=== PATIENT | male | born 1950 | race Caucasian/White ===

== ENCOUNTER 2020-08-18 10:06 | Outpatient (REF) | payer MEDICARE, SELFPAY ==
[2020-08-18 11:55] LABS: MANUAL DIFF FLAG NO
[2020-08-18 12:11] LABS: Basophils Absolute Auto 0.1 X10*3/uL (0.0-0.2); Basophils Percent Auto 1.1 % (0-2); Eosinophils Absolute Auto 0.5 X10*3/uL (0.0-0.4); Eosinophils Percent Auto 6.3 % (0-4); Hematocrit 45.3 % (42-52); Hemoglobin 15.2 g/dl (14.0-18.0); Imm Gran Abs Auto 0.02 X10*3/uL (0.00-0.03); Imm Gran Pct Auto 0.2 % (0.0-0.4); Lymphocytes Absolute Auto 1.9 X10*3/uL (1.2-4.9); Lymphocytes Percent Auto 22.9 % (20-40); Mean Corpuscular HGB Conc 33.6 g/dl (31.0-36.0); Mean Corpuscular Hemoglobin 30.2 pg (27.0-33.0); Mean Corpuscular Volume 90.1 fL (80-98); Mean Platelet Volume 9.8 fL (9.4-12.4); Monocytes Absolute Auto 0.6 X10*3/uL (0.1-1.2); Monocytes Percent Auto 7.6 % (2-11); Neutrophils Percent Auto 61.9 % (45-73); Platelet Count 533 X10*3/uL (160-400); Red Blood Count 5.03 X10*6/uL (4.60-5.80); Red Cell Distribution Width 12.1 % (11.0-16.0); White Blood Count 8.1 X10*3/uL (4.8-10.8)
[2020-08-18 12:35] LABS: SARS COV2 IgG Negative (Negative)
[2020-08-18 13:13] LABS: Erythrocyte Sedimentation Rate 2 MM/HR (0-15)
== END 2020-08-18 10:07 | disposition home or self-care (01) ==
LOC: HO.LAB 10:06
PROVIDERS: PCP Internal Medicine; Visit Provider Hospitalist
DX: J44.9 Chronic obstructive pulmonary disease, unspecified (principal); J31.0 Chronic rhinitis
CPT/HCPCS: 36415; 82785; 85025; 85652; 86003; 86769; 99212

== ENCOUNTER 2020-12-06 14:15 | Outpatient (REF) | payer MEDICARE, SELFPAY ==
[2020-12-06 15:30] LABS: MANUAL DIFF FLAG NO
[2020-12-06 15:38] LABS: Basophils Absolute Auto 0.1 X10*3/uL (0.0-0.2); Basophils Percent Auto 1.2 % (0-2); Eosinophils Absolute Auto 0.4 X10*3/uL (0.0-0.4); Eosinophils Percent Auto 3.6 % (0-4); Hematocrit 43.5 % (42-52); Hemoglobin 14.9 g/dl (14.0-18.0); Imm Gran Abs Auto 0.04 X10*3/uL (0.00-0.03); Imm Gran Pct Auto 0.4 % (0.0-0.4); Lymphocytes Absolute Auto 2.2 X10*3/uL (1.2-4.9); Lymphocytes Percent Auto 19.7 % (20-40); Mean Corpuscular HGB Conc 34.3 g/dl (31.0-36.0); Mean Corpuscular Hemoglobin 30.8 pg (27.0-33.0); Mean Corpuscular Volume 89.9 fL (80-98); Monocytes Absolute Auto 0.8 X10*3/uL (0.1-1.2); Monocytes Percent Auto 6.7 % (2-11); Neutrophils Absolute Auto 7.7 X10*3/uL (2.0-8.3); Neutrophils Percent Auto 68.4 % (45-73); Platelet Count 591 X10*3/uL (160-400); Red Blood Count 4.84 X10*6/uL (4.60-5.80); Red Cell Distribution Width 12.1 % (11.0-16.0); White Blood Count 11.3 X10*3/uL (4.8-10.8)
== END 2020-12-06 14:16 | disposition home or self-care (01) ==
LOC: HO.LAB 14:15
PROVIDERS: PCP Internal Medicine; Visit Provider Internal Medicine
DX: D47.3 Essential (hemorrhagic) thrombocythemia (principal)
CPT/HCPCS: 36415; 85025

== ENCOUNTER 2021-02-15 10:42 | Outpatient (REF) | payer MEDICARE, SELFPAY ==
--- NOTE | ~2021-02-15 | XR_ITS ---
EXAMINATION: XR CHEST CLINICAL INFORMATION: COPD COMPARISON: None TECHNIQUE: 2 views of the chest were obtained. FINDINGS: The lungs are well-expanded and clear of acute process. The heart size and pulmonary vascularity is normal. No gross bony abnormality seen.. XR/XR chest 2V IMPRESSION: Unremarkable chest examination.
--- NOTE | 2021-02-15 16:19 | PFT_ITS ---
FLOWS: FEV1 of 97% of predicted at 3.32 L. FVC 104% of predicted at 4.81 L. FEV1 to FVC ratio of 0.69. No bronchodilator testing was performed. LUNG VOLUMES: Total lung capacity 103% of predicted at 3.49 L. Residual volume 104% of predicted at 2.60 L. Slow vital capacity 103% of predicted at 4.89 L. Expiratory reserve volume 91% of predicted at 1.24 L. Diffusion capacity is mildly decreased, diffusion capacity adjust to normal after correction for alveolar ventilation. In comparison to pulmonary function test performed in December of 2013, FEV1 and FVC have been without significant changes; total lung capacity has decreased by 0.20 L; residual volume has decreased by 0.34 L; slow vital capacity and expiratory reserve volume have been without significant changes; diffusion capacity has decreased by 0.42 mL/minute/mmHg. IMPRESSION: Mild obstructive ventilatory defect. No bronchodilator testing was performed. MD NED Reed/MODL / [id number]
== END 2021-02-15 10:43 | disposition home or self-care (01) ==
LOC: HO.RESP 10:42
PROVIDERS: PCP Internal Medicine; Visit Provider Hospitalist
DX: J44.9 Chronic obstructive pulmonary disease, unspecified (principal)
CPT/HCPCS: 71046; 94010; 94727; 94729; 99212

== ENCOUNTER 2021-03-20 13:52 | Outpatient (RCR) | payer MEDICARE, SELFPAY ==
[2021-03-20 14:06] VITALS: BP 130/60; PULSE 71; O2SAT 97
== END 2021-08-17 12:40 | disposition home or self-care (01) ==
LOC: HO.PTWFD 13:52
PROVIDERS: Visit Provider Internal Medicine
DX: R42 Dizziness and giddiness (principal)
CPT/HCPCS: 97110; 97161

== ENCOUNTER 2021-06-05 08:17 | Outpatient (REF) | payer MEDICARE, SELFPAY ==
--- NOTE | ~2021-06-05 | FL_ITS ---
EXAMINATION: XR GI SERIES CLINICAL INFORMATION: Dysphagia. COMPARISON: None TECHNIQUE: Upper GI was performed using thin and thick barium and effervescent granules. FINDINGS: There is a small sliding-type hiatal hernia with Schatzki ring. There is mild gastroesophageal reflux. The stomach and duodenum are normal appearing. No fold thickening, mass, ulcer or stricture is seen. FLUOROSCOPY TIME: 1.6 minutes. DOSE AREA PRODUCT: 16 Gy-cm2. IMAGES: 35 saved fluoroscopic images. FL/FL upper GI series IMPRESSION: Small sliding-type hiatal hernia with Schatzki ring and mild gastroesophageal reflux.
[2021-06-05 09:02] LABS: MANUAL DIFF FLAG NO
[2021-06-05 09:17] LABS: Basophils Absolute Auto 0.1 X10*3/uL (0.0-0.2); Basophils Percent Auto 1.3 % (0-2); Eosinophils Absolute Auto 0.6 X10*3/uL (0.0-0.4); Eosinophils Percent Auto 7.7 % (0-4); Hematocrit 42.6 % (42-52); Hemoglobin 14.5 g/dl (14.0-18.0); Imm Gran Abs Auto 0.02 X10*3/uL (0.00-0.03); Imm Gran Pct Auto 0.3 % (0.0-0.4); Lymphocytes Percent Auto 25.1 % (20-40); Mean Corpuscular Hemoglobin 30.5 pg (27.0-33.0); Mean Corpuscular Volume 89.5 fL (80-98); Mean Platelet Volume 9.8 fL (9.4-12.4); Monocytes Absolute Auto 0.7 X10*3/uL (0.1-1.2); Neutrophils Absolute Auto 4.5 X10*3/uL (2.0-8.3); Neutrophils Percent Auto 56.6 % (45-73); Platelet Count 587 X10*3/uL (160-400); Red Blood Count 4.76 X10*6/uL (4.60-5.80); Red Cell Distribution Width 12.2 % (11.0-16.0); White Blood Count 7.9 X10*3/uL (4.8-10.8)
[2021-06-05 09:58] LABS: Folate 18.7 ng/mL (> or = 4.0); Vitamin B12 1300 pg/mL (200-900)
[2021-06-05 11:03] LABS: Alanine Aminotransferase 31 U/L (0-40); Albumin Level 4.2 g/dL (3.5-5.0); Alkaline Phosphatase 49 U/L (39-117); Anion Gap 10 (12-20); Aspartate Amino Transferase 36 U/L (5-37); Bilirubin Total 0.8 mg/dL (0.0-1.0); Blood Urea Nitrogen 18 mg/dL (9-16); Calcium 9.2 mg/dL (8.4-10.2); Carbon Dioxide 28 mmol/L (22-29); Chloride 104 mmol/L (96-108); Cholesterol 134 mg/dL; Estimated Glomerular Filt Rate > 60; Glucose Random 88 mg/dL (60-115); HDL Cholesterol 41 mg/dL; LDL Cholesterol Calculated 77 mg/dl; Potassium 5.4 mmol/L (3.3-5.1); Sodium 137 mmol/L (135-145); Total Protein 6.7 g/dL (6.5-8.0); Triglycerides 81 mg/dL
[2021-06-05 11:29] LABS: Free T4 (Free Thyroxine) 0.94 ng/dL (0.71-1.85); Thyroid Stimulating Hormone 1.78 uIU/mL (0.32-4.0)
[2021-06-05 12:45] LABS: Prostate Specific Antigen Scr 2.74 ng/mL (<0.05-4.0)
== END 2021-06-05 08:18 | disposition home or self-care (01) ==
LOC: HO.XRAY 08:17
PROVIDERS: PCP Internal Medicine; Visit Provider Internal Medicine
DX: Z12.5 Encounter for screening for malignant neoplasm of prostate (principal); R13.10 Dysphagia, unspecified; E78.00 Pure hypercholesterolemia, unspecified
CPT/HCPCS: 36415; 74240; 80053; 80061; 82607; 82746; 84153; 84439; 84443; 85025

== ENCOUNTER 2021-06-19 08:06 | Outpatient (REF) | payer MEDICARE, SELFPAY ==
[2021-06-19 09:16] LABS: Anion Gap 9 (12-20); Blood Urea Nitrogen 16 mg/dL (9-16); Calcium 9.5 mg/dL (8.4-10.2); Carbon Dioxide 29 mmol/L (22-29); Chloride 104 mmol/L (96-108); Estimated Glomerular Filt Rate > 60; Glucose Random 101 mg/dL (60-115); Potassium 5.1 mmol/L (3.3-5.1); Sodium 137 mmol/L (135-145)
== END 2021-06-19 08:07 | disposition home or self-care (01) ==
LOC: HO.LAB 08:06
PROVIDERS: PCP Internal Medicine; Visit Provider Internal Medicine
DX: E87.5 Hyperkalemia (principal)
CPT/HCPCS: 36415; 80048

== ENCOUNTER 2021-07-19 11:50 | Outpatient (REF) | payer MEDICARE, SELFPAY ==
[2021-07-19 14:39] LABS: Appearance Urine CLEAR; Color Urine YELLOW; Glucose Urine UA NEG (NEG); Leukocyte Esterase Urine NEG (NEG); Nitrite Urine NEG (NEG); Urine Blood NEG (NEG); Urine Ketones NEG (NEG); Urine Protein NEG (NEG-TRACE)
[2021-07-19 15:10] LABS: RBC Urine 0-2 /HPF (0); Urine Talc Crystals 1+ /LPF; WBC Urine 0 /HPF (0-4)
== END 2021-07-19 11:51 | disposition home or self-care (01) ==
LOC: HO.LAB 11:50
PROVIDERS: PCP Internal Medicine; Visit Provider Internal Medicine
DX: N40.0 Benign prostatic hyperplasia without lower urinary tract symptoms (principal)
CPT/HCPCS: 81001

== ENCOUNTER → 2021-07-30 13:54 | Outpatient (BNVA) | payer MEDICARE, SELFPAY | PROVIDERS: PCP Internal Medicine; Referring Provider Internal Medicine; Visit Provider Nurse Practitioner Family | DX: K21.9 Gastro-esophageal reflux disease without esophagitis (principal); K44.9 Diaphragmatic hernia without obstruction or gangrene; R13.10 Dysphagia, unspecified | CPT/HCPCS: 99202 ==

== ENCOUNTER 2021-08-08 14:49 | Outpatient (REF) | payer MEDICARE, SELFPAY ==
[2021-08-08 16:50] LABS: Hematocrit 43.7 % (42.0-52.0); Hemoglobin 14.9 g/dl (14.0-18.0); Mean Corpuscular HGB Conc 34.1 g/dl (31.0-36.0); Mean Corpuscular Hemoglobin 30.5 pg (27.0-33.0); Mean Corpuscular Volume 89.4 fL (80.0-98.0); Platelet Count 683 X10*3/uL (160-400); Red Blood Count 4.89 X10*6/uL (4.60-5.80); Red Cell Distribution Width 12.4 % (11.0-16.0); White Blood Count 9.3 X10*3/uL (4.8-10.8)
[2021-08-08 17:00] LABS: Anion Gap 11 (12-20); Blood Urea Nitrogen 23 mg/dL (9-16); Calcium 9.2 mg/dL (8.4-10.2); Carbon Dioxide 29 mmol/L (22-29); Chloride 101 mmol/L (96-108); Estimated Glomerular Filt Rate > 60; Glucose Random 95 mg/dL (60-115); Potassium 5.3 mmol/L (3.3-5.1); Sodium 136 mmol/L (135-145)
[2021-08-09 22:27] LABS: Cyclic Citrullinated Peptide <16 UNITS
== END 2021-08-08 14:50 | disposition home or self-care (01) ==
LOC: HO.HMGCLDS 14:49
PROVIDERS: Visit Provider Internal Medicine
DX: I10 Essential (primary) hypertension (principal)
CPT/HCPCS: 36415; 80048; 85027; 86200

== ENCOUNTER → 2021-08-23 09:56 | Outpatient (BNVA) | payer MEDICARE, SELFPAY | PROVIDERS: PCP Internal Medicine; Visit Provider Hospitalist | DX: J44.9 Chronic obstructive pulmonary disease, unspecified (principal); J31.0 Chronic rhinitis; R91.8 Other nonspecific abnormal finding of lung field | CPT/HCPCS: 99212 ==

== ENCOUNTER 2021-08-28 08:53 | Day surgery (SDC) | payer MEDICARE, SELFPAY ==
[2021-08-23 10:12] VITALS: BMI 26.6
--- NOTE | 2021-08-27 12:45 | HO.ANESPROP2 ---
Documented by User: Karley Dela Cruz NP 08/27/21 12:53 HPI - Anesthesia Eval Consult details Narrative: 71yo M for Upper Endoscopy [facility] Active Problems Active Problems: All Active Problems (Updated 06/05/21 @ 13:39 by Patricia Michel MD) Hyperkalemia (Acute) Dysphagia (Acute) Anxiety (Acute) Left knee pain (Acute) Pulmonary nodules (Acute) Vertigo (Acute) Thrombocytosis (Acute) Hypercholesterolemia (Acute) Hypertension (Acute) BPH (benign prostatic hyperplasia) (Acute) Chronic rhinitis (Acute) Asthma-COPD overlap syndrome (Acute) Past Medical History Medical History Asthma-COPD overlap syndrome BPH (benign prostatic hyperplasia) Chronic rhinitis Hypercholesterolemia Hypertension Pulmonary nodules Family History Family History Father Lung cancer Mother Hypertension Brother Brain cancer Daughter In good health Surgical History Surgical History History of knee surgery Hx of colonoscopy Social History Social History Housing: House Alcohol intake: never Patient Tobacco Use Status: Former Tobacco user Tobacco use type: Cigarette Years Smoked: 10 years e-Cigarette/Vaping Use: Never Used Second Hand Smoke Exposure: No Use of substances other than those prescribed or required for medical reasons: No Are you DNR?: No Advance Directives: No Advance Directives Information Provided: Yes service: No 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) Meds Allergies Allergy/AdvReac Type Severity Reaction Status Date / Time lisinopril Allergy Severe cough Verified 08/28/21 09:26 codeine [CODEINE] Allergy Intermediate GI UPSET, Verified 08/28/21 09:26 nausea/vomiting Home Medications Medication Instructions Recorded Confirmed Last Taken Type multivitamin 1 tab PO DAILY 08/08/21 Unknown History omega-3 fatty acids 1,000 mg 1,000 mg PO DAILY 08/08/21 08/27/21 10:00 History capsule aspirin 81 mg 08/28/21 08/26/21 10:00 History Exam Exam Date and Time: August 27, 2021 1245 Height,Weight and Vital Signs: Height 5 ft 11 in Weight 86.636 kg Pertinent Lab Results Pertinent Lab Results: Laboratory Tests 08/08/21 08/08/21 14:59 14:59 WBC 9.3 Hgb 14.9 Hct 43.7 Plt Count 683 H Sodium 136 Potassium 5.3 H Chloride 101 Carbon Dioxide 29 BUN 23 H Creatinine 1.12 Narrative Narrative: PFT 02/2021 IMPRESSION:? Mild obstructive ventilatory defect.? No bronchodilator testing was performed. Assessment and Plan Assessment Anesthesia Assessment: Chart Reviewed Documented by User: Julius Rodriguez MD 08/28/21 10:08 [facility] Past Medical History Medical History Asthma-COPD overlap syndrome BPH (benign prostatic hyperplasia) Chronic rhinitis Hypercholesterolemia Hypertension Pulmonary nodules Family History Family History Father Lung cancer Mother Hypertension Brother Brain cancer Daughter In good health Family history of problems with anesthesia: No Surgical History Surgical History History of knee surgery Hx of colonoscopy History of Problems with Anesthesia: Yes (PONV) Social History Social History Housing: House Alcohol intake: never Patient Tobacco Use Status: Former Tobacco user Tobacco use type: Cigarette Years Smoked: 10 years e-Cigarette/Vaping Use: Never Used Second Hand Smoke Exposure: No Use of substances other than those prescribed or required for medical reasons: No Are you DNR?: No Advance Directives: No Advance Directives Information Provided: Yes service: No 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) Meds Allergies Allergy/AdvReac Type Severity Reaction Status Date / Time lisinopril Allergy Severe cough Verified 08/28/21 09:26 codeine [CODEINE] Allergy Intermediate GI UPSET, Verified 08/28/21 09:26 nausea/vomiting Home Medications Medication Instructions Recorded Confirmed Last Taken Type multivitamin 1 tab PO DAILY 08/08/21 Unknown History omega-3 fatty acids 1,000 mg 1,000 mg PO DAILY 08/08/21 08/27/21 10:00 History capsule aspirin 81 mg 08/28/21 08/26/21 10:00 History Exam Airway Mallampati Class: II TM Dist: >3cm Neck ROM: Full Loose/Missing/Broken Teeth: No Assessment and Plan Assessment Anesthesia Assessment: Anesthesia Plan Discussed Final Anesthetic Review Family History of Problems with Anesthesia: No History of Problems with Anesthesia: Yes (PONV) NPO: Yes ASA Class: III Final Preanesthetic Review: No Changes in Pt Med Stat, Meds/Allgs Chart Reviewed, Consent Obtained/Reviewed and Anes Risks/Benef Reviewed Patient Risk: Intermediate Procedure Risk: Low Anesthetic Plan Anesthetic Plan: MAC: Disposition: Standard PACU
[2021-08-28 09:33] VITALS: BP 145/78; PULSE 74; RESP 20; TEMP 37; O2SAT 97
[2021-08-28] MEDS: Lactated Ringers 1,000 ML 100 ML IVCONT (09:45)
--- NOTE | 2021-08-28 10:42 | MHC.SHP ---
Pre-Procedural Eval Section A Date of Service: 08/28/21 The patient is an INPATIENT: No Changes since office visit: Yes Patient answered all questions; No Cold of Flu in the past 2 weeks, No New Medical Problems and No Changes in Medication The History & Physical has been completed within 30 days and I have reviewed it.: Yes Section B Chief Complaint: epigastric pain Allergies: Allergies Allergy/AdvReac Type Severity Reaction Status Date / Time lisinopril Allergy Severe cough Verified 08/28/21 09:26 codeine [CODEINE] Allergy Intermediate GI UPSET, Verified 08/28/21 09:26 nausea/vomiting Plan I have reviewed the history and physical and performed a pertinent physical examination on my patient. No changes have occurred unless specified.
--- NOTE | 2021-08-28 10:46 | P.BOP_ITS ---
Brief Operative Note Date of Service: 08/28/21 Pre-op diagnosis: GERD, dysphagia, dyspepsia, Shatzki's ring on barium swallow Post-op diagnosis: other (GERD, SCHATZKI'S RING, GASTRITIS) Procedure: FLEXIBLE TRANSORAL UPPER GASTROINTESTINAL ENDOSCOPY WITH BIOPSIES AND ESOPHAGEAL BALLOON DILATION Consent: Indications for the procedure and potential complications of bleeding, perforation, reaction to medications and missed diagnosis were discussed with the patient and informed consent was obtained. Instrument: Olympus GIF H 190 mid size upper endoscope Monitoring: Vital signs and clinical assessment, continuous EKG monitoring, Pulse oximetry, Carbon Dioxide monitoring and blood pressure monitoring were done throughout the procedure. Procedure: The patient was placed in the left lateral decubitis position and pre-procedure medications were administered and a bite block was placed. The endoscope was inserted into the mouth and advanced under direct vision to the third part of duodenum. A careful inspection was made as the upper endoscope was withdrawn including a retroflexed examination of the proximal stomach; Findings and interventions are described below. Findings: Larynx: Normal Esophagus: Tortuous esophagus with increased tertiary contractions - biopsies obtained from proximal esophagus to check for EOE. GE junction at 38 cms, small hiatal hernia 38 to 40 cms. No esophagitis or Barrios's. A minimally obstructing Schatzki's ring at GE junction. Balloon dilation was performed with 19 and 20 mm CRE balloon times 60 seconds at each level Stomach: Mild gastric erythema. Biopsies were obtained. Grade 2 flap valve on retroflexed examination of the cardia. Duodenum: Normal bulb and descending duodenum Intervention: Biopsies and balloon dilation as noted above Impression and Post Procedure Diagnosis: Endoscopy Findings: ESOPHAGUS: Tortuous esophagus with increased tertiary contractions - biopsies obtained from proximal esophagus to check for EOE. GE junction at 38 cms, small hiatal hernia 38 to 40 cms. No esophagitis or Barrios's. A minimally obstructing Schatzki's ring at GE junction. Balloon dilation was performed with 19 and 20 mm CRE balloon times 60 seconds at each level STOMACH: Mild gastritis Dysphagia is likely a combination of Schatzki's ring and esophageal motility disorder. Plan: Await pathology results Patient has an appointment on 09/11/21 in the GI Clinic with Isabell Lilly FNP- BC . Above findings were reviewed with the patient and GERD handout was given in the discharge area Surgeon: Hetal Rangel MD Anesthesia: MAC (Hailey Herrera CRNA) Was an Workday Manager used for this Procedure?: Yes Workday Manager: Nena Rivera Estimated blood loss (mL): 0 Pathology: other ( A. GASTRIC ANTRUM BX'S R/O H. PYLORI B. PROXIMAL ESOPHAGUS BX'S R/O EOE) Condition: stable Disposition: PACU
--- NOTE | 2021-08-28 10:47 | W.PM.OPN ---
Operative Note Operative Note Date of Service: 08/28/21 Narrative: Pre-op diagnosis:?GERD, dysphagia, dyspepsia, Shatzki's ring on barium swallow Post-op diagnosis:?other (GERD, SCHATZKI'S RING, GASTRITIS) Procedure:? FLEXIBLE TRANSORAL UPPER GASTROINTESTINAL? ENDOSCOPY WITH BIOPSIES AND ESOPHAGEAL BALLOON DILATION Consent:?Indications for the procedure and potential complications of bleeding, perforation, reaction to medications and missed diagnosis were discussed with the patient and informed consent was obtained. Instrument:?Olympus GIF H 190 mid size upper endoscope Monitoring: Vital signs and clinical assessment, continuous EKG monitoring, Pulse oximetry, Carbon Dioxide monitoring and blood pressure monitoring were done throughout the procedure. Procedure:?The patient was placed in the left lateral decubitis position and pre-procedure medications were administered and a bite block was placed. The endoscope was inserted into the mouth and advanced under direct vision to the third part of duodenum. A careful inspection was made as the upper endoscope was withdrawn including a retroflexed examination of the proximal stomach; Findings and interventions are described below. Findings: Larynx:? Normal Esophagus:? Tortuous esophagus with increased tertiary contractions - biopsies obtained from proximal esophagus to check for EOE.? GE? junction at 38 cms, small hiatal hernia 38 to 40 cms.? No esophagitis or Barrios's.? A minimally obstructing Schatzki's ring at GE junction.? Balloon dilation was performed with 19 and 20 mm CRE balloon times 60 seconds at each level Stomach: Mild gastric erythema. Biopsies were obtained. Grade 2 flap valve on retroflexed examination of the cardia. Duodenum: Normal bulb and descending duodenum Intervention: Biopsies and balloon dilation as noted above Impression and Post Procedure Diagnosis: Endoscopy Findings: ESOPHAGUS: Tortuous esophagus with increased tertiary contractions - biopsies obtained from proximal esophagus to check for EOE.? GE? junction at 38 cms, small hiatal hernia 38 to 40 cms.? No esophagitis or Barrios's.? A minimally obstructing Schatzki's ring at GE junction.? Balloon dilation was performed with 19 and 20 mm CRE balloon times 60 seconds at each level STOMACH: Mild gastritis Dysphagia is likely a combination of Schatzki's ring and esophageal motility disorder. Plan: Await pathology results Patient has an appointment on 09/11/21 in the GI Clinic with Isabell Lilly FNP-BC . Above findings were reviewed with the patient and GERD handout was given in the discharge area Surgeon:?Hetal Rangel MD Anesthesia:?MAC (Hailey Herrera CRNA) Was an Director Of Veterans Affairs used for this Procedure?:?Yes Director Of Veterans Affairs:?Nena Rivera Estimated blood loss (mL):?0 Pathology:?other ( A. GASTRIC ANTRUM BX'S R/O H. PYLORI? B. PROXIMAL ESOPHAGUS BX'S R/O EOE) Condition:?stable Disposition:?PACU
[2021-08-28 11:20] VITALS: BP 114/68; PULSE 72; RESP 16; TEMP 36.4; O2SAT 96
[2021-08-28 11:35] VITALS: BP 130/73; PULSE 65; RESP 16; TEMP 36.4; O2SAT 96
[2021-08-28 11:46] VITALS: BP 123/72; PULSE 62; RESP 16; O2SAT 96
== END 2021-08-28 12:30 | disposition home or self-care (01) ==
PROVIDERS: PCP Internal Medicine; Visit Provider Internal Medicine Gastroenterology
PROC: 0DJ08ZZ Inspection of Upper Intestinal Tract, Via Natural or Artificial Opening Endoscopic (ICD-10-PCS; CPT 43235; principal; 2021-08-28 10:10)
DX: R10.13 Epigastric pain (principal); K22.2 Esophageal obstruction; K29.50 Unspecified chronic gastritis without bleeding; K21.9 Gastro-esophageal reflux disease without esophagitis; K44.9 Diaphragmatic hernia without obstruction or gangrene; J44.9 Chronic obstructive pulmonary disease, unspecified; J31.0 Chronic rhinitis; I10 Essential (primary) hypertension; E87.5 Hyperkalemia; R91.8 Other nonspecific abnormal finding of lung field; Z79.51 Long term (current) use of inhaled steroids; Z79.82 Long term (current) use of aspirin; Z79.899 Other long term (current) drug therapy; Z88.8 Allergy status to other drugs, medicaments and biological substances; Z87.891 Personal history of nicotine dependence
CPT/HCPCS: 43249; 43239; 88305; 88342; C1726; J3010

== ENCOUNTER → 2021-09-07 13:01 | Outpatient (BNV) | payer MEDICARE, SELFPAY | PROVIDERS: PCP Internal Medicine; Referring Provider Internal Medicine; Visit Provider Internal Medicine Medical Oncology | DX: D47.3 Essential (hemorrhagic) thrombocythemia (principal) | CPT/HCPCS: 99203; 99213 ==

== ENCOUNTER → 2021-09-11 13:45 | Outpatient (BNVA) | payer MEDICARE, SELFPAY | PROVIDERS: PCP Internal Medicine; Referring Provider Internal Medicine; Visit Provider Nurse Practitioner Family | DX: K22.2 Esophageal obstruction (principal); K21.9 Gastro-esophageal reflux disease without esophagitis; R13.19 Other dysphagia | CPT/HCPCS: 99212 ==

== ENCOUNTER 2021-10-22 10:51 | Outpatient (REF) | payer MEDICARE, SELFPAY ==
--- NOTE | ~2021-10-22 | CT_ITS ---
EXAMINATION: CT CHEST WITHOUT CONTRAST CLINICAL INFORMATION: Pulmonary nodules COMPARISON: None TECHNIQUE: Multidetector volumetric CT imaging of the chest was done. Axial MIP volume rendering provided. Sagittal and coronal reformatted images were obtained. This CT examination was performed using dose optimization techniques as appropriate, variously including the following: *Automated exposure control *Adjustment of mA and/or kV according to patient size (this includes techniques or standardized protocols for targeted exams where dose is matched to indication/reason for exam; i.e. extremities or head) *Use of iterative reconstruction technique DLP: 180 mGy-cm FINDINGS: LUNGS/PLEURA: Biapical pleural parenchymal scarring. Mild emphysematous changes. 4 mm nodule in the posterior aspect of the right upper lobe (series 7, image 190). 2 mm nodule in the medial aspect of the right lower lobe (series 7, image 294). 2 mm nodule in the anterior aspect of the left upper lobe (series 7, image 148). 3 mm nodule in the posterolateral subpleural region of the left lower lobe (series 7, image 405). Central airways are patent. No pneumothorax. Bibasilar atelectasis. No large pleural effusion. MEDIASTINUM: Heart is not enlarged. No pericardial effusion. Aorta is nonaneurysmal. Main pulmonary artery is not enlarged. Coronary artery calcifications are noted. No enlarged lymph nodes per size criteria. Multiple subcentimeter tracheal, precarinal, and periaortic lymph nodes are noted, not enlarged per size criteria. Visualized portions of the thyroid are unremarkable. AXILLA: Bilateral mildly prominent though not enlarged axillary lymph nodes are noted the largest measuring up to 7 mm in short axis. UPPER ABDOMEN: Mild fecal loading of the colon. Small to moderate hiatal hernia. OSSEOUS STRUCTURES: Slight dextrocurvature of the thoracic spine. Mild multilevel degenerative changes of the thoracolumbar spine. No large lytic or blastic lesions are noted. CT/CT chest wo con IMPRESSION: 1. Bilateral micropulmonary nodules are identified the largest measuring 4 mm. Follow-up as per Fleischner criteria. 2. Small to moderate hiatal hernia. Various management parameters for solitary pulmonary nodules are in the literature. According to the Fleischner Society, recommendations for pulmonary nodules are as follows: According to the UPDATED 2017 Fleischner Society recommendations, the advised follow-up imaging for solid nodules < 6 mm is: LOW RISK PATIENT: No routine follow-up. HIGH RISK PATIENT: Optional CT at 12 months.
== END 2021-10-22 10:52 | disposition home or self-care (01) ==
LOC: HO.CT 10:51
PROVIDERS: PCP Internal Medicine; Visit Provider Hospitalist
DX: R91.8 Other nonspecific abnormal finding of lung field (principal); K44.9 Diaphragmatic hernia without obstruction or gangrene
CPT/HCPCS: 71250

== ENCOUNTER → 2021-11-21 10:06 | Outpatient (BNVA) | payer MEDICARE, SELFPAY | PROVIDERS: PCP Internal Medicine; Visit Provider Hospitalist | DX: J44.9 Chronic obstructive pulmonary disease, unspecified (principal); J31.0 Chronic rhinitis; R91.8 Other nonspecific abnormal finding of lung field | CPT/HCPCS: 99212 ==

== ENCOUNTER → 2021-12-10 13:24 | Outpatient (BNVA) | payer MEDICARE, SELFPAY | PROVIDERS: PCP Internal Medicine; Referring Provider Internal Medicine; Visit Provider Nurse Practitioner Family | DX: K22.2 Esophageal obstruction (principal); K21.9 Gastro-esophageal reflux disease without esophagitis; R13.19 Other dysphagia | CPT/HCPCS: 99212 ==

== ENCOUNTER 2021-12-14 15:24 | Outpatient (REF) | payer MEDICARE, SELFPAY ==
[2021-12-14 15:52] LABS: MANUAL DIFF FLAG NO
[2021-12-14 16:14] LABS: Basophils Absolute Auto 0.2 X10*3/uL (0.0-0.2); Basophils Percent Auto 1.3 % (0-2); Eosinophils Absolute Auto 0.4 X10*3/uL (0.0-0.4); Eosinophils Percent Auto 3.6 % (0-4); Hematocrit 42.2 % (42.0-52.0); Hemoglobin 14.1 g/dl (14.0-18.0); Imm Gran Abs Auto 0.05 X10*3/uL (0.00-0.03); Imm Gran Pct Auto 0.4 % (0.0-0.4); Lymphocytes Absolute Auto 1.9 X10*3/uL (1.2-4.9); Lymphocytes Percent Auto 16.2 % (20-40); Mean Corpuscular HGB Conc 33.4 g/dl (31.0-36.0); Mean Corpuscular Hemoglobin 29.9 pg (27.0-33.0); Mean Corpuscular Volume 89.4 fL (80.0-98.0); Mean Platelet Volume 10.1 fL (9.4-12.4); Monocytes Absolute Auto 0.8 X10*3/uL (0.1-1.2); Monocytes Percent Auto 6.9 % (2-11); Neutrophils Absolute Auto 8.5 x10*3/uL (2.0-8.3); Neutrophils Percent Auto 71.6 % (45-73); Platelet Count 716 X10*3/uL (160-400); Red Blood Count 4.72 X10*6/uL (4.60-5.80); Red Cell Distribution Width 12.6 % (11.0-16.0); White Blood Count 11.8 X10*3/uL (4.8-10.8)
[2021-12-14 17:00] LABS: Alanine Aminotransferase 34 U/L (0-40); Albumin Level 4.3 g/dL (3.5-5.0); Alkaline Phosphatase 56 U/L (39-117); Anion Gap 14 (12-20); Aspartate Amino Transferase 38 U/L (5-37); Bilirubin Total 0.6 mg/dL (0.0-1.0); Blood Urea Nitrogen 19 mg/dL (9-16); Calcium 9.5 mg/dL (8.4-10.2); Carbon Dioxide 27 mmol/L (22-29); Chloride 101 mmol/L (96-108); Estimated Glomerular Filt Rate > 60; Glucose Random 86 mg/dL (60-115); Potassium 5.6 mmol/L (3.3-5.1); Sodium 136 mmol/L (135-145); Total Protein 7.2 g/dL (6.5-8.0)
[2021-12-14 17:05] LABS: Erythrocyte Sedimentation Rate 2 MM/HR (0-15)
[2021-12-17 19:07] LABS: Immunoglobulin E 83 kU/L (<OR=114)
== END 2021-12-14 15:25 | disposition home or self-care (01) ==
LOC: HO.LAB 15:24
PROVIDERS: Absent Provider Internal Medicine; PCP Internal Medicine; Visit Provider Hospitalist
DX: E87.5 Hyperkalemia (principal); D47.3 Essential (hemorrhagic) thrombocythemia; R91.8 Other nonspecific abnormal finding of lung field
CPT/HCPCS: 36415; 80053; 82785; 85025; 85652

== ENCOUNTER 2022-01-14 12:40 | Outpatient (REF) | payer MEDICARE, SELFPAY ==
[2022-01-14 13:58] LABS: Anion Gap 14 (12-20); Blood Urea Nitrogen 19 mg/dL (9-16); Calcium 9.6 mg/dL (8.4-10.2); Carbon Dioxide 25 mmol/L (22-29); Chloride 103 mmol/L (96-108); Estimated Glomerular Filt Rate > 60; Glucose Random 76 mg/dL (60-115); Potassium 5.6 mmol/L (3.3-5.1); Sodium 136 mmol/L (135-145)
== END 2022-01-14 12:41 | disposition home or self-care (01) ==
LOC: HO.LAB 12:40
PROVIDERS: PCP Internal Medicine; Visit Provider Internal Medicine
DX: E78.5 Hyperlipidemia, unspecified (principal)
CPT/HCPCS: 36415; 80048

== ENCOUNTER → 2022-07-23 15:20 | Outpatient (BNVA) | payer MEDICARE, SELFPAY | PROVIDERS: PCP Internal Medicine; Visit Provider Hospitalist | DX: J44.0 Chronic obstructive pulmonary disease with (acute) lower respiratory infection (principal); U07.1 COVID-19 | CPT/HCPCS: Q3014 ==

== ENCOUNTER 2022-08-06 10:45 | Outpatient (REF) | payer MEDICARE, SELFPAY ==
--- NOTE | ~2022-08-06 | XR_ITS ---
EXAMINATION: XR CHEST CLINICAL INFORMATION: Covid infection COMPARISON: Previous chest x-ray February [address] October 2021 TECHNIQUE: 2 views of the chest were obtained. FINDINGS: No significant abnormality is noted involving the heart, lungs, mediastinum, bony thorax or soft tissues. Small pulmonary nodules seen by chest CT are not appreciated by chest x-ray. Mild degenerative changes of the spine. XR/XR chest 2V IMPRESSION: No evidence for acute disease in the chest.
== END 2022-08-06 10:46 | disposition home or self-care (01) ==
LOC: HO.XRAY 10:45
PROVIDERS: PCP Internal Medicine; Visit Provider Internal Medicine
DX: U07.1 COVID-19 (principal)
CPT/HCPCS: 71046

== ENCOUNTER → 2022-08-21 11:25 | Outpatient (BNVA) | payer MEDICARE, SELFPAY | PROVIDERS: PCP Internal Medicine; Visit Provider Nurse Practitioner Family | DX: R13.19 Other dysphagia (principal); K59.00 Constipation, unspecified | CPT/HCPCS: 99212 ==

== ENCOUNTER 2022-11-12 12:43 | Outpatient (REF) | payer MEDICARE, SELFPAY ==
--- NOTE | 2022-11-12 16:25 | PFT_ITS ---
FINDINGS: Forced vital capacity 89%, FEV1 83%, and FEV1/FVC ratio is 68. PMD34-47 58% and MVV 94%. Postbronchodilator therapy, there is a slight improvement in [id number]. Total lung capacity 94%. Residual volume 101%. Diffusion capacity 71%. CONCLUSION: 1. Mild obstructive airway disorder. 2. Minimal improvement after bronchodilator therapy is noted. 3. Clinical correlation recommended. MD REINA Jeffrey/REHAN / [id number]
== END 2022-11-12 12:44 | disposition home or self-care (01) ==
LOC: HO.RESP 12:43
PROVIDERS: PCP Internal Medicine; Visit Provider Hospitalist
DX: J44.9 Chronic obstructive pulmonary disease, unspecified (principal)
CPT/HCPCS: 94060; 94727; 94729

== ENCOUNTER → 2022-11-19 14:03 | Outpatient (BNVA) | payer MEDICARE, SELFPAY | PROVIDERS: PCP Internal Medicine; Visit Provider Hospitalist | DX: J41.0 Simple chronic bronchitis (principal); J31.0 Chronic rhinitis; R91.8 Other nonspecific abnormal finding of lung field; Z79.899 Other long term (current) drug therapy | CPT/HCPCS: 99212 ==

== ENCOUNTER 2022-12-12 15:03 | Outpatient (REF) | payer MEDICARE, SELFPAY ==
--- NOTE | ~2022-12-12 | CT_ITS ---
EXAMINATION: CT CHEST WITHOUT CONTRAST CLINICAL INFORMATION: R91.8 - Other nonspecific abnormal finding of lung field. Small pulmonary nodules on prior CT. COMPARISON: Chest radiograph 08/06/2022, CT chest noncontrast 10/22/2021 TECHNIQUE: Multidetector volumetric CT imaging of the chest is performed without intravenous contrast. Axial MIP volume rendering provided. Sagittal and coronal reformatted images were obtained. This CT examination was performed using dose optimization techniques as appropriate, variously including the following: *Automated exposure control *Adjustment of mA and/or kV according to patient size (this includes techniques or standardized protocols for targeted exams where dose is matched to indication/reason for exam; i.e. extremities or head) *Use of iterative reconstruction technique DLP: 176 mGy-cm FINDINGS: MANAGER COSMETICS: Unremarkable LUNGS: The central airways are clear and there is no endobronchial lesion or bronchiectasis. No airspace consolidation or groundglass opacity. Left lung has no interval mass or pulmonary nodule. Tiny subpleural nodule left posterior lateral base under 4 mm is stable, series 5/4 4. There are 2 stable foci versus likely branching vasculature left upper lobe under 4 mm, medial series 5/88 and lateral series 5/129. Right lung is no interval mass or pulmonary nodule. Again, there is a stable nodule posterior right upper lobe just under 4 mm with central calcification suggesting granuloma, series 5/147. There is also focal stable pleural-based linear calcification right anterior base, series 5/436. MEDIASTINUM: No hilar or mediastinal adenopathy. Thoracic aorta normal in caliber. Heart size normal. No pericardial effusion. CORONARY ARTERY CALCIFICATION: Present, similar to prior exam. PLEURA: There is no pleural effusion. No pleural mass or thickening. AXILLA: No lymphadenopathy. UPPER ABDOMEN: Unremarkable. OSSEOUS STRUCTURES: No acute bony abnormality. Old healed fractures left posterior 10th and right anterior eighth ribs. Degenerative changes upper lumbar spine L1-L2 and L2-L3. CT/CT chest wo IV con IMPRESSION: -Small stable nodularity 4 mm and a reminder, similar to prior CT 10/22/2021. -No interval mass or pulmonary nodule. No adenopathy or effusion. -No additional follow-up required based on Fleischner guidelines (below). Reference: The Fleischner Society recommendations for management of incidentally detected pulmonary nodules in adults age 35 and greater are based on average nodule size and patient risk category. The recommendations do not apply to lung cancer screening, patients with immunosuppression, or patients with known primary cancer. Multiple solid nodules average size < 6 mm: Low Risk Patient: No routine follow-up. High Risk Patient: Optional CT at 12 months. Use most suspicious nodule as guide to management. Follow-up intervals may vary according to size and risk.
== END 2022-12-12 15:04 | disposition home or self-care (01) ==
LOC: HO.CT 15:03
PROVIDERS: Visit Provider Hospitalist
DX: R91.8 Other nonspecific abnormal finding of lung field (principal)
CPT/HCPCS: 71250

== ENCOUNTER 2022-12-19 08:54 | Outpatient (REF) | payer MEDICARE, SELFPAY ==
[2022-12-19 10:10] LABS: Alanine Aminotransferase 28 U/L (0-40); Albumin Level 4.3 g/dL (3.5-5.0); Alkaline Phosphatase 62 U/L (39-117); Anion Gap 14 (12-20); Aspartate Amino Transferase 26 U/L (5-37); Bilirubin Total 0.7 mg/dL (0.0-1.0); Blood Urea Nitrogen 14 mg/dL (9-16); Calcium 9.2 mg/dL (8.4-10.2); Carbon Dioxide 27 mmol/L (22-29); Chloride 105 mmol/L (96-108); Cholesterol 126 mg/dL; Estimated Glomerular Filt Rate > 60; Glucose Fasting 90 mg/dL (60-99); HDL Cholesterol 43 mg/dL; LDL Cholesterol Calculated 68 mg/dl; Potassium 5.6 mmol/L (3.3-5.1); Sodium 140 mmol/L (135-145); Total Protein 6.7 g/dL (6.5-8.0); Triglycerides 75 mg/dL
== END 2022-12-19 08:55 | disposition home or self-care (01) ==
LOC: HO.LAB 08:54
PROVIDERS: PCP Internal Medicine; Visit Provider Nurse Practitioner Family
DX: E78.00 Pure hypercholesterolemia, unspecified (principal); I10 Essential (primary) hypertension
CPT/HCPCS: 36415; 80053; 80061

== ENCOUNTER 2022-12-26 09:44 | Outpatient (REF) | payer MEDICARE, SELFPAY ==
[2022-12-26 11:17] LABS: Anion Gap 13 (12-20); Blood Urea Nitrogen 12 mg/dL (9-16); Calcium 8.9 mg/dL (8.4-10.2); Carbon Dioxide 25 mmol/L (22-29); Chloride 105 mmol/L (96-108); Estimated Glomerular Filt Rate > 60; Glucose Random 87 mg/dL (60-115); Potassium 5.3 mmol/L (3.3-5.1); Sodium 138 mmol/L (135-145)
== END 2022-12-26 09:45 | disposition home or self-care (01) ==
LOC: HO.LAB 09:44
PROVIDERS: PCP Internal Medicine; Visit Provider Nurse Practitioner Family
DX: E87.5 Hyperkalemia (principal)
CPT/HCPCS: 36415; 80048

== ENCOUNTER 2023-08-07 12:49 | Outpatient (AMB) | payer MEDICARE, SELFPAY ==
--- NOTE | 2023-08-07 12:59 | MHC.OFFVIS ---
Intake Intake Visit Reasons: Hypertension Allergies lisinopril Allergy (Severe, Verified 05/09/23 12:52) cough codeine [CODEINE] Allergy (Intermediate, Verified 05/09/23 12:52) GI UPSET, nausea/vomiting losartan Adverse Reaction (Intermediate, Verified 05/09/23 12:52) hyperkalemia PFSH Medical History Asthma-COPD overlap syndrome BPH (benign prostatic hyperplasia) Chronic rhinitis Hypercholesterolemia Hypertension Pulmonary nodules Pulmonary nodules Surgical History History of endoscopy History of knee surgery Hx of colonoscopy Family History Father Lung cancer Mother Hypertension Brother Brain cancer Daughter In good health Social History Household Members: Spouse Housing: House Are you a primary childcare provider to a significant other at home: No Do you presently have visiting nurse or other home services: No Alcohol intake: never Patient Tobacco Use Status: Former Tobacco user Tobacco use type: Cigarette Years Smoked: 10 years e-Cigarette/Vaping Use: Never Used Second Hand Smoke Exposure: No service: No Current occupational status: retired Cognitive needs: No Hearing needs: No Vision needs: No 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
[2023-08-07 13:00] VITALS: BP 148/82; PULSE 80; O2SAT 98; BMI 25.4
--- NOTE | 2023-08-07 13:00 | A.OFFPC_ITS ---
Vital Signs 08/07/23 13:00 08/07/23 13:12 Height 5 ft 11 in Weight 182 lb BMI 25.4 BP 148/82 H 138/80 Blood Pressure Location Lt brachial Lt brachial Position Sitting Sitting Pulse 80 Pulse Source Pulse Oximeter Pulse Oximetry (%) 98 Oxygen Delivery Method Room Air Intake Visit Reasons: Hypertension Allergies lisinopril Allergy (Severe, Verified 08/07/23 13:01) cough codeine [CODEINE] Allergy (Intermediate, Verified 08/07/23 13:01) GI UPSET, nausea/vomiting losartan Adverse Reaction (Intermediate, Verified 08/07/23 13:01) hyperkalemia Medication List - Last Reconciled 08/07/23 by Patricia Michel MD albuterol sulfate 90 mcg/actuation 2 puffs PO Q6H PRN amlodipine 2.5 mg PO DAILY 90 days [aspirin 81 mg PO DAILY] atorvastatin 40 mg PO DAILY bupropion HCl (Wellbutrin SR) 150 mg PO DAILY 90 days famotidine (Pepcid) 20 mg PO BEDTIME fluoxetine 40 mg PO DAILY fluticasone propionate 50 mcg/actuation 2 sprays intranasal DAILY 30 days melatonin 10 mg PO BEDTIME PRN montelukast 10 mg PO DAILY 90 days multivitamin 1 tab PO DAILY omega-3 fatty acids 1,000 mg PO DAILY pantoprazole 40 mg PO DAILY Symbicort 160-4.5 mcg/actuation (budesonide-formoterol) 2 puffs inhalation BID NS tamsulosin (Flomax) 0.4 mg PO DAILY Tobacco use date assessed: 12/18/22 Fall risk assessment: No Falls in past year Last assessed Fall Risk: 08/07/23 Dental Screening Dental Screen Date: 08/07/23 Did you have a dental visit in the last 12 months?: Yes Did you have a dental problem in the last 6 months where you did not have access to dental care?: No Was dental information given to patient?: Patient has dentist HPI Hypertension HPI Details 73-year-old male with a history of Schat zki's ring hypertension, hypercholesterolemia BPH asthma COPD overlap syndrome coming in for follow-up. Patient had hyperkalemia and was sent to nephrology diagnosis of pseudo hyperkalemia due to the high platelet Last seen in December 2021. Patient has thrombocytosis and was referred to hematology oncology presently on monitoring taking baby aspirin once a day with the option of Hydrea therapy. Patient also being followed up by Pulmonary had a CT scan of the chest stable 4 mm nodule subpleural left, and posterior right upper lobe for the asthma COPD continuing with Symbicort and Flonase nose spray give. PFT showing mild obstructive airway disease minimal improvement with bronchodilator. Patient has also met with gastroenterology in August 2022 dysphagia is better and for the GERD pantoprazole and famotidine PFSH Medical History Asthma-COPD overlap syndrome BPH (benign prostatic hyperplasia) Chronic rhinitis Hypercholesterolemia Hypertension Pulmonary nodules Pulmonary nodules Surgical History History of endoscopy History of knee surgery Hx of colonoscopy Family History Father Lung cancer Mother Hypertension Brother Brain cancer Daughter In good health Social History Household Members: Spouse Housing: House Are you a primary care clinician to a significant other at home: No Do you presently have visiting nurse or other home services: No Alcohol intake: never Patient Tobacco Use Status: Former Tobacco user Tobacco use type: Cigarette Years Smoked: 10 years e-Cigarette/Vaping Use: Never Used Second Hand Smoke Exposure: No service: No Current occupational status: retired Cognitive needs: No Hearing needs: No Vision needs: Yes Questionnaire PHQ-9 Over the last 2 weeks, how often have you been bothered by any of the following problems? 1. Little interest or pleasure in doing things: not at all 2. Feeling down, depressed, or hopeless: not at all 3. Trouble falling or staying asleep, or sleeping too much: not at all 4. Feeling tired or having little energy: not at all 5. Poor appetite or overeating: not at all 6. Feeling bad about yourself - or that you are a failure or have let yourself or your family down: not at all 7. Trouble concentrating on things, such as reading the newspaper or watching television: not at all 8. Moving or speaking so slowly that other people could have noticed. Or the opposite - being so fidgety or restless that you have been moving around a lot more than usual: not at all 9. Thoughts that you would be better off or of hurting yourself in some way: not at all Total score: 0 Depression Screening Interpretation: Negative Depression Screening Done: Yes 16862 - PHQ-9 Billing: Yes Source: Developed by Drs. Rajan Fry, Neetu Torres, Ziggy Contreras and colleagues, with an educational gloria from [employer]. Thrive Questionnaire Date Thrive assessed: 12/18/22 AUDIT C Alcohol Use Questionnaire (AUDIT-C) 1. How often do you have a drink containing alcohol?: Never 3. How often do you have six or more drinks on one occasion?: Never Total Score: 0 Score Reviewed/Action Taken: No DEBORAH-7 AMB Questionnaire DEBORAH-7 Date DEBORAH - 7 assessed: 12/18/22 Source: Developed by Drs. Rajan Fry, Neetu Torres, Ziggy Contreras and colleagues, with an educational gloria from [employer]. Physical exam (Primary Care) Vital Signs: Oxygen Delivery Method Room Air 08/07/23 13:00 Tobacco/Smoking Status: Tobacco use Status Tobacco use date assessed 12/18/22 12/18/22 08:28 Patient Tobacco Use Status Former Tobacco user 12/18/22 08:28 Tobacco use type Cigarette 12/18/22 08:28 e-Cigarette/Vaping Use Never Used 12/18/22 08:28 Depression Screening Interpretation: Negative Thrive Assessment: Date of Thrive Assessment Date Thrive assessed 12/18/22 12/18/22 08:28 Const General: alert; No acute distress Eyes Conjunctivae: conjunctivae normal Resp Auscultation: clear to auscultation bilaterally Cardio Rate: regular rate Rhythm: regular rhythm GI Inspection: Yes normal to inspection Extrem General: Yes normal to inspection and No edema Assessment and Plan Assessment & Plan (1) Asthma-COPD overlap syndrome: Code(s): J44.9 - Chronic obstructive pulmonary disease, unspecified Plan: Patient continue to follow-up with Pulmonary had a recent CT scan with stable pulmonary nodules. Patient on the inhaler (2) Hypertension: Code(s): I10 - Essential (primary) hypertension Qualifiers: Hypertension type: essential hypertension Qualified Code(s): I10 - Essential (primary) hypertension Plan: Continue with blood pressure medication. Decrease salt intake and exercise takes 1 amlodipine 2.5 mg once a day (3) Hypercholesterolemia: Code(s): E78.00 - Pure hypercholesterolemia, unspecified Plan: Avoid fried foods, chicken skin, eggs, butter margarine, pastries and meat. Be it pork or beef they have a lot of cholesterol on atorvastatin 40 mg once a day (4) BPH (benign prostatic hyperplasia): Code(s): N40.0 - Benign prostatic hyperplasia without lower urinary tract symptoms Plan: Continue with medication tamsulosin (5) Thrombocytosis: Code(s): D47.3 - Essential (hemorrhagic) thrombocythemia Plan: Patient being followed up by Hematology-Oncology. Option of Hydrea therapy (6) Hyperkalemia: Code(s): E87.5 - Hyperkalemia Plan: Patient follows up with Nephrology. Hyperkalemia related to thrombocytosis (7) Generalized anxiety disorder: Code(s): F41.1 - Generalized anxiety disorder Plan: Continue with fluoxetine (8) GERD (gastroesophageal reflux disease): Code(s): K21.9 - Gastro-esophageal reflux disease without esophagitis Plan: Avoid the foods that causes that usually spicy foods, tomato products, juices, coffee, soda and foods that your sensitive to. After eating do not lie down, allow 3-4 hours before in lie down. And keep the head of bed above 30 degrees to avoid the acid from going up. On pantoprazole and famotidine Orders: Orders Comprehensive Met. Panel 5 Months E78.00 - Pure hypercholesterolemia, unspecified Free T4 (Free Thyroxine) 5 Months E78.00 - Pure hypercholesterolemia, unspecified Vitamin B12 and Folate 5 Months E78.00 - Pure hypercholesterolemia, unspecified Lipid Panel 5 Months E78.00 - Pure hypercholesterolemia, unspecified Complete Blood Count Auto Diff 5 Months E78.00 - Pure hypercholesterolemia, unspecified Thyroid Stimulating Hormone 5 Months E78.00 - Pure hypercholesterolemia, unspecified Medications: Refilled amlodipine 2.5 mg PO DAILY 90 days 90 tabs 2RF I10 - Essential (primary) hypertension fluoxetine 40 mg PO DAILY 90 caps 2RF Coding Level of Care Code Est Pt Level 4 (41563) Diagnoses Asthma-COPD overlap syndrome J44.9 Essential hypertension I10 Hypertension type: essential hypertension Hypercholesterolemia E78.00 BPH (benign prostatic hyperplasia) N40.0 Thrombocytosis D47.3 Hyperkalemia E87.5 Generalized anxiety disorder F41.1 GERD (gastroesophageal reflux disease) K21.9
[2023-08-07 13:12] VITALS: BP 138/80
== END 2023-08-07 13:26 | disposition home or self-care (01) ==
PROVIDERS: Visit Provider Internal Medicine
DX: I10 Essential (primary) hypertension (principal); J44.9 Chronic obstructive pulmonary disease, unspecified; D47.3 Essential (hemorrhagic) thrombocythemia; E78.00 Pure hypercholesterolemia, unspecified; N40.0 Benign prostatic hyperplasia without lower urinary tract symptoms; E87.5 Hyperkalemia; F41.1 Generalized anxiety disorder; K21.9 Gastro-esophageal reflux disease without esophagitis
CPT/HCPCS: 99214

== ENCOUNTER → 2023-08-13 09:54 | Outpatient (BNVA) | payer MEDICARE, SELFPAY | PROVIDERS: Visit Provider Nurse Practitioner Family ==

== ENCOUNTER 2023-08-19 09:04 | Outpatient (REF) | payer MEDICARE, SELFPAY ==
[2023-08-19 09:17] LABS: MANUAL DIFF FLAG NO
[2023-08-19 09:20] LABS: Basophils Absolute Auto 0.2 X10*3/uL (0.0-0.2); Basophils Percent Auto 2.1 % (0-2); Eosinophils Absolute Auto 0.5 X10*3/uL (0.0-0.4); Eosinophils Percent Auto 5.5 % (0-4); Hematocrit 40.8 % (42.0-52.0); Hemoglobin 13.7 g/dl (14.0-18.0); Imm Gran Abs Auto 0.03 X10*3/uL (0.00-0.03); Imm Gran Pct Auto 0.3 % (0.0-0.4); Lymphocytes Absolute Auto 2.3 X10*3/uL (1.2-4.9); Lymphocytes Percent Auto 24.1 % (20-40); Mean Corpuscular HGB Conc 33.6 g/dl (31.0-36.0); Mean Corpuscular Hemoglobin 28.7 pg (27.0-33.0); Mean Corpuscular Volume 85.5 fL (80.0-98.0); Mean Platelet Volume 9.6 fL (9.4-12.4); Monocytes Absolute Auto 0.7 X10*3/uL (0.1-1.2); Monocytes Percent Auto 7.1 % (2-11); Neutrophils Absolute Auto 5.7 x10*3/uL (2.0-8.3); Neutrophils Percent Auto 60.9 % (45-73); Platelet Count 827 X10*3/uL (160-400); Red Blood Count 4.77 X10*6/uL (4.60-5.80); Red Cell Distribution Width 13.6 % (11.0-16.0); White Blood Count 9.3 X10*3/uL (4.8-10.8)
[2023-08-19 09:34] LABS: Alanine Aminotransferase 27 U/L (0-40); Albumin Level 4.4 g/dL (3.5-5.0); Alkaline Phosphatase 62 U/L (39-117); Anion Gap 12 (12-20); Aspartate Amino Transferase 36 U/L (5-37); Bilirubin Total 0.6 mg/dL (0.0-1.0); Blood Urea Nitrogen 14 mg/dL (9-16); Calcium 9.1 mg/dL (8.4-10.2); Carbon Dioxide 28 mmol/L (22-29); Chloride 102 mmol/L (96-108); Estimated Glomerular Filt Rate > 60; Glucose Random 99 mg/dL (60-115); Potassium 4.4 mmol/L (3.3-5.1); Sodium 138 mmol/L (135-145); Total Protein 7.4 g/dL (6.5-8.0)
== END 2023-08-19 09:05 | disposition home or self-care (01) ==
LOC: HO.LAB 09:04
PROVIDERS: Internal Medicine Medical Oncology; PCP Internal Medicine; Visit Provider Internal Medicine
DX: D47.3 Essential (hemorrhagic) thrombocythemia (principal); K21.9 Gastro-esophageal reflux disease without esophagitis; K22.2 Esophageal obstruction; K59.01 Slow transit constipation
CPT/HCPCS: 36415; 80053; 85025; 99212

== ENCOUNTER 2023-08-19 15:18 | Outpatient (AMB) | payer MEDICARE, SELFPAY ==
[2023-08-19 15:30] VITALS: BP 119/76; PULSE 85; BMI 25.4
--- NOTE | 2023-08-19 15:30 | MHC.OFFVIS ---
Intake Vital Signs 08/19/23 15:30 Height 5 ft 11 in Weight 182 lb 1.629 oz BMI 25.4 BP 119/76 Blood Pressure Location Lt brachial Position Sitting Pulse 85 Pulse Source Pulse Oximeter Intake Visit Reasons: F/U Intake Note: Pt presents to the office today for a follow up. Pt states his acid reflux is doing better as long as he doesnt eat his food fast and if he doesn't eat later at night. Pt denies any other GI issues at this time. Allergies lisinopril Allergy (Severe, Verified 08/20/23 14:41) cough codeine [CODEINE] Allergy (Intermediate, Verified 08/20/23 14:41) GI UPSET, nausea/vomiting losartan Adverse Reaction (Intermediate, Verified 08/20/23 14:41) hyperkalemia HPI F/U HPI Details LAST VISIT Dysphagia Discussed with patient the importance of trying to swallow slowly and eat smaller bites. Patient will try to be more aware of eating slowly. Patient can continue taking pantoprazole and famotidine at this time. Constipation Patient is unable to eat yogurt. He was encouraged to take probiotic as that might help him move his bowels. Patient was encouraged to call the office if he continues to be constipated and unable to move his bowels every day or every other day. We can send a script for MiraLax then. I will see patient in 1 year, sooner if patient will have any GI concerning symptoms. He is agreeable to this plan and verbalizes understanding of instructions. He was given the opportunity to ask questions all questions answered. ? Thank you for allowing me to participate in his care Plan Medications Refilled famotidine (Pepcid) 20 mg PO BEDTIME 90 tabs 3RF K21.9 pantoprazole take one tablet half an hour before breakfast 40 mg PO DAILY 90 tabs 4RF K21.9 HE TODAY'S VISIT Patient is running out of his of pantoprazole and famotidine. Will give him new scripts today. Patient reports that he only has a bowel movement once a week. Denies any melena, hematochezia, unintentional weight loss or ribbon like stools. Patient reports occasional nausea with occasional dyspepsia specially in the morning and he takes pantoprazole only on as needed basis. Patient reports that he is taking famotidine usually at night every single night. Patient had normal colonoscopy in February of 2014. He will be due next year. [facility] Medical History (Updated 08/30/23 @ 16:00 by Isabell Lilly [facility]) Pulmonary nodules Pulmonary nodules Hypercholesterolemia Hypertension BPH (benign prostatic hyperplasia) Chronic rhinitis Asthma-COPD overlap syndrome Surgical History History of endoscopy Hx of colonoscopy History of knee surgery Family History Father Lung cancer Mother Hypertension Brother Brain cancer Daughter In good health Household Members: Spouse Housing: House Are you a primary health care attorney to a significant other at home: No Do you presently have visiting nurse or other home services: No Alcohol intake: never Patient Tobacco Use Status: Former Tobacco user Tobacco use type: Cigarette Years Smoked: 10 years e-Cigarette/Vaping Use: Never Used Second Hand Smoke Exposure: No service: No Current occupational status: retired Cognitive needs: No Hearing needs: No Vision needs: Yes Review of Systems Const Denies weight gain and Denies weight loss ENT Reports no additional complaints, Denies dysphagia and Denies odynophagia Card Reports no additional complaints Resp Reports no additional complaints GI Denies abdominal pain, Denies belching, Denies melena, Denies bloating, Denies change in bowel habits, Reports constipation, Denies dysphagia, Denies excessive flatus, Denies dyspepsia, Reports heartburn (Occasional), Denies diarrhea, Denies loose stools, Denies nausea, Denies odynophagia and Denies vomiting Reports no additional complaints Musc Reports no additional complaints Neuro Reports no additional complaints Psych Reports no additional complaints Endo Reports no additional complaints Physical Exam Vital Signs: Last Vital Signs Pulse 85 08/19/23 15:30 BP 119/76 08/19/23 15:30 BMI result Body Mass Index 25.4 Const General: healthy appearing, no acute distress and well developed Nutritional Appearance: well nourished Orientation/consciousness: patient oriented x3 HEENT Head: Yes normal to inspection, Yes normocephalic and Yes atraumatic Face and sinus: Yes normal facial exam Mouth: Normal oral and palatal mucosa present Throat: Yes posterior oropharynx normal, Yes tonsils normal and Yes uvula midline Eyes General: appearance normal, both eyes and all related structures Neck Neck: Yes normal visual inspection, Yes full ROM and Yes trachea midline Thyroid: Thyroid normal Resp Effort & Inspection: normal respiratory effort, able to speak in complete sentences, no tracheal deviation and symmetric chest movement Auscultation: clear to auscultation bilaterally Cardio Rate: regular rate Heart sounds: S1 normal heart sound present and S2 normal heart sound present GI Inspection: Yes normal to inspection and No distended Palpation (GI): Soft to palpation, not firm, nontender and No hepatosplenomegaly present Auscultation: normal bowel sounds General: Yes no CVA tenderness Back/Spine/Pelvis Back: no CVA tenderness Skin General skin exam: elasticity normal, turgor normal and dry skin Neuro General: patient oriented x3 Psych Appearance: grossly normal Mental Status: mental status grossly normal Affect: normal affect Assessment & Plan Assessment & Plan (1) GERD (gastroesophageal reflux disease): Code(s): K21.9 - Gastro-esophageal reflux disease without esophagitis Qualifiers: Esophagitis presence: esophagitis presence not specified Qualified Code(s): K21.9 - Gastro-esophageal reflux disease without esophagitis (2) Schatzki's ring: Code(s): K22.2 - Esophageal obstruction (3) Constipation: Code(s): K59.00 - Constipation, unspecified Qualifiers: Constipation type: slow transit constipation Qualified Code(s): K59.01 - Slow transit constipation Plan Patient will continue PPI and H2 darius. Patient reports that his symptoms of acid reflux are suppressed. Patient reports constipation. Will start him on MiraLax. Patient can also take [id number] stool softener if needed. Patient was encouraged to increase fluid intake and activity to promote better bowel motility. I will see him in 3 months, patient will be due to go for colonoscopy soon. I will see him sooner on as needed basis. Patient is agreeable to plan of care and verbalizes understanding of instructions. He was given the opportunity to ask questions and all questions answered. Thank you for allowing me to participate in his care Medications: New polyethylene glycol 3350 (Miralax) 17 grams PO DAILY 510 grams 2RF Refilled famotidine (Pepcid) 20 mg PO BEDTIME 90 tabs 3RF K21.9 - Gastro-esophageal reflux disease without esophagitis pantoprazole take one tablet half an hour before breakfast 40 mg PO DAILY 90 tabs 4RF K21.9 - Gastro-esophageal reflux disease without esophagitis Coding Level of Care Code Est Pt Level 3 (63895) Diagnoses Gastroesophageal reflux disease, unspecified whether esophagitis present K21.9 Esophagitis presence: esophagitis presence not specified Schatzki's ring K22.2 Slow transit constipation K59.01 Constipation type: slow transit constipation Time Spent (min) 30 Comment 20 minutes spent with patient and additional 10 minutes spent reviewing his records
== END 2023-08-19 15:54 | disposition home or self-care (01) ==
PROVIDERS: PCP Internal Medicine; Visit Provider Nurse Practitioner Family
DX: K21.9 Gastro-esophageal reflux disease without esophagitis (principal); K22.2 Esophageal obstruction; K59.01 Slow transit constipation
CPT/HCPCS: 99213

== ENCOUNTER 2023-08-20 14:32 | Outpatient (AMB) | payer MEDICARE, SELFPAY ==
[2023-08-20 14:40] VITALS: BP 124/68; PULSE 80; O2SAT 93; BMI 25.2
--- NOTE | 2023-08-20 14:40 | MHC.PC.OV ---
Vital Signs 08/20/23 14:40 Height 5 ft 11 in Weight 181 lb BMI 25.2 BP 124/68 Blood Pressure Location Lt brachial Position Sitting Pulse 80 Pulse Source Pulse Oximeter Pulse Oximetry (%) 93 Oxygen Delivery Method Room Air Intake Visit Reasons: Blocked right Ear Allergies lisinopril Allergy (Severe, Verified 08/20/23 14:41) cough codeine [CODEINE] Allergy (Intermediate, Verified 08/20/23 14:41) GI UPSET, nausea/vomiting losartan Adverse Reaction (Intermediate, Verified 08/20/23 14:41) hyperkalemia Tobacco use date assessed: 12/18/22 Fall risk assessment: No Falls in past year Last assessed Fall Risk: 08/20/23 Dental Screening Dental Screen Date: 08/20/23 Did you have a dental visit in the last 12 months?: Yes Did you have a dental problem in the last 6 months where you did not have access to dental care?: No Was dental information given to patient?: Patient has dentist HPI Blocked right Ear HPI Details 73-year-old male with asthma COPD overlap syndrome hypertension hypercholesterolemia BPH generalized anxiety disorder GERD coming in for ear irrigation. Patient is here for follow-up. Patient follows up with Gastroenterology GERD is better as long as he is eating better constipation problem taking probiotic. Patient followed up with Hematology-Oncology also for the thrombocytosis continue to monitor and the holding off Hydrea therapy. [facility] Medical History (Updated 08/20/23 @ 14:59 by Patricia Michel MD) Pulmonary nodules Pulmonary nodules Hypercholesterolemia Hypertension BPH (benign prostatic hyperplasia) Chronic rhinitis Asthma-COPD overlap syndrome Surgical History History of endoscopy Hx of colonoscopy History of knee surgery Family History Father Lung cancer Mother Hypertension Brother Brain cancer Daughter In good health Social History Household Members: Spouse Housing: House Are you a primary customer care specialist to a significant other at home: No Do you presently have visiting nurse or other home services: No Alcohol intake: never Patient Tobacco Use Status: Former Tobacco user Tobacco use type: Cigarette Years Smoked: 10 years e-Cigarette/Vaping Use: Never Used Second Hand Smoke Exposure: No service: No Current occupational status: retired Cognitive needs: No Hearing needs: No Vision needs: Yes Questionnaire PHQ-9 Over the last 2 weeks, how often have you been bothered by any of the following problems? 1. Little interest or pleasure in doing things: not at all 2. Feeling down, depressed, or hopeless: not at all 3. Trouble falling or staying asleep, or sleeping too much: not at all 4. Feeling tired or having little energy: not at all 5. Poor appetite or overeating: not at all 6. Feeling bad about yourself - or that you are a failure or have let yourself or your family down: not at all 7. Trouble concentrating on things, such as reading the newspaper or watching television: not at all 8. Moving or speaking so slowly that other people could have noticed. Or the opposite - being so fidgety or restless that you have been moving around a lot more than usual: not at all 9. Thoughts that you would be better off or of hurting yourself in some way: not at all Total score: 0 Depression Screening Interpretation: Negative Depression Screening Done: Yes 82289 - PHQ-9 Billing: Yes Source: Developed by Drs. Rajan Fry, Neetu Torres, Ziggy Contreras and colleagues, with an educational gloria from [employer]. Thrive Questionnaire Date Thrive assessed: 12/18/22 AUDIT C Alcohol Use Questionnaire (AUDIT-C) 1. How often do you have a drink containing alcohol?: Never 3. How often do you have six or more drinks on one occasion?: Never Total Score: 0 Score Reviewed/Action Taken: No DEBORAH-7 AMB Questionnaire DEBORAH-7 Date DEBORAH - 7 assessed: 12/18/22 Source: Developed by Drs. Rajan Fry, Ziggy Sandoval and colleagues, with an educational gloria from [employer]. Physical exam (Primary Care) Vital Signs: Last Vital Signs Pulse 80 08/20/23 14:40 BP 124/68 08/20/23 14:40 Pulse Ox 93 08/20/23 14:40 Oxygen Delivery Method Room Air 08/20/23 14:40 BMI result Body Mass Index 25.2 Tobacco/Smoking Status: Tobacco use Status Tobacco use date assessed 12/18/22 08/20/23 14:42 Patient Tobacco Use Status Former Tobacco user 08/20/23 14:42 Tobacco use type Cigarette 08/20/23 14:42 e-Cigarette/Vaping Use Never Used 08/20/23 14:42 PHQ-9: PHQ-9 Score PHQ-9: Total score 0 08/20/23 16:21 Depression Screening Interpretation: Negative Thrive Assessment: Date of Thrive Assessment Date Thrive assessed 12/18/22 08/20/23 14:42 Const General: alert; No acute distress Eyes Conjunctivae: conjunctivae normal Resp Auscultation: clear to auscultation bilaterally Cardio Rate: regular rate Rhythm: regular rhythm GI Inspection: Yes normal to inspection Extrem General: Yes normal to inspection and No edema Assessment and Plan Assessment & Plan (1) GERD (gastroesophageal reflux disease): Code(s): K21.9 - Gastro-esophageal reflux disease without esophagitis Plan: Avoid the foods that causes that usually spicy foods, tomato products, juices, coffee, soda and foods that your sensitive to. After eating do not lie down, allow 3-4 hours before in lie down. And keep the head of bed above 30 degrees to avoid the acid from going up. (2) Thrombocytosis: Code(s): D47.3 - Essential (hemorrhagic) thrombocythemia Plan: Continue to monitor. Hydrea therapy holding off but if more than 1,000,000 will consider. (3) Hypercholesterolemia: Code(s): E78.00 - Pure hypercholesterolemia, unspecified Plan: Avoid fried foods, chicken skin, eggs, butter margarine, pastries and meat. Be it pork or beef they have a lot of cholesterol LDL goal of less than 130 and triglyceride of less than 150 patient on atorvastatin 40 mg once a day (4) Hypertension: Code(s): I10 - Essential (primary) hypertension Qualifiers: Hypertension type: essential hypertension Qualified Code(s): I10 - Essential (primary) hypertension Plan: Continue with blood pressure medication. Decrease salt intake and exercise patient takes amlodipine 2.5 mg once a day (5) Hearing difficulty: Code(s): H91.90 - Unspecified hearing loss, unspecified ear Plan: will get a hearing test and has a schedule with Dr. Leach Orders: Referrals Speech and Hearing Referral H91.90 - Unspecified hearing loss, unspecified ear Coding Level of Care Code Est Pt Level 4 (33170) Diagnoses GERD (gastroesophageal reflux disease) K21.9 Thrombocytosis D47.3 Hypercholesterolemia E78.00 Essential hypertension I10 Hypertension type: essential hypertension Hearing difficulty H91.90
== END 2023-08-20 15:06 | disposition home or self-care (01) ==
PROVIDERS: PCP Internal Medicine; Visit Provider Internal Medicine
DX: K21.9 Gastro-esophageal reflux disease without esophagitis (principal); D47.3 Essential (hemorrhagic) thrombocythemia; E78.00 Pure hypercholesterolemia, unspecified; I10 Essential (primary) hypertension; H91.90 Unspecified hearing loss, unspecified ear
CPT/HCPCS: 99214

== ENCOUNTER 2023-11-18 13:27 | Outpatient (AMB) | payer MEDICARE, SELFPAY ==
--- NOTE | 2023-11-18 13:36 | MHC.OFFVIS ---
Intake Vital Signs 11/18/23 13:39 Height 5 ft 11 in Weight 176 lb BMI 24.5 BP 146/70 H Blood Pressure Location Lt brachial Position Sitting Pulse 79 Intake Visit Reasons: 3 month follow up discuss [employer] and EGD Intake Note: Patient 3 month follow up for discuss Colonoscopy/EGD screening. Patient denies any other GI issues. Char Conveyor Tender Required: No Accompanied by: Self / Same As Patient Allergies lisinopril Allergy (Severe, Verified 11/18/23 13:36) cough codeine [CODEINE] Allergy (Intermediate, Verified 11/18/23 13:36) GI UPSET, nausea/vomiting losartan Adverse Reaction (Intermediate, Verified 11/18/23 13:36) hyperkalemia HPI 3 month follow up discuss [employer] and EGD HPI Details GERD (gastroesophageal reflux disease) Schatzki's ring Constipation Plan Patient will continue PPI and H2 darius. Patient reports that his symptoms of acid reflux are suppressed. Patient reports constipation. Will start him on MiraLax. Patient can also take [id number] stool softener if needed. Patient was encouraged to increase fluid intake and activity to promote better bowel motility. I will see him in 3 months, patient will be due to go for colonoscopy soon. I will see him sooner on as needed basis. Patient is agreeable to plan of care and verbalizes understanding of instructions. He was given the opportunity to ask questions and all questions answered. ? Thank you for allowing me to participate in his care Medications New polyethylene glycol 3350 (Miralax) 17 grams PO DAILY 510 grams 2RF Refilled famotidine (Pepcid) 20 mg PO BEDTIME 90 tabs 3RF K21.9 pantoprazole take one tablet half an hour before breakfast 40 mg PO DAILY 90 tabs 4RF K21.9 Endoscopy Findings: 08/28/2021 ESOPHAGUS: Tortuous esophagus with increased tertiary contractions - biopsies obtained from proximal esophagus to check for EOE.? GE? junction at 38 cms, small hiatal hernia 38 to 40 cms.? No esophagitis or Barrios's.? A minimally obstructing Schatzki's ring at GE junction.? Balloon dilation was performed with 19 and 20 mm CRE balloon times 60 seconds at each level STOMACH: Mild gastritis Dysphagia is likely a combination of Schatzki's ring and esophageal motility disorder. PATHOLOGY RESULTS Diagnosis A. Stomach, antrum, biopsy: Antral-type and oxyntic mucosa with mild chronic inactive inflammation; no Helicobacter organisms seen. B. Esophagus, proximal, biopsy: Squamous epithelium within normal limits; no inflammation seen; negative for eosinophilic esophagitis TODAY'S VISIT Patient is here today for follow-up and to discuss going for upper endoscopy and colonoscopy. Endoscopy in August of 2021 showed Schatzki ring. Patient continues to have occasional dysphagia. Patient reports that he forgets to take his pantoprazole in the morning. Sometimes he admits to be eating in the recliner and noticed that that is when he has dysphagia. Sometimes patient reports that he chokes on liquids or solids when he is in reclining position. Patient is aware that he needs to eat at the table sitting up at 90 degree. Patient takes famotidine at bedtime. Patient reports that he is no longer taking MiraLax. Patient was taking MiraLax in the past and that help him move his bowels. Patient stopped taking and now he is moving his bowels every other day. Last colonoscopy in February of 2014. No polyps found. Patient denies melena, hematochezia, unintentional weight loss or ribbon like stools. Patient denies any nausea or vomiting. No issues with anesthesia in the past. Patient is on low-dose aspirin. Patient will have you replacement in December. Colonoscopy can be scheduled for March [facility] Medical History (Updated 08/30/23 @ 16:00 by Isabell Lilly, [facility]-) Pulmonary nodules Pulmonary nodules Hypercholesterolemia Hypertension BPH (benign prostatic hyperplasia) Chronic rhinitis Asthma-COPD overlap syndrome Surgical History History of endoscopy Hx of colonoscopy History of knee surgery Family History Father Lung cancer Mother Hypertension Brother Brain cancer Daughter In good health Social History Household Members: Spouse Housing: House Are you a primary early breastfeeding care specialist to a significant other at home: No Do you presently have visiting nurse or other home services: No Alcohol intake: never Patient Tobacco Use Status: Former Tobacco user Tobacco use type: Cigarette Years Smoked: 10 years e-Cigarette/Vaping Use: Never Used Second Hand Smoke Exposure: No service: No Current occupational status: retired Cognitive needs: No Hearing needs: No Vision needs: Yes Review of Systems Const Denies weight gain and Denies weight loss ENT Reports no additional complaints, Denies dysphagia and Denies odynophagia Card Reports no additional complaints Resp Reports no additional complaints GI Denies abdominal pain, Denies belching, Denies melena, Denies bloating, Denies change in bowel habits, Denies dysphagia, Denies excessive flatus, Denies dyspepsia, Denies heartburn, Denies diarrhea, Denies loose stools, Denies nausea, Denies odynophagia and Denies vomiting Reports no additional complaints Musc Reports no additional complaints Neuro Reports no additional complaints Psych Reports no additional complaints Endo Reports no additional complaints Physical Exam Vital Signs: Last Vital Signs Pulse 79 11/18/23 13:39 BP 146/70 H 11/18/23 13:39 BMI result Body Mass Index 24.5 Const General: healthy appearing, no acute distress and well developed Nutritional Appearance: well nourished Orientation/consciousness: patient oriented x3 Resp Effort & Inspection: normal respiratory effort, able to speak in complete sentences, no tracheal deviation and symmetric chest movement Auscultation: clear to auscultation bilaterally Cardio Rate: regular rate GI Inspection: Yes normal to inspection and No distended Palpation (GI): Soft to palpation, not firm, nontender and No hepatosplenomegaly present Auscultation: normal bowel sounds General: Yes no CVA tenderness Back/Spine/Pelvis Back: no CVA tenderness Skin General skin exam: elasticity normal, turgor normal and dry skin Neuro General: patient oriented x3 Psych Appearance: grossly normal Mental Status: mental status grossly normal Assessment & Plan Assessment & Plan (1) GERD (gastroesophageal reflux disease): Code(s): K21.9 - Gastro-esophageal reflux disease without esophagitis Qualifiers: Esophagitis presence: esophagitis presence not specified Qualified Code(s): K21.9 - Gastro-esophageal reflux disease without esophagitis (2) Schatzki's ring: Code(s): K22.2 - Esophageal obstruction (3) Dysphagia: Code(s): R13.10 - Dysphagia, unspecified Qualifiers: Dysphagia type: esophageal phase Qualified Code(s): R13.19 - Other dysphagia (4) Constipation: Code(s): K59.00 - Constipation, unspecified Qualifiers: Constipation type: slow transit constipation Qualified Code(s): K59.01 - Slow transit constipation (5) Screen for colon cancer: Code(s): Z12.11 - Encounter for screening for malignant neoplasm of colon Plan Discussed with patient the importance of good bowel prep day before procedure. Patient will take MiraLax again 1 week before procedure. Patient will be going for knee surgery and my have trouble with constipation after his surgery. Will send script for Colace. Patient was encouraged to start taking pantoprazole every morning half an hour before breakfast. Continue taking famotidine at bedtime. Patient was encouraged to eat sitting up and not in the recliner. Staying upright for minimum 3 hours after meals discussed with patient. Discussed with patient also avoiding dietary triggers. What to expect before during and after procedure discussed with patient. The importance of good prep and clear liquid diet discussed with patient. I will see him after the procedure, sooner on as needed basis. Procedure maybe booked towards the end of March. He is agreeable to this plan and verbalizes understanding of instructions. He was given the opportunity to ask questions and all questions answered. Thank you for allowing me to participate in his care Medications: New polyethylene glycol 3350 (Miralax) As directed by gastroenterology department at [facility] 238 grams PO ONCE 238 grams 0RF Z12.11 - Encounter for screening for malignant neoplasm of colon docusate sodium 100 mg PO DAILY 30 caps 3RF K59.00 - Constipation, unspecified bisacodyl (Dulcolax (bisacodyl)) take 4 tabs at noon the day before your colonoscopy 20 mg (4 x 5 mg) PO ONCE 1 day 4 tabs 0RF constipation Z12.11 - Encounter for screening for malignant neoplasm of colon Coding Level of Care Code Est Pt Level 4 (45628) Diagnoses Gastroesophageal reflux disease, unspecified whether esophagitis present K21.9 Esophagitis presence: esophagitis presence not specified Schatzki's ring K22.2 Esophageal dysphagia R13.19 Dysphagia type: esophageal phase Slow transit constipation K59.01 Constipation type: slow transit constipation Screen for colon cancer Z12.11 Time Spent (min) 35 Comment 20 minutes spent with patient and additional 15 minutes spent reviewing his records
[2023-11-18 13:39] VITALS: BP 146/70; PULSE 79; BMI 24.5
== END 2023-11-18 14:25 | disposition home or self-care (01) ==
PROVIDERS: PCP Internal Medicine; Visit Provider Nurse Practitioner Family
DX: K21.9 Gastro-esophageal reflux disease without esophagitis (principal); K22.2 Esophageal obstruction; R13.19 Other dysphagia; K59.01 Slow transit constipation; Z12.11 Encounter for screening for malignant neoplasm of colon
CPT/HCPCS: 99214

== ENCOUNTER → 2023-11-18 13:27 | Outpatient (BNVA) | payer MEDICARE, SELFPAY | PROVIDERS: PCP Internal Medicine; Visit Provider Nurse Practitioner Family | DX: Z12.11 Encounter for screening for malignant neoplasm of colon (principal); K21.9 Gastro-esophageal reflux disease without esophagitis; K22.2 Esophageal obstruction; K59.01 Slow transit constipation; R13.19 Other dysphagia | CPT/HCPCS: 99212 ==

== ENCOUNTER 2023-11-27 14:20 | Outpatient (AMB) | payer MEDICARE, SELFPAY ==
--- NOTE | 2023-11-27 14:22 | A.OFFVIS_ITS ---
Intake Vital Signs 11/27/23 14:23 Height 5 ft 11 in Weight 178 lb BMI 24.8 Pulse 86 Pulse Source Pulse Oximeter Pulse Oximetry (%) 95 Oxygen Delivery Method Room Air Intake Visit Reasons: COPD Parking Ramp Attendant Required: No Allergies lisinopril Allergy (Severe, Verified 11/27/23 14:24) cough codeine [CODEINE] Allergy (Intermediate, Verified 11/27/23 14:24) GI UPSET, nausea/vomiting losartan Adverse Reaction (Intermediate, Verified 11/27/23 14:24) hyperkalemia HPI HPI Comments History of Present Illness Details The patient is a 73-year-old gentleman with a known history of COPD, chronic rhinitis and also pulmonary nodules. Overall he has been doing well from a respiratory status. However he states that he last the sense of smell and taste. This been going on for about a year. He does have nasal congestion but he does not really feel any significant improvement on the fluticasone. He has been doing that for years. He does have underlying allergies. He denies any exposure to anybody with COVID-19 infection that he is aware of. He continues his respiratory therapy with good effect. We did talk about a CT scans of the chest demonstrating stable pulmonary nodules for about 2 years. At this point will have him go chest x-ray to make sure stability in to address the p ersistent morning cough. 08/23/2021 the patient is here for a pul monary follow-up visit. Overall he continues to be about the same. He still complaining of a cough which is usually nonproductive in nature. Also complains of shortness of breath. The Symbicort has been partially effective. He continues use that twice a day. In the meantime he was found to have a hiatal hernia and a barium swallow which could be resulting in his chronic cough. He will be undergoing endoscopy soon to further address that. Patient has underlying pulmonary nodules. He was a former smoker. He did undergo a chest x-ray demonstrating increased hyperinflation consistent with COPD. Although his pulmonary nodules are not visible on the x-ray. Therefore I will request a chest CT scan to further address the pulmonary nodules and his ongoing symptoms. Also to note the patient is concerned about some abnormal laboratory findings. His platelet count has been significantly elevated. It is also his potassium was significantly elevated. I have him undergo blood work assessing for inflammatory conditions that could result in pulmonary nodules in the meantime will also recheck his platelet count and his potassium. 11/21/2021 the patient is here for a pulmonary follow-up visit. Overall he is doing relatively well. He continues to have nasal congestion in the upper airway cough syndrome. He tried Astelin nasal spray but stop the fluticasone that was not very helpful. He went back in the fluticasone. I do believe he will do better on the combination so therefore also on Dymista to the pharmacy. The patient does have underlying allergies. he also continues on the singular medication for his allergies. He continues on the Symbicort has been taking it 2 puffs twice a day. He does feel like he needs to take the full dose at this time. I did encourage him that if he does well we can try to decrease to 1 puff twice a day. I did provide him with spacer today. We did review his recent CT scan of the chest demonstrating stable subcentimeter pulmonary nodules largest measuring 4 mm in size which is the same as when he had a CT scan back in [facility] in 2019 and also a [facility] prior to that suggesting disease nodules are stable and unchanged. 07/23/2022 the patient has a telehealth visit today. Apparently was in his usual state health until the beginning of July when he started developing a cough and also sore throat. Ultimately tested positive for COVID-19. He was started on Paxlovid 1 day after having symptoms. He did complete the full course. Initially he was doing well. However, about a week after he started developing worsening cough along with chest tightness. Does have productive mucus. The mucus is yellowish in color. He has been noticing increasing shortness of breath and chest tightness. He has been using his rescue inhaler several times a day. He is also using his maintenance therapy as prescribed. The patient is concerned that he is developing pneumonia. He did test again he still testing positive for COVID-19. The patient was able to check his oxygen and was reassuring. Based on the patient's symptoms indeed a postviral bacterial infection could be arising. Therefore, will go ahead and start him on antibiotics and also a course of prednisone. I do believe that he will benefit from nebulizer. we do have nebulizers available through [facility]. Provide him a nebulizer in order for him to start using the nebulizer twice a day. I will send the medication to the pharmacy. If the patient's condition worsens on this current medication regimen that he needs to go to the ER for further evaluation. 11/19/2022 the patient is here for a pulm onary follow-up visit. The patient is feeling better overall. He recovered from having COVID-19 back in the fall 2021. He had a chest x-ray at that time that appear to be clear. Although, he did have a CT scan of the chest back in October 2021 demonstrating multiple subcentimeter pulmonary nodules. He will need a repeat CT scan to make sure stability. The patient has been using the Symbicort twice a day. He has been complaining of gingival disease. He needs to follow up with his dentist. In the meantime on having decrease the Symbicort to 1 puff twice a day and also will provide him with chlorhexidine mouth wash N/C this could help in the meantime. The patient did have pulmonary function studies which I personally reviewed and also compared to the ones he had back in 2020. It appears that he continues to have pretty stable mild COPD. Therefore decreasing the medication be reasonable. He does continue to have allergies and does uses fluticasone and Singulair with good effect. He will continue to do so at this time. Demonstrates no longer covered through his insurance company so therefore will discontinue that for now. Otherwise the patient return 1 year although if his CT scan is abnormal I will call and come in sooner. 11/27/2023 the patient is here for a pulm onary follow-up visit. The patient has been doing well from a respiratory status. Denies any significant shortness of breath. He has been using the Symbicort with good effect. Has not had to use his rescue inhaler. He did have a CT scan of the chest back in December 2022 demonstrating stable pulmonary nodule. Only been followed for about a year. He needs to get a repeat CT scan will do it 6 months to make sure that the nodules stable and is not progressing view of his increased high risk for cancer. [facility] Medical History (Updated 08/30/23 @ 16:00 by Isabell Lilly RISK MANAGERMatthew) Pulmonary nodules Pulmonary nodules Hypercholesterolemia Hypertension BPH (benign prostatic hyperplasia) Chronic rhinitis Asthma-COPD overlap syndrome Surgical History History of endoscopy Hx of colonoscopy History of knee surgery Family History Father Lung cancer Mother Hypertension Brother Brain cancer Daughter In good health Social History Household Members: Spouse Housing: House Are you a primary healthcare administration intern to a significant other at home: No Do you presently have visiting nurse or other home services: No Alcohol intake: never Patient Tobacco Use Status: Former Tobacco user Tobacco use type: Cigarette Years Smoked: 10 years e-Cigarette/Vaping Use: Never Used Second Hand Smoke Exposure: No service: No Current occupational status: retired Cognitive needs: No Hearing needs: No Vision needs: Yes Review of Systems Const Denies weight gain and Denies weight loss ENT Reports nasal congestion and Denies odynophagia Card Reports no additional complaints Resp Reports cough GI Denies abdominal pain, Denies belching, Denies melena, Denies bloating, Denies change in bowel habits, Denies excessive flatus, Denies dyspepsia, Denies heartburn, Denies diarrhea, Denies loose stools, Denies nausea, Denies odynophagia and Denies vomiting Reports no additional complaints Musc Reports no additional complaints Skin/Breast Denies rash Neuro Reports no additional complaints Psych Reports no additional complaints Endo Reports no additional complaints Physical Exam Vital Signs: Last Vital Signs Pulse 86 11/27/23 14:23 Pulse Ox 95 11/27/23 14:23 Oxygen Delivery Method Room Air 11/27/23 14:23 BMI result Body Mass Index 24.8 Const General: healthy appearing, no acute distress and well developed Nutritional Appearance: well nourished Orientation/consciousness: patient oriented x3 HEENT Head: Yes normocephalic Eyes General: appearance normal, both eyes and all related structures Neck Neck: Yes normal visual inspection, Yes full ROM and Yes trachea midline Chest Chest palpation & inspection: normal inspection of the chest Resp Effort & Inspection: normal respiratory effort Auscultation: diminished lung sounds Cardio Rate: regular rate Heart sounds: S1 normal heart sound present and S2 normal heart sound present GI Palpation (GI): Soft to palpation Auscultation: normal bowel sounds Skin General skin exam: no rashes or lesions noted Neuro General: patient oriented x3 Extrem General: Yes no clubbing, cyanosis or edema Psych Appearance: grossly normal Results Reviewed Results Reviewed: [facility] [address] [place] [id number] Scan Report Signed with Addenda Patient: Martin Tierney MR#: [id number] : 1950 Acct:[id number] Age/Sex: 72 / M ADM Date: 12/12/22 Loc: HO.CT Attending Dr: Umang Ivey MD Ordering Physician: Umang Ivey MD Date of Service: 12/12/22 Procedure(s): CT chest wo IV con Accession Number(s): [id number] cc: Umang Ivey MD~ ADDENDUMADDENDUM: There is focal mamillation/eventration versus Bochdalek hernia left posterior base borderline increased. Addendum Dictated By: Jordon Maher MD Addendum Signed By: <Electronically signed by Jordon Maher MD in OV> 12/18/22 1423 Addendum Cosigned By: DD/ /28/1502 TD/TT: / EXAMINATION: CT CHEST WITHOUT CONTRAST CLINICAL INFORMATION: R91.8 - Other nonspecific abnormal finding of lung field. Small pulmonary nodules on prior CT. COMPARISON: Chest radiograph 08/06/2022, CT chest noncontrast 10/22/2021 TECHNIQUE: Multidetector volumetric CT imaging of the chest is performed without intravenous contrast. Axial MIP volume rendering provided. Sagittal and coronal reformatted images were obtained. This CT examination was performed using dose optimization techniques as appropriate, variously including the following: *Automated exposure control *Adjustment of mA and/or kV according to patient size (this includes techniques or standardized protocols for targeted exams where dose is matched to indication/reason for exam; i.e. extremities or head) *Use of iterative reconstruction technique DLP: 176 mGy-cm FINDINGS: [employer] PHOTOGRAPHS: Unremarkable LUNGS: The central airways are clear and there is no endobronchial lesion or bronchiectasis. No airspace consolidation or groundglass opacity. Left lung has no interval mass or pulmonary nodule. Tiny subpleural nodule left posterior lateral base under 4 mm is stable, series 5/4 4. There are 2 stable foci versus likely branching vasculature left upper lobe under 4 mm, medial series 5/88 and lateral series 5/129. Right lung is no interval mass or pulmonary nodule. Again, there is a stable nodule posterior right upper lobe just under 4 mm with central calcification suggesting granuloma, series 5/147. There is also focal stable pleural-based linear calcification right anterior base, series 5/436. MEDIASTINUM: No hilar or mediastinal adenopathy. Thoracic aorta normal in caliber. Heart size normal. No pericardial effusion. CORONARY ARTERY CALCIFICATION: Present, similar to prior exam. PLEURA: There is no pleural effusion. No pleural mass or thickening. AXILLA: No lymphadenopathy. UPPER ABDOMEN: Unremarkable. OSSEOUS STRUCTURES: No acute bony abnormality. Old healed fractures left posterior 10th and right anterior eighth ribs. Degenerative changes upper lumbar spine L1-L2 and L2-L3. CT/CT chest wo IV con IMPRESSION: -Small stable nodularity 4 mm and a reminder, similar to prior CT 10/22/2021. -No interval mass or pulmonary nodule. No adenopathy or effusion. -No additional follow-up required based on Fleischner guidelines (below). Reference: The Fleischner Society recommendations for management of incidentally detected pulmonary nodules in adults age 35 and greater are based on average nodule size and patient risk category. The recommendations do not apply to lung cancer screening, patients with immunosuppression, or patients with known primary cancer. Multiple solid nodules average size < 6 mm: Low Risk Patient: No routine follow-up. High Risk Patient: Optional CT at 12 months. Use most suspicious nodule as guide to management. Follow-up intervals may vary according to size and risk. Dictated By: Jordon Maher MD Signed By: <Electronically signed by Jordon Maher MD in OV> 12/18/22 1413 DD/ 1525 TD/TT: Strategy Director: REAGAN Assessment & Plan Assessment & Plan (1) COPD (chronic obstructive pulmonary disease): Code(s): J44.9 - Chronic obstructive pulmonary disease, unspecified Qualifiers: COPD type: chronic bronchitis Chronic bronchitis type: simple Qualified Code(s): J41.0 - Simple chronic bronchitis (2) Chronic rhinitis: Code(s): J31.0 - Chronic rhinitis (3) Pulmonary nodules: Code(s): R91.8 - Other nonspecific abnormal finding of lung field Plan Repeat Ct chest in 6 months stop Symbicort due to insurance start Dulera EMILY as needed continue fluticasone continue singulair F/U 1 year Coding Level of Care Code Est Pt Level 4 (73964) Diagnoses Simple chronic bronchitis J41.0 COPD type: chronic bronchitis Chronic bronchitis type: simple Chronic rhinitis J31.0 Pulmonary nodules R91.8 Time Spent (min) 17
[2023-11-27 14:23] VITALS: PULSE 86; O2SAT 95; BMI 24.8
== END 2023-11-27 14:38 | disposition home or self-care (01) ==
PROVIDERS: PCP Internal Medicine; Visit Provider Hospitalist
DX: J41.0 Simple chronic bronchitis (principal); J31.0 Chronic rhinitis; R91.8 Other nonspecific abnormal finding of lung field
CPT/HCPCS: 99214

== ENCOUNTER → 2023-11-27 14:20 | Outpatient (BNVA) | payer MEDICARE, SELFPAY | PROVIDERS: PCP Internal Medicine; Visit Provider Hospitalist | DX: J41.0 Simple chronic bronchitis (principal); J31.0 Chronic rhinitis; R91.8 Other nonspecific abnormal finding of lung field | CPT/HCPCS: 99212 ==

== ENCOUNTER 2023-12-24 08:04 | Outpatient (REF) | payer MEDICARE, SELFPAY | END 2023-12-24 08:05 | disposition home or self-care (01) | LOC: HO.LHD 08:04 | PROVIDERS: Visit Provider Internal Medicine Medical Oncology | DX: Z13.89 Encounter for screening for other disorder (principal) ==

== ENCOUNTER 2024-01-20 12:24 | Outpatient (AMB) | payer MEDICARE, SELFPAY ==
[2024-01-20 12:27] VITALS: BP 140/72; PULSE 87; O2SAT 98; BMI 25.2
--- NOTE | 2024-01-20 12:27 | A.OFFPC_ITS ---
Vital Signs 01/20/24 12:27 Height 5 ft 11 in Weight 181 lb BMI 25.2 BP 140/72 H Blood Pressure Location Lt brachial Position Sitting Pulse 87 Pulse Source Pulse Oximeter Pulse Oximetry (%) 98 Oxygen Delivery Method Room Air Intake Visit Reasons: SWV Allergies lisinopril Allergy (Severe, Verified 01/20/24 12:28) cough codeine [CODEINE] Allergy (Intermediate, Verified 01/20/24 12:28) GI UPSET, nausea/vomiting hydroxyurea [From Hydrea] Adverse Reaction (Intermediate, Unverified 01/20/24 12:48) weakness/chills, nausea losartan Adverse Reaction (Intermediate, Verified 01/20/24 12:28) hyperkalemia Medication List - Last Reconciled 01/20/24 by Patricia Michel MD albuterol sulfate 90 mcg/actuation 2 puffs PO Q6H PRN amlodipine 2.5 mg PO DAILY 90 days anagrelide 1 mg in am and 0.5 in evening orally; [aspirin 81 mg PO DAILY] atorvastatin 40 mg PO DAILY bupropion HCl SR (Wellbutrin SR) 150 mg PO DAILY 90 days docusate sodium 100 mg PO DAILY famotidine (Pepcid) 20 mg PO BEDTIME fluoxetine 40 mg PO DAILY fluticasone propionate 50 mcg/actuation 2 sprays intranasal DAILY 30 days melatonin 10 mg PO BEDTIME PRN mometasone-formoterol 200-5 mcg/actuation (Dulera) 2 puffs inhalation Q12H 30 days montelukast 10 mg PO DAILY multivitamin 1 tab PO DAILY omega-3 fatty acids 1,000 mg PO DAILY pantoprazole 40 mg PO DAILY tamsulosin (Flomax) 0.4 mg PO DAILY Tobacco use date assessed: 01/20/24 Fall risk assessment: No Falls in past year Last assessed Fall Risk: 01/20/24 Dental Screening Dental Screen Date: 01/20/24 Did you have a dental visit in the last 12 months?: Yes Did you have a dental problem in the last 6 months where you did not have access to dental care?: No Was dental information given to patient?: Patient has dentist HPI SWMichael HPI Details 73-year-old male with a history of GERD hypertension hypercholesterolemia asthma COPD overlap syndrome and generalized anxiety disorder coming in for an annual well visit. Last seen in August 2023. Patient's colonoscopy is due this year and scheduled to see Gastroenterology in April. Patient is being followed up by hematology oncology due to the essential thrombocytosis presently on Hydrea and aspirin patient was supposed to have a knee replacement but changed his mind and declined. Patient had an x-ray done in December showing a left upper lobe pulmonary nodule 1 cm and advised to get a CT scan of the chest. Patient is being followed up by the pulmonary with last CT scan of the chest done 12/12/2022 advised to have a repeat CT patient was started on Dulera and Singulair. Patient also has followed up with Nephrology 09/08/2023 for the hyperkalemia and hypertension was advised likely pseudohyperkalemia due to thrombocytosis. [facility] Medical History (Updated 01/20/24 @ 12:42 by Patricia Michel MD) Dysphagia Hyperkalemia COVID-19 virus infection Lip lesion Pulmonary nodules COPD (chronic obstructive pulmonary disease) Pulmonary nodules Hypercholesterolemia Hypertension BPH (benign prostatic hyperplasia) Chronic rhinitis Asthma-COPD overlap syndrome Surgical History History of endoscopy Hx of colonoscopy History of knee surgery Family History Father Lung cancer Mother Hypertension Brother Brain cancer Daughter In good health Social History (Updated 01/20/24 @ 12:53 by Patricia Michel MD) Household Members: Spouse Housing: House Are you a primary acute care registered nurse to a significant other at home: No Do you presently have visiting nurse or other home services: No Alcohol intake: current Comment: once a week 1drink Patient Tobacco Use Status: Former Tobacco user Tobacco use type: Cigarette Years Smoked: 10 years e-Cigarette/Vaping Use: Never Used Second Hand Smoke Exposure: No service: No Current occupational status: retired Cognitive needs: No Hearing needs: No Vision needs: Yes Questionnaire PHQ-9 Over the last 2 weeks, how often have you been bothered by any of the following problems? 1. Little interest or pleasure in doing things: not at all 2. Feeling down, depressed, or hopeless: not at all 3. Trouble falling or staying asleep, or sleeping too much: not at all 4. Feeling tired or having little energy: not at all 5. Poor appetite or overeating: not at all 6. Feeling bad about yourself - or that you are a failure or have let yourself or your family down: not at all 7. Trouble concentrating on things, such as reading the newspaper or watching television: not at all 8. Moving or speaking so slowly that other people could have noticed. Or the opposite - being so fidgety or restless that you have been moving around a lot more than usual: not at all 9. Thoughts that you would be better off or of hurting yourself in some way: not at all Total score: 0 Depression Screening Interpretation: Negative Depression Screening Done: Yes 10572 - PHQ-9 Billing: Yes Source: Developed by Drs. Rajan Fry, Neetu Torres, Ziggy Contreras and colleagues, with an educational gloria from [employer]. Thrive Questionnaire Date Thrive assessed: 01/20/24 I am a: Patient What is your living situation today?: I have a steady place to live Within the past 12 months, did the food you bought not last and you didn't have the money to get more?: Never true Within the past 12 months, did you worry whether your food would run out before you got money to buy more?: Never true Do you have trouble paying for medicines?: No Do you have trouble getting transportation to medical appointments?: No Do you have trouble paying your heating and electricity bill?: No Do you have trouble taking care of your child, family member or friend?: No Do you have trouble with day-to-day activities such as bathing, preparing meals, shopping, managing finances, etc.?: No Are you currently unemployed and looking for a job?: No Are you interested in more education?: No Currently or been in a relationship where the following occur: no concerns reported THRIVE Score: 0 AUDIT C Alcohol Use Questionnaire (AUDIT-C) 1. How often do you have a drink containing alcohol?: Never 3. How often do you have six or more drinks on one occasion?: Never Total Score: 0 Score Reviewed/Action Taken: No DEBORAH-7 AMB Questionnaire DEBORAH-7 Date DEBORAH - 7 assessed: 01/20/24 Feeling nervous, anxious, or on edge: 0 = Not at all Not being able to stop or control worryin = Not at all Worrying too much about different things: 0 = Not at all Trouble relaxin = Not at all Being so restless that it is hard to sit still: 0 = Not at all Becoming easily annoyed or irritable: 0 = Not at all Feeling afraid as if something awful might happen: 0 = Not at all Total DEBORAH-7 score (0-4 normal; 5-9 mild; 10-14 moderate; 15-21 severe): 0 Source: Developed by Drs. Rajan Fry, Neetu Torres, Ziggy Contreras and colleagues, with an educational lgoria from [employer]. Review of Systems Const Denies poor appetite and Denies weakness Eyes Denies no additional complaints ENT Reports Normal hearing present, Denies dizziness, Denies nasal congestion, Denies tinnitus and Denies sore throat Card Denies chest pain, Denies syncope, Denies rapid heart rate and Denies dyspnea Resp Denies cough and Denies dyspnea GI Denies change in stool character, Reports constipation, Denies diarrhea, Denies nausea and Denies vomiting Denies dysuria and Denies urinary frequency Neuro Reports Normal hearing present, Denies confusion, Denies dizziness, Denies syncope and Denies weakness Psych Denies confusion Physical exam (Primary Care) Vital Signs: Last Vital Signs Pulse 87 01/20/24 12:27 BP 140/72 H 01/20/24 12:27 Pulse Ox 98 01/20/24 12:27 Oxygen Delivery Method Room Air 01/20/24 12:27 BMI result Body Mass Index 25.2 Tobacco/Smoking Status: Tobacco use Status Tobacco use date assessed 01/20/24 01/20/24 12:29 Patient Tobacco Use Status Former Tobacco user 01/20/24 12:29 Tobacco use type Cigarette 01/20/24 12:29 e-Cigarette/Vaping Use Never Used 01/20/24 12:29 PHQ-9: PHQ-9 Score PHQ-9: Total score 0 01/20/24 12:38 Depression Screening Interpretation: Negative Thrive Assessment: Date of Thrive Assessment Date Thrive assessed 01/20/24 01/20/24 12:38 Currently or been in a relationship where the following occur: no concerns reported Const General: No confusion Orientation/consciousness: No confusion HENMT Head: Yes normocephalic Ears: external ears normal and TM's normal bilaterally Face and sinus: Yes normal facial exam Mouth: moist mucous membranes Throat: Yes tonsils normal Eyes Conjunctivae: conjunctivae normal Pupils: Equal, round and reactive pupils present and Pupil accommodation reflex normal Direct Ophthalmoscopy: normal light reflex Neck Neck: No lymphadenopathy Thyroid: Thyroid normal Chest Chest palpation & inspection: normal inspection of the chest Resp Effort & Inspection: normal respiratory effort and no audible wheezes Auscultation: clear to auscultation bilaterally, no crackles, no wheezes and lung sounds not diminished Cardio Rate: regular rate Rhythm: regular rhythm Peripheral pulses: radial pulses present and dorsalis pedis present GI Other: colon test 04/2024 Palpation (GI): no masses Auscultation: normal bowel sounds and normoactive bowel sounds Rectal Exam - Male: Yes deferred Male General Exam: Yes normal external exam Skin General skin exam: no rashes or lesions noted Rashes: no rashes Neuro General: No confusion Cranial nerves: Yes Equal, round and reactive pupils present and Yes Normal hearing present Cognition (Neuro): normal cognition Gait exam (Neuro): Normal gait present Motor exam (neuro): 5/5 motor strength present throughout Deep tendon reflexes (DTR's): Right brachioradialis reflex intensity grade: 2+, Left brachioradialis reflex intensity grade: 2+, Right patellar reflex intensity grade: 2+ and Left patellar reflex intensity grade: 2+ Extrem General: No edema Assessment and Plan Assessment & Plan (1) Medicare annual wellness visit, subsequent: Code(s): Z00.00 - Encounter for general adult medical examination without abnormal findings Plan: Keep well hydrated, eat healthy and keep active (2) Asthma-COPD overlap syndrome: Code(s): J44.9 - Chronic obstructive pulmonary disease, unspecified Plan: Patient follows up with Pulmonary and continuing with albuterol and placed on Dulera as well as montelukast (3) Hypertension: Code(s): I10 - Essential (primary) hypertension Qualifiers: Hypertension type: essential hypertension Qualified Code(s): I10 - Essential (primary) hypertension Plan: Continue with blood pressure medication. Decrease salt intake and exercise patient on amlodipine 2.5 mg once a day (4) Hypercholesterolemia: Code(s): E78.00 - Pure hypercholesterolemia, unspecified Plan: Avoid fried foods, chicken skin, eggs, butter margarine, pastries and meat. Be it pork or beef they have a lot of cholesterol continue to monitor (5) Thrombocytosis: Code(s): D47.3 - Essential (hemorrhagic) thrombocythemia Plan: Patient is being followed up by hematology oncology and placed on urea and aspirin for increasing platelets (6) Pulmonary nodules: Comment: December 2022 CT scan left upper lobe Code(s): R91.8 - Other nonspecific abnormal finding of lung field Plan: This will need to be followed up. (7) GERD (gastroesophageal reflux disease): Code(s): K21.9 - Gastro-esophageal reflux disease without esophagitis Qualifiers: Esophagitis presence: esophagitis presence not specified Qualified Code(s): K21.9 - Gastro-esophageal reflux disease without esophagitis Plan: Avoid the foods that causes that usually spicy foods, tomato products, juices, coffee, soda and foods that your sensitive to. After eating do not lie down, allow 3-4 hours before in lie down. And keep the head of bed above 30 degrees to avoid the acid from going up. Medications: Discontinued hydroxyurea Discontinued Reason: Ancillary Entered New Order 500 mg PO BID 60 caps 3RF Symbicort 160-4.5 mcg/actuation (budesonide-formoterol) Discontinued Reason: Doctor's Order 2 puffs inhalation BID 30.6 ea 3RF NS Coding Level of Care Code Est Pt Prev Care >65y(72210) Diagnoses Medicare annual wellness visit, subsequent Z00.00 Asthma-COPD overlap syndrome J44.9 Essential hypertension I10 Hypertension type: essential hypertension Hypercholesterolemia E78.00 Thrombocytosis D47.3 Pulmonary nodules R91.8 Gastroesophageal reflux disease, unspecified whether esophagitis present K21.9 Esophagitis presence: esophagitis presence not specified
== END 2024-01-20 13:12 | disposition home or self-care (01) ==
PROVIDERS: PCP Internal Medicine; Visit Provider Internal Medicine
DX: Z00.00 Encounter for general adult medical examination without abnormal findings (principal); J44.9 Chronic obstructive pulmonary disease, unspecified; D47.3 Essential (hemorrhagic) thrombocythemia; I10 Essential (primary) hypertension; E78.00 Pure hypercholesterolemia, unspecified; R91.8 Other nonspecific abnormal finding of lung field; K21.9 Gastro-esophageal reflux disease without esophagitis
CPT/HCPCS: 99397

== ENCOUNTER 2024-01-22 07:51 | Outpatient (REF) | payer MEDICARE, SELFPAY ==
[2024-01-22 08:14] LABS: MANUAL DIFF FLAG NO
[2024-01-22 08:30] LABS: Basophils Absolute Auto 0.2 X10*3/uL (0.0-0.2); Basophils Percent Auto 2.2 % (0-2); Eosinophils Absolute Auto 0.6 X10*3/uL (0.0-0.4); Eosinophils Percent Auto 6.5 % (0-4); Hematocrit 38.3 % (42.0-52.0); Hemoglobin 12.7 g/dl (14.0-18.0); Imm Gran Abs Auto 0.04 X10*3/uL (0.00-0.03); Imm Gran Pct Auto 0.5 % (0.0-0.4); Lymphocytes Absolute Auto 2.1 X10*3/uL (1.2-4.9); Lymphocytes Percent Auto 24.3 % (20-40); Mean Corpuscular HGB Conc 33.2 g/dl (31.0-36.0); Mean Corpuscular Volume 90.5 fL (80.0-98.0); Mean Platelet Volume 9.9 fL (9.4-12.4); Monocytes Absolute Auto 0.7 X10*3/uL (0.1-1.2); Neutrophils Absolute Auto 5.2 x10*3/uL (2.0-8.3); Neutrophils Percent Auto 58.5 % (45-73); Platelet Count 749 X10*3/uL (160-400); Red Blood Count 4.23 X10*6/uL (4.60-5.80); Red Cell Distribution Width 17.2 % (11.0-16.0); White Blood Count 8.8 X10*3/uL (4.8-10.8)
[2024-01-22 09:11] LABS: Alanine Aminotransferase 26 U/L (0-40); Albumin Level 4.3 g/dL (3.5-5.0); Alkaline Phosphatase 55 U/L (39-117); Anion Gap 9 (12-20); Aspartate Amino Transferase 31 U/L (5-37); Bilirubin Total 0.4 mg/dL (0.0-1.0); Blood Urea Nitrogen 17 mg/dL (9-16); Calcium 9.4 mg/dL (8.4-10.2); Carbon Dioxide 28 mmol/L (22-29); Chloride 105 mmol/L (96-108); Cholesterol 141 mg/dL (<200); Estimated Glomerular Filt Rate > 60; Glucose Random 96 mg/dL (60-115); HDL Cholesterol 59 mg/dL (>40); LDL Cholesterol Calculated 70 mg/dL (<100); Potassium 4.4 mmol/L (3.3-5.1); Sodium 138 mmol/L (135-145); Total Protein 7.1 g/dL (6.5-8.0); Triglycerides 62 mg/dL (<150)
[2024-01-22 09:31] LABS: Free T4 (Free Thyroxine) 0.86 ng/dL (0.71-1.85); Thyroid Stimulating Hormone 1.62 uIU/mL (0.32-4.0)
[2024-01-22 09:32] LABS: Folate 11.6 ng/mL (> or = 4.0); Vitamin B12 706 pg/mL (200-900)
== END 2024-01-22 07:52 | disposition home or self-care (01) ==
LOC: HO.LAB 07:51
PROVIDERS: PCP Internal Medicine; Visit Provider Internal Medicine
DX: E78.00 Pure hypercholesterolemia, unspecified (principal)
CPT/HCPCS: 36415; 80053; 80061; 82607; 82746; 84439; 84443; 85025

== ENCOUNTER 2024-01-29 13:30 | Outpatient (REF) | payer MEDICARE, SELFPAY ==
--- NOTE | ~2024-01-29 | XR_ITS ---
EXAMINATION: XR KNEE, RIGHT CLINICAL INFORMATION: Pain in the right knee. COMPARISON: None available. TECHNIQUE: Three views of the right knee. FINDINGS: There is advanced degenerative change. Mlcz-yx-embe contact between the femur and tibia at the medial femoral tibial joint. Small marginal bone spurs of the femur and tibia at this joint space. Moderate joint narrowing of the lateral femoral tibial joint. Mild joint narrowing of the patellofemoral joint with small marginal bone spurs of the patella. No bony erosions. No chondrocalcinosis. Large suprapatellar joint effusion. XR/XR knee RT 3V IMPRESSION: 1. 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 2. Large joint effusion.
== END 2024-01-29 13:31 | disposition home or self-care (01) ==
LOC: HO.XRAY 13:30
PROVIDERS: Visit Provider Internal Medicine Medical Oncology
DX: M25.561 Pain in right knee (principal)
CPT/HCPCS: 73562

== ENCOUNTER 2024-05-27 10:08 | Outpatient (AMB) | payer MEDICARE, SELFPAY ==
[2024-05-27 10:09] VITALS: BP 132/68; PULSE 112; O2SAT 97; BMI 25.5
--- NOTE | 2024-05-27 10:09 | MHC.PC.OV ---
Vital Signs 05/27/24 10:09 Height 5 ft 11 in Weight 183 lb BMI 25.5 BP 132/68 Blood Pressure Location Lt brachial Position Sitting Pulse 112 H Pulse Source Pulse Oximeter Pulse Oximetry (%) 97 Oxygen Delivery Method Room Air Intake Visit Reasons: Requesting Stress Test Web Site Project Manager Required: No Allergies lisinopril Allergy (Severe, Verified 05/27/24 10:13) cough codeine [CODEINE] Allergy (Intermediate, Verified 05/27/24 10:13) GI UPSET, nausea/vomiting hydroxyurea [From Hydrea] Adverse Reaction (Intermediate, Verified 05/27/24 10:13) weakness/chills, nausea losartan Adverse Reaction (Intermediate, Verified 05/27/24 10:13) hyperkalemia Medication List - Last Reconciled 05/27/24 by Kymberly Dale PA-C albuterol sulfate 90 mcg/actuation 2 puffs PO Q6H PRN amlodipine 2.5 mg PO DAILY 90 days anagrelide 1 mg (2 x 0.5 mg) PO DIRECTED [aspirin 81 mg PO DAILY] atorvastatin 40 mg PO DAILY bupropion HCl SR (Wellbutrin SR) 150 mg PO DAILY 90 days docusate sodium 100 mg PO DAILY famotidine (Pepcid) 20 mg PO BEDTIME ferrous sulfate 325 mg PO DAILY fluoxetine 40 mg PO DAILY fluticasone propionate 50 mcg/actuation 2 sprays intranasal DAILY 30 days melatonin 10 mg PO BEDTIME PRN mometasone-formoterol 200-5 mcg/actuation (Dulera) 2 puffs inhalation Q12H 30 days montelukast 10 mg PO DAILY multivitamin 1 tab PO DAILY omega-3 fatty acids 1,000 mg PO DAILY pantoprazole 40 mg PO DAILY tamsulosin (Flomax) 0.4 mg PO DAILY Tobacco use date assessed: 01/20/24 Fall risk assessment: No Falls in past year Last assessed Fall Risk: 05/27/24 Dental Screening Dental Screen Date: 01/20/24 HPI Requesting Stress Test HPI Details 73-year-old male with a history of GERD, hypertension, hypercholesterolemia, asthma, COPD overlap syndrome, and generalized anxiety disorder coming in for acute problem.? Patient was last seen by Dr. Michel 01/20/2024.? Patient was seen by Hematology Oncology May 2024 for follow up.? Advised to take and anagrelide and baby aspirin and referred to Cardiology for dyspnea on exertion. Patient has several concerns today. The 1st being he was seen by his educational paraprofessional and discuss that he was having dyspnea on exertion without chest pain and she recommended a cardiology referral and completion of a stress test. He also mentions he was seen at urgent care a few days ago for sore throat and was diagnosed with viral pharyngitis however still having white plaques on the back of his throat. He does use inhaled corticosteroids but does mentioned he rinses his mouth out after every use. He denies any painful or difficulty swallowing or fevers. He also has left-sided neck and ear pain. [facility] Medical History Dysphagia Hyperkalemia COVID-19 virus infection Lip lesion Pulmonary nodules COPD (chronic obstructive pulmonary disease) Pulmonary nodules Hypercholesterolemia Hypertension BPH (benign prostatic hyperplasia) Chronic rhinitis Asthma-COPD overlap syndrome Surgical History History of endoscopy Hx of colonoscopy History of knee surgery Family History Father Lung cancer Mother Hypertension Brother Brain cancer Daughter In good health Social History Household Members: Spouse Housing: House Are you a primary respiratory care specialist to a significant other at home: No Do you presently have visiting nurse or other home services: No Alcohol intake: current Comment: once a week 1drink Patient Tobacco Use Status: Former Tobacco user Tobacco use type: Cigarette Years Smoked: 10 years e-Cigarette/Vaping Use: Never Used Second Hand Smoke Exposure: No service: No Current occupational status: retired Cognitive needs: No Hearing needs: No Vision needs: Yes Questionnaire Thrive Questionnaire Date Thrive assessed: 01/20/24 AUDIT C Alcohol Use Questionnaire (AUDIT-C) 1. How often do you have a drink containing alcohol?: Never 3. How often do you have six or more drinks on one occasion?: Never Total Score: 0 Score Reviewed/Action Taken: No DEBORAH-7 AMB Questionnaire DEBORAH-7 Date DEBORAH - 7 assessed: 01/20/24 Source: Developed by Drs. Rajan LNeetu Garcia, Ziggy Contreras and colleagues, with an educational gloria from [employer]. Review of Systems Const Denies body aches, Denies chills, Denies fever(s), Denies headache(s) and Denies poor appetite Eyes Reports no additional complaints ENT Details: White plaques on the throat Denies dysphagia, Denies dizziness, Denies headache(s), Denies odynophagia and Reports sore throat Card Denies chest pain, Denies syncope, Denies edema, Denies irregular heart rhythm, Denies lightheadedness, Denies dyspnea and Reports dyspnea on exertion Resp Denies cough, Denies dyspnea and Reports dyspnea on exertion GI Denies abdominal pain, Denies dysphagia and Denies odynophagia Reports no additional complaints Musc Reports no additional complaints and Denies abnormal gait Skin/Breast Reports system reviewed and no additional complaints, except as documented Neuro Denies abnormal gait, Denies dizziness, Denies syncope and Denies headache(s) Psych Reports no additional complaints Physical exam (Primary Care) Vital Signs: Last Vital Signs Pulse 112 H 05/27/24 10:09 BP 132/68 05/27/24 10:09 Pulse Ox 97 05/27/24 10:09 Oxygen Delivery Method Room Air 05/27/24 10:09 BMI result Body Mass Index 25.5 Tobacco/Smoking Status: Tobacco use Status Tobacco use date assessed 01/20/24 05/27/24 10:10 Patient Tobacco Use Status Former Tobacco user 05/27/24 10:10 Tobacco use type Cigarette 05/27/24 10:10 e-Cigarette/Vaping Use Never Used 05/27/24 10:10 Thrive Assessment: Date of Thrive Assessment Date Thrive assessed 01/20/24 05/27/24 10:10 Const General: cooperative, healthy appearing, comfortable and no acute distress Orientation/consciousness: patient oriented x3 HENMT Other: White plaques on the oropharynx that are scraped off easily. Posterior oropharynx is not erythematous. Bilateral TMs are nonbulging and nonerythematous. Head: Yes normocephalic Ears: hearing grossly normal bilaterally General nose exam: Normal external nose present Eyes General: appearance normal, both eyes and all related structures Conjunctivae: conjunctivae normal Neck Other: No pain with active range of motion of neck. Neck: Yes full ROM and Yes no lymphadenopathy Resp Effort & Inspection: normal respiratory effort Auscultation: clear to auscultation bilaterally, no crackles, no rales, no rhonchi and no wheezes Cardio Rate: regular rate Rhythm: regular rhythm Skin General skin exam: no rashes or lesions noted Neuro General: patient oriented x3 Gait exam (Neuro): Normal gait present Extrem General: Yes normal to inspection, Yes full ROM and No edema Psych Affect: normal affect Attitude: cooperative Insight: Good insight present (Psych) Judgement: Good judgement present (Psych) Assessment and Plan Assessment & Plan (1) Dyspnea on exertion: Code(s): R06.09 - Other forms of dyspnea Plan: Patient has been having dyspnea on exertion and can only exercise and short bursts before heaviness it down to catch his breath. Hematology recommended stress test and cardiology follow up. Stress test was ordered today. Also recommend patient follow up with pulmonology for increased dyspnea. (2) Oral thrush: Code(s): B37.0 - Candidal stomatitis Plan: Patient has a presence of white plaques on the oropharynx that is scraped off easily with Q-tip. Patient has risk factors that make oral thrush likely. Centor criteria of 1 and no indication for further strep testing or treatment. Posterior oropharynx is mildly erythematous without petechiae. We will trial nystatin rinse for symptoms advised patient to follow up if symptoms worsen or he develops fever. Plan This note was constructed using voice recognition software. While every effort has been made to ensure accuracy and social sciences lecturer, still areas may have been included sometimes these areas may affect the content or meeting of the given symptoms. Total time spent caring for the patient today was 30 minutes. This includes time spent before the visit reviewing the chart, time spent during the visit, and time spent after the visit and documentation. Orders: Orders CA stress test Today R06.09 - Other forms of dyspnea Medications: New nystatin swish and swallow 1 mL PO DAILY 7 days 60 mL 0RF Coding Level of Care Code Est Pt Level 4 (11434) Diagnoses Dyspnea on exertion R06.09 Oral thrush B37.0
== END 2024-05-27 10:36 | disposition home or self-care (01) ==
PROVIDERS: PCP Internal Medicine
DX: R06.09 Other forms of dyspnea (principal); B37.0 Candidal stomatitis
CPT/HCPCS: 99214

== ENCOUNTER 2024-06-08 13:50 | Outpatient (AMB) | payer MEDICARE, SELFPAY ==
[2024-06-08 13:53] VITALS: BP 120/58; PULSE 96; O2SAT 97; BMI 25.8
--- NOTE | 2024-06-08 13:53 | MHC.OFFVIS ---
Vital Signs 06/08/24 13:53 Height 5 ft 11 in Weight 185 lb 4 oz BMI 25.8 BP 120/58 L Blood Pressure Location Lt brachial Position Sitting Pulse 96 Pulse Source Pulse Oximeter Pulse Oximetry (%) 97 Oxygen Delivery Method Room Air Intake Visit Reasons: Shortness of breath x 1m new Allergies lisinopril Allergy (Severe, Verified 06/08/24 13:58) cough codeine [CODEINE] Allergy (Intermediate, Verified 06/08/24 13:58) GI UPSET, nausea/vomiting hydroxyurea [From Hydrea] Adverse Reaction (Intermediate, Verified 06/08/24 13:58) weakness/chills, nausea losartan Adverse Reaction (Intermediate, Verified 06/08/24 13:58) hyperkalemia HPI HPI Shortness of breath x 1m new: Details: Martin is a pleasant 74 year old male, former smoker with 20+ pack year history and underlying COPD, chronic rhinitis, and pulmonary nodules. He is under the care of Dr. Ivey and presents today for an acute visit. He reports worsening dyspnea over the last month, occasionally with productive cough in the AM. He denies any fevers, chills or sick contacts. He has been using Dulera, singulair and Flonase with suboptimal effect. Of note, he is undergoing evaluation through Cardiology and will be having a stress test later this week. [facility] Medical History Dysphagia Hyperkalemia COVID-19 virus infection Lip lesion Pulmonary nodules COPD (chronic obstructive pulmonary disease) Pulmonary nodules Hypercholesterolemia Hypertension BPH (benign prostatic hyperplasia) Chronic rhinitis Asthma-COPD overlap syndrome Surgical History History of endoscopy Hx of colonoscopy History of knee surgery Family History Father Lung cancer Mother Hypertension Brother Brain cancer Daughter In good health Social History (Reviewed 06/08/24 @ 13:57 by Michelle Toro [facility] [address]) Household Members: Spouse Housing: House Are you a primary care coordination manager to a significant other at home: No Do you presently have visiting nurse or other home services: No Alcohol intake: current Comment: once a week 1drink Patient Tobacco Use Status: Former Tobacco user Tobacco use type: Cigarette Years Smoked: 10 years e-Cigarette/Vaping Use: Never Used Second Hand Smoke Exposure: No Use of substances other than those prescribed or required for medical reasons: No Have you been hit, kicked, punched, or otherwise hurt by someone within the past year? If so, by whom?: No Do you feel safe in your current relationship?: Yes Do you have thoughts of harming others: None Do you have a plan to hurt others: No Plan Do you have the means to hurt others: No Recently lost weight without trying: No Eating poorly because of decreased appetite: No service: No Current occupational status: retired Cognitive needs: No Hearing needs: No Vision needs: Yes Review of Systems Const Denies chills, Denies excessive sweating, Denies fever(s), Denies headache(s) and Denies night sweats Eyes Denies dry eyes, Denies irritation and Denies itchy eyes ENT Reports Normal hearing present, Denies headache(s), Denies nasal congestion, Denies nasal discharge, Denies post nasal drip and Denies sore throat Card Denies chest pain, Denies chest pain at rest, Denies chest pain with activity, Denies claudication, Denies leg edema, Denies orthopnea and Denies paroxysmal nocturnal dyspnea Resp Denies chest congestion, Denies excessive phlegm production, Denies pain on inspiration, Denies pain with cough, Denies stridor and Denies wheezing Musc Denies myalgias Neuro Reports Normal hearing present and Denies headache(s) Endo Denies excessive sweating Yang/Lymph Denies lymphadenopathy Aller/Immun Denies itchy eyes, Denies seasonal rhinorrhea and Denies wheezing Physical Exam Vital Signs: Last Vital Signs Pulse 96 06/08/24 13:53 BP 120/58 L 06/08/24 13:53 Pulse Ox 97 06/08/24 13:53 Oxygen Delivery Method Room Air 06/08/24 13:53 BMI result Body Mass Index 25.8 Const General: cooperative, healthy appearing, comfortable, no acute distress, well developed and alert Orientation/consciousness: patient oriented x3 Limitations: no limitations HEENT Head: Yes normal to inspection, Yes normocephalic and Yes atraumatic Ears: hearing grossly normal bilaterally and external ears normal Eyes General: appearance normal, both eyes and all related structures Eyelids: Yes eyelids normal Sclerae: sclerae normal EOM: EOMs intact bilaterally Neck Neck: Yes normal visual inspection and Yes no lymphadenopathy Lymphatic: no lymphadenopathy noted Chest Chest palpation & inspection: normal inspection of the chest Resp Effort & Inspection: normal respiratory effort, able to speak in complete sentences, no audible wheezes, no cough, no stridor, not tachypneic, no tripod positioning and no use of accessory muscles Auscultation: clear to auscultation bilaterally Cardio Jugular venous distension: no JVD Rate: regular rate Rhythm: regular rhythm Skin Other: warm, dry General skin exam: no rashes or lesions noted Neuro General: patient oriented x3 Cranial nerves: Yes Normal hearing present Cognition (Neuro): normal cognition Gait exam (Neuro): Normal gait present Extrem General: Yes normal to inspection, Yes capillary refill normal, Yes no clubbing, cyanosis or edema and Yes no pedal edema Psych Appearance: grossly normal and well kempt Speech and movement: Normal speech and movement present and Clear speech present Affect: normal affect Attitude: cooperative Thought process: Normal thought process present Thought content: Normal thought content present Insight: Good insight present (Psych) Judgement: Good judgement present (Psych) Office Procedures 6 Minute Walk Time:: 14:24 SPO2 % at rest: 97 Pulse at rest: 98 SPO2 % during excercise: 95 Pulse during excercise: 114 SPO2 % after excercise: 96 Pulse after excercise: 107 Distance in yards walked: 150 Soledad Score: 5 Performance Observations:: Patient walked unassisted on level ground at a moderate pace. Patient was able to maintain O2 saturation of 95% or greater with pulse rate of 114 or less for the entirety of the walk. No shortness of breath noted. Patient report he tires with strenuous activity. No supplemental oxygen was required. [id number] - 6 Minute Walk Assessment & Plan Assessment & Plan (1) Asthma-COPD overlap syndrome: Code(s): J44.9 - Chronic obstructive pulmonary disease, unspecified Category: Medical (2) Chronic rhinitis: Code(s): J31.0 - Chronic rhinitis Category: Medical (3) Dyspnea on exertion: Code(s): R06.09 - Other forms of dyspnea Category: Medical Plan Martin presents with suboptimal response to Dulera and continues with dyspnea on exertion. There may be a cardiac component and he has an upcoming stress test later this week. In the meantime, will trial Trelegy. 6MWT performed and patient does not require supplemental oxygen at this time. All questions were answered and patient is in agreement of plan. Will follow-up to review response to Trelegy and results of stress test, or sooner if needed. Orders: Orders AMB 6 minute walk 06/08/24 R06.09 - Other forms of dyspnea Medications: New ghhnfdmvkgq-esedoaqbi-wtsbxinh 200-62.5-25 mcg (Trelegy Ellipta) 1 inh inhalation DAILY 60 ea 3RF Coding Level of Care Code Est Pt Level 4 (34484) Diagnoses Asthma-COPD overlap syndrome J44.9 Chronic rhinitis J31.0 Dyspnea on exertion R06.09 CPT Codes Coding ([id number])
[2024-06-08 14:46] VITALS: PULSE 98; O2SAT 97
== END 2024-06-08 14:38 | disposition home or self-care (01) ==
PROVIDERS: PCP Internal Medicine; Visit Provider Nurse Practitioner Family
DX: J41.0 Simple chronic bronchitis (principal); J44.9 Chronic obstructive pulmonary disease, unspecified; J31.0 Chronic rhinitis; R06.09 Other forms of dyspnea
CPT/HCPCS: 94618; 99214

== ENCOUNTER → 2024-06-08 13:50 | Outpatient (BNVA) | payer MEDICARE, SELFPAY | PROVIDERS: PCP Internal Medicine; Visit Provider Nurse Practitioner Family | DX: J44.9 Chronic obstructive pulmonary disease, unspecified (principal); J31.0 Chronic rhinitis; R06.09 Other forms of dyspnea | CPT/HCPCS: 94618; 99212 ==

== ENCOUNTER → 2024-06-10 07:55 | Outpatient (REF) | payer MEDICARE, SELFPAY ==
--- NOTE | 2024-06-10 07:58 | CA_ITS ---
Acquisition Time: 2024-06-10 08:11:20 Total Exercise Time: 00:05:46 Test Indications: SOB Medications: SEE H Protocol: TA Max HR: 137 BPM 93% of Pred: 147 BPM Max BP: 162/084 mmHG Max Work Load: 7.0 METS Exercise stress test with exercise 5 min 46 sec of Ta protocol, achieving 92% MPHR, 7 METs, with moderate shortness of breath, no chest discomfort, with isolated PACs, with normotensive response to exercise, without EKG changes meeting criteria for ischemia. Pt was assisted into chair following exercise and he reported nausea, had dry heaves, became diaphoretic. BP dropped from 162/84 down to 114/52. IV access was obtained and he was given IV NS wide open. EKGs showed SR with freq PACs and brief atrial runs. Within minutes he was feeling better and BP improved. He was recovered for a total of 25 min, recieved 250cc NS and was given a snack of saltines and water. He reported feeling back to normal self. He was allowed to leave cardiology department in stable condition. Dr Sebastian informed. Pt most likely had vasovagal event post exercise. Referred By: Kymberly Dale Overread By: KIAN SHANNON
== END ==
LOC: HO.CARD 07:55
PROVIDERS: PCP Internal Medicine
DX: R06.09 Other forms of dyspnea (principal)
CPT/HCPCS: 93017

== ENCOUNTER → 2024-06-10 07:58 | Outpatient (BNV) | payer MEDICARE, SELFPAY | PROVIDERS: PCP Internal Medicine; Visit Provider Nurse Practitioner Family | DX: R06.02 Shortness of breath (principal); I49.1 Atrial premature depolarization | CPT/HCPCS: 93016; 93018 ==

== ENCOUNTER 2024-07-05 13:15 | Outpatient (AMB) | payer MEDICARE, SELFPAY ==
[2024-07-05 13:25] VITALS: BP 154/78; PULSE 94; BMI 26.1
--- NOTE | 2024-07-05 13:25 | A.OFFVIS_ITS ---
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 Allergies lisinopril Allergy (Severe, Verified 06/08/24 13:58) cough codeine [CODEINE] Allergy (Intermediate, Verified 06/08/24 13:58) GI UPSET, nausea/vomiting hydroxyurea [From Hydrea] Adverse Reaction (Intermediate, Verified 06/08/24 13:58) weakness/chills, nausea losartan Adverse Reaction (Intermediate, Verified 06/08/24 13:58) hyperkalemia Medication List - Last Reconciled 07/05/24 by Sourav Sebastian MD albuterol sulfate 90 mcg/actuation 2 puffs PO Q6H PRN amlodipine 2.5 mg PO DAILY 90 days anagrelide 1 mg (2 x 0.5 mg) PO DIRECTED [aspirin 81 mg PO DAILY] atorvastatin 40 mg PO DAILY bupropion HCl SR (Wellbutrin SR) 150 mg PO DAILY 90 days famotidine (Pepcid) 20 mg PO BEDTIME ferrous sulfate 325 mg PO DAILY fluoxetine 40 mg PO DAILY fluticasone propionate 50 mcg/actuation 2 sprays intranasal DAILY 90 days batodqbcnvo-zfbvrhken-vccpchzt 200-62.5-25 mcg (Trelegy Ellipta) 1 inh inhalation DAILY melatonin 10 mg PO BEDTIME PRN mometasone-formoterol 200-5 mcg/actuation (Dulera) 2 puffs inhalation Q12H 30 days montelukast 10 mg PO DAILY multivitamin 1 tab PO DAILY nystatin 1 mL PO DAILY 7 days omega-3 fatty acids 1,000 mg PO DAILY pantoprazole 40 mg PO DAILY tamsulosin (Flomax) 0.4 mg PO DAILY HPI Comments Details: Martin is here for consultation regarding shortness of breath. He also has a history of underlying asthma/COPD overlap. Additionally, has thrombocytosis under the care of Hematology. He has been referred for cardiac evaluation. He states that he frequently gets short of breath with even mild amounts of activity. He gets fatigued a lot. After reason stress test, it seems that he had a vasovagal type event when the blood pressure dropped and he received IV fluids. No documented coronary disease or myocardial infarction in the past but it seems he has had a cardiac catheterization many years ago. [facility] Medical History Dysphagia Hyperkalemia COVID-19 virus infection Lip lesion Pulmonary nodules COPD (chronic obstructive pulmonary disease) Pulmonary nodules Hypercholesterolemia Hypertension BPH (benign prostatic hyperplasia) Chronic rhinitis Asthma-COPD overlap syndrome Surgical History History of endoscopy Hx of colonoscopy History of knee surgery Family History Father Lung cancer Mother Hypertension Brother Brain cancer Daughter In good health Social History Household Members: Spouse Housing: House Are you a primary director of healthcare systems to a significant other at home: No Do you presently have visiting nurse or other home services: No Alcohol intake: current Comment: once a week 1drink Patient Tobacco Use Status: Former Tobacco user Tobacco use type: Cigarette Years Smoked: 10 years e-Cigarette/Vaping Use: Never Used Second Hand Smoke Exposure: No service: No Current occupational status: retired Cognitive needs: No Hearing needs: No Vision needs: Yes Review of Systems Const Denies weakness ENT Denies dizziness Card Denies chest pain, Denies chest pain with activity, Denies syncope, Denies rapid heart rate, Denies pedal edema, Denies edema, Denies leg edema, Denies lightheadedness, Denies palpitations, Reports dyspnea, Reports dyspnea on exertion and Denies orthopnea Resp Denies cough, Reports dyspnea and Reports dyspnea on exertion GI Denies hematochezia and Denies change in stool character Musc Denies abnormal gait, Denies muscle cramps, Denies muscle weakness, Denies numbness, Denies radiating pain into limb and Denies tingling Neuro Denies abnormal gait, Denies dizziness, Denies syncope, Denies numbness, Denies tingling and Denies weakness Endo Denies palpitations Physical Exam Vital Signs: Last Vital Signs Pulse 94 07/05/24 13:25 BP 154/78 H 07/05/24 13:25 BMI result Body Mass Index 26.1 Const General: comfortable and no acute distress Orientation/consciousness: patient oriented x3 HEENT Other: Unremarkable Head: Yes normal to inspection Neck Neck: Yes normal visual inspection Chest Chest palpation & inspection: normal inspection of the chest Resp Auscultation: rhonchi Cardio Palpation: normal PMI Heart sounds: S1 normal heart sound present, S2 normal heart sound present, no gallops, no murmurs and no rubs GI Palpation (GI): Soft to palpation Back/Spine/Pelvis Other: unremarkable Skin General skin exam: no rashes or lesions noted Neuro General: patient oriented x3 Extrem General: Yes normal to inspection Psych Mental Status: mental status grossly normal Office Procedures EKG Details: EKG with underlying sinus rhythm at 94/Min; no significant ST-T changes and otherwise unremarkable. [place]. [id number]-Dmativcwvqpvorqow, Complete Assessment & Plan Assessment & Plan (1) Dyspnea on exertion: Code(s): R06.09 - Other forms of dyspnea Category: Medical (2) Abnormal stress test: Code(s): R94.39 - Abnormal result of other cardiovascular function study Category: Medical Plan Chest CT scan describes coronary artery calcifications. During the stress test, he reached 7 METS on Jerald protocol and developed shortness of breath. Then had sudden drop in blood pressure and thought to have had a vasovagal event. Suspect could be due to poor exercise tolerance and deconditioning. We will check a pharmacological stress test with perfusion imaging. Echocardiogram for cardiac function. He is also worried about carotid artery disease and hence we will do a Doppler ultrasound. Follow-up after the above. Orders: Orders CA echo transthoracic complete Today R06.09 - Other forms of dyspnea CA lexiscan stress w miko Today I20.9 - Angina pectoris, unspecified NM cardiolite stress test Today R07.2 - Precordial pain US carotid duplex BI Today I65.23 - Occlusion and stenosis of bilateral carotid arteries Coding Level of Care Code New Pt Level 4 (10909) Diagnoses Dyspnea on exertion R06.09 Abnormal stress test R94.39 CPT Codes EKG - CPT: 41560-Btevlcqkkgsftomuz, Complete ([id number])
== END 2024-07-05 14:01 | disposition home or self-care (01) ==
PROVIDERS: PCP Internal Medicine; Visit Provider Internal Medicine
DX: R06.09 Other forms of dyspnea (principal); R94.39 Abnormal result of other cardiovascular function study
CPT/HCPCS: 93010; 99204

== ENCOUNTER → 2024-07-05 13:15 | Outpatient (BNVA) | payer MEDICARE, SELFPAY | PROVIDERS: PCP Internal Medicine; Visit Provider Internal Medicine | DX: R06.09 Other forms of dyspnea (principal); R94.39 Abnormal result of other cardiovascular function study | CPT/HCPCS: 93005; 99202 ==

== ENCOUNTER 2024-08-02 12:42 | Outpatient (REF) | payer MEDICARE, SELFPAY ==
--- NOTE | ~2024-08-02 | US_ITS ---
EXAMINATION: US EXTRACRANIAL CAROTID DUPLEX, BILATERAL CLINICAL INFORMATION: Occlusion/stenosis of bilateral carotids COMPARISON: None available. TECHNIQUE: Real-time ultrasound and Doppler techniques (integrating B-mode 2-D vascular images, Doppler spectral analysis and color-flow Doppler imaging) were utilized to interrogate the extracranial carotid arteries, the vertebral arteries and proximal subclavian arteries bilaterally. The degree of stenosis is determined by criteria similar to NASCET. FINDINGS: Right Side: 1. There is minimal atherosclerotic plaque seen in the bifurcation/proximal ICA region. 2. The common carotid artery PSV proximally is 102 cm/s and distally 83 cm/s. 3. The proximal internal carotid artery velocities are 82 cm/s systolic and 14 cm/s diastolic. 4. The proximal external carotid artery PSV is 115 cm/s. 5. The vertebral artery shows antegrade flow. 6. The subclavian artery waveforms are normal. Left Side: 1. There is minimal atherosclerotic plaque seen in the bifurcation/proximal ICA region. 2. The common carotid artery PSV proximally is 138 cm/s and distally 104 cm/s. 3. The proximal internal carotid artery velocities are 103 cm/s systolic and 16 cm/s diastolic. 4. The proximal external carotid artery PSV is 111 cm/s. 5. The vertebral artery shows antegrade flow. 6. The subclavian artery waveforms are normal. US/US carotid duplex BI IMPRESSION: 1. RIGHT: Minimal, non-hemodynamically significant stenosis of the proximal right internal carotid artery corresponding to a 0-49% stenosis by velocity criteria. 2. LEFT: Minimal, non-hemodynamically significant stenosis of the proximal left internal carotid artery corresponding to a 0-49% stenosis by velocity criteria. Electronically signed by: Sheryl Mcelroy MD 08/11/2024 01:51 PM EST
== END 2024-08-02 12:43 | disposition home or self-care (01) ==
LOC: HO.US 12:42
PROVIDERS: PCP Internal Medicine; Visit Provider Internal Medicine
DX: I65.23 Occlusion and stenosis of bilateral carotid arteries (principal)
CPT/HCPCS: 93880

== ENCOUNTER → 2024-08-06 13:33 | Outpatient (REF) | payer MEDICARE, SELFPAY ==
--- NOTE | 2024-08-06 13:37 | CA_ITS ---
Transthoracic Echocardiogram Patient (Last, First, Middle): Martin Tierney M Gender: Male Date of : 1950 Age: 74 Procedure Date: 08/06/2024 Procedure Type: Transthoracic Echocardiogram Location: OP Height: 180.34 cm Weight: 83.92 kg BSA: 2.04 m2 Heart Rate: bpm BP: 110 / 60 mmHg Clay Caster: Referring MD: Sourav Sebastian MD Symptoms: R06.09 - Other forms of dyspnea Study Quality: Good ECG Rhythm: Sinus Conclusions: - The left ventricular systolic function is normal. The calculated ejection fraction is 56% by biplane method. - No obvious valvular pathology seen on this study. Findings Left Ventricle Normal left ventricular cavity size. The left ventricular systolic function is normal. The calculated ejection fraction is 56% by biplane method. There is no evidence of regional wall motion abnormalities. Diastolic function is normal for age. E/E prime ratio is <8, consistent with normal filling pressures. There is mild septal asymmetric hypertrophy. Right Ventricle Normal right ventricular cavity size and systolic function. Atria Both atria are normal in size. Aortic Valve There is a normal trileaflet aortic valve. There is no aortic valve stenosis. There is no aortic valve regurgitation. Mitral Valve The mitral valve appears normal. There is mild mitral valve regurgitation. There is no mitral valve stenosis. Pulmonic Valve There is trace pulmonic valve regurgitation. Tricuspid Valve Normal tricuspid valve structure. There is trace tricuspid valve regurgitation. There is no evidence of pulmonary hypertension. Great Vessels The asc aorta is normal in size. Venous The inferior vena cava is normal in size and collapses greater than 50% with inspiration. Pericardium/Pleural Trivial to small pericardial effusion over the left ventricle. Prior Study Comparison No significant change compared to prior study dated: 09/06/2015. Recommendations, Care & Conclusions No obvious valvular pathology seen on this study. Measurements 2D Linear Measurements IVSd: 1.05 0.6-0.9/0.6-1.0 cm LVIDd: 4.21 3.9-5.3/4.2-5.9 cm LVIDd Index: 2.06 2.4-3.2/2.2-3.1 cm/m2 LVIDs: 2.51 2.0-3.6 cm LVPWd: 0.99 0.7-1.1 cm Ao Root: 3.50 2.1-3.5 cm LA Diam: 3.70 2.7-3.8/3.0-4.0 cm LAIDs Index: 1.81 1.5-2.3 cm/m2 LV Mass: 176.55 67-162/88-224 g LV Mass Index: 86.54 43-95/49-115 g/m2 LVOT Diam: 2.30 3.0+(-)1.3 cm 2D Systolic Function EF 4C: 59.10 >55% EF 2C: 51.70 >55% EF BiP: 55.80 >55% Mitral Valve MV Pk E: 0.49 MV PK A: 0.72 MV Decel Time: 168.00 E/A: 0.70 E'Lateral: 6.31 E'Medial: 4.68 E/E' Med: 10.50 E/E' Lat: 7.80 PHT: 49.00 MVA PHT: 4.49 Decel [place]: 2.91 Aortic Valve AoV Pk Mendo[place]: 1.16 AoV Pk Grad: 5.00 LVOT LVOT Pk [place]: 0.90 LVOT Mn [place]: 0.56 LVOT VTI: 0.17 LVOT Pk Grad: 3.00 LVOT Mn Grad: 2.00 LVOT Diam: 2.30 LVOT Area: 4.15 Diastolic Function MV Pk E: 0.49 MV Pk A: 0.72 E/A: 0.70 E'Medial: 4.68 E/E' Med: 10.50 E' Laterial: 6.31 E/E' Lat: 7.80 Right Ventricle TAPSE (mm): 32.00 TVS' M[place]: 13.00 Tricuspid Valve TR Pk [place]: 2.45 TR Pk Grad: 24.00 RA Press: 3.00 RVSP: 27.00 Great Vessels Aorta Ao Root-2D: 3.50 2.0-3.7 cm Ao Asc: 3.20 2.1-3.4 cm Pulmonary Valve PV Pk Mendoza: 1.02 Peak PV Grad: 4.00 Updated in Other Vendor System with Status of Final Sourav Sebastian MD electronically signed on 08/07/2024 1:03:08 PM with status of Final
== END ==
LOC: HO.CARD 13:33
PROVIDERS: PCP Internal Medicine; Visit Provider Internal Medicine
DX: R06.09 Other forms of dyspnea (principal)
CPT/HCPCS: 93306

== ENCOUNTER → 2024-08-06 13:37 | Outpatient (BNV) | payer MEDICARE, SELFPAY | PROVIDERS: PCP Internal Medicine; Visit Provider Internal Medicine | DX: I34.0 Nonrheumatic mitral (valve) insufficiency (principal); I42.2 Other hypertrophic cardiomyopathy | CPT/HCPCS: 93306 ==

== ENCOUNTER 2024-08-10 07:31 | Outpatient (REF) | payer MEDICARE, SELFPAY ==
[2024-08-10 08:51] LABS: B Type Natriuretic Peptide 27 pg/mL (<100)
== END 2024-08-10 07:32 | disposition home or self-care (01) ==
LOC: HO.LAB 07:31
PROVIDERS: PCP Internal Medicine
DX: R06.09 Other forms of dyspnea (principal)
CPT/HCPCS: 36415; 83880

== ENCOUNTER 2024-08-11 12:54 | Outpatient (AMB) | payer MEDICARE, SELFPAY ==
--- NOTE | 2024-08-11 12:57 | MHC.PC.OV ---
Vital Signs 08/11/24 12:58 Height 5 ft 11 in Weight 185 lb BMI 25.8 BP 152/78 H Blood Pressure Location Lt brachial Position Sitting Pulse 75 Pulse Source Pulse Oximeter Pulse Oximetry (%) 98 Oxygen Delivery Method Room Air Intake Visit Reasons: Cholesterol Allergies lisinopril Allergy (Severe, Verified 08/11/24 12:58) cough codeine [CODEINE] Allergy (Intermediate, Verified 08/11/24 12:58) GI UPSET, nausea/vomiting hydroxyurea [From Hydrea] Adverse Reaction (Intermediate, Verified 08/11/24 12:58) weakness/chills, nausea losartan Adverse Reaction (Intermediate, Verified 08/11/24 12:58) hyperkalemia Tobacco use date assessed: 01/20/24 Fall risk assessment: No Falls in past year Last assessed Fall Risk: 08/11/24 Dental Screening Dental Screen Date: 01/20/24 HPI Cholesterol HPI Details 74-year-old male with asthma COPD overlap syndrome BPH hypertension hypercholesterolemia major depression and anxiety problem GERD coming in for follow-up. Last seen in May 2024. Stress test has been requested. Patient had an echocardiogram in August showing EF of 56% no valvular problem. Patient also has been follow-up with Hematology-Oncology for thrombocytosis [id number] patient was given anagrelide 1.5 mg twice a day patient can not tolerate Hydrea advised continue on with aspirin patient was seen by Cardiology stress test requested but during the test blood pressure drop question of vasovagal event chest CT describes coronary artery calcifications. Lexiscan stress with nuclear medicine Cardiolite stress. Patient also followed up with Pulmonary June 08 with a asthma COPD problem advised Trelegy trial . cough 2 week , clearer dischrage maddy.. stress test 09/2024. t=for the trelegy just started . no chills, no sore throat, PFSH Medical History Dysphagia Hyperkalemia COVID-19 virus infection Lip lesion Pulmonary nodules COPD (chronic obstructive pulmonary disease) Pulmonary nodules Hypercholesterolemia Hypertension BPH (benign prostatic hyperplasia) Chronic rhinitis Asthma-COPD overlap syndrome Surgical History History of endoscopy Hx of colonoscopy History of knee surgery Family History Father Lung cancer Mother Hypertension Brother Brain cancer Daughter In good health Social History Household Members: Spouse Housing: House Are you a primary medical care administrator to a significant other at home: No Do you presently have visiting nurse or other home services: No Alcohol intake: current Comment: once a week 1drink Patient Tobacco Use Status: Former Tobacco user Tobacco use type: Cigarette Years Smoked: 10 years e-Cigarette/Vaping Use: Never Used Second Hand Smoke Exposure: No service: No Current occupational status: retired Cognitive needs: No Hearing needs: No Vision needs: Yes Questionnaire PHQ-9 Over the last 2 weeks, how often have you been bothered by any of the following problems? 1. Little interest or pleasure in doing things: not at all 2. Feeling down, depressed, or hopeless: not at all 3. Trouble falling or staying asleep, or sleeping too much: not at all 4. Feeling tired or having little energy: not at all 5. Poor appetite or overeating: not at all 6. Feeling bad about yourself - or that you are a failure or have let yourself or your family down: not at all 7. Trouble concentrating on things, such as reading the newspaper or watching television: not at all 8. Moving or speaking so slowly that other people could have noticed. Or the opposite - being so fidgety or restless that you have been moving around a lot more than usual: not at all 9. Thoughts that you would be better off or of hurting yourself in some way: not at all Total score: 0 Depression Screening Interpretation: Negative Depression Screening Done: Yes 27364 - PHQ-9 Billing: Yes Source: Developed by Drs. Rajan Fry, Neetu Torres, Ziggy Contreras and colleagues, with an educational gloria from [employer]. Thrive Questionnaire Date Thrive assessed: 01/20/24 DEBORAH-7 AMB Questionnaire DEBORAH-7 Date DEBORAH - 7 assessed: 01/20/24 Source: Developed by Drs. Rajan Fry, Ziggy Sandoval and colleagues, with an educational gloria from [employer]. Physical exam (Primary Care) Vital Signs: Last Vital Signs Pulse 75 08/11/24 12:58 BP 152/78 H 08/11/24 12:58 Pulse Ox 98 08/11/24 12:58 Oxygen Delivery Method Room Air 08/11/24 12:58 BMI result Body Mass Index 25.8 Tobacco/Smoking Status: Tobacco use Status Tobacco use date assessed 01/20/24 08/11/24 13:03 Patient Tobacco Use Status Former Tobacco user 08/11/24 13:03 Tobacco use type Cigarette 08/11/24 13:03 e-Cigarette/Vaping Use Never Used 08/11/24 13:03 PHQ-9: PHQ-9 Score PHQ-9: Total score 0 08/11/24 13:12 Depression Screening Interpretation: Negative Thrive Assessment: Date of Thrive Assessment Date Thrive assessed 01/20/24 08/11/24 13:03 Const General: alert; No acute distress Eyes Conjunctivae: conjunctivae normal Resp Auscultation: clear to auscultation bilaterally Cardio Rate: regular rate Rhythm: regular rhythm GI Inspection: Yes normal to inspection Extrem General: Yes normal to inspection and No edema Office Procedures Flu Questionnaire Does the patient have a severe egg allergy?: No Does the patient have severe life threatening allergies?: No Does the patient have a fever or illness today?: No Has the patient ever had Guillain-[place] Syndrome?: No Has the patient ever had any past reaction to a flu shot?: No Immunizations Fluarix Triv 9923-4704 (PF) 45 mcg (15 mcg x 3)/0.5 mL IM syringe Performing Provider: Patricia Michel MD [place] [facility] [place] [facility] Administered by: Michelle Oh CMA on 08/11/24 13:26 Dose Route Admin Location Dispensed Lot Number Expiration Date [facility] Drum Maker 0.5 mL IM Left Deltoid 0.5 mL [id number] 04/04/25 13827-923-13 SCP Events VIS Given Date VIS Provided VIS Publication Date 08/11/24 Single Vaccine 21 Eligibility Eligibility Date Funding Source Not [facility] Eligible 08/11/24 Private Coding Level of Care Code Est Pt Level 4 (40230) Diagnoses Dyspnea on exertion R06.09 Gastroesophageal reflux disease, unspecified whether esophagitis present K21.9 Esophagitis presence: esophagitis presence not specified Essential hypertension I10 Hypertension type: essential hypertension Hypercholesterolemia E78.00 Asthma-COPD overlap syndrome J44.9 Thrombocytosis D47.3 Additional Codes PHQ-9 - 21140 - PHQ-9 Billing: Yes ([id number]) Assessment & Plan Assessment & Plan (1) Dyspnea on exertion: Code(s): R06.09 - Other forms of dyspnea Category: Medical Plan: Patient has a cardiac workup pending with Lexiscan stress with nuclear medicine. (2) GERD (gastroesophageal reflux disease): Code(s): K21.9 - Gastro-esophageal reflux disease without esophagitis Category: Medical Qualifiers: Esophagitis presence: esophagitis presence not specified Qualified Code(s): K21.9 - Gastro-esophageal reflux disease without esophagitis Plan: Avoid the foods that causes that usually spicy foods, tomato products, juices, coffee, soda and foods that your sensitive to. After eating do not lie down, allow 3-4 hours before in lie down. And keep the head of bed above 30 degrees to avoid the acid from going up. (3) Hypertension: Code(s): I10 - Essential (primary) hypertension Category: Medical Qualifiers: Hypertension type: essential hypertension Qualified Code(s): I10 - Essential (primary) hypertension Plan: Continue with blood pressure medication. Decrease salt intake and exercise on amlodipine 2.5 mg once a day (4) Hypercholesterolemia: Code(s): E78.00 - Pure hypercholesterolemia, unspecified Category: Medical Plan: Avoid fried foods, chicken skin, eggs, butter margarine, pastries and meat. Be it pork or beef they have a lot of cholesterol with the coronary artery calcifications LDL goal of less than 70 and triglyceride of less than 150 on atorvastatin 40 mg once a day (5) Asthma-COPD overlap syndrome: Code(s): J44.9 - Chronic obstructive pulmonary disease, unspecified Category: Medical Plan: Continue with albuterol and patient has been advised to start on Trelegy (6) Thrombocytosis: Code(s): D47.3 - Essential (hemorrhagic) thrombocythemia Category: Medical Plan: Patient has met with Hematology-Oncology placed on anagrelide Medications: Changed From amlodipine 2.5 mg PO DAILY 90 days 90 tabs 2RF I10 - Essential (primary) hypertension To amlodipine 5 mg PO DAILY 90 days 90 tabs 2RF I10 - Essential (primary) hypertension
[2024-08-11 12:58] VITALS: BP 152/78; PULSE 75; O2SAT 98; BMI 25.8
== END 2024-08-11 13:34 | disposition home or self-care (01) ==
LOC: HO.HMCH 12:55
PROVIDERS: PCP Internal Medicine; Visit Provider Internal Medicine
DX: R06.09 Other forms of dyspnea (principal); J44.9 Chronic obstructive pulmonary disease, unspecified; D47.3 Essential (hemorrhagic) thrombocythemia; K21.9 Gastro-esophageal reflux disease without esophagitis; I10 Essential (primary) hypertension; E78.00 Pure hypercholesterolemia, unspecified

== ENCOUNTER → 2024-08-11 12:54 | Outpatient (BNVA) | payer MEDICARE, SELFPAY | PROVIDERS: PCP Internal Medicine; Visit Provider Internal Medicine | DX: Z23 Encounter for immunization (principal); R06.09 Other forms of dyspnea; K21.9 Gastro-esophageal reflux disease without esophagitis; I10 Essential (primary) hypertension; E78.00 Pure hypercholesterolemia, unspecified; J44.9 Chronic obstructive pulmonary disease, unspecified; D47.3 Essential (hemorrhagic) thrombocythemia | CPT/HCPCS: 90471; 90656; 96127; 99212 ==

== ENCOUNTER 2024-09-06 15:23 | Outpatient (AMB) | payer MEDICARE, SELFPAY ==
[2024-09-06 15:25] VITALS: BP 142/62; PULSE 87; O2SAT 97; BMI 26.9
--- NOTE | 2024-09-06 15:25 | MHC.OFFVIS ---
Vital Signs 09/06/24 15:25 Height 5 ft 11 in Weight 192 lb 14.472 oz BMI 26.9 BP 142/62 H Blood Pressure Location Lt brachial Position Sitting Pulse 87 Pulse Source Doppler Pulse Oximetry (%) 97 Oxygen Delivery Method Room Air Intake Visit Reasons: Shortness of breath x 1m new Allergies lisinopril Allergy (Severe, Verified 09/06/24 15:31) cough codeine [CODEINE] Allergy (Intermediate, Verified 09/06/24 15:31) GI UPSET, nausea/vomiting hydroxyurea [From Hydrea] Adverse Reaction (Intermediate, Verified 09/06/24 15:31) weakness/chills, nausea losartan Adverse Reaction (Intermediate, Verified 09/06/24 15:31) hyperkalemia HPI Comments Details: The patient is a 74-year-old gentleman with a known history of COPD, chronic rhinitis and also pulmonary nodules. Overall he has been doing well from a respiratory status. However he states that he last the sense of smell and taste. This been going on for about a year. He does have nasal congestion but he does not really feel any significant improvement on the fluticasone. He has been doing that for years. He does have underlying allergies. He denies any exposure to anybody with COVID-19 infection that he is aware of. He continues his respiratory therapy with good effect. We did talk about a CT scans of the chest demonstrating stable pulmonary nodules for about 2 years. At this point will have him go chest x-ray to make sure stability in to address the persistent morning cough. 08/23/2021 the patient is here for a pulmonary follow-up visit. Overall he continues to be about the same. He still complaining of a cough which is usually nonproductive in nature. Also complains of shortness of breath. The Symbicort has been partially effective. He continues use that twice a day. In the meantime he was found to have a hiatal hernia and a barium swallow which could be resulting in his chronic cough. He will be undergoing endoscopy soon to further address that. Patient has underlying pulmonary nodules. He was a former smoker. He did undergo a chest x-ray demonstrating increased hyperinflation consistent with COPD. Although his pulmonary nodules are not visible on the x-ray. Therefore I will request a chest CT scan to further address the pulmonary nodules and his ongoing symptoms. Also to note the patient is concerned about some abnormal laboratory findings. His platelet count has been significantly elevated. It is also his potassium was significantly elevated. I have him undergo blood work assessing for inflammatory conditions that could result in pulmonary nodules in the meantime will also recheck his platelet count and his potassium. 11/21/2021 the patient is here for a pulmonary follow-up visit. Overall he is doing relatively well. He continues to have nasal congestion in the upper airway cough syndrome. He tried Astelin nasal spray but stop the fluticasone that was not very helpful. He went back in the fluticasone. I do believe he will do better on the combination so therefore also on Dymista to the pharmacy. The patient does have underlying allergies. he also continues on the singular medication for his allergies. He continues on the Symbicort has been taking it 2 puffs twice a day. He does feel like he needs to take the full dose at this time. I did encourage him that if he does well we can try to decrease to 1 puff twice a day. I did provide him with spacer today. We did review his recent CT scan of the chest demonstrating stable subcentimeter pulmonary nodules largest measuring 4 mm in size which is the same as when he had a CT scan back in [facility] in 2019 and also a [facility] prior to that suggesting disease nodules are stable and unchanged. 07/23/2022 the patient has a telehealth visit today. Apparently was in his usual state health until the beginning of July when he started developing a cough and also sore throat. Ultimately tested positive for COVID-19. He was started on Paxlovid 1 day after having symptoms. He did complete the full course. Initially he was doing well. However, about a week after he started developing worsening cough along with chest tightness. Does have productive mucus. The mucus is yellowish in color. He has been noticing increasing shortness of breath and chest tightness. He has been using his rescue inhaler several times a day. He is also using his maintenance therapy as prescribed. The patient is concerned that he is developing pneumonia. He did test again he still testing positive for COVID-19. The patient was able to check his oxygen and was reassuring. Based on the patient's symptoms indeed a postviral bacterial infection could be arising. Therefore, will go ahead and start him on antibiotics and also a course of prednisone. I do believe that he will benefit from nebulizer. we do have nebulizers available through [facility]. Provide him a nebulizer in order for him to start using the nebulizer twice a day. I will send the medication to the pharmacy. If the patient's condition worsens on this current medication regimen that he needs to go to the ER for further evaluation. 11/19/2022 the patient is here for a pulmonary follow-up visit. The patient is feeling better overall. He recovered from having COVID-19 back in the fall 2021. He had a chest x-ray at that time that appear to be clear. Although, he did have a CT scan of the chest back in October 2021 demonstrating multiple subcentimeter pulmonary nodules. He will need a repeat CT scan to make sure stability. The patient has been using the Symbicort twice a day. He has been complaining of gingival disease. He needs to follow up with his dentist. In the meantime on having decrease the Symbicort to 1 puff twice a day and also will provide him with chlorhexidine mouth wash N/C this could help in the meantime. The patient did have pulmonary function studies which I personally reviewed and also compared to the ones he had back in 2020. It appears that he continues to have pretty stable mild COPD. Therefore decreasing the medication be reasonable. He does continue to have allergies and does uses fluticasone and Singulair with good effect. He will continue to do so at this time. Demonstrates no longer covered through his insurance company so therefore will discontinue that for now. Otherwise the patient return [address] if his CT scan is abnormal I will call and come in sooner. 11/27/2023 the patient is here for a pulmonary follow-up visit. The patient has been doing well from a respiratory status. Denies any significant shortness of breath. He has been using the Symbicort with good effect. Has not had to use his rescue inhaler. He did have a CT scan of the chest back in December 2022 demonstrating stable pulmonary nodule. Only been followed for about a year. He needs to get a repeat CT scan will do it 6 months to make sure that the nodules stable and is not progressing view of his increased high risk for cancer. the patient is here for a pulmonary follow-up visit. He complains of dyspnea on exertion. Also had an episode of chest pressure shortness of breath and hypoxia. Because of his symptoms he was referred to Cardiology. He had a stress test, Jerald protocol that was abnormal when he had some nausea vomiting and near-syncope. Thought to be a vasovagal. Subsequently after that he had an echocardiogram demonstrating some mild hypertrophy which is asymmetric and also demonstrated a slightly low EF. 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 The patient is scheduled to undergo nuclear stress test. In view of his symptoms he was placed on Trelegy. Although he does not feel like it is working as well as Symbicort. His finishing up the prescription so therefore switching over to Breztri so we can have the Symbicort effect with the additional medicine. In the meantime is going to house get a chest x-ray. His last CT scan was back in demonstrating stable pulmonary nodules. We did look at the imaging studies and did demonstrate that he had normal lung parenchyma. I did encourage the patient to lay low for little bit until he gets his nuclear stress test. The patient will try the new inhaler. If he has any issues call. If I see any changes on his x-ray I will call him. Otherwise will follow-up in 3-4 months. [facility] Medical History Dysphagia Hyperkalemia COVID-19 virus infection Lip lesion Pulmonary nodules COPD (chronic obstructive pulmonary disease) Pulmonary nodules Hypercholesterolemia Hypertension BPH (benign prostatic hyperplasia) Chronic rhinitis Asthma-COPD overlap syndrome Surgical History History of endoscopy Hx of colonoscopy History of knee surgery Family History Father Lung cancer Mother Hypertension Brother Brain cancer Daughter In good health Social History Household Members: Spouse Housing: House Are you a primary intensive care specialist to a significant other at home: No Do you presently have visiting nurse or other home services: No Alcohol intake: current Comment: once a week 1drink Patient Tobacco Use Status: Former Tobacco user Tobacco use type: Cigarette Years Smoked: 10 years e-Cigarette/Vaping Use: Never Used Second Hand Smoke Exposure: No service: No Current occupational status: retired Cognitive needs: No Hearing needs: No Vision needs: Yes Review of Systems Const Denies weight gain and Denies weight loss ENT Reports nasal congestion and Denies odynophagia Card Reports chest pain and Reports dyspnea on exertion Resp Reports cough and Reports dyspnea on exertion GI Denies abdominal pain, Denies belching, Denies melena, Denies bloating, Denies change in bowel habits, Denies excessive flatus, Denies dyspepsia, Denies heartburn, Denies diarrhea, Denies loose stools, Denies nausea, Denies odynophagia and Denies vomiting Reports no additional complaints Musc Reports no additional complaints Skin/Breast Denies rash Neuro Reports no additional complaints Psych Reports no additional complaints Endo Reports no additional complaints Physical Exam Vital Signs: Last Vital Signs Pulse 87 09/06/24 15:25 BP 142/62 H 09/06/24 15:25 Pulse Ox 97 09/06/24 15:25 Oxygen Delivery Method Room Air 09/06/24 15:25 BMI result Body Mass Index 26.9 Const General: healthy appearing, no acute distress and well developed Nutritional Appearance: well nourished Orientation/consciousness: patient oriented x3 HEENT Head: Yes normocephalic Eyes General: appearance normal, both eyes and all related structures Neck Neck: Yes normal visual inspection, Yes full ROM and Yes trachea midline Chest Chest palpation & inspection: normal inspection of the chest Resp Effort & Inspection: normal respiratory effort Auscultation: diminished lung sounds Cardio Rate: regular rate Heart sounds: S1 normal heart sound present and S2 normal heart sound present GI Palpation (GI): Soft to palpation Auscultation: normal bowel sounds Skin General skin exam: no rashes or lesions noted Neuro General: patient oriented x3 Extrem General: Yes no clubbing, cyanosis or edema Psych Appearance: grossly normal Assessment & Plan Assessment & Plan (1) COPD (chronic obstructive pulmonary disease): Code(s): J44.9 - Chronic obstructive pulmonary disease, unspecified Category: Medical Qualifiers: COPD type: chronic bronchitis Chronic bronchitis type: simple Qualified Code(s): J41.0 - Simple chronic bronchitis (2) Chronic rhinitis: Code(s): J31.0 - Chronic rhinitis Category: Medical (3) Pulmonary nodules: Comment: December 2022 CT scan left upper lobe Code(s): R91.8 - Other nonspecific abnormal finding of lung field Category: Medical (4) Dyspnea on exertion: Code(s): R06.09 - Other forms of dyspnea Category: Medical Plan CXR stop Trelegy start Breztri EMILY as needed continue fluticasone continue singulair awaiting cardiac nuclear stress test F/U 3 months Orders: Orders XR chest 2V Today R06.09 - Other forms of dyspnea Medications: New obddtekmny-tendxveu-autrfegxkj 160-9-4.8 mcg/actuation (Breztri Aerosphere) 2 inhalations inhalation BID 10.7 grams 11RF 30 days Coding Level of Care Code Est Pt Level 4 (80566) Diagnoses Simple chronic bronchitis J41.0 COPD type: chronic bronchitis Chronic bronchitis type: simple Chronic rhinitis J31.0 Pulmonary nodules R91.8 Dyspnea on exertion R06.09 Time Spent (min) 17
== END 2024-09-06 15:55 | disposition home or self-care (01) ==
PROVIDERS: PCP Internal Medicine; Visit Provider Hospitalist
DX: J41.0 Simple chronic bronchitis (principal); J31.0 Chronic rhinitis; R91.8 Other nonspecific abnormal finding of lung field; R06.09 Other forms of dyspnea
CPT/HCPCS: 99214

== ENCOUNTER → 2024-09-06 15:23 | Outpatient (BNVA) | payer MEDICARE, SELFPAY | PROVIDERS: PCP Internal Medicine; Visit Provider Hospitalist | DX: R06.09 Other forms of dyspnea (principal); J41.0 Simple chronic bronchitis; J31.0 Chronic rhinitis; R91.8 Other nonspecific abnormal finding of lung field | CPT/HCPCS: 99212 ==

== ENCOUNTER → 2024-09-09 09:53 | Outpatient (REF) | payer MEDICARE, SELFPAY ==
--- NOTE | ~2024-09-09 | NM_ITS ---
Lexiscan Myocardial perfusion study Indication: Precordial chest pain to evaluate for myocardial ischemia Technique: The patient was brought in for a Lexiscan perfusion study on 09/09/2024 and was injected 0.4 mg of Lexiscan intravenously. Within a minute of this injection 30 mCi of sestamibi was given intravenously. Images were obtained using the SPECT gamma camera interlaced with the gating device. Images were obtained in supine position. Resting perfusion study was performed on 09/10/2024. Patient was administered 30 mCi of sestamibi intravenously at rest. Images were then obtained in supine position. Images obtained without without CT attenuation. Total DLP 85 mGy-cm. Images were processed with the software and compared side to side in short axis, horizontal long axis and vertical long axis views. Findings: The stress perfusion study showed nonattenuated images show mild to moderate reduction basal and mid inferior wall of the LV myocardium. Remainder of the LV myocardium is normally perfused. Attenuated corrected images show normal uptake of radiotracer in all segments of the myocardium. The gated study shows normal LV systolic function with calculated LVEF of 54%. LV cavity is mildly dilated in size. The gated study shows normal systolic wall thickening and contraction of segments. Resting study shows nonattenuated images show no change in perfusion pattern compared to stress perfusion study. Gating at rest reveals normal systolic wall motion with ejection fraction at 60%. The findings are consistent with no clear reversible defect suggestive of ischemia. NM/NM cardiolite stress test Impression: 1. Myocardial perfusion imaging study shows likely normal myocardial perfusion 2. Gated LVEF is 60% 3. Transient ischemic dilatation not present Nondiagnostic changes on EKG. Electronically signed by: Segundo Cisneros MD 09/10/2024 01:14 PM [facility] [place]
--- NOTE | 2024-09-09 09:57 | CA_ITS ---
Acquisition Time: 2024-09-09 10:30:20 Total Exercise Time: 00:02:00 Test Indications: precordial pain Medications: Protocol: LEXISCAN Max HR: 107 BPM 72% of Pred: 147 BPM Max BP: 110/068 mmHG Max Work Load: 1.0 METS Pharmacologic stress test with Lexiscan while kicking his legs in the chair, with mild SOB, no chest discomfort, withouy any arrythmias, with normotensive response to injection. Without EKG changes meeting criteria for ischemia. Nuclear images pending. In recovery, breathing back to baseline. Test reviewed with Dr. Velasco. Referred By: Sourav Sebastian Overread By: KIAN SHANNON
== END ==
LOC: HO.CARD 09:53
PROVIDERS: PCP Internal Medicine; Visit Provider Internal Medicine
DX: R07.2 Precordial pain (principal); I20.9 Angina pectoris, unspecified
CPT/HCPCS: 78452; 93017; A9500; J0280; J2785

== ENCOUNTER → 2024-09-09 09:57 | Outpatient (BNV) | payer MEDICARE, SELFPAY | PROVIDERS: PCP Internal Medicine; Visit Provider Nurse Practitioner Family | DX: R06.02 Shortness of breath (principal); R07.2 Precordial pain | CPT/HCPCS: 78452; 93016; 93018 ==

== ENCOUNTER 2024-09-13 15:07 | Outpatient (REF) | payer MEDICARE, SELFPAY ==
--- NOTE | ~2024-09-13 | XR_ITS ---
EXAMINATION: XR CHEST CLINICAL INFORMATION: R06.09 - Other forms of dyspnea COMPARISON: None available. TECHNIQUE: 2 views of the chest were obtained. FINDINGS: No significant abnormality is noted involving the heart, lungs, mediastinum, bony thorax or soft tissues. XR/XR chest 2V IMPRESSION: Unremarkable examination. Electronically signed by: Deidra Willis MD 09/13/2024 04:13 PM [facility] [place]
== END 2024-09-13 15:08 | disposition home or self-care (01) ==
LOC: HO.XRAY 15:07
PROVIDERS: PCP Internal Medicine; Visit Provider Hospitalist
DX: R06.09 Other forms of dyspnea (principal)
CPT/HCPCS: 71046

== ENCOUNTER 2024-09-17 07:55 | Day surgery (SDC) | payer MEDICARE, SELFPAY ==
--- NOTE | 2024-09-16 10:43 | P.CONAN_ITS ---
Documented by User: Karley Dela Cruz NP 09/16/24 10:49 HPI - Anesthesia Eval Consult details Narrative: 74yo M for Upper Endoscopy and Colonoscopy Cardiac optimized. Seen by [facility] cardiology for recent K[place]. Work up negative Follows [facility] pulmo for asthma/copd. Last office visit 09/2024 and inhaler regimen adjusted. [facility] Active Problems Active Problems: All Active Problems Abnormal stress test (Acute) Oral thrush (Acute) Dyspnea on exertion (Acute) Osteoarthritis of right knee (Acute) Medicare annual wellness visit, subsequent (Acute) Hearing difficulty (Acute) GERD (gastroesophageal reflux disease) (Acute) Generalized anxiety disorder (Acute) Major depression (Acute) Schatzki's ring (Acute) Anxiety (Acute) Left knee pain (Acute) Pulmonary nodules (Acute) Vertigo (Acute) Thrombocytosis (Acute) Hypercholesterolemia (Acute) Hypertension (Acute) BPH (benign prostatic hyperplasia) (Acute) Chronic rhinitis (Acute) Asthma-COPD overlap syndrome (Acute) Past Medical History Medical History Dysphagia Hyperkalemia COVID-19 virus infection Lip lesion Pulmonary nodules COPD (chronic obstructive pulmonary disease) Pulmonary nodules Hypercholesterolemia Hypertension BPH (benign prostatic hyperplasia) Chronic rhinitis Asthma-COPD overlap syndrome Family History Family History Father Lung cancer Mother Hypertension Brother Brain cancer Daughter In good health Family history of problems with anesthesia: No Surgical History Surgical History History of endoscopy Hx of colonoscopy History of knee surgery History of Problems with Anesthesia: Yes Social History Social History Household Members: Spouse Housing: House Are you a primary career based intervention coordinator to a significant other at home: No Do you presently have visiting nurse or other home services: No Alcohol intake: current Alcohol intake frequency: holidays/special occasions only Comment: once a week 1drink Patient Tobacco Use Status: Former Tobacco user Tobacco use type: Cigarette Years Smoked: 10 years e-Cigarette/Vaping Use: Never Used Second Hand Smoke Exposure: No service: No Current occupational status: retired Cognitive needs: No Hearing needs: No Vision needs: Yes Meds Allergies Allergy/AdvReac Type Severity Reaction Status Date / Time lisinopril Allergy Severe cough Verified 09/06/24 15:31 codeine [CODEINE] Allergy Intermediate GI UPSET, Verified 09/06/24 15:31 nausea/vomiting hydroxyurea [From Hydrea] AdvReac Intermediate weakness/chills, Verified 09/06/24 15:31 nausea losartan AdvReac Intermediate hyperkalemi Verified 09/06/24 15:31 a Home Medications ?Medication ?Instructions ?Recorded ?Confirmed ?Last Taken ?Type multivitamin 1 tab PO DAILY 08/08/21 07/05/24 Unknown History omega-3 fatty acids 1,000 mg 1,000 mg PO DAILY 08/08/21 07/05/24 08/27/21 10:00 History capsule aspirin 81 mg PO DAILY 08/28/21 07/05/24 08/26/21 10:00 History tamsulosin 0.4 mg capsule (Flomax) 0.4 mg PO DAILY 11/21/21 07/05/24 Unknown History ferrous sulfate 325 mg (65 mg 325 mg PO DAILY 03/16/24 07/05/24 Unknown History iron) tablet anagrelide 0.5 mg capsule 1.5 mg PO BID 08/11/24 Unknown History Exam Pertinent Lab Results Pertinent Lab Results: Laboratory Tests 07/22/24 13:33 WBC 12.3 H Hgb 13.2 L Hct 39.3 L Plt Count 728 H Sodium 135 Potassium 4.4 Chloride 102 Carbon Dioxide 26 BUN 17 H Creatinine 1.10 Narrative Narrative: XR chest 2V 09/2024 IMPRESSION: Unremarkable examination. NM cardiolite stress test 09/2024 Impression: 1. Myocardial perfusion imaging study shows likely normal myocardial perfusion 2. Gated LVEF is 60% 3. Transient ischemic dilatation not present Nondiagnostic changes on EKG. ECHO 08/2024 Conclusions: - The left ventricular systolic function is normal. The calculated ejection fraction is 56% by biplane method. - No obvious valvular pathology seen on this study. EKG Details: EKG with underlying sinus rhythm at 94/Min; no significant ST-T changes and otherwise unremarkable. Normal ND and corrected QT. Assessment and Plan Assessment Anesthesia Assessment: Chart Reviewed Final Anesthetic Review Family History of Problems with Anesthesia: No History of Problems with Anesthesia: Yes Documented by User: Terrie Marcano MD 09/17/24 09:07 [facility] Past Medical History Medical History Dysphagia Hyperkalemia COVID-19 virus infection Lip lesion Pulmonary nodules COPD (chronic obstructive pulmonary disease) Pulmonary nodules Hypercholesterolemia Hypertension BPH (benign prostatic hyperplasia) Chronic rhinitis Asthma-COPD overlap syndrome Family History Family History Father Lung cancer Mother Hypertension Brother Brain cancer Daughter In good health Family history of problems with anesthesia: No Surgical History Surgical History History of endoscopy Hx of colonoscopy History of knee surgery History of Problems with Anesthesia: Yes Social History Social History Household Members: Spouse Housing: House Are you a primary career based intervention coordinator to a significant other at home: No Do you presently have visiting nurse or other home services: No Alcohol intake: current Alcohol intake frequency: holidays/special occasions only Comment: once a week 1drink Patient Tobacco Use Status: Former Tobacco user Tobacco use type: Cigarette Years Smoked: 10 years e-Cigarette/Vaping Use: Never Used Second Hand Smoke Exposure: No service: No Current occupational status: retired Cognitive needs: No Hearing needs: No Vision needs: Yes Meds Allergies Allergy/AdvReac Type Severity Reaction Status Date / Time lisinopril Allergy Severe cough Verified 09/06/24 15:31 codeine [CODEINE] Allergy Intermediate GI UPSET, Verified 09/06/24 15:31 nausea/vomiting hydroxyurea [From Hydrea] AdvReac Intermediate weakness/chills, Verified 09/06/24 15:31 nausea losartan AdvReac Intermediate hyperkalemi Verified 09/06/24 15:31 a Home Medications ?Medication ?Instructions ?Recorded ?Confirmed ?Last Taken ?Type multivitamin 1 tab PO DAILY 08/08/21 07/05/24 Unknown History omega-3 fatty acids 1,000 mg 1,000 mg PO DAILY 08/08/21 07/05/24 08/27/21 10:00 History capsule aspirin 81 mg PO DAILY 08/28/21 07/05/24 08/26/21 10:00 History tamsulosin 0.4 mg capsule (Flomax) 0.4 mg PO DAILY 11/21/21 07/05/24 Unknown History ferrous sulfate 325 mg (65 mg 325 mg PO DAILY 03/16/24 07/05/24 Unknown History iron) tablet anagrelide 0.5 mg capsule 1.5 mg PO BID 08/11/24 Unknown History Exam Height,Weight and Vital Signs: Height 5 ft 11 in Weight 83.688 kg Vital Signs Temp Pulse Resp BP Pulse Ox O2 Del Method 09/17/24 09:03 98.1 F 78 16 165/82 H 97 Room Air Airway Mallampati Class: II TM Dist: >3cm Neck ROM: Full Loose/Missing/Broken Teeth: Yes (Missing molars bottom right and left. Denies broken or loose teeth) Heart: RRR Lungs: CTAB Assessment and Plan Assessment Anesthesia Assessment: Anesthesia Plan Discussed and Chart Reviewed Final Anesthetic Review Family History of Problems with Anesthesia: No History of Problems with Anesthesia: Yes NPO: Yes ASA Class: III Final Preanesthetic Review: No Changes in Pt Med Stat, Meds/Allgs Chart Reviewed, Consent Obtained/Reviewed and Anes Risks/Benef Reviewed Patient Risk: Intermediate Procedure Risk: Low Assessment/Block/Sedation in SS: Assess/Block/Sedation-SS Anesthetic Plan Anesthetic Plan: TIVA Disposition: Standard PACU
--- NOTE | 2024-09-17 08:36 | MHC.SHP ---
Pre-Procedural Eval Section A - 24 Hr Update-Section A only Date of Service: 09/17/24 The patient is an INPATIENT: No The patient has been examined within 24 hours of the surgical procedure. The History & Physical has been completed within 30 days and I have reviewed it.: No Section B - Complete if H&P > 30 days Chief Complaint: screening,gerd, Relevant Family History (Specify if Yes): No Relevant Social History: Tobacco Use (former smoker) Present Medications: see Short Stay Collaborative assessment Medical History: Significant History (Pulmonary nodules Hypercholesterolemia Hypertension BPH (benign prostatic hyperplasia) Chronic rhinitis Asthma-COPD overlap syndrome) History of Previous Operations: Relevant previous surgery/procedure and date(s) (History of endoscopy Hx of colonoscopy History of knee surgery) Allergies: Allergies Allergy/AdvReac Type Severity Reaction Status Date / Time lisinopril Allergy Severe cough Verified 09/06/24 15:31 codeine [CODEINE] Allergy Intermediate GI UPSET, Verified 09/06/24 15:31 nausea/vomiting hydroxyurea [From Hydrea] AdvReac Intermediate weakness/chills, Verified 09/06/24 15:31 nausea losartan AdvReac Intermediate hyperkalemi Verified 09/06/24 15:31 a Review of Systems Sugical H&P ROS: Negative: Constitution, Cardiovascular and Respiratory and Yes, Specify: Gastrointestinal (dysphagia) Exam Surgical H&P Exam: Normal: Heart, Normal: Lungs, Normal: Extremities and Normal: Abdomen Plan Diagnosis/Plan: Unchanged I have reviewed the history and physical and performed a pertinent physical examination on my patient. No changes have occurred unless specified. Time Spent With Patient Time: Total time managing care of this patient today ____ minutes.
[2024-09-17 08:44] VITALS: BMI 25.7
[2024-09-17 09:03] VITALS: BP 165/82; PULSE 78; RESP 16; TEMP 36.7; O2SAT 97
[2024-09-17] MEDS: Lactated Ringers 1,000 ML 100 ML IVCONT (09:12)
--- NOTE | 2024-09-17 09:57 | HO.OPN-COLON ---
Colonoscopy Operative Note Operative Note Date of Service: 09/17/24 Narrative: FLEXIBLE TRANSORAL UPPER GASTROINTESTINAL ENDOSCOPY WITH BIOPSIES AND ESOPHAGEAL BALLOON DILATION COLONOSCOPY TILL CECUM WITH SNARE POLYPCTOMY, SUBMUCOSAL INJECTION AND HEMOCLIP PLACEMENT Pre-op diagnosis: Colon cancer screening, GERD Post-op diagnosis: Esophagitis, Hiatal hernia, Schatzki's ring, Gastritis, Colon Polyps, Diverticulosis, hemorrhoids Specimens and Sources: : A: ANTRUM BXS R/O H PYLORI ?B: SIGMOID COLON POLYP ?C: ASCENDING COLON POLYP Endoscopist:? Hetal Rangel MD Anesthesia:?MAC UPPER ENDOSCOPY Consent: Indications for the procedure and potential complications of bleeding, perforation, reaction to medications and missed diagnosis were discussed with the patient and informed consent was obtained. Instrument: Olympus GIF H 190 mid size upper endoscope Monitoring: Vital signs and clinical assessment, continuous EKG monitoring, Pulse oximetry, Carbon Dioxide monitoring and blood pressure monitoring were done throughout the procedure. Procedure: The patient was placed in the left lateral decubitis position and pre-procedure medications were administered and a bite block was placed. The endoscope was inserted into the mouth and advanced under direct vision to the third part of duodenum. A careful inspection was made as the upper endoscope was withdrawn including a retroflexed examination of the proximal stomach; Findings and interventions are described below. Findings: Larynx: Normal Esophagus:? Tortuous esophagus with increased tertiary contractions.? GE? junction at 38 cms, small hiatal hernia 38 to 40 cms.? Focal esophagitis at GE junction.? A minimally obstructing Schatzki's ring at GE junction.? Balloon dilation was performed with 20 mm CRE balloon times 60 seconds Stomach: Mild gastric erythema. Biopsies were obtained. Grade 2 flap valve on retroflexed examination of the cardia. Duodenum: Normal bulb and descending duodenum Intervention: Biopsies and balloon dilation as noted above Impression and Post Procedure Diagnosis: COLONOSCOPY PROCEDURE NOTE Instrument: Olympus CF H 190 L variable stiffness adult colonoscope Monitoring: Vital signs and clinical assessment, intermittent blood pressure monitoring, continuous EKG monitoring, Pulse oximetry and Carbon Dioxide monitoring were done throughout the procedure. Please see anesthesia flowsheet. Colon withdrawl time was 25 minutes. Procedure: The patient was placed in the left lateral decubitis position and pre-procedure medications were administered. After a digital rectal examination of the ano-rectum, the video colonoscope was inserted into the rectum and advanced through the colon to the cecum. The colonoscope was slowly withdrawn in a retrograde panoramic fashion and the colon mucosa was carefully examined including a retroflexed view of the rectum. Findings and interventions are described below. Procedure Difficulty: without difficulty Findings: Terminal Ileum: Not evaluated Cecum: Partially evaluated due to sub-optimal prep Ascending Colon: A 2.5 cms flat polyp in proximal AC colon at 100 cms. Polyp was raised with 5 cc of Ele[place] and removed piecemeal with a stiff hot snare. Only part of the polyp could be retrieved. Polypectomy site was closed with 2 hemoclips and marked by Katalina ink Transverse Colon: Normal Descending Colon: Partially evaluated due to sub-optimal prep Sigmoid Colon: Partially evaluated due to sub-optimal prep Moderate diverticulosis Rectum: Normal Ano-rectum: Moderate internal hemorrhoids Colon preparation: Fair after copious irrigation. [place] Bowel Preparation Scale Right colon; 1 Transverse colon: 2 Left colon; 1 (0 = Unprepared colon segment with mucosa not seen due to solid stool that cannot be cleared. 1 = Portion of mucosa of the colon segment seen, but other areas of the colon segment not well seen due to staining, residual stool and/or opaque liquid. 2 = Minor amount of residual staining, small fragments of stool and/or opaque liquid, but mucosa of colon segment seen well. 3 = Entire mucosa of colon segment seen well with no residual staining, small fragments of stool or opaque liquid) Impression and Post Procedure Diagnosis: Endoscopy Findings: ESOPHAGUS: Tortuous esophagus with increased tertiary contractions - biopsies obtained from proximal esophagus to check for EOE.? GE? junction at 38 cms, small hiatal hernia 38 to 40 cms.? No esophagitis or Barrios's.? A minimally obstructing Schatzki's ring at GE junction.? Balloon dilation was performed with 19 and 20 mm CRE balloon times 60 seconds at each level STOMACH: Mild gastritis Dysphagia is likely a combination of Schatzki's ring and esophageal motility disorder. Plan: Colonoscopy Findings: One large and one small polyps were removed Moderate diverticulosis seen in the sigmoid colon Moderate hemorrhoids on retroflexed exam. Plan: Await pathology results Patient has an appointment on 10/01/24 in the GI Clinic with Isabell Lilly TRANSPORTATION MAINTENANCE WORKER- . Above findings were reviewed with the patient and relevant handout was given in the discharge area Repeat Colonoscopy in 4-6 months if polyps are adenomatous to check polypectomy site in the AC and due to sub-optimal prep. Above findings were reviewed with the patient and relevant handouts were given and the discharge area.
[2024-09-17 10:45] VITALS: BP 125/68; PULSE 85; RESP 16; TEMP 36.2; O2SAT 94
[2024-09-17 11:00] VITALS: BP 148/88; PULSE 84; RESP 16; TEMP 36.2; O2SAT 99
== END 2024-09-17 11:15 | disposition home or self-care (01) ==
PROVIDERS: PCP Internal Medicine; Visit Provider Internal Medicine Gastroenterology
PROC: (CPT 45385; principal; 2024-09-17 09:20)
DX: Z12.11 Encounter for screening for malignant neoplasm of colon (principal); D12.2 Benign neoplasm of ascending colon; K63.5 Polyp of colon; K57.30 Diverticulosis of large intestine without perforation or abscess without bleeding; K64.8 Other hemorrhoids; K21.9 Gastro-esophageal reflux disease without esophagitis; K29.50 Unspecified chronic gastritis without bleeding; K20.90 Esophagitis, unspecified without bleeding; K22.2 Esophageal obstruction; K44.9 Diaphragmatic hernia without obstruction or gangrene; N40.0 Benign prostatic hyperplasia without lower urinary tract symptoms; I10 Essential (primary) hypertension; E78.00 Pure hypercholesterolemia, unspecified; J44.9 Chronic obstructive pulmonary disease, unspecified; R91.8 Other nonspecific abnormal finding of lung field; Z79.82 Long term (current) use of aspirin; Z79.899 Other long term (current) drug therapy; Z88.5 Allergy status to narcotic agent; Z88.8 Allergy status to other drugs, medicaments and biological substances; Z87.891 Personal history of nicotine dependence; Z98.890 Other specified postprocedural states
CPT/HCPCS: 45385; 45381; 43249; 43239; 88305; 88342; C1726; J1596; J2003; J2405; J2704

== ENCOUNTER 2024-10-01 12:52 | Outpatient (AMB) | payer MEDICARE, SELFPAY ==
--- NOTE | 2024-10-01 12:58 | A.OFFVIS_ITS ---
Vital Signs 10/01/24 13:01 Height 5 ft 11 in Weight 192 lb 10.944 oz BMI 26.9 BP 142/72 H Blood Pressure Location Rt brachial Position Sitting Pulse 98 Pulse Source Pulse Oximeter Pulse Oximetry (%) 94 Oxygen Delivery Method Room Air Intake Visit Reasons: s/p egd/colon Intake Note: ESTABLISHED PATIENT Martin presents in office today for a scheduled s/p FUV Meds and Allergies reviewed? Y No recent or relevant surgeries? Duo w/ RM Any significant concerns or new changes? No significant concerns Pharmacy verified? [facility] Required: No Allergies lisinopril Allergy (Severe, Verified 10/01/24 12:58) cough codeine [CODEINE] Allergy (Intermediate, Verified 10/01/24 12:58) GI UPSET, nausea/vomiting hydroxyurea [From Hydrea] Adverse Reaction (Intermediate, Verified 10/01/24 12:58) weakness/chills, nausea losartan Adverse Reaction (Intermediate, Verified 10/01/24 12:58) hyperkalemia HPI HPI s/p egd/colon: Details: LAST VISIT: GERD (gastroesophageal reflux disease) Schatzki's ring Dysphagia Constipation Screen for colon cancer Plan Discussed with patient the importance of good bowel prep day before procedure. Patient will take MiraLax again 1 week before procedure. Patient will be going for knee surgery and my have trouble with constipation after his surgery. Will send script for Colace. Patient was encouraged to start taking pantoprazole every morning half an hour before breakfast. Continue taking famotidine at bedtime. Patient was encouraged to eat sitting up and not in the recliner. Staying upright for minimum 3 hours after meals discussed with patient. Discussed with patient also avoiding dietary triggers. What to expect before during and after procedure discussed with patient. The importance of good prep and clear liquid diet discussed with patient. I will see him after the procedure, sooner on as needed basis. Procedure maybe booked towards the end of March. He is agreeable to this plan and verbalizes understanding of instructions. He was given the opportunity to ask questions and all questions answered. ? Thank you for allowing me to participate in his care Medications New polyethylene glycol 3350 (Miralax) As directed by gastroenterology department at [facility] 238 grams PO ONCE 238 grams 0RF Z12.11 docusate sodium 100 mg PO DAILY 30 caps 3RF K59.00 bisacodyl (Dulcolax (bisacodyl)) take 4 tabs at noon the day before your colonoscopy 20 mg (4 x 5 mg) PO ONCE 1 day 4 tabs 0RF constipation Z12.11 UPPER ENDOSCOPY AND COLONOSCOPY Findings: Larynx: Normal Esophagus:? Tortuous esophagus with increased tertiary contractions.? GE? junction at 38 cms, small hiatal hernia 38 to 40 cms.? Focal esophagitis at GE junction.? A minimally obstructing Schatzki's ring at GE junction.? Balloon dilation was performed with 20 mm CRE balloon times 60 seconds Stomach: Mild gastric erythema. Biopsies were obtained. Grade 2 flap valve on retroflexed examination of the cardia. Duodenum: Normal bulb and descending duodenum Intervention: Biopsies and balloon dilation as noted above Impression and Post Procedure Diagnosis: COLONOSCOPY PROCEDURE NOTE Instrument: AeroDron CF H 190 L variable stiffness adult colonoscope Monitoring: Vital signs and clinical assessment, intermittent blood pressure monitoring, continuous EKG monitoring, Pulse oximetry and Carbon Dioxide monitoring were done throughout the procedure. Please see anesthesia flowsheet. Colon withdrawl time was 25 minutes. Procedure: The patient was placed in the left lateral decubitis position and pre-procedure medications were administered. After a digital rectal examination of the ano-rectum, the video colonoscope was inserted into the rectum and advanced through the colon to the cecum. The colonoscope was slowly withdrawn in a retrograde panoramic fashion and the colon mucosa was carefully examined including a retroflexed view of the rectum. Findings and interventions are described below. Procedure Difficulty: without difficulty Findings: Terminal Ileum: Not evaluated Cecum: Partially evaluated due to sub-optimal prep Ascending Colon: A 2.5 cms flat polyp in proximal AC colon at 100 cms. Polyp was raised with 5 cc of Eleview and removed piecemeal with a stiff hot snare. Only part of the polyp could be retrieved. Polypectomy site was closed with 2 hemoclips and marked by Katalina ink Transverse Colon: Normal Descending Colon: Partially evaluated due to sub-optimal prep Sigmoid Colon: Partially evaluated due to sub-optimal prep Moderate diverticulosis Rectum: Normal Ano-rectum: Moderate internal hemorrhoids Colon preparation: Fair after copious irrigation. [place] Bowel Preparation Scale Right colon; 1 Transverse colon: 2 Left colon; 1 (0 = Unprepared colon segment with mucosa not seen due to solid stool that cannot be cleared. 1 = Portion of mucosa of the colon segment seen, but other areas of the colon segment not well seen due to staining, residual stool and/or opaque liquid. 2 = Minor amount of residual staining, small fragments of stool and/or opaque liquid, but mucosa of colon segment seen well. 3 = Entire mucosa of colon segment seen well with no residual staining, small fragments of stool or opaque liquid) Impression and Post Procedure Diagnosis: Endoscopy Findings: ESOPHAGUS: Tortuous esophagus with increased tertiary contractions - biopsies obtained from proximal esophagus to check for EOE.? GE? junction at 38 cms, small hiatal hernia 38 to 40 cms.? No esophagitis or Barrios's.? A minimally obstructing Schatzki's ring at GE junction.? Balloon dilation was performed with 19 and 20 mm CRE balloon times 60 seconds at each level STOMACH: Mild gastritis Dysphagia is likely a combination of Schatzki's ring and esophageal motility disorder. Plan: Colonoscopy Findings: One large and one small polyps were removed Moderate diverticulosis seen in the sigmoid colon Moderate hemorrhoids on retroflexed exam. Plan: Await pathology results Above findings were reviewed with the patient and relevant handout was given in the discharge area Repeat Colonoscopy in 4-6 months if polyps are adenomatous to check polypectomy site in the AC and due to sub-optimal prep. PATHOLOGY RESULTS Addendum #1 (A): Immunostain for H pylori is negative with appropriate control. Electronically Signed By: Brook Busby 09/22/24 4124 Diagnosis A. Gastric antrum, biopsy: Gastric antral mucosa with mild reactive changes and chronic gastritis with focal mild activity; negative for intestinal metaplasia and dysplasia. B. Colon, sigmoid, polyp: Polypoid colonic mucosa with minimal hyperplastic changes; negative for adenomatous dysplasia. C. Colon, ascending, polyp: Sessile serrated lesion/polyp without dysplasia. Comment: (A): Immunostain for H. pylori pending; addendum to follow TODAY'S VISIT Patient is here today for follow-up and to discuss upper endoscopy and colonoscopy results. Patient denies any ill effects from the prep, anesthesia or procedure itself. Minimally visible Schatzki ring ballooned. Patient does admit to be eating late at night and sometimes even eating in the recliner. Colonoscopy showed polypoid colonic mucosa with minimal hyperplastic changes negative for adenomatous dysplasia. One sessile serrated polyp seen without dysplasia. Patient had suboptimal prep and will need to repeat colonoscopy in 4-6 months. Patient does admit that he forgot to take Dulcolax week before procedure to help him empty better. Patient denies any melena, hematochezia, unintentional weight loss or ribbon like stools. Patient denies any dyspepsia, dysphagia or odynophagia. Although patient does report occasional dysphagia if he eats in his recliner instead of sitting upright [facility] Medical History Dysphagia Hyperkalemia COVID-19 virus infection Lip lesion Pulmonary nodules COPD (chronic obstructive pulmonary disease) Pulmonary nodules Hypercholesterolemia Hypertension BPH (benign prostatic hyperplasia) Chronic rhinitis Asthma-COPD overlap syndrome Surgical History History of endoscopy Hx of colonoscopy History of knee surgery Family History Father Lung cancer Mother Hypertension Brother Brain cancer Daughter In good health Social History Household Members: Spouse Housing: House Are you a primary home care coordinator to a significant other at home: No Do you presently have visiting nurse or other home services: No Alcohol intake: current Alcohol intake frequency: holidays/special occasions only Comment: once a week 1drink Patient Tobacco Use Status: Former Tobacco user Tobacco use type: Cigarette Years Smoked: 10 years e-Cigarette/Vaping Use: Never Used Second Hand Smoke Exposure: No service: No Current occupational status: retired Cognitive needs: No Hearing needs: No Vision needs: Yes Review of Systems Const Denies weight gain and Denies weight loss ENT Reports no additional complaints, Denies dysphagia and Denies odynophagia Card Reports no additional complaints Resp Reports no additional complaints GI Denies abdominal pain, Denies belching, Denies melena, Denies bloating, Denies change in bowel habits, Reports constipation, Denies dysphagia, Denies excessive flatus, Denies dyspepsia, Denies heartburn, Denies diarrhea, Denies loose stools, Denies nausea, Denies odynophagia and Denies vomiting Reports no additional complaints Musc Reports no additional complaints Neuro Reports no additional complaints Psych Reports no additional complaints Endo Reports no additional complaints Physical Exam Vital Signs: Last Vital Signs Pulse 98 10/01/24 13:01 BP 142/72 H 10/01/24 13:01 Pulse Ox 94 10/01/24 13:01 Oxygen Delivery Method Room Air 10/01/24 13:01 BMI result Body Mass Index 26.9 Const General: healthy appearing, no acute distress and well developed Nutritional Appearance: well nourished Orientation/consciousness: patient oriented x3 Resp Effort & Inspection: normal respiratory effort, able to speak in complete sent ences, no tracheal deviation and symmetric chest movement Auscultation: clear to auscultation bilaterally Cardio Rate: regular rate GI Inspection: Yes normal to inspection and No distended Palpation (GI): Soft to palpation, not firm, nontender and No hepatosplenomegaly present Auscultation: normal bowel sounds General: Yes no CVA tenderness Back/Spine/Pelvis Back: no CVA tenderness Skin General skin exam: elasticity normal, turgor normal and dry skin Neuro General: patient oriented x3 Psych Appearance: grossly normal Mental Status: mental status grossly normal Assessment & Plan Assessment & Plan (1) GERD (gastroesophageal reflux disease): Code(s): K21.9 - Gastro-esophageal reflux disease without esophagitis Category: Medical Qualifiers: Esophagitis presence: esophagitis presence not specified Qualified Code(s): K21.9 - Gastro-esophageal reflux disease without esophagitis (2) Schatzki's ring: Code(s): K22.2 - Esophageal obstruction Category: Medical (3) Dysphagia: Code(s): R13.10 - Dysphagia, unspecified Category: Medical Qualifiers: Dysphagia type: esophageal phase Qualified Code(s): R13.19 - Other dysphagia (4) Constipation: Code(s): K59.00 - Constipation, unspecified Qualifiers: Constipation type: slow transit constipation Qualified Code(s): K59.01 - Slow transit constipation (5) Screen for colon cancer: Code(s): Z12.11 - Encounter for screening for malignant neoplasm of colon Plan Suboptimal prep as mentioned before in HPI. Patient did not take Dulcolax week before procedure. Patient does admit that occasionally he will be constipated and he was encouraged to take Dulcolax tablets every day. He is taking iron supplements which might be contributing to his constipation and he needs to stop iron supplements for 1 week before going for procedure. Continue avoiding dietary triggers. Avoid eating late at night specially eating in the reclined position. Patient is to eat upright and avoid eating big meals. Small meals 5 times a day. Continue PPI therapy with pantoprazole. What to expect before during and after procedure discussed with patient. Stressed the importance of good bowel prep and taking Dulcolax 1 week before procedure and try to start taking it now to see if it will help him move his bowels better. Long discussion about diet choices to help with GERD as well as constipation. I will see him after the procedure, sooner on as needed basis. He is agreeable to this plan and verbalizes understanding of instructions. He was given the opportunity to ask questions and all questions answered. Thank you for allowing me to participate in his care Medications: New polyethylene glycol 3350 (Miralax) As directed by gastroenterology department at [facility] 238 grams PO ONCE 238 grams 0RF Z12.11 - Encounter for screening for malignant neoplasm of colon Coding Level of Care Code Est Pt Level 4 (04373) Diagnoses Gastroesophageal reflux disease, unspecified whether esophagitis present K21.9 Esophagitis presence: esophagitis presence not specified Schatzki's ring K22.2 Esophageal dysphagia R13.19 Dysphagia type: esophageal phase Slow transit constipation K59.01 Constipation type: slow transit constipation Screen for colon cancer Z12.11 Time Spent (min) 35 Comment 25 minutes spent with patient and additional 10 minutes spent reviewing his records
[2024-10-01 13:01] VITALS: BP 142/72; PULSE 98; O2SAT 94; BMI 26.9
== END 2024-10-01 14:09 | disposition home or self-care (01) ==
PROVIDERS: PCP Internal Medicine; Visit Provider Nurse Practitioner Family
DX: K21.9 Gastro-esophageal reflux disease without esophagitis (principal); K22.2 Esophageal obstruction; R13.19 Other dysphagia; K59.01 Slow transit constipation
CPT/HCPCS: 99214

== ENCOUNTER → 2024-10-01 12:52 | Outpatient (BNVA) | payer MEDICARE, SELFPAY | PROVIDERS: PCP Internal Medicine; Visit Provider Nurse Practitioner Family | DX: K22.2 Esophageal obstruction (principal); R13.19 Other dysphagia; K59.01 Slow transit constipation; Z71.2 Person consulting for explanation of examination or test findings | CPT/HCPCS: 99212 ==

== ENCOUNTER 2024-10-12 12:28 | Outpatient (AMB) | payer MEDICARE, SELFPAY ==
[2024-10-12 12:31] VITALS: BP 122/52; PULSE 101; BMI 26.6
--- NOTE | 2024-10-12 12:31 | A.OFFVIS_ITS ---
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 Manager Required: No Accompanied by: Self / Same As Patient Allergies lisinopril Allergy (Severe, Verified 10/01/24 12:58) cough codeine [CODEINE] Allergy (Intermediate, Verified 10/01/24 12:58) GI UPSET, nausea/vomiting hydroxyurea [From Hydrea] Adverse Reaction (Intermediate, Verified 10/01/24 12:58) weakness/chills, nausea losartan Adverse Reaction (Intermediate, Verified 10/01/24 12:58) hyperkalemia Medication List - Last Reconciled 10/12/24 by Sourav Sebastian MD albuterol sulfate 90 mcg/actuation 2 puffs PO Q6H PRN amlodipine 5 mg PO DAILY 90 days anagrelide 1.5 mg PO BID [aspirin 81 mg PO DAILY] atorvastatin 40 mg PO DAILY cggoraiumm-vandzjsl-sepbonpzvp 160-9-4.8 mcg/actuation (Breztri Aerosphere) 2 inhalations inhalation BID 30 days bupropion HCl SR (Wellbutrin SR) 150 mg PO DAILY 90 days famotidine 20 mg PO 2XW ferrous sulfate 325 mg PO DAILY fluoxetine 40 mg PO DAILY fluticasone propionate 50 mcg/actuation 2 sprays intranasal DAILY 90 days melatonin 10 mg PO BEDTIME PRN montelukast 10 mg PO DAILY multivitamin 1 tab PO DAILY nystatin 1 mL PO DAILY 7 days omega-3 fatty acids 1,000 mg PO DAILY pantoprazole 40 mg PO DAILY polyethylene glycol 3350 (Miralax) 238 grams PO ONCE tamsulosin (Flomax) 0.4 mg PO DAILY HPI Comments Details: Martin returns for follow-up regarding shortness of breath. He also has a history of underlying asthma/COPD overlap. Additionally, has thrombocytosis under the care of Hematology. He has been referred for cardiac evaluation. He states that he frequently gets short of breath with even mild amounts of activity. He gets fatigued a lot. After recent stress test, it seems that he had a vasovagal type event when the blood pressure dropped and he received IV fluids. No documented coronary disease or myocardial infarction. He has completed a pharmacological stress perfusion imaging study, echocardiogram and carotid Doppler. Now he states he generally feels okay. No new concerns. [facility] Medical History Dysphagia Hyperkalemia COVID-19 virus infection Lip lesion Pulmonary nodules COPD (chronic obstructive pulmonary disease) Pulmonary nodules Hypercholesterolemia Hypertension BPH (benign prostatic hyperplasia) Chronic rhinitis Asthma-COPD overlap syndrome Surgical History History of endoscopy Hx of colonoscopy History of knee surgery Family History Father Lung cancer Mother Hypertension Brother Brain cancer Daughter In good health Social History Household Members: Spouse Housing: House Are you a primary caregivers non medical to a significant other at home: No Do you presently have visiting nurse or other home services: No Alcohol intake: current Alcohol intake frequency: holidays/special occasions only Comment: once a week 1drink Patient Tobacco Use Status: Former Tobacco user Tobacco use type: Cigarette Years Smoked: 10 years e-Cigarette/Vaping Use: Never Used Second Hand Smoke Exposure: No service: No Current occupational status: retired Cognitive needs: No Hearing needs: No Vision needs: Yes Review of Systems Const Denies chills, Denies fatigue, Denies fever(s), Denies weight gain and Denies weight loss ENT Denies dizziness Card Denies chest pain, Denies leg edema, Denies lightheadedness, Denies palpitations, Reports dyspnea on exertion, Denies orthopnea and Denies other Resp Denies cough and Reports dyspnea on exertion GI Denies hematochezia and Denies change in stool character Musc Denies abnormal gait, Denies muscle weakness, Denies numbness, Denies radiating pain into limb and Denies tingling Neuro Denies abnormal gait, Denies dizziness, Denies numbness and Denies tingling Endo Denies fatigue and Denies palpitations Physical Exam Vital Signs: Last Vital Signs Pulse 101 H 10/12/24 12:31 BP 122/52 L 10/12/24 12:31 BMI result Body Mass Index 26.6 Const General: comfortable and no acute distress Orientation/consciousness: patient oriented x3 HEENT Other: Unremarkable Head: Yes normal to inspection Neck Neck: Yes normal visual inspection Chest Chest palpation & inspection: normal inspection of the chest Resp Auscultation: clear to auscultation bilaterally Cardio Palpation: normal PMI Heart sounds: S1 normal heart sound present, S2 normal heart sound present, no gallops, no murmurs and no rubs GI Palpation (GI): Soft to palpation Back/Spine/Pelvis Other: unremarkable Skin General skin exam: no rashes or lesions noted Neuro General: patient oriented x3 Extrem General: Yes normal to inspection Psych Mental Status: mental status grossly normal Assessment & Plan Assessment & Plan (1) Atherosclerotic cardiovascular disease: Code(s): I25.10 - Atherosclerotic heart disease of [place] coronary artery without angina pectoris Category: Medical (2) Dyspnea on exertion: Code(s): R06.09 - Other forms of dyspnea Category: Medical (3) Abnormal stress test: Code(s): R94.39 - Abnormal result of other cardiovascular function study Category: Medical Plan Chest CT scan describes coronary artery calcifications. During the stress test, he reached 7 METS on Jerald protocol and developed shortness of breath. Then had sudden drop in blood pressure and thought to have had a vasovagal event. Suspect could be due to poor exercise tolerance and deconditioning. In the echocardiogram, normal LVEF, 56%. No wall motion abnormalities. Normal diastolic function with normal filling pressures. No significant valve findings. Pharmacological myocardial perfusion imaging study shows likely normal perfusion. In the carotid study, minimal stenosis bilaterally. Overall, has coronary disease based on CT scan which is fairly common at his age. However, no evidence of obstructive coronary disease based on perfusion imaging study. Normal cardiac function/filling pressures on the echocardiogram. Do not believe that the shortness of breath that he is experiencing is cardiac in nature. Could be some combination of pulmonary/deconditioning. Mainly risk factor modification. He is already on statins. If any new concerning cardiac symptoms, we will need reassessment. We discussed about that. Coding Level of Care Code Est Pt Level 4 (10280) Diagnoses Atherosclerotic cardiovascular disease I25.10 Dyspnea on exertion R06.09 Abnormal stress test R94.39
== END 2024-10-12 13:00 | disposition home or self-care (01) ==
PROVIDERS: PCP Internal Medicine; Visit Provider Internal Medicine
DX: I25.10 Atherosclerotic heart disease of native coronary artery without angina pectoris (principal); R06.09 Other forms of dyspnea; R94.39 Abnormal result of other cardiovascular function study
CPT/HCPCS: 99214

== ENCOUNTER → 2024-10-12 12:28 | Outpatient (BNVA) | payer MEDICARE, SELFPAY | PROVIDERS: PCP Internal Medicine; Visit Provider Internal Medicine | DX: I25.10 Atherosclerotic heart disease of native coronary artery without angina pectoris (principal); R94.39 Abnormal result of other cardiovascular function study; R06.09 Other forms of dyspnea | CPT/HCPCS: 99212 ==

== ENCOUNTER 2024-11-16 02:28 | Emergency (ER) | payer MEDICARE, SELFPAY ==
--- NOTE | ~2024-11-16 | CT_ITS ---
CLINICAL HISTORY: Acute lower C6-C7 pain atraumatic CT cervical spine without contrast Comparison: None Findings: Straightening of the cervical lordosis. Osteopenia. Multilevel spondylosis with osteophytosis, uncovertebral hypertrophy, facet arthropathy and degenerative disc disease. Diffuse spinal canal narrowing, for example moderate at C5-C6 with severe bilateral foraminal stenoses. No acute fractures or dislocations. Soft tissues of the neck are normal. Lung apices are clear. IMPRESSION: No acute findings. Additional findings as described. This document has been electronically signed by: Dinesh Patel MD on 11/16/2024 04:54:13
[2024-11-16 02:36] VITALS: BP 156/83; PULSE 83; RESP 14; TEMP 36.3; O2SAT 96; BMI 26.8
--- NOTE | 2024-11-16 05:29 | ED_ITS ---
HPI - Neck Pain/Injury General Chief Complaint: Neck Pain/Injury Stated Complaint: Neck Pain Time Seen by Provider: 11/16/24 03:55 Source: patient Mode of arrival: ambulatory Limitations: no limitations History of Present Illness ED Provider: HPI Narrative: Patient's was shoveling snow after he came inside noticed pain in the right side of the neck blood pressure on arrival was 156/83 no hand weakness no fever no chills no prior history of neck problem Related Data Home Medications ?Medication ?Instructions ?Recorded ?Confirmed multivitamin 1 tab PO DAILY 08/08/21 10/12/24 omega-3 fatty acids 1,000 mg 1,000 mg PO DAILY 08/08/21 10/12/24 capsule aspirin 81 mg PO DAILY 08/28/21 10/12/24 tamsulosin 0.4 mg capsule (Flomax) 0.4 mg PO DAILY 11/21/21 10/12/24 ferrous sulfate 325 mg (65 mg 325 mg PO DAILY 03/16/24 10/12/24 iron) tablet anagrelide 0.5 mg capsule 1.5 mg PO BID 08/11/24 10/12/24 Previous Rx's ?Medication ?Instructions ?Recorded melatonin 10 mg capsule 10 mg PO BEDTIME PRN sleep #30 caps 12/14/21 pantoprazole 40 mg tablet,delayed 40 mg PO DAILY #90 tabs 08/19/23 release atorvastatin 40 mg tablet 40 mg PO DAILY #90 tabs 04/06/24 fluoxetine 40 mg capsule 40 mg PO DAILY #90 caps 06/07/24 albuterol sulfate 90 mcg/actuation 2 puff PO Q6H PRN for wheezing 06/21/24 aerosol inhaler #8.5 ea fluticasone propionate 50 2 spray intranasal DAILY 90 days 06/21/24 mcg/actuation nasal #3 ea spray,suspension amlodipine 5 mg tablet 5 mg PO DAILY 90 days #90 tabs 08/11/24 bupropion HCl 150 mg tablet,12 hr 150 mg PO DAILY 90 days #90 tabs 09/05/24 sustained-release (Wellbutrin SR) budesonide 160 mcg-glycopyr 9 2 inh inhalation BID 30 days #10.7 09/06/24 mcg-formot 4.8 mcg/actuation HFA grams inhaler (Breztri Aerosphere) famotidine 20 mg tablet 20 mg PO 2XW #90 tabs 09/14/24 polyethylene glycol 3350 17 238 g PO ONCE #238 grams 10/01/24 gram/dose oral powder (Miralax) montelukast 10 mg tablet 10 mg PO DAILY #90 tabs 11/05/24 nystatin 100,000 unit/mL oral 1 ml PO DAILY 7 days #60 mL 11/11/24 suspension cyclobenzaprine 10 mg tablet 10 mg PO Q8H #20 tabs 11/16/24 ibuprofen 600 mg tablet 600 mg PO Q6H PRN fever or pain 11/16/24 #30 tabs Allergies Allergy/AdvReac Type Severity Reaction Status Date / Time lisinopril Allergy Severe cough Verified 11/16/24 02:40 codeine [CODEINE] Allergy Intermediate GI UPSET, Verified 11/16/24 02:40 nausea/vomiting hydroxyurea [From Hydrea] AdvReac Intermediate weakness/chills, Verified 11/16/24 02:40 nausea losartan AdvReac Intermediate hyperkalemi Verified 11/16/24 02:40 a Review of Systems Review of Systems: Yes all other systems are reviewed and are negative [facility] Past Medical History Medical History Dysphagia Hyperkalemia COVID-19 virus infection Lip lesion Pulmonary nodules COPD (chronic obstructive pulmonary disease) Pulmonary nodules Hypercholesterolemia Hypertension BPH (benign prostatic hyperplasia) Chronic rhinitis Asthma-COPD overlap syndrome Surgical History History of endoscopy Hx of colonoscopy History of knee surgery Family History Family History Father Lung cancer Mother Hypertension Brother Brain cancer Daughter In good health Social History Social History Household Members: Spouse Housing: House Are you a primary critical care educator to a significant other at home: No Do you presently have visiting nurse or other home services: No Alcohol intake: current Alcohol intake frequency: holidays/special occasions only Comment: once a week 1drink Patient Tobacco Use Status: Former Tobacco user Tobacco use type: Cigarette Years Smoked: 10 years e-Cigarette/Vaping Use: Never Used Second Hand Smoke Exposure: No Advance Directives: No Do you have a plan to hurt others: No Plan service: No Current occupational status: retired Cognitive needs: No Hearing needs: No Vision needs: Yes Physical Exam Vital Signs: Vital Signs: Last Vital Signs Temp 97.4 F 11/16/24 02:36 Pulse 83 11/16/24 02:36 Resp 14 11/16/24 02:36 BP 156/83 H 11/16/24 02:36 Pulse Ox 96 11/16/24 02:36 O2 Del Method Room Air 11/16/24 02:36 BMI result Body Mass Index 26.8 Appearance: Alert. Oriented X3. No acute distress. Eyes: No pallor or icterus ENT: Pharynx normal. Oral Mucosa moist Neck: Normal inspection. Neck supple. No midline tenderness tenderness on the right side of the neck no carotid bruit CVS: Normal heart rate and rhythm. Pulses normal. Respiratory: No respiratory distress. Equal air entry bilateral, no wheezing/rales/rhonchi Abdomen: Soft and nontender. Bowel sounds are present, no mass palpable, no CVA tenderness Skin: Skin warm and dry. Normal skin color. Normal skin turgor. Extremities: No lower extremity edema. No calf tenderness no hand weakness no dermatomal sensory loss Neuro: Oriented X 3. No motor deficit. No sensory deficit.No cerebellar signs , cranial nerves II-XII intact Medications Administered Discontinued Medications Generic Name Dose Route Start Last Admin Trade Name Freq PRN Reason Stop Dose Admin Cyclobenzaprine HCl 10 mg 11/16/24 05:31 11/16/24 05:36 Cyclobenzaprine Hcl 10 Mg Tablet PO 11/16/24 05:32 10 mg ONCE ONE Administration Ibuprofen 600 mg 11/16/24 05:31 11/16/24 05:36 Ibuprofen 600 Mg Tablet PO 11/16/24 05:32 600 mg ONCE ONE Administration Medical Decision Making Medical Decision Making MDM Narrative: Patient with muscular tenderness in the right side of the neck no signs of deeper injuries no signs of spinal cord involvement no signs of vascular involvement will advised ibuprofen and Flexeril CT scan of the neck is negative for acute showed chronic changes Independent Interpretation I performed an independent interpretation of an: CT Scan Radiology Impression Discussion of test interpretation with radiology: I have reviewed the radiologist's reading. Radiologist Impression: [address] [address] [address] Scan Report Signed Patient: Martin Tierney MR#: [id number] : 1950 Acct:[id number] Age/Sex: 74 / M ADM Date: 11/16/24 Loc: HO.ED Attending Dr: Ordering Physician: Nabeel Cintron MD Date of Service: 11/16/24 Procedure(s): CT cervical spine wo IV con Accession Number(s): [id number] cc: Patricia Michel MD; Nabeel Cintron MD~ Report Number: [id number]: Total DLP = 434.00 mGy-cm CLINICAL HISTORY: Acute lower C6-C7 pain atraumatic CT cervical spine without contrast Comparison: None Findings: Straightening of the cervical lordosis. Osteopenia. Multilevel spondylosis with osteophytosis, uncovertebral hypertrophy, facet arthropathy and degenerative disc disease. Diffuse spinal canal narrowing, for example moderate at C5-C6 with severe bilateral foraminal stenoses. No acute fractures or dislocations. Soft tissues of the neck are normal. Lung apices are clear. IMPRESSION: No acute findings. Additional findings as described. This document has been electronically signed by: Dinesh Patel MD on 11/16/2024 04:54:13 Discharge Plan Discharge Clinical Impression: Strain of neck muscle Patient Disposition: Home, Self-Care Instructions: Cervical Strain (DC) Additional Instructions: Take pain medication and muscle relaxant as prescribed Follow with your PCP if pain continues for further management including MRI Report to the ER if hand weakness or worsening of the pain Prescriptions: New cyclobenzaprine 10 mg tablet 10 mg PO Q8H Qty: 20 0RF ibuprofen 600 mg tablet 600 mg PO Q6H PRN (Reason: fever or pain) Qty: 30 0RF No Action atorvastatin 40 mg tablet 40 mg PO DAILY Qty: 90 3RF fluoxetine 40 mg capsule 40 mg PO DAILY Qty: 90 2RF fluticasone propionate 50 mcg/actuation spray,suspension 2 spray intranasal DAILY 90 Days Qty: 3 1RF albuterol sulfate 90 mcg/actuation HFA aerosol inhaler 2 puff PO Q6H PRN (Reason: for wheezing) Qty: 8.5 12RF bupropion HCl [Wellbutrin SR] 150 mg tablet sustained-release 12 hr 150 mg PO DAILY 90 Days Qty: 90 2RF famotidine 20 mg tablet 20 mg PO 2XW Qty: 90 3RF montelukast 10 mg tablet 10 mg PO DAILY Qty: 90 3RF nystatin 100,000 unit/mL suspension 1 ml PO DAILY 7 Days Qty: 60 0RF Rx Instructions: swish and swallow aspirin 81 mg tablet 81 mg PO DAILY ferrous sulfate 325 mg (65 mg iron) Tablet 325 mg PO DAILY multivitamin Tablet 1 tab PO DAILY omega-3 fatty acids 1,000 mg capsule 1,000 mg PO DAILY melatonin 10 mg capsule 10 mg PO BEDTIME PRN (Reason: sleep) Qty: 30 0RF tamsulosin [Flomax] 0.4 mg capsule 0.4 mg PO DAILY pantoprazole 40 mg tablet,delayed release (DR/EC) 40 mg PO DAILY Qty: 90 4RF Rx Instructions: take one tablet half an hour before breakfast Jose Armandotri Aerosphere 160-9-4.8 mcg/actuation HFA aerosol inhaler 2 inh inhalation BID 30 Days Qty: 10.7 11RF polyethylene glycol 3350 [Miralax] 17 gram/dose powder 238 g PO ONCE Qty: 238 0RF Rx Instructions: As directed by gastroenterology department at [facility] anagrelide 0.5 mg capsule 1.5 mg PO BID amlodipine 5 mg tablet 5 mg PO DAILY 90 Days Qty: 90 2RF Print Language: Upper Sorbian
[2024-11-16] MEDS: Ibuprofen 600 MG TABLET PO (05:36)
[2024-11-16] MEDS: Cyclobenzaprine HCl 10 MG TABLET PO (05:36)
[2024-11-16 05:56] VITALS: BP 156/83; PULSE 83; RESP 14; TEMP 36.3; O2SAT 96
== END 2024-11-16 05:57 | disposition home or self-care (01) ==
PROVIDERS: Emergency Provider Internal Medicine; PCP Internal Medicine
DX: S16.1XXA Strain of muscle, fascia and tendon at neck level, initial encounter (principal); M54.2 Cervicalgia; X50.3XXA Overexertion from repetitive movements, initial encounter; Y93.H1 Activity, digging, shoveling and raking; Y92.9 Unspecified place or not applicable; Y99.8 Other external cause status; Z79.899 Other long term (current) drug therapy; Z87.891 Personal history of nicotine dependence
CPT/HCPCS: 72125; 99283; 99284

== ENCOUNTER → 2024-11-16 04:22 | Outpatient (BNV) | payer MEDICARE, SELFPAY | PROVIDERS: Emergency Provider Internal Medicine; PCP Internal Medicine; Visit Provider Radiology Diagnostic Radiology | DX: M54.2 Cervicalgia (principal) | CPT/HCPCS: 72125 ==

== ENCOUNTER 2024-11-25 14:11 | Outpatient (AMB) | payer MEDICARE, SELFPAY ==
[2024-11-25 14:14] VITALS: BP 130/72; PULSE 119; O2SAT 95; BMI 26.8
--- NOTE | 2024-11-25 14:14 | A.OFFPC_ITS ---
Vital Signs 11/25/24 14:14 Height 5 ft 11 in Weight 192 lb 8 oz BMI 26.8 BP 130/72 Blood Pressure Location Lt brachial Position Sitting Pulse 119 H Pulse Source Pulse Oximeter Pulse Oximetry (%) 95 Oxygen Delivery Method Room Air Intake Visit Reasons: Hypertension/Ortho referral Drum Sander Required: No Accompanied by: Self / Same As Patient Allergies lisinopril Allergy (Severe, Verified 11/25/24 14:15) cough codeine [CODEINE] Allergy (Intermediate, Verified 11/25/24 14:15) GI UPSET, nausea/vomiting hydroxyurea [From Hydrea] Adverse Reaction (Intermediate, Verified 11/25/24 14:15) weakness/chills, nausea losartan Adverse Reaction (Intermediate, Verified 11/25/24 14:15) hyperkalemia Tobacco use date assessed: 11/25/24 Fall risk assessment: No Falls in past year Last assessed Fall Risk: 11/25/24 Dental Screening Dental Screen Date: 11/25/24 Did you have a dental visit in the last 12 months?: Yes Did you have a dental problem in the last 6 months where you did not have access to dental care?: No Was dental information given to patient?: Patient has dentist HPI Hypertension/Ortho referral HPI Details The patient is a 74-year-old male presenting with concerns related to chronic neck pain and follow-up for multiple chronic conditions. He has a history of asthma-COPD overlap syndrome, essential hypertension, hypercholesterolemia, BPH, generalized anxiety disorder, GERD, atherosclerotic cardiovascular disease, and thrombocytosis. The patient reported a recent ER visit on November 16 for neck pain, where an elevated blood pressure of 156/[address] scan of the cervical spine showed osteopenia, multilevel spondylosis and osteophytosis, degenerative disc disease, and diffuse spinal canal narrowing, with moderate stenosis at C5-C6 and severe bilateral foraminal stenosis. The patient has been under treatment with various medications, including aspirin, atorvastatin, amlodipine, tamsulosin, montelukast, and albuterol. He was seen by hematology-oncology for thrombocytosis in May and follows up with cardiology for atherosclerotic cardiovascular disease, with a normal EF of 56%. The patient underwent EGD and colonoscopy in September, with the report of a dilated Schatzki ring and suboptimal prep for the colonoscopy; a repeat test was advised. He follows a low-potassium diet due to pseudohyperkalemia attributed to thrombocytosis. Recent lab work from November 19 showed chronic anemia with Hb of 12.3 and Hct of 36, and a platelet count of 493. He experiences chronic bilateral knee osteoarthritis, for which he seeks a second opinion at [facility]. He has been on treatments including Wellbutrin and fluoxetine for anxiety and depression but reports experiencing nightmares, prompting a request for psychiatric evaluation. The patient remains physically active and continuously seeks ways to manage his health conditions effectively. [facility] Medical History (Updated 11/25/24 @ 14:26 by Patricia Michel MD) Dyspnea on exertion Abnormal stress test Dysphagia Hyperkalemia COVID-19 virus infection Lip lesion Pulmonary nodules COPD (chronic obstructive pulmonary disease) Pulmonary nodules Hypercholesterolemia Hypertension BPH (benign prostatic hyperplasia) Chronic rhinitis Asthma-COPD overlap syndrome Surgical History History of endoscopy Hx of colonoscopy History of knee surgery Family History Father Lung cancer Mother Hypertension Brother Brain cancer Daughter In good health Social History Household Members: Spouse Housing: House Are you a primary certified social workers in health care to a significant other at home: No Do you presently have visiting nurse or other home services: No Alcohol intake: current Alcohol intake frequency: holidays/special occasions only Comment: once a week 1drink Patient Tobacco Use Status: Former Tobacco user Tobacco use type: Cigarette Years Smoked: 10 years e-Cigarette/Vaping Use: Never Used Second Hand Smoke Exposure: No service: No Current occupational status: retired Cognitive needs: No Hearing needs: No Vision needs: Yes Questionnaire PHQ-9 Over the last 2 weeks, how often have you been bothered by any of the following problems? 1. Little interest or pleasure in doing things: not at all 2. Feeling down, depressed, or hopeless: not at all 3. Trouble falling or staying asleep, or sleeping too much: not at all 4. Feeling tired or having little energy: not at all 5. Poor appetite or overeating: not at all 6. Feeling bad about yourself - or that you are a failure or have let yourself or your family down: not at all 7. Trouble concentrating on things, such as reading the newspaper or watching television: not at all 8. Moving or speaking so slowly that other people could have noticed. Or the opposite - being so fidgety or restless that you have been moving around a lot more than usual: not at all 9. Thoughts that you would be better off or of hurting yourself in some way: not at all Total score: 0 Depression Screening Interpretation: Negative Depression Screening Done: Yes 70555 - PHQ-9 Billing: Yes Source: Developed by Drs. Rajan Fry, Neetu Torres, Ziggy Contreras and colleagues, with an educational gloria from [email or web address]. Thrive Questionnaire Date Thrive assessed: 11/25/24 I am a: Patient What is your living situation today?: I have a steady place to live Within the past 12 months, did the food you bought not last and you didn't have the money to get more?: Never true Within the past 12 months, did you worry whether your food would run out before you got money to buy more?: Never true Do you have trouble paying for medicines?: No Do you have trouble getting transportation to medical appointments?: No Do you have trouble paying your heating and electricity bill?: No Do you have trouble taking care of your child, family member or friend?: No Do you have trouble with day-to-day activities such as bathing, preparing meals, shopping, managing finances, etc.?: No Are you currently unemployed and looking for a job?: No Are you interested in more education?: No Please select the resources that you would like help with: None Currently or been in a relationship where the following occur: No concerns reported THRIVE Score: 0 AUDIT C Alcohol Use Questionnaire (AUDIT-C) 1. How often do you have a drink containing alcohol?: Never 3. How often do you have six or more drinks on one occasion?: Never Total Score: 0 Score Reviewed/Action Taken: No DEBORAH-7 AMB Questionnaire DEBORAH-7 Date DEBORAH - 7 assessed: 11/25/24 Feeling nervous, anxious, or on edge: 0 = Not at all Not being able to stop or control worryin = Not at all Worrying too much about different things: 0 = Not at all Trouble relaxin = Not at all Being so restless that it is hard to sit still: 0 = Not at all Becoming easily annoyed or irritable: 0 = Not at all Feeling afraid as if something awful might happen: 0 = Not at all Total DEBORAH-7 score (0-4 normal; 5-9 mild; 10-14 moderate; 15-21 severe): 0 Source: Developed by Drs. Rajan Fry, Neetu Torres, Ziggy Contreras and colleagues, with an educational gloria from [email or web address]. Physical exam (Primary Care) Vital Signs: Last Vital Signs Pulse 119 H 11/25/24 14:14 BP 130/72 11/25/24 14:14 Pulse Ox 95 11/25/24 14:14 Oxygen Delivery Method Room Air 11/25/24 14:14 BMI result Body Mass Index 26.8 Tobacco/Smoking Status: Tobacco use Status Tobacco use date assessed 11/25/24 11/25/24 14:16 Patient Tobacco Use Status Former Tobacco user 11/25/24 14:16 Tobacco use type Cigarette 11/25/24 14:16 e-Cigarette/Vaping Use Never Used 11/25/24 14:16 PHQ-9: PHQ-9 Score PHQ-9: Total score 0 11/25/24 14:16 Depression Screening Interpretation: Negative Thrive Assessment: Date of Thrive Assessment Date Thrive assessed 11/25/24 11/25/24 14:16 Currently or been in a relationship where the following occur: No concerns reported Const General: alert; No acute distress Eyes Conjunctivae: conjunctivae normal Resp Auscultation: clear to auscultation bilaterally Cardio Rate: regular rate Rhythm: regular rhythm GI Inspection: Yes normal to inspection Extrem General: Yes normal to inspection and No edema Coding Level of Care Code Est Pt Level 4 (88813) Complex EM visit Add On G2211 Diagnoses Atherosclerotic cardiovascular disease I25.10 Osteoarthritis of right knee M17.11 Gastroesophageal reflux disease, unspecified whether esophagitis present K21.9 Esophagitis presence: esophagitis presence not specified Thrombocytosis D47.3 Hypercholesterolemia E78.00 Essential hypertension I10 Hypertension type: essential hypertension Asthma-COPD overlap syndrome J44.9 BPH (benign prostatic hyperplasia) N40.0 Left knee pain M25.562 Additional Codes PHQ-9 - 43244 - PHQ-9 Billing: Yes ([id number]) Assessment & Plan Assessment & Plan (1) Atherosclerotic cardiovascular disease: Code(s): I25.10 - Atherosclerotic heart disease of [place] coronary artery without angina pectoris Category: Medical Plan: Control the cholesterol, weight, blood pressure, continue with aspirin will retest bloodwork in 3 months (2) Osteoarthritis of right knee: Code(s): M17.11 - Unilateral primary osteoarthritis, right knee Category: Medical Plan: Patient is being followed up by orthopedics (3) GERD (gastroesophageal reflux disease): Code(s): K21.9 - Gastro-esophageal reflux disease without esophagitis Category: Medical Qualifiers: Esophagitis presence: esophagitis presence not specified Qualified Code(s): K21.9 - Gastro-esophageal reflux disease without esophagitis Plan: Avoid the foods that causes that usually spicy foods, tomato products, juices, coffee, soda and foods that your sensitive to. After eating do not lie down, allow 3-4 hours before in lie down. And keep the head of bed above 30 degrees to avoid the acid from going up. (4) Thrombocytosis: Code(s): D47.3 - Essential (hemorrhagic) thrombocythemia Category: Medical Plan: Patient is being followed up by hematology oncology on anagrelide (5) Hypercholesterolemia: Code(s): E78.00 - Pure hypercholesterolemia, unspecified Category: Medical Plan: Avoid fried foods, chicken skin, eggs, butter margarine, pastries and meat. Be it pork or beef they have a lot of cholesterol on atorvastatin (6) Hypertension: Code(s): I10 - Essential (primary) hypertension Category: Medical Qualifiers: Hypertension type: essential hypertension Qualified Code(s): I10 - Essential (primary) hypertension Plan: Continue with blood pressure medication. Decrease salt intake and exercise continuing with amlodipine 5 mg once a day (7) Asthma-COPD overlap syndrome: Code(s): J44.9 - Chronic obstructive pulmonary disease, unspecified Category: Medical Plan: On montelukast Breztri and albuterol (8) BPH (benign prostatic hyperplasia): Code(s): N40.0 - Benign prostatic hyperplasia without lower urinary tract symptoms Category: Medical Plan: Continue with tamsulosin (9) Left knee pain: Code(s): M25.562 - Pain in left knee Category: Medical Plan - Continue current management for Asthma-COPD Overlap Syndrome with montelukast and albuterol. - For Essential Hypertension, maintain current antihypertensive therapy with amlodipine and monitor blood pressure regularly. - Treat hypercholesterolemia with atorvastatin, and consider repeating cholesterol evaluation in 2-3 months. - Continue management of GERD with pantoprazole. - Follow up with cardiology for Atherosclerotic Cardiovascular Disease; echocardiogram indicated normal EF. - Monitor chronic anemia closely; hematology follow-up is indicated given history of thrombocytosis. - For osteopenia and cervical spine issues, maintain orthopedic follow-up, considering imaging or specialist review if symptoms persist. - Pursue orthopedic evaluation, considering possible knee replacement consultation at [facility] for bilateral knee osteoarthritis. - Address pseudohyperkalemia with dietary modifications and regular monitoring of serum potassium levels. - Recommend psychiatric consultation to reassess Wellbutrin and fluoxetine therapy due to reported side effects of nightmares. - Encourage continuation of physical activity, appropriate diet modifications, and regular health maintenance checks. Orders: Orders Free T4 (Free Thyroxine) 3 Months I25.10 - Atherosclerotic heart disease of [place] coronary artery without angina pectoris Lipid Panel 3 Months E78.00 - Pure hypercholesterolemia, unspecified, I25.10 - Atherosclerotic heart disease of [place] coronary artery without angina pectoris Magnesium 3 Months I25.10 - Atherosclerotic heart disease of [place] coronary artery without angina pectoris Complete Blood Count Auto Diff 3 Months I25.10 - Atherosclerotic heart disease of [place] coronary artery without angina pectoris Comprehensive Met. Panel 3 Months I25.10 - Atherosclerotic heart disease of [place] coronary artery without angina pectoris Vitamin B12 and Folate 3 Months I25.10 - Atherosclerotic heart disease of [place] coronary artery without angina pectoris Thyroid Stimulating Hormone 3 Months I25.10 - Atherosclerotic heart disease of [place] coronary artery without angina pectoris Referrals Orthopedics Referral M25.562 - Pain in left knee Psychiatry Outpatient Consultation Service F41.1 - Generalized anxiety disorder
--- OUTSIDE RECORDS SUMMARY | 2024-11-25 15:19 | XMS_ITS | Clinical Summary ---
Author Organization [address] Address [address] [place] [phone] Phone Care Team Providers Care Filament Wound Parts Fabricator Name Role Phone Patricia Michel MD Primary Care Provider [phone] Allergies No known active allergies Social History Tobacco Use Types Packs/Day Years Used Date Smoking Tobacco: Never Assessed PHQ-2 Answer Date Recorded PHQ-2 Total Score 0 03/07/2024 Interpersonal Safety Answer Date Record ed Is there anyone in your life that is hurting or threatening you in anyway? no 03/07/2024 Physical Indicators of Abuse No evidence of phys ical abuse 03/07/2024 Sex and Gender Information Value Date Recorded Sex Assigned at Not on file Legal Sex Male 8:13 PM EDT Gender Identity Not on file Sexual Orientation Not on file Last Filed Vital Signs Vital Sign Reading Time Taken Comments Blood Pressure 150/78 03/07/2024 10:28 PM EDT Pulse 70 03/07/2024 10:29 PM EDT Temperature 37.1 ??C (98.8 ??F) 03/07/2024 8:31 PM ED T Respiratory Rate 18 03/07/2024 8:31 PM EDT Oxygen Saturation 98% 03/07/2024 10:29 PM EDT Inhaled Oxygen Concentration - - Weight 83.7 kg (184 lb 8.4 oz) 03/07/2024 8:31 P M EDT Height 180.3 cm (5' 11 ) 03/07/2024 8:31 PM EDT Body Mass Index 25.74 03/07/2024 8:31 PM EDT Plan of Treatment Health Maintenance Due Date Last Done Comments HIV screening 1964 Hepatitis C screening 1969 Tetanus adult (Td q 10,TDAP once) 1971 Lipid disorder screening 1991 Colon cancer screening, Colonoscopy 1996 Diabetes screening 1996 Shingles vaccine (Shingrix) (1 of 2 - Shingrix (RZV) 2 Dose Standard Series) 2001 Pneumococcal Vaccine (50+ years) (1 of 1 - PCV) 2016 Influenza vaccine 05/06/2024 09/04/2022, , 08/13/2017, Additional history exists Covid-19 vaccine series (1 - 2023-25 season) 2024 RSV Discussion (1 - 1-dose 75+ series) 2026 Meningococcal Vaccine Aged Out No tamara lori eligible based on patient's age to complete this topic [place] [address] [place] [address] BCBS Care Teams Filament Wound Parts Fabricator Relationship Specialty Start Date End Date Patricia Michel MD [address] [place] [address] [place] [address] PCP - General Internal Medicine 03/07/24
--- OUTSIDE RECORDS SUMMARY | 2024-11-25 15:19 | XMS_ITS | Encounter Summary ---
Author Organization [facility] Address [address] [place] [address] Care Team Providers Care Quarryman Name Role Phone Patricia Michel MD Primary Care Provider Unavailabl e Reason for Visit * Reason Comments E-prescribe Rx Request Encounter Details Date Type Department Care Team Description 12/04/2018 Refill Pulmonology - [place] [address] [facility] [address] [place] [address] Viktoriya Carroll MD [address] [place] [address] E-prescribe Rx Request Social History Tobacco Use Types Packs/Day Years Used Date Smoking Tobacco: Former Cigarettes 1 50 Smokeless Tobacco: Former Quit: 1984 Comments:quit 20 yrs ago Alcohol Use Standard Drinks/Week Comments Yes 1 (1 standard drink = 0.6 oz pur e alcohol) weekly Sex Assigned at Date Recorded Not on file documented as of this encounter Miscellaneous Notes * Telephone Encounter - Flor Mariee - 12/04/2018 2:35 PM EST Patient would like script to be: E-PRESCRIBED/FAXED TO PHARMACY WHEN WAS THE PATIENT'S LAST APPOINTMENT WITH THE PRESCRIBING PROVIDER? 09/09/2018 Does patient have an upcoming appointment? Yes 02/08/2019 (THE MEDICATION REQUESTED IS ON THE MED LIST ABOVE) All of the medications requested were on the CURRENT MEDS list Did you check the Pharmacy information above?: YES Patient wants: 30 -day supply Is this a mail order prescription request ? NO Patients current insurance carrier is: Payor: [facility]/MEDICARE PPO / Plan: [facility] PPO $20 [place] / Product Type: MEDICARE [id number] documented in this encounter Plan of Treatment Not on file documented as of this encounter Visit Diagnoses Diagnosis Chronic obstructive pulmonary disease, unspecified COPD type (HCC) documented in this encounter Care Teams Quarryman Relationship Specialty Start Date End Date Patricia Michel MD PCP - General Internal Medicine 03/11/18 documented as of this encounter
--- OUTSIDE RECORDS SUMMARY | 2024-11-25 15:19 | XMS_ITS | Encounter Summary ---
Author Organization [facility] Address [address] [place] [address] Care Team Providers Care Ice Resurfacing Machine Operators Name Role Phone Nelson Martínez Primary Care Provider Unavailabl e Patricia Michel MD Primary Care Provider Unavailabl e Reason for Visit * Reason Onset Date Comments Medication 01/19/2018 Encounter Details Date Type Department Care Team Description 01/19/2018 Telephone Pulmonology - [place] 175 [facility] [address] [place] [address] Viktoriya Carroll MD [address] [place] [address] Medication Social History Tobacco Use Types Packs/Day Years Used Date Smoking Tobacco: Former Cigarettes 1 50 Comments:quit 20 yrs ago Alcohol Use Standard Drinks/Week Comments Yes 1 (1 standard drink = 0.6 oz pur e alcohol) weekly Sex Assigned at Date Recorded Not on file documented as of this encounter Miscellaneous Notes * Telephone Encounter - Viktoriya Carroll MD - 01/21/2018 6:00 PM EDT done * Telephone Encounter - Rosanna Guadalupe - 01/21/2018 3:20 PM EDT Pt is calling back he made a mistake he needs [facility] call number He said he is very sorry for the confusion * Telephone Encounter - Rosanna Guadalupe - 01/21/2018 2:50 PM EDT Pt would like to fiber picker the Rx please call Martin at [phone] * Telephone Encounter - Bonnie Perez M.A. - 01/19/2018 2:58 PM EDT Can you please do the prescription order and I can send it to the patient by mail . * Telephone Encounter - Suyapa Maynard - 01/19/2018 2:19 PM EDT Pt is calling stating that he has new insurance and he has a form to complete in order to get his medication thru [facility] and they are requesting the original scripts for Symbicort, Montelukast and Fluticasone Nasal [place]. Please advise. Any questions please call pt Otherwise please mail to his home address the scripts he has requested. documented in this encounter Plan of Treatment Not on file documented as of this encounter Visit Diagnoses Not on filedocumented in this encounter Care Teams Ice Resurfacing Machine Operators Relationship Specialty Start Date End Date Nelson Martínez PCP - General Internal Medicine 08/13/17 03/10/18 Patricia Michel MD PCP - General Internal Medicine 03/11/18 documented as of this encounter
--- OUTSIDE RECORDS SUMMARY | 2024-11-25 15:19 | XMS_ITS | Clinical Summary ---
Author Organization [facility] Address [address] [facility] [address] [place] [address] Phone Care Team Providers Care Offset Plate Maker Name Role Phone Patricia Michel MD Primary Care Provider [phone] Allergies Active Allergy Reactions Criticality Noted Date Comments Codeine 03/24/2017 Lisinopril Other (see comments) 04/12/2019 Medications Aspirin Buf,CaCarb-MgCa rb-MgO, 81 MG tablet Take 81 mg by mouth 1 (one) time each day Active atorvastatin (LIPITOR) 40 MG tablet 2 Active Azelastine-Flut icasone 137-50 MCG/ACT suspension 2 Active buPROPion SR (WELLBUTRIN SR) 150 MG 12 hr tablet Take 150 mg by mouth 1 (one) time each day 2 Active famotidine (PEPCID) 20 MG tablet Take 20 mg by mouth at bed time at bedtime 2 Active FLUoxetine (PROzac) 40 MG capsule 2 Active montelukast (SINGULAIR) 10 MG tablet 2 Active pantoprazole (PROTONIX) 40 MG EC tablet TAKE 1 TABLET BY MOUTH 30 MIN PRIOR TO BREAKFAST 2 Active omega-3 (FISH OIL) 1000 MG capsule Take 1,000 mg by mouth 1 (one) time each day Active tamsulosin (FLOMAX) 0.4 MG 24 hr capsule Take 0.4 mg by mouth every night 2 Active Misc Natural Products (OSTEO BI-FLEX/5-LOXIN ADVANCED PO) Take by mouth Act navin Melatonin 10 MG capsule Take by mouth Active Fluticasone-Ume clidin-Vilant (Trelegy Ellipta) 100-62.5-25 MCG/ACT aerosol powder Inhale Active anagrelide (AGRYLIN) 1 MG capsule Take 1 mg by mouth in the morning and 1 mg in the evening. 1mg am & 1mg pm. Active amLODIPine (NORVASC) 5 MG tablet Take 1 tablet (5 mg total) by mouth 1 (one) time each day Active Active Problems Problem Noted Date Diagnosed Date Hyperkalemia Essential hypertension Thrombocytosis Family History Medical History Relation Comments Cancer Father Relation Status Comments Father Mother Social History Tobacco Use Types Packs/Day Years Used Date Smoking Tobacco: Former Smokeless Tobacco: Never Tobacco Cessation:Counseling Given: No Alcohol Use Standard Drinks/Week Comments Yes 0 (1 standard drink = 0.6 oz pur e alcohol) Sex and Gender Information Value Date Recorded Sex Assigned at Not on file Legal Sex Male 10:05 AM EDT Gender Identity Not on file Sexual Orientation Not on file Last Filed Vital Signs Vital Sign Reading Time Taken Comments Blood Pressure 132/72 08/23/2024 1:52 PM EST Pulse 83 09/08/2023 2:01 PM EST Temperature - - Respiratory Rate - - Oxygen Saturation 95% 01/24/2022 3:23 PM EDT Inhaled Oxygen Concentration - - Weight 84.2 kg (185 lb 9.6 oz) 08/23/2024 1:52 P M EST Height - - Body Mass Index - - Plan of Treatment Upcoming Encounters Date Type Department Care Team (Late st Contact Info) Description 08/22/2025 1:00 PM EST Office Visit [facility] [address] [address] Danilo Alicea MD [address] [address] Health Maintenance Due Date Last Done Comments Pneumococcal Vaccine: 65+ Years (1 of 2 - PCV) 1957 Colorectal Cancer Screening: Annual FOBT 2000 Colorectal Cancer Screening: Colonoscopy 2000 Colorectal Cancer Screening: Sigmoidoscopy 2000 Influenza Vaccine (#1) 2024 2, 08/25/2021, 08/13/2017, Additional history exists Hepatitis B Vaccine Aged Out No longe r eligible based on patient's age to complete this topic Insurance [facility] BLUE([id number]) [facility] PPO BLUE([id number]) Care Teams Offset Plate Maker Relationship Specialty Start Date End Date Patricia Michel MD [address] [place] PCP - General Internal Medicine 03/11/22
--- OUTSIDE RECORDS SUMMARY | 2024-11-25 15:19 | XMS_ITS | Encounter Summary ---
Author Organization [facility] Address [address] [place] [address] Care Team Providers Care Bus Analyst Name Role Phone Nelson Martínez Primary Care Provider Patricia Mccormack MD Primary Care Provider Daly e Encounter Details Date Type Department Care Team Description 08/13/2017 Orders Only Pulmonology - [address] [place] [address] Social History Tobacco Use Types Packs/Day Years Used Date Smoking Tobacco: Former Cigarettes 1 50 Comments:quit 20 yrs ago Alcohol Use Standard Drinks/Week Comments Yes 1 (1 standard drink = 0.6 oz pur e alcohol) weekly Sex Assigned at Date Recorded Not on file documented as of this encounter Plan of Treatment Not on file documented as of this encounter Visit Diagnoses Not on filedocumented in this encounter Care Teams Bus Analyst Relationship Specialty Start Date End Date Nelson Martínez PCP - General Internal Medicine 08/13/17 03/10/18 Patricia Michel MD PCP - General Internal Medicine 03/11/18 documented as of this encounter
--- OUTSIDE RECORDS SUMMARY | 2024-11-25 15:19 | XMS_ITS | Encounter Summary ---
Author Organization [facility] Address [address] [place] [address] Care Team Providers Care Backhaul Driver Name Role Phone Nelson Martínez Primary Care Provider Patricia Mccormack MD Primary Care Provider Unavailari e Encounter Details Date Type Department Care Team Description 08/18/2017 Transfer Records Medical Records [address] [place] [id number] Abstract, Provider Social History Tobacco Use Types Packs/Day Years [...] on filedocumented in this encounter Care Teams Backhaul Driver Relationship Specialty Start Date End Date Nelson Martínez PCP - General Internal Medicine 08/13/17 03/10/18 Patricia Michel MD PCP - General Internal Medicine 03/11/18 documented as of this encounter
--- OUTSIDE RECORDS SUMMARY | 2024-11-25 15:19 | XMS_ITS | Encounter Summary ---
Author Organization [facility] Address [address] [place] [address] Care Team Providers Care Laboratory Development Technician Name Role Phone Nelson Martínez Primary Care Provider Unavailabl e Patricia Michel MD Primary Care Provider Unavailabl e Encounter Details Date Type Department Care Team Description 01/21/2018 Orders Only Pulmonology - [place] 175 [facility] [address] [place] [address] Viktoriya Carroll MD [address] [place] [phone] Chronic obstructive pulmonary disease, unspecified COPD type (HCC) (Primary Dx); Asthma, unspecified asthma severity, unspecified whether complicated, unspecified whether persistent; Post-nasal drip Social History Tobacco Use Types Packs/Day Years [...] Chronic obstructive pulmonary disease, unspecified COPD type (HCC)- Primary Asthma, unspecified asthma severity, unspecified whether complicated, unspecified whether persistent Post-nasal drip Postnasal drip documented in this encounter Care Teams Laboratory Development Technician Relationship Specialty Start Date End Date Nelson Martínez PCP - General Internal Medicine 08/13/17 03/10/18 Patricia Michel MD PCP - General Internal Medicine 03/11/18 documented as of this encounter
== END 2024-11-25 14:54 | disposition home or self-care (01) ==
PROVIDERS: PCP Internal Medicine; Visit Provider Internal Medicine
DX: I25.10 Atherosclerotic heart disease of native coronary artery without angina pectoris (principal); M17.11 Unilateral primary osteoarthritis, right knee; K21.9 Gastro-esophageal reflux disease without esophagitis; D47.3 Essential (hemorrhagic) thrombocythemia; E78.00 Pure hypercholesterolemia, unspecified; I10 Essential (primary) hypertension; J44.9 Chronic obstructive pulmonary disease, unspecified; N40.0 Benign prostatic hyperplasia without lower urinary tract symptoms; M25.562 Pain in left knee

== ENCOUNTER → 2024-11-25 14:11 | Outpatient (BNVA) | payer MEDICARE, SELFPAY | PROVIDERS: PCP Internal Medicine; Visit Provider Internal Medicine | DX: I25.10 Atherosclerotic heart disease of native coronary artery without angina pectoris (principal); M17.11 Unilateral primary osteoarthritis, right knee; K21.9 Gastro-esophageal reflux disease without esophagitis; D47.3 Essential (hemorrhagic) thrombocythemia; E78.00 Pure hypercholesterolemia, unspecified; I10 Essential (primary) hypertension; J44.9 Chronic obstructive pulmonary disease, unspecified; N40.0 Benign prostatic hyperplasia without lower urinary tract symptoms; M25.562 Pain in left knee | CPT/HCPCS: 96127; 99212 ==

== ENCOUNTER 2025-01-17 08:38 | Outpatient (REF) | payer MEDICARE, SELFPAY ==
[2025-01-17 08:53] LABS: MANUAL DIFF FLAG NO
--- OUTSIDE RECORDS SUMMARY | 2025-01-17 09:11 | XMS_ITS | Clinical Summary ---
Author Organization [address] Address [address] [place] [phone] Phone Care Team Providers Care Barrel Charrer Helper Name Role Phone Patricia Michel MD Primary Care Provider [phone] Allergies No known active allergies Social History [...] cancer screening, Colonoscopy 1996 Diabetes screening 1996 Pneumococcal Vaccine (50+ years) (1 of 1 - PCV) 2001 Shingles vaccine (Shingrix) (1 of 2 - Shingrix (RZV) 2 Dose Standard Series) 2001 Covid-19 vaccine series (1 - 2023- season) 2024 Influenza vaccine 06/06/2025 09/04/2022, , 08/13/2017, Additional history exists RSV Immunization (1 - 1-dose 75+ series) 2026 Meningococcal Vaccine Aged Out No tamara lori eligible based on patient's age to complete this topic [place] [address] [address] [facility] [place] [address] BCBS Care Teams Barrel Charrer Helper Relationship Specialty Start Date End Date Patricia Michel MD [address] [place] [address] [place] [address] PCP - General Internal Medicine 03/07/24
--- OUTSIDE RECORDS SUMMARY | 2025-01-17 09:11 | XMS_ITS | Clinical Summary ---
Author Organization [facility] Address [address] [facility] [address] [place] [address] Phone Care Team Providers Care Costume Director Name Role Phone Patricia Michel MD Primary Care Provider [phone] Allergies Active Allergy Reactions Criticality Noted Date [...] Visit [facility] [address] [address] Danilo Alicea MD [address] [address] Health Maintenance Due Date Last Done Comments Pneumococcal Vaccine: 50+ Years (1 of 2 - PCV) 1970 Colorectal Cancer Screening: Annual FOBT 2000 Colorectal Cancer Screening: Colonoscopy 2000 Colorectal Cancer Screening: Sigmoidoscopy 2000 Influenza Vaccine (Season Ended) 2025 09/04/2022, 08/25/2021, 08/13/2017, Additional history exists Hepatitis B Vaccine Aged Out No longe r eligible based on patient's age to complete this topic Insurance [facility] Blue([id number]) [facility] Blue([id number]) Care Teams Costume Director Relationship Specialty Start Date End Date Patricia Michel MD [address] [place], [place] PCP - General Internal Medicine 03/11/22
[2025-01-17 09:25] LABS: Basophils Absolute Auto 0.2 X10*3/uL (0.0-0.2); Basophils Percent Auto 2.4 % (0-2); Eosinophils Absolute Auto 0.5 X10*3/uL (0.0-0.4); Eosinophils Percent Auto 6.1 % (0-4); Hematocrit 38.7 % (42.0-52.0); Hemoglobin 13.2 g/dl (14.0-18.0); Imm Gran Abs Auto 0.06 X10*3/uL (0.00-0.03); Imm Gran Pct Auto 0.7 % (0.0-0.4); Lymphocytes Percent Auto 23.2 % (20-40); Mean Corpuscular HGB Conc 34.1 g/dl (31.0-36.0); Mean Corpuscular Hemoglobin 29.9 pg (27.0-33.0); Mean Corpuscular Volume 87.8 fL (80.0-98.0); Mean Platelet Volume 10.6 fL (9.4-12.4); Monocytes Absolute Auto 0.8 X10*3/uL (0.1-1.2); Monocytes Percent Auto 9.1 % (2-11); Neutrophils Percent Auto 58.5 % (45-73); Platelet Count 491 X10*3/uL (160-400); Red Blood Count 4.41 X10*6/uL (4.60-5.80); Red Cell Distribution Width 14.3 % (11.0-16.0); White Blood Count 8.5 X10*3/uL (4.8-10.8)
[2025-01-17 10:16] LABS: Alanine Aminotransferase 40 U/L (0-40); Albumin Level 4.5 g/dL (3.5-5.0); Alkaline Phosphatase 52 U/L (39-117); Anion Gap 10 (12-20); Aspartate Amino Transferase 36 U/L (5-37); Bilirubin Total 0.4 mg/dL (0.0-1.0); Blood Urea Nitrogen 14 mg/dL (9-16); Calcium 9.3 mg/dL (8.4-10.2); Carbon Dioxide 27 mmol/L (22-29); Chloride 105 mmol/L (96-108); Cholesterol 119 mg/dL (<200); Estimated Glomerular Filt Rate > 60; Free T4 (Free Thyroxine) 1.12 ng/dL (0.71-1.85); Glucose Random 88 mg/dL (60-115); HDL Cholesterol 48 mg/dL (>40); LDL Cholesterol Calculated 51 mg/dL (<100); Magnesium 2.4 mg/dL (1.6-2.6); Potassium 4.2 mmol/L (3.3-5.1); Sodium 138 mmol/L (135-145); Thyroid Stimulating Hormone 2.34 uIU/mL (0.32-4.0); Total Protein 7.3 g/dL (6.5-8.0); Triglycerides 101 mg/dL (<150)
[2025-01-17 10:28] LABS: Vitamin B12 1244 pg/mL (200-900)
== END 2025-01-17 08:39 | disposition home or self-care (01) ==
LOC: HO.LAB 08:38
PROVIDERS: PCP Internal Medicine; Visit Provider Internal Medicine
DX: I25.10 Atherosclerotic heart disease of native coronary artery without angina pectoris (principal); E78.00 Pure hypercholesterolemia, unspecified
CPT/HCPCS: 36415; 80053; 80061; 82607; 82746; 83735; 84439; 84443; 85025

== ENCOUNTER 2025-01-28 14:53 | Outpatient (AMB) | payer MEDICARE, SELFPAY ==
[2025-01-28 14:56] VITALS: BP 152/82; PULSE 80; O2SAT 98; BMI 26.2
--- NOTE | 2025-01-28 14:56 | A.OFFVIS_ITS ---
Intake Vital Signs 01/28/25 14:56 Height 5 ft 11 in Weight 188 lb BMI 26.2 BP 152/82 H Blood Pressure Location Lt brachial Position Sitting Pulse 80 Pulse Source Pulse Oximeter Pulse Oximetry (%) 98 Oxygen Delivery Method Room Air Intake Visit Reasons: SWV G0439 Allergies lisinopril Allergy (Severe, Verified 01/28/25 14:56) cough codeine [CODEINE] Allergy (Intermediate, Verified 01/28/25 14:56) GI UPSET, nausea/vomiting hydroxyurea [From Hydrea] Adverse Reaction (Intermediate, Verified 01/28/25 14:56) weakness/chills, nausea losartan Adverse Reaction (Intermediate, Verified 01/28/25 14:56) hyperkalemia Medication List - Last Reconciled 01/28/25 by Patricia Michel MD albuterol sulfate 90 mcg/actuation 2 puffs PO Q6H PRN amlodipine 5 mg PO DAILY 90 days anagrelide 1.5 mg PO BID [aspirin 81 mg PO DAILY] atorvastatin 40 mg PO DAILY [id number]-yqbvrodece 160-9-4.8 mcg/actuation (Breztri Aerosphere) 2 inhalations inhalation BID 30 days bupropion HCl SR (Wellbutrin SR) 150 mg PO DAILY 90 days famotidine 20 mg PO 2XW ferrous sulfate 325 mg PO DAILY fluoxetine 40 mg PO DAILY fluticasone propionate 50 mcg/actuation 2 sprays intranasal DAILY 90 days melatonin 10 mg PO BEDTIME PRN montelukast 10 mg PO DAILY multivitamin 1 tab PO DAILY nystatin 1 mL PO DAILY 7 days omega-3 fatty acids 1,000 mg PO DAILY pantoprazole 40 mg PO DAILY polyethylene glycol 3350 (Miralax) 238 grams PO ONCE tamsulosin (Flomax) 0.4 mg PO DAILY HPI SWV G0439 HPI Details fall last week L hip as for depression - sates daughter nurse asking for anxiety xanax. was advised to stop the anagrelide 1 week before [facility] Medical History Dyspnea on exertion Abnormal stress test Dysphagia Hyperkalemia COVID-19 virus infection Lip lesion Pulmonary nodules COPD (chronic obstructive pulmonary disease) Pulmonary nodules Hypercholesterolemia Hypertension BPH (benign prostatic hyperplasia) Chronic rhinitis Asthma-COPD overlap syndrome Surgical History History of endoscopy Hx of colonoscopy History of knee surgery Family History Father Lung cancer Mother Hypertension Brother Brain cancer Daughter In good health Social History (Updated 01/28/25 @ 15:29 by Patricia Michel MD) Household Members: Spouse Housing: House Are you a primary health careers instructor to a significant other at home: No Do you presently have visiting nurse or other home services: No Alcohol intake: current Alcohol intake frequency: holidays/special occasions only Comment: once a week 1drink last drink 10/2024 Patient Tobacco Use Status: Former Tobacco user Tobacco use type: Cigarette Years Smoked: 1984 stopped e-Cigarette/Vaping Use: Never Used Second Hand Smoke Exposure: No service: No Current occupational status: retired Cognitive needs: No Hearing needs: No Vision needs: Yes Questionnaire Medicare Wellness Checkup [age] What gender do you identify with?: male During the past 4 weeks, how much have you been bothered by emotional problems such as feeling anxious, depressed, irritable, sad or downhearted, and blue?: quite a bit During the past 4 weeks, has your physical & emotional health limited your social activities with family, friends, neighbors, or groups?: quite a bit During the past 4 weeks, how much bodily pain have you generally had?: severe pain During the past 4 weeks, was someone available to help you if you needed & wanted help?: yes, a little During the past 4 weeks, what was the hardest physical activity you could do for at least 2 minutes?: very light Can you get to places out of walking distance without help? (For eg., can you travel alone on buses, taxis or drive your car?): Yes Can you go shopping for groceries or clothes without someone's help?: Yes Can you prepare your own meals?: Yes Can you do your housework without help?: Yes Because of any health problems, do you need the help of another person with your personal care needs such as eating, bathing, dressing or getting around the house?: No Can you handle your own money without help?: Yes During the past 4 weeks, how would you rate your health in general?: fair During the past 4 weeks how have things been going for you?: good & bad parts about equal Are you having difficulties driving your car?: no Do you always fasten your seat belt when you are in a car?: yes, usually During past 4 weeks, have you been bothered by the following: never: Teeth or denture problems? and Problems using the telephone?, sometimes: Trouble eating well?, often: Falling or dizzy when standing up and Tiredness or fatigue? and always: Sexual problems? Have you fallen 2 or more times in the past year?: Yes Are you afraid of falling?: Yes Are you a smoker?: no During the past 4 weeks, how many drinks of wine, beer, or other alcoholic beverages did you have?: no alcohol at all Do you exercise for about 20 minutes 3 or more times a week?: no, I usually do not exercise this much Have you been given information to help with the following?: yes: Hazards in your house that might hurt you? and no: Keeping track of your medications? How often do you have trouble taking medicines the way you have been told to take them?: I always take medicine as prescribed How confident are you that you can control & manage most of your health problems?: somewhat confident What is your race?: White PHQ-9 Over the last 2 weeks, how often have you been bothered by any of the following problems? 1. Little interest or pleasure in doing things: nearly every day 2. Feeling down, depressed, or hopeless: nearly every day 3. Trouble falling or staying asleep, or sleeping too much: more than half the days 4. Feeling tired or having little energy: nearly every day 5. Poor appetite or overeating: more than half the days 6. Feeling bad about yourself - or that you are a failure or have let yourself or your family down: more than half the days 7. Trouble concentrating on things, such as reading the newspaper or watching television: more than half the days 8. Moving or speaking so slowly that other people could have noticed. Or the opposite - being so fidgety or restless that you have been moving around a lot more than usual: more than half the days 9. Thoughts that you would be better off or of hurting yourself in some way: not at all Total score: 19 Depression Screening Interpretation: Positive Depression Screening Done: Yes 41727 - PHQ-9 Billing: Yes Source: Developed by Drs. Rajan Fry, Ziggy Sandoval and colleagues, with an educational gloria from [employer]. Thrive Questionnaire Date Thrive assessed: 11/25/24 DEBORAH-7 AMB Questionnaire DEBORAH-7 Date DEBORAH - 7 assessed: 11/25/24 Source: Developed by Drs. Rajan Fry, Ziggy Sandoval and colleagues, with an educational gloria from [employer]. Review of Systems Const Denies poor appetite and Denies weakness Eyes Denies no additional complaints ENT Reports Normal hearing present, Denies dizziness, Denies nasal congestion, Denies tinnitus and Denies sore throat Card Denies chest pain, Denies syncope, Denies rapid heart rate and Denies dyspnea Resp Denies cough and Denies dyspnea GI Denies change in stool character, Reports constipation, Denies diarrhea, Denies nausea and Denies vomiting Denies dysuria and Denies urinary frequency Neuro Reports Normal hearing present, Denies confusion, Denies dizziness, Denies syncope and Denies weakness Psych Denies confusion Physical Exam Vital Signs: Last Vital Signs Pulse 80 01/28/25 14:56 BP 152/82 H 01/28/25 14:56 Pulse Ox 98 01/28/25 14:56 Oxygen Delivery Method Room Air 01/28/25 14:56 BMI result Body Mass Index 26.2 Const General: No confusion Orientation/consciousness: No confusion HEENT Head: Yes normocephalic Ears: external ears normal and TM's normal bilaterally Face and sinus: Yes normal facial exam Mouth: moist mucous membranes Throat: Yes tonsils normal Eyes Conjunctivae: conjunctivae normal Pupils: Equal, round and reactive pupils present and Pupil accommodation reflex normal Direct Ophthalmoscopy: normal light reflex Neck Neck: No lymphadenopathy Thyroid: Thyroid normal Chest Chest palpation & inspection: normal inspection of the chest Resp Effort & Inspection: normal respiratory effort and no audible wheezes Auscultation: clear to auscultation bilaterally, no crackles, no wheezes and lung sounds not diminished Cardio Rate: regular rate Rhythm: regular rhythm Peripheral pulses: radial pulses present and dorsalis pedis present GI Other: guaiac negative prostates N Palpation (GI): no masses Auscultation: normal bowel sounds and normoactive bowel sounds Other: Mild inguinal bulge Right side Skin General skin exam: no rashes or lesions noted Rashes: no rashes Neuro General: No confusion Cranial nerves: Yes Equal, round and reactive pupils present and Yes Normal hearing present Cognition (Neuro): normal cognition Gait exam (Neuro): Normal gait present Motor exam (neuro): 5/5 motor strength present throughout Deep tendon reflexes (DTR's): Right brachioradialis reflex intensity grade: 2+, Left brachioradialis reflex intensity grade: 2+, Right patellar reflex intensity grade: 2+ and Left patellar reflex intensity grade: 2+ Extrem General: No edema Assessment & Plan Assessment & Plan (1) Medicare annual wellness visit, subsequent: Code(s): Z00.00 - Encounter for general adult medical examination without abnormal findings Plan: Patient is advised to eat healthy, keep well hydrated, keep active and have adequate sleep. (2) Atherosclerotic cardiovascular disease: Code(s): I25.10 - Atherosclerotic heart disease of [place] coronary artery without angina pectoris Plan: Control the cholesterol, weight, blood pressure. Patient is on aspirin 81 mg once a day (3) Asthma-COPD overlap syndrome: Code(s): J44.9 - Chronic obstructive pulmonary disease, unspecified Plan: Continue with Breztri and albuterol inhaler as needed. Patient is also on montelukast Reminded about rinsing mouth after using the Breztri (4) BPH (benign prostatic hyperplasia): Code(s): N40.0 - Benign prostatic hyperplasia without lower urinary tract symptoms Plan: Continue with tamsulosin (5) Hypertension: Code(s): I10 - Essential (primary) hypertension Qualifiers: Hypertension type: essential hypertension Qualified Code(s): I10 - Essential (primary) hypertension Plan: Continue with blood pressure medication. Decrease salt intake and exercise takes amlodipine 5 mg once a day (6) Hypercholesterolemia: Code(s): E78.00 - Pure hypercholesterolemia, unspecified Plan: Avoid fried foods, chicken skin, eggs, butter margarine, pastries and meat. Be it pork or beef they have a lot of cholesterol continue with diet control (7) Thrombocytosis: Code(s): D47.3 - Essential (hemorrhagic) thrombocythemia Plan: Patient follows up with Hematology-Oncology and taking anagrelide. (8) Generalized anxiety disorder: Code(s): F41.1 - Generalized anxiety disorder Plan: Continue with Bue per prior on and fluoxetine (9) GERD (gastroesophageal reflux disease): Code(s): K21.9 - Gastro-esophageal reflux disease without esophagitis Qualifiers: Esophagitis presence: esophagitis presence not specified Qualified Code(s): K21.9 - Gastro-esophageal reflux disease without esophagitis Plan: Avoid the foods that causes that usually spicy foods, tomato products, juices, coffee, soda and foods that your sensitive to. After eating do not lie down, allow 3-4 hours before in lie down. And keep the head of bed above 30 degrees to avoid the acid from going up. (10) Osteoarthritis of right knee: Code(s): M17.11 - Unilateral primary osteoarthritis, right knee Plan: Patient has seen ortho and planning on arthroplasty Plan History of Present Illness The patient is a 74-year-old male presenting with an annual well visit and review of asthma-COPD overlap syndrome, BPH, hypertension, hypercholesterolemia, generalized anxiety disorder, GERD, and atherosclerotic cardiovascular disease. The lung condition is managed with Respi-TREE and albuterol. Shirt Sorter evaluations indicate lung-related concerns primarily. He plans a future knee replacement due to persistent bilateral knee pain, having received injections for relief to this point. Relevant imaging revealed osteopenia, multilevel spondylosis, and severe bilateral foraminal stenosis. Hematological follow-ups reveal essential thrombocythemia managed with anagrelide, observing mild conditions of anemia in recent tests. Concerns for generalized anxiety disorder stem from upcoming surgical procedures, treated with fluoxetine and bupropion, with considerations for alprazolam for acute anxiety. An innocuous bladder condition with incidences of incontinence is under watch. Alcohol is avoided due to mood impact, with tobacco having been quit in the late s. GERD and BPH are fairly managed with standard medications. The patient adheres to cautious intake and maintains stable health dynamics, considering surgery and treatment plans. Health Maintenance - Colonoscopy was last performed in September 2024. - Annual well visit conducted. - Continued management for hypercholesterolemia with atorvastatin 40 mg. - Reviewed LDL cholesterol at 51 mg/dL. - Regular monitoring of hematological parameters due to essential thrombocythemia. - Evaluation of anxiety ahead of knee arthroplasty, with medication refills. - Ensured appropriate usage of inhalers for asthma-COPD overlap syndrome. - Alcohol abstinence and cessation of smoking since 1984. Social History - Former smoker, quit in 1984. - No alcohol consumption for the last three months. - with family support; daughter is a nurse. - Limited activity due to bilateral knee pain. - Experiences urinary incontinence potentially linked to BPH. - History of working with hands and physically active lifestyle until current decline in mobility and capacity. - Limited external activities adding strain to mental health. Review of Systems - Respiratory: Reports shortness of breath on exertion; uses albuterol inhaler as needed. - Musculoskeletal: Reports severe bilateral knee pain. - Psychiatric: Reports anxiety, depression, and nightmares. - Genitourinary: Reports urinary incontinence. - Gastrointestinal: Denies gastrointestinal bleeding; reports heartburn controlled with medication. Physical Exam General: Cooperative, healthy appearing, comfortable, no acute distress and well developed Orientation: Patient oriented x3 Limitations: No limitations Head: Normal to inspection Ears: Hearing grossly normal bilaterally Nose: Normal external nose present Face and sinus: Normal facial exam Eyes: Appearance normal, both eyes and all related structures Neck: Normal visual inspection and Yes full ROM Respiratory: Normal respiratory effort and able to speak in complete sentences. Clear to auscultation bilaterally Cardiovascular: Regular rate and rhythm. Normal S1 and S2 GI: Normal to inspection. Soft to palpation and nontender Skin: No rashes or lesions noted Neuro: Patient oriented x3 Extremities: Normal to inspection, but patient reports bilateral knee pain and has had cortisone and gel injections. Planning on arthroplasty. Results - Labs: Hemoglobin 13.2 g/dL, hematocrit 38.7, platelet count 491 k/mL, LDL cholesterol 51 mg/dL. - Diagnostics: Stress test negative per last evaluation. Imaging shows multilev el spondylosis and severe bilateral foraminal stenosis at C5-C6. Plan The focus was on effectively reviewing and managing the patient?s chronic conditions such as asthma-COPD, hypercholesterolemia, and BPH, with asthma management entailing regular use of prescribed inhalers. Upcoming knee arthroplasty justified continuous orthopedic oversight, orthopedics, pharmacological adjustments contingent on thrombocythemia treatment with anagrelide around surgical schedules. Pertinent GERD and hypertension therapies stay maintained with regular monitoring. A limited prescription for alprazolam for generalized anxiety was issued to mitigate surgical anxiety, enhancing the current antidepressants fluoxetine and bupropion regimen. Post-surgery plans incorporated recommended physical therapy. Health maintenance incorporated the recent colonoscopy and routine bloodwork examinations, cholesterol monitoring, alongside peer reminders on substance abstention due to personal reflections on mood impact. I accentuated the potential need for introspective and communal engagement to soften psychological strains observed in personal reflections. Proactive consult tapping for musculoskeletal limitations was facilitated. Patient was informed and verbally consented to the use of an ambient scribe for clinic note documentation during this visit. Discussion Notes I discussed with the patient his chronic conditions and medication adherence, specifically for asthma-COPD overlap, BPH, and hypercholesterolemia. We reviewed his upcoming knee arthroplasty plans and the essential thrombocythemia diagnosi s, reinforcing the considerations for anagrelide dosage adjustments around surgery. I also highlighted the importance of continuing GERD and hypertension management alongside improving adherence to inhaler protocols. Risks, benefits, and alternatives of medications, including a short course of alprazolam, were discussed concerning anxiety linked to the scheduled surgery. Following his expressed difficulties with emotional lows, I suggested counseling, emphasizing the potential for situational stress reduction. The importance of physical therapy post-surgery was reiterated to aid post-operative recovery and enhance mobility. We addressed his recent urinary issues, likely linked to BPH, suggesting systematic monitoring for further symptoms. Vaccination states were confirmed as complete. His careful dietary and alcohol abstention for depressive symptoms was praised. Follow-up included encouraging the use of the patient portal for ease of communication regarding ongoing concerns or emerging issues in his health journey. Patient Instructions - Continue using inhalers as prescribed for asthma-COPD management. - Follow the medication regimen for hypertension, GERD, and anxiety. - Avoid alcohol due to its effects on mood; continue to abstain from smoking. - Engage in recommended pre-operative care for upcoming knee surgery. - Report any issues with urinary incontinence or side effects from medications. - Utilize the patient portal for direct communication on health concerns. - Consider light exercise and mental health check-ins for anxiety management. - Attend follow-up appointments with specialists as scheduled. Medications: New alprazolam 0.25 mg PO BID PRN 14 tabs 0RF anxiety F41.1 - Generalized anxiety disorder Quality Reporting (2019) Depression/Bipolar (159/160/161/177) PHQ-9: Total score: 19 Coding Level of Care Code Medicare Subsequent (G0439) Diagnoses Medicare annual wellness visit, subsequent Z00.00 Atherosclerotic cardiovascular disease I25.10 Asthma-COPD overlap syndrome J44.9 BPH (benign prostatic hyperplasia) N40.0 Essential hypertension I10 Hypertension type: essential hypertension Hypercholesterolemia E78.00 Thrombocytosis D47.3 Generalized anxiety disorder F41.1 Gastroesophageal reflux disease, unspecified whether esophagitis present K21.9 Esophagitis presence: esophagitis presence not specified Osteoarthritis of right knee M17.11 Additional Codes PHQ-9 - 81404 - PHQ-9 Billing: Yes ([id number])
--- OUTSIDE RECORDS SUMMARY | 2025-01-28 15:36 | XMS_ITS | Encounter Summary ---
Author Organization [facility] Address [address] [place] [address] Care Team Providers Care Statistician Name Role Phone Patricia Michel MD Primary Care Provider Unavailabl e Encounter Details Date Type Department Care Team Description 05/05/2019 Orders Only Medical Records [address] [place] [address] Abstract, Provider Chronic obstructive pulmonary disease, unspecified COPD type (HCC); Chronic rhinitis; Pulmonary nodule Social History Tobacco Use Types Packs/Day Years [...] on file documented as of this encounter Procedures Procedure Name Priority Date/Time Associated Diagnosis Comments CAT SCAN OF CHEST NO CONTRAST Routine 04/28/2019 Chronic obstructive pulmonary disease, unspecified COPD type (HCC) Chronic rhinitis Pulmonary nodule documented in this encounter Results * CAT SCAN OF CHEST NO CONTRAST (04/28/2019) Umang Ivey MD CT [facility] documented in this encounter Visit Diagnoses Diagnosis Chronic obstructive pulmonary disease, unspecified COPD type (HCC) Chronic rhinitis Pulmonary nodule Solitary pulmonary nodule documented in this encounter Care Teams Statistician Relationship Specialty Start Date End Date Patricia Michel MD PCP - General Internal Medicine 03/11/18 documented as of this encounter
--- OUTSIDE RECORDS SUMMARY | 2025-01-28 15:36 | XMS_ITS | Encounter Summary ---
Author Organization [facility] Address [address] [place] [address] Care Team Providers Care Box Inspector Name Role Phone Patricia Michel MD Primary Care Provider Unavailabl e Reason for Visit * Reason Comments E-prescribe Rx Request Encounter Details Date Type Department Care Team Description 12/04/2018 Refill Pulmonology - [place] [address] [place] [address] Viktoriya Carroll MD [address] [place] [address] E-prescribe Rx Request Social History [...] [facility]/MEDICARE PPO / Plan: [facility] PPO $20 [place] / Product Type: MEDICARE [id number] documented in this encounter Plan of Treatment Not on file documented as of this encounter Visit Diagnoses Diagnosis Chronic obstructive pulmonary disease, unspecified COPD type (HCC) documented in this encounter Care Teams Box Inspector Relationship Specialty Start Date End Date Patricia Michel MD PCP - General Internal Medicine 03/11/18 documented as of this encounter
--- OUTSIDE RECORDS SUMMARY | 2025-01-28 15:36 | XMS_ITS | Continuity of Care Document ---
Author Organization [facility] Address [address] [place] [address] Care Team Providers Care Memorandum Statement Clerk Name Role Phone SADIE MICHEL Primary Care Provider [phone] Assessment Encounter Date Assessment Date Assessment LastModified by Organization Details LastModified Time 01/24/2025 01/24/2025 PRIMARY DIAGNOSIS: Osteoarthritis of the left knee. REASON FOR ADMISSION: The patient is being admitted for left total knee arthroplasty with Dr. Sapp on 02/02/2025. HISTORY OF PRESENT ILLNESS: The patient is a 74-year-old gentleman presenting today with left-sided knee pain. His pain has been going on for many years and has been getting progressively worse. His pain level is 6/10 intensity at rest, increasing to 10/10 intensity with weightbearing activities. He reports significant activity limitations, which include difficulty walking any prolonged distances, pivoting, and stairs. He has difficulty getting in and out of the car and chair and transitioning from sit to stand. He has had bilateral cortisone and gel injections, which have lost their effectiveness. He ambulates with a cane for prolonged distances. He has been taking Tylenol for discomfort. He states that he has significant difficulty navigating stairs. He is unable to squat. He reports a limp on the left side. The patient states that he is now ready for left total knee arthroplasty with Dr. Sapp on 02/02/2025. PAST MEDICAL HISTORY: 1. Osteoarthritis of the left knee. 2. Hypertension. 3. Asthma. 4. Dyspnea on exertion. 5. Thrombocytopenia, on anagrelide. 6. History of postoperative nausea and vomiting after knee arthroscopy. 7. Dysphagia. 8. COVID-19 infection with no sequelae. 9. Pulmonary nodules. 10. COPD. 11. Hyperlipidemia. 12. BPH. 13. Chronic rhinitis. PAST SURGICAL HISTORY: Right knee arthroscopy x2. CURRENT MEDICATION LIST: 1. Atorvastatin 40 mg daily. 2. Fluoxetine 40 mg daily. 3. Fluticasone 50 mcg per actuation two sprays intranasally daily. 4. Albuterol sulfate 90 mcg per actuation two puffs every 6 hours as needed for shortness of breath or wheezing. 5. Bupropion SR 150 mg daily. 6. Famotidine 20 mg twice a week. 7. Montelukast 10 mg daily at bedtime. 8. Aspirin 81 mg daily. 9. Multivitamin, which he had stopped in preparation for the surgery. 10. Gravel Switch-3 fatty acids, which he had stopped in preparation for the surgery. 11. Tamsulosin 0.4 mg daily. 12. Melatonin 10 mg daily at bedtime as needed for insomnia. 13. Pantoprazole 40 mg daily with breakfast. 14. Anagrelide 0.5 mg capsule where the patient takes three capsules twice a day. 15. Amlodipine 5 mg daily. 16. Breztri 160/9/4.8 mcg two inhalations twice a day. 17. MiraLax 17 g daily. ALLERGIES: PATIENT HAS ALLERGIES TO CODEINE AND HYDROXYUREA. SOCIAL HISTORY: The patient is . He is retired and lives at home. He has a daughter who will be helping him postoperatively and she is a nurse. He denies any use of tobacco products, alcohol use, or illicit drug use. PHYSICIANS: His primary care provider is Dr. Michel. His vinyl cutter is Dr. Sebastian. REVIEW OF SYSTEMS: Negative with the exception of HPI. PHYSICAL EXAMINATION: VITAL SIGNS: Weight is 190 pounds. GENERAL: The patient is alert and oriented, normal insight, affect and grooming. HEENT: Normocephalic. Conjunctivae pink. Sclerae anicteric. SKIN: Intact without rash or lesions. Nails without clubbing or cyanosis. NECK: Supple. Trachea midline. No lymphadenopathy. CHEST: Lungs are clear to auscultation bilaterally. Breathing is unlabored. CARDIOVASCULAR: Heart has a regular rate and rhythm. Normal S1 and S2. No murmurs, rubs or gallops appreciated. No JVD. Carotid pulses without bruits. ABDOMEN: Soft, nontender. Normal bowel sounds. No hepatosplenomegaly or masses noted. No bruits appreciated. EXTREMITIES: The patient has negative straight leg raise test bilaterally. Bilateral hips with full range of motion with no pain. No trochanteric tenderness. Left knee has varus alignment. Range of motion is 5 to 115 degrees. Severe tenderness and crepitus medially. Mild instability and mild effusion. Left knee has slight varus alignment. Range of motion is 0 to 120 degrees. Mild to moderate tenderness and crepitus medially. No instability. Mild effusion. Motor sensation screening is intact. Calf is supple and tender. Ankle motion is satisfactory. Pedal pulses palpable bilaterally and the skin on his feet is intact. PREOPERATIVE DIAGNOSTIC DATA: EKG reads normal sinus rhythm at 80 beats per minute. Orthopedic x-rays demonstrate endstage osteoarthritis of the left knee. There is hxyo-ty-[id number] articulation, subchondral sclerosis, and osteophyte formation. Transthoracic echocardiogram, which was done in 08/2024, showed normal left ventricular cavity size. The left ventricular systolic function is normal. The calculated ejection fraction is 56% by biplane method. There is no evidence of regional wall motion abnormalities. Diastolic function is normal for age. There is mild septal asymmetric hypertrophy. No significant change compared to prior study from 2015. LABORATORY DATA: CBC shows hemoglobin of 12.8, platelets 526. Chemistry panel, coagulation status was within normal limits. A1c 5.7. ASSESSMENT AND PLAN: The patient has advanced osteoarthritis of the left knee and is now scheduled for a total knee arthroplasty with Dr. Sapp on 02/02/2025. The patient was seen by the medical consultative preoperative clinic who stated that the patient is at low risk for cardiovascular complications, moderate risk for pulmonary complications, and elevated risk for delirium. The patient was seen by his vinyl cutter, who stated that they do not believe that the shortness of breath that he is experiencing is cardiac in nature. This could be some combination of pulmonary status and deconditioning, mainly risk factor modification and he is already on statins. He was able to reach 7 METs on Jerald protocol and developed shortness of breath with stress test. He then had a sudden drop in blood pressure and thought to have a vasovagal event, suspect could be due to poor exercise tolerance and deconditioning. Pharmacological myocardial perfusion imaging study shows likely normal perfusion. In the carotid study, minimal stenosis bilaterally. The patient will receive intravenous tranexamic acid. He will be on aspirin postoperatively for DVT prophylaxis. Discharge plans will be to home the next day. The patient is not a candidate for same day discharge. The patient has been counseled regarding the risks and benefits of proposed surgery. His questions have been answered. He acknowledges understanding. The patient wishes to proceed with surgery. Prescriptions for Celebrex were given to him at this office visit. The patient will require prescriptions for aspirin, Colace, and pain medications filled at [facility] prior to discharge. The patient will receive one week of in-home physical therapy postoperatively. CONTACTS: His , Latasha, with cell phone number [phone] and home phone number [phone]. [email or web address] Not available 01/24/2025 14:19:02 Plan of Treatment Reminders Order Date Submit Date Provider Last Modified By Organization Details Last Modified Time Details Appointments SURGERY @ [facility] 2024 08:30A Jacoby Sapp MD Not available Not available Not available PT RE-EVAL 2024 01:00P LETICIA TeranT Not available Not available Not available RECHECK 15 2024 02:00P Jacoby Manzanares PA-C Not available Not available Not available PT FOLLOW-U P 2024 02:30P LETICIA TeranT Not available Not available Not available PT FOLLOW-U P 2024 02:00P Jacoby Mccoy DPT Not available Not available Not available PT FOLLOW-U P 2024 12:00P Jacoby Giang, DIRECTOR CAREER SERVICES Not available Not available Not available PT FOLLOW-U P 2024 12:00P Jacoby Kempe, DIRECTOR CAREER SERVICES Not available Not available Not available PT FOLLOW-U P 2024 03:00P Jacoby Giang, DIRECTOR CAREER SERVICES Not available Not available Not available RECHECK 15 2024 09:45A Jacoby Manzanares PA-C Not available Not available Not available PT FOLLOW-U P 2024 02:30P Jacoby Kempe, DIRECTOR CAREER SERVICES Not available Not available Not available PT FOLLOW-U P 2024 01:30P Jacoby Mccoy DPT Not available Not available Not available PT FOLLOW-U P 2024 01:30P Jacoby Mccoy, DPT Not available Not available Not available PT FOLLOW-U P 2024 12:00P M Damieana Fudge, DIRECTOR CAREER SERVICES Not available Not available Not available PT FOLLOW-U P 2024 12:30P M Damieana Fudge, DIRECTOR CAREER SERVICES Not available Not available Not available PT FOLLOW-U P 2024 01:30P M Damieana Fudge, DIRECTOR CAREER SERVICES Not available Not available Not available PT FOLLOW-U P 2024 01:00P M Damieana Fudge, DIRECTOR CAREER SERVICES Not available Not available Not available PT FOLLOW-U P 2024 01:30P M Damieana Fudge, DIRECTOR CAREER SERVICES Not available Not available Not available PT FOLLOW-U P 2024 01:30P M Mateusz Fudge, DIRECTOR CAREER SERVICES Not available Not available Not available PT FOLLOW-U P 2024 01:30P Jacoby Mccoy, DPT Not available Not available Not available PT FOLLOW-U P 2024 01:30P Jacoby Mccoy, DPT Not available Not available Not available PT FOLLOW-U P 2024 01:00P Jacoby Ferrerana Fudge, DIRECTOR CAREER SERVICES Not available Not available Not available PT FOLLOW-U P 2024 01:00P Jacoby Child Fudge, DIRECTOR CAREER SERVICES Not available Not available Not available PT FOLLOW-U P 2024 01:00P Jacoby Ferrerana Fudge, DIRECTOR CAREER SERVICES Not available Not available Not available PT FOLLOW-U P 2024 01:00P M Chemaieana Fudge, DIRECTOR CAREER SERVICES Not available Not available Not available PT FOLLOW-U P 2024 01:00P Jacoby Mccoy, DPT Not available Not available Not available PT FOLLOW-U P 2024 01:00P Jacoby Mccoy, DPT Not available Not available Not available PT FOLLOW-U P 2024 01:00P M Damieana Fudge, DIRECTOR CAREER SERVICES Not available Not available Not available PT FOLLOW-U P 2024 01:00P M Chemaieana Fudge, DIRECTOR CAREER SERVICES Not available Not available Not available RECHECK 10 2024 11:20A M James Sapp MD Not available Not available Not available Lab None recorded . Referral None recorded . Procedures None recorded . Surgeries None recorded . Imaging None recorded . Medication Orders None recorded . Patient TargetsNo targets recorded. Patient InstructionsNo instructions recorded. Reason for Referral None Reported. Results Created Date Observation Date Name Description Value Unit Range Abnormal Flag Note LastModifiedBy Organization Detail LastModifiedTime 12/31/19 25 12/30/2024 XR, knee, 4 or more view [email or web address] ?Encry pted=s hAaTro YD8dLq bEUv6g %2BXZw aYqtaq 0bqfl% 2Fg9IQ a4ajBk vP9nXo QUaueC m3YtLR FvZlgJ JJ8mAn HZtai3 2a3607 AC0KqY nWBWKq vKiQtr MwF INTERFACE [facility] [address], [place], [address], 12/30/2024 16:09:38 12/31/19 25 12/30/2024 XR, knee, 4 or more view [email or web address] ?Encry pted=s hAaTro YD8dLq bEUv6g %2BXZw aYqtaq 0bqfl% 2Fg9IQ a4ajBk vP9nXo QUaueC m3YtLR FvZlgJ JJ8mAn HZtai3 4k3873 AC0KqY nWBWKq vKiQtr MwF INTERFACE [facility] [address], [place], [address], 12/30/2024 16:09:41 Result Notes None recorded. Problems Name Problem SNOMED Code Status Onset Date Resolution Date Notes Provider Name and Address Organization Details Recorded Time Primary gonarthrosi s, bilateral 594943656 Active 2023 Annamarie Jones i, PA-C [address], [place], [address], [facility] 4 08:46:03 Pain of knee region 6807128474 Active 2024 ABEL REYNA siva, [facility] 5 15:56:33 Bilateral osteoarthri tis of knees 5690258902635 07 Active 2023 CANDELARIA WEINBERG siva, [facility] 4 08:23:18 Problem Notes None recorded. Procedures Surgical History Date Name Laterality Status Provider Name and Address Organization Details Recorded Time 5 41042 Therapeutic Exercise (1:1) completed Tiffani Mccoy DPT [address], [place], [address], [facility] 01/05/2025 14:01:18 5 37434: Low complexity PT Eval completed Tiffani Mccoy DPT [address], [place], [address], [facility] 01/05/2025 14:01:21 4 Euflexxa Knee Injection Nj completed Martin Willis PA-C [address], [place], [address], [facility] 09/20/2024 08:57:31 4 Euflexxa Knee Injection Nj completed Annamarie Sutton PA-C [address], [place], [address], [facility] 09/13/2024 08:45:56 4 Euflexxa Knee Injection Nj completed Martin Willis PA-C [address], [place], [address], [facility] 09/06/2024 08:15:12 4 JZKNEE INJ Nj completed Martin Willis PA-C [address], [place], [address], [facility] 05/19/2024 06:36:22 4 JZKNEE INJ Nj completed [facility] 02/02/2024 08:23:17 repair of meniscus completed [facility] 02/09/2024 08:26:00 Imaging Results None recorded. Procedure Notes None recorded. Medical Equipment None Reported. Allergies Allergen ID Allergen Name Allergen Category Reaction Reaction Severity Criticality Documentation Date Start Date Code Code System Note Provider Name and Address Organization Details Recorded Time 858763 codeine medicatio n Not available Not available Not available 12/08/20232012 2670 RxNorm Aller gyNam e: 'Code ine and Relat ed'; Aller gyRea ction : 'Naus ea/Vo mitin g/Tisha rrhea '; Not Available [facility] 4 15:27:03 772811 hydroxyur ea medicatio n vomiting Not available Not available 12/30/2024 5552 RxNorm ABEL REYNA [facility] 5 15:50:39 Medications Name Sig Start Date Stop Date Status Note LastModified by Organization Details LastModified Time fluoxetine 40 mg capsule TAKE 1 CAPSULE BY MOUTH EVERY DAY active Not Available Not Available No t Available cyclobenzap rine 10 mg tablet TAKE 1 TABLET BY MOUTH EVERY 8 HOURS 12/30 completed Not Available Not Available Not Available amoxicillin 500 mg capsule TAKE 1 CAPSULE BY MOUTH EVERY 8 HOURS UNTIL FINISHED 02/08 completed Not Available Not Available Not Available atorvastati n 40 mg tablet TAKE 1 TABLET (40 MG) ORALLY DAILY active Not Available Not Available No t Available bupropion HCl SR 150 mg tablet,12 hr sustained-r elease TAKE 1 TABLET ORALLY DAILY FOR 90 DAYS active Not Available Not Available No t Available hydroxyurea 500 mg capsule TAKE 1 CAPSULE BY MOUTH TWICE A DAY 12/30 completed Not Available Not Available Not Available nystatin 100,000 unit/mL oral suspension 1 ML ORALLY DAILY FOR 7 DAYS SWISH AND SWALLOW 12/30 completed Not Available Not Available Not Available anagrelide 0.5 mg capsule TAKE 3 CAPSULES BY MOUTH TWICE A DAY active Not Available Not Available No t Available azithromyci n 250 mg tablet TAKE 2 TABLETS BY MOUTH TODAY, THEN TAKE 1 TABLET DAILY FOR 4 DAYS DIRECTED 02/08 completed Not Available Not Available Not Available prednisone 20 mg tablet TAKE 2 TABLET BY MOUTH DAILY,X5 DAYS,INST R:WITH FOOD OR MILK, IN THE MONRING active Not Available Not Available No t Available amlodipine 2.5 mg tablet TAKE 1 TABLET (2.5 MG) ORALLY DAILY FOR 90 DAYS 12/30 completed Not Available Not Available Not Available amlodipine 5 mg tablet TAKE 1 TABLET BY MOUTH EVERY DAY active Not Available Not Available No t Available amoxicillin 500 mg tablet TAKE ONE TABLET BY MOUTH EVERY 8 HOURS UNTIL FINISHED 02/08 completed Not Available Not Available Not Available Celebrex 200 mg capsule Take 1 capsule every day by oral route for 30 days, for start today. 2024 active Not Available Not Available Not Avai lable famotidine 20 mg tablet TAKE 1 TABLET BY MOUTH 2 DAYS A WEEK active Not Available Not Available No t Available aspirin 325 mg tablet,kathy yed release TAKE 1 TABLET BY MOUTH TWICE A DAY START AFTER SURGERY 02/08 completed Not Available Not Available Not Available tamsulosin 0.4 mg capsule TAKE 1 CAPSULE BY MOUTH EVERYDAY AT BEDTIME active Not Available Not Available No t Available pantoprazol e 40 mg tablet,kathy yed release TAKE 1 TABLET (40 MG) ORALLY DAILY TAKE ONE TABLET HALF AN HOUR BEFORE BREAKFAST active Not Available Not Available No t Available pseudoephed rine-guaife nesin ER 80-700 mg tablet,exte nded release DO NOT DRIVE WHILE TAKING THIS MEDICATIO N 01/30 completed Statu s: 'Disc ontin ued'; Not Available Not Available Not Available docusate sodium 100 mg capsule TAKE 1 CAPSULE BY MOUTH TWICE A DAY DIRECTED MEDICATIO N TO BE STARTED AFTER SURGERY 02/08 completed Not Available Not Available Not Available montelukast 10 mg tablet TAKE 1 TAB BY MOUTH DAILY active Not Available Not Available No t Available bisacodyl 5 mg tablet,kathy yed release TAKE 4 TABS AT NOON THE DAY BEFORE YOUR COLONOSCO PY 02/08 completed Not Available Not Available Not Available ibuprofen 600 mg tablet TAKE 1 TABLET ORALLY EVERY 6 HOURS NEEDED FOR FEVER OR PAIN 12/30 completed Not Available Not Available Not Available methylpredn isolone 4 mg tablets in a dose pack TAKE 6 TABLETS ON DAY 1 DIRECTED ON PACKAGE AND DECREASE BY 1 TAB EACH DAY FOR A TOTAL OF 6 DAYS 02/08 completed Not Available Not Available Not Available albuterol sulfate HFA 90 mcg/actuati on aerosol inhaler 2 PUFF ORALLY EVERY 6 HOURS NEEDED FOR FOR WHEEZING active Not Available Not Available No t Available fluticasone propionate 50 mcg/actuati on nasal spray,suspe nsion SPRAY 2 SPRAYS INTO EACH NOSTRIL EVERY DAY active Not Available Not Available No t Available amoxicillin 875 mg-criseldau m clavulanate 125 mg tablet TAKE 1 TABLET BY MOUTH TWICE A DAY FOR 7 DAYS 02/08 completed Not Available Not Available Not Available Symbicort 160 mcg-4.5 mcg/actuati on HFA aerosol inhaler INHALE 2 PUFFS INTO LUNGS TWICE A DAY active Not Available Not Available No t Available Gavilax 17 gram/dose oral powder TAKE 238 GRAMS BY MOUTH ONCE DIRECTED BY [facility] 12/30 completed Not Available Not Available Not Available Dulera 200 mcg-5 mcg/actuati on HFA aerosol inhaler INHALE 2 PUFFS BY MOUTH EVERY 12 HOURS 12/30 completed Not Available Not Available Not Available Breztri Aerosphere 160 mcg-9mcg-4. 8mcg/actuat ion HFA aerosol inhaler INHALE 2 PUFFS 2 TIMES A DAY FOR 30 DAYS active Not Available Not Available No t Available Trelegy Ellipta 200 mcg-62.5 mcg-25 mcg powder for inhalation INHALE 1 PUFF DAILY active Not Available Not Available No t Available aspirin 81 mg capsule Take 1 capsule every day by oral route. active Not Available Not Available No t Available Vitals Date Recorded Body height Body mass index (BMI) Body weight Provider Name and Address Organization Details Last Updated DateTime 01/24/2025 172.085 cm 29.1 kg/m2 86165.55 g [facility] 01/24/2025 11:07:55 Social History None recorded. Functional Status None recorded. Mental Status None recorded. Family History Nothing Reported. Medical History Condition Response Allergies/Hayfever N Coronary Artery Disease N Breathing or lung disorders Y Anxiety/Depression Y Emphysema N Nerve Disorders N Thyroid Problems N COPD N Pacemaker N Kidney/Bladder Problems N Anemia N Vascular Disease N Heart Trouble N Gastrointestinal Disease N Heart Attack (MD) N Cholesterol Y Diabetes N Autoimmune disease N Bleeding Disorder N Orthotics N Arthritis Y Seizures/Epilepsy N Blood Clot N AIDS/HIV N Congestive Heart Failure (CHF) N Acid Reflux (GERD) N Cancer N Stroke N Asthma N Peripheral Vascular Disease N Sleep Apnea N Hepatitis N Heart Disease N Rheumatoid Arthritis N Arrhythmia N Pulmonary Embolism N Headaches N Fibromyalgia N Hypertension Y Osteoporosis N Past Encounters Encounter ID Performer Location Encounter Start Date Encounter Closed Date Diagnosis/Indication Diagnosis SNOMED-CT Code Diagnosis ICD10 Code Diagnosis Note James Sapp MD [place] [facility] [address] [place] [address] 12/30/2024 14:43:35 01/12/2025 08:50:03 Pain of knee region 8720085879 M25.561 M25.562 G89.29 Bilateral osteoarthritis of knees 5169327185 04159 M17.0 [id number] Tiffani Mccoy DPT [place] [facility] [address] [place] [address] 01/05/2025 13:23:18 01/05/2025 14:33:44 Osteoarthritis of knee 656456191 M17.12 [id number] Otto Beatty APRN [place] [facility] [address] [place] [address] 01/24/2025 10:54:20 01/24/2025 14:19:19 Osteoarthritis of left knee joint 5987476579 36459 M17.12 Health Concerns Section Related Observation LastModified by Organization Detai ls LastModified Time None Recorded Concern Status LastModified by Organization Details LastModified Time None Recorded Payers Encounter Date Sequence Insurance Name Policy Number Policy Bowers Covered Member ID Bowers Member ID Guarantor Name 01/24/2025 1 [place] (MEDICARE REPLACEMENT PPO) [id number] Martin Tierney [id number] Martin Tierney
--- OUTSIDE RECORDS SUMMARY | 2025-01-28 15:37 | XMS_ITS | Encounter Summary ---
Author Organization [facility] Address [address] [place] [address] Care Team Providers Care Area Secretary Name Role Phone Patricia Michel MD Primary Care Provider Unavailabl e Encounter Details Date Type Department Care Team Description 10/19/2018 Refill Pulmonology - [place] [address] [facility] [address] [place] [address] Viktoriya Carroll MD [address] [place] [id number] Social History Tobacco Use Types Packs/Day Years Used Date Smoking Tobacco: Former Cigarettes 1 50 Smokeless Tobacco: Former Quit: 1985 Comments:quit 20 yrs ago Alcohol Use Standard Drinks/Week Comments Yes 1 (1 standard drink = 0.6 oz pur e alcohol) weekly Sex Assigned at Date Recorded Not on file documented as of this encounter Plan of Treatment Not on file documented as of this encounter Visit Diagnoses Not on filedocumented in this encounter Care Teams Area Secretary Relationship Specialty Start Date End Date Patricia Michel MD PCP - General Internal Medicine 03/11/18 documented as of this encounter
--- OUTSIDE RECORDS SUMMARY | 2025-01-28 15:37 | XMS_ITS | Encounter Summary ---
Author Organization [facility] Address [address] [place] [address] Care Team Providers Care Control Technician Name Role Phone Patricia Michel MD Primary Care Provider Unavailabl e Encounter Details Date Type Department Care Team Description 05/22/2018 Telephone Pulmonology - [place] [address] [facility] [address] [place] [phone] Viktoriya Carroll MD [address] [place] [address] Social History Tobacco Use Types Packs/Day Years Used Date Smoking Tobacco: Former Cigarettes 1 50 Smokeless Tobacco: Never Comments:quit 20 yrs ago Alcohol Use Standard Drinks/Week Comments Yes 1 (1 standard drink = 0.6 oz pur e alcohol) weekly Sex Assigned at Date Recorded Not on file documented as of this encounter Miscellaneous Notes * Telephone Encounter - Bonnie Katz - 05/22/2018 1:11 PM EDT fluticasone (FLOVENT HFA) 44 MCG/ACT inhaler order in error Patient needs nasal spray instead of inhaler fluticasone 50 MCG/ACT nasal spray ?? Please send to [facility]--has enough for now. documented in this encounter Plan of Treatment Not on file documented as of this encounter Visit Diagnoses Not on filedocumented in this encounter Care Teams Control Technician Relationship Specialty Start Date End Date Patricia Michel MD PCP - General Internal Medicine 03/11/18 documented as of this encounter
--- OUTSIDE RECORDS SUMMARY | 2025-01-28 15:37 | XMS_ITS | Clinical Summary ---
Author Organization [facility] Address [address] [facility] [address] [place] [address] Phone Care Team Providers Care Senior Wind Turbine Technician Name Role Phone Patricia Michel MD Primary Care Provider [phone] Allergies Active Allergy Reactions Criticality Noted Date [...] Visit [facility] [address] [address] Danilo Alicea MD [address] [address] Health Maintenance Due Date Last [...] patient's age to complete this topic Insurance [facility]([id number]) [facility]([id number]) Care Teams Senior Wind Turbine Technician Relationship Specialty Start Date End Date Patricia Michel MD [address] [place], [place] PCP - General Internal Medicine 03/11/22
--- OUTSIDE RECORDS SUMMARY | 2025-01-28 15:37 | XMS_ITS | Encounter Summary ---
Author Organization [facility] Address [address] [place] [address] Care Team Providers Care Senior Staff Specialized Employment Name Role Phone Nelson Martínez Primary Care Provider Unavailabl e Patricia Michel MD Primary Care Provider Unavailabl e Encounter Details Date Type Department Care Team Description 01/21/2018 Orders Only Pulmonology - [place] [address] [facility] [address] [place] [address] Viktoriya Carroll MD [address] [place] [phone] Chronic obstructive pulmonary disease, unspecified COPD type [...] drip documented in this encounter Care Teams Senior Staff Specialized Employment Relationship Specialty Start Date End Date Nelson Martínez PCP - General Internal Medicine 08/13/17 03/10/18 Patricia Michel MD PCP - General Internal Medicine 03/11/18 documented as of this encounter
--- OUTSIDE RECORDS SUMMARY | 2025-01-28 15:37 | XMS_ITS | Clinical Summary ---
Author Organization [address] Address [address] [place] [phone] Phone Care Team Providers Care Dressing Room Porter Name Role Phone Patricia Michel MD Primary Care Provider [phone] Allergies No known active allergies Social History [...] patient's age to complete this topic [place] [address] [place] [address] [place] [place] [address] [employer] Care Teams Dressing Room Porter Relationship Specialty Start Date End Date Ptaricia Michel MD [address] [place] [address] [place] [phone] PCP - General Internal Medicine 03/07/24
--- OUTSIDE RECORDS SUMMARY | 2025-01-28 15:37 | XMS_ITS | Encounter Summary ---
Author Organization [facility] Address [address] [place] [address] Care Team Providers Care Solar Pool Heating Installer Name Role Phone Nelson Martínez Primary Care Provider Patricia Mccormack MD Primary Care Provider Unavailari e Encounter Details Date Type Department Care Team Description 08/18/2017 Transfer Records Medical Records [address] [place] [id number] Abstract, Provider Social History Tobacco Use Types [...] on filedocumented in this encounter Care Teams Solar Pool Heating Installer Relationship Specialty Start Date End Date Nelson Martínez PCP - General Internal Medicine 08/13/17 03/10/18 Patricia Michel MD PCP - General Internal Medicine 03/11/18 documented as of this encounter
--- OUTSIDE RECORDS SUMMARY | 2025-01-28 15:37 | XMS_ITS | Data Portability ---
Author Organization [facility], [facility] Address [address] [place] [address] Care Team Providers Care Electrical Controls Designer Name Role Phone SADIE MICHEL Primary Care Provider [phone] Assessment Encounter Date Assessment Date Assessment LastModified by Organization Details LastModified Time 09/20/2024 09/20/2024 I am seeing the patient today under the supervision of Dr Bedolla who was available but who did not see the patient. [email or web address] Not available 09/20/2024 07:26:33 12/30/2024 12/30/2024 History: Patient is a 74-year-old male presents to me for repeat evaluation of left greater than right-sided knee pain. Having trouble primarily with the left knee now for over 5 years. He has had bilateral cortisone and gel injections which have lost their effectiveness. Ambulating with a cane. Takes Tylenol for discomfort. Pain level IX on a 10. Reports cold he was stairs. Unable to squat. Reports a limp. PMH/PSH/MEDS/ALL/FMH /SOC HX/ROS are reviewed in detail per my medical intake sheet. Of note: Elevated platelets now under control, asthma, BPH, high cholesterol General Exam: Vital signs are as noted below Mental status: Alert and lucid. Normal insight, affect and grooming. DETAILER FURNITURE: Gross motor coordination is intact. No spasticity or clonus noted. Extremities: Calves are soft nontender, skin intact Orthopedic Examination: Right Knee: Slight varus alignment. Range of motion 0-120. Mild to moderate tenderness and crepitus medially. No instability or significant effusion. Left Knee: Varus alignment. Range of motion 5-115. Severe tenderness and crepitus medially. Mild instability. Mild effusion. Antalgic gait pattern favoring the left side. Full strength and sensation distally X-rays: Radiographs ordered and obtained today including a standing AP, Le view, nonweightbearing lateral views, and merchant view. These radiographs demonstrate end-stage osteoarthrits of the left greater than right knee. There is vywm-px-nskr articulation, subchondral sclerosis, and osteophyte formation. 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 The patient is in too much discomfort to participate in any meaningful physical therapy. PLAN: The patient was thoroughly counseled today regarding their knee condition, its natural history and the options, both operative and non-operative. The nature of knee replacement surgery, the potential risks, benefits, and complications, the magnitude of the surgery, the intensity of postoperative recovery as well as its elective nature were explained at length today. Although it is impossible to list all of the possible complications of any operation or procedure, I explained that some of the major complications that may arise include the following: Blood loss requiring transfusion, infection (early or late), blood clots, dislocation, pain (persistent or new), scars numbness or tenderness, unequal leg lengths, weakness, stiffness, loss of motion, clicking of implant, calcification, fracture of bone, instability of leg, nerve damage (paralysis or numbness), blood vessel damage, implant loosening, implant breakage, wearing of the implant, need for future surgery, allergic reaction, metal toxicity, medical complications including confusion, heart attack, stroke, or ). Issues regarding lifelong infection and activity precautions were reviewed. The longevity of the implants was discussed. The patient understands the potential need for revision surgery. We discussed performing the surgery in either an inpatient or outpatient setting as well as the pros and cons of both. The patient has elected to proceed in a inpatient setting. The patient will require clearance from a medical doctor prior to surgery. The patient wishes to schedule an elective left total knee replacement at this time. Next planned follow-up is at the history and physical. The patient knows I will be happy to meet with them at any time in order to review any additional questions or concerns that they might have. [email or web address] Not available 12/30/2024 16:52:51 01/05/2025 01/05/2025 Assessment: Kristen ent presents with symptoms that are consistent with knee OA. Demonstrates good understanding of home program, post-operative mechanics for gait and stairs, and expectations following surgery. Plan: Discharge patient to knee OA safe [facility]. Follow up with patient post-operatively. [email or web address] Not available 01/05/2025 14:01:52 01/24/2025 01/24/2025 PRIMARY DIAGNOSIS: Osteoarthritis of the [...] stopped in preparation for the surgery. 10. [place]-3 fatty acids, which he had stopped in [...] primary care provider is Dr. Michel. His biofuels production associate is Dr. Sebastian. REVIEW OF SYSTEMS: Negative [...] osteoarthritis of the left knee. There is kzkc-iy-gtuv articulation, subchondral sclerosis, and osteophyte formation. Transthoracic [...] delirium. The patient was seen by his biofuels production associate, who stated that they do not believe [...] aspirin, Colace, and pain medications filled at [facility] prior to discharge. The patient will receive one week of in-home physical therapy postoperatively. CONTACTS: His , Latasha, with cell phone number [phone] and home phone number [phone]. [email or web address] Not available 01/24/2025 14:19:02 Plan of Treatment Reminders Order Date Submit Date Provider Last Modified By Organization Details Last Modified Time Details Appointments SURGERY @ [facility] 2024 08:30A Jacoby Sapp MD Not available Not available Not available PT RE-EVAL 2024 01:00P Jacoby Mccoy, DPT Not available Not available Not available RECHECK 15 2024 02:00P TERESA MedinaC Not available Not available Not available PT FOLLOW-U P 2024 02:30P Jacoby Mccoy, DPT Not available Not available Not available PT FOLLOW-U P 2024 02:00P Jacoby Mccoy, DPT Not available Not available Not available PT FOLLOW-U P 2024 12:00P M Mateusz Kempe, REVIEWER SALES Not available Not available Not available PT FOLLOW-U P 2024 12:00P M Mateusz Kempe, REVIEWER SALES Not available Not available Not available PT FOLLOW-U P 2024 03:00P M Mateusz Kempe, REVIEWER SALES Not available Not available Not available RECHECK 15 2024 09:45A Jacoby Manzanares PAMatthewC Not available Not available Not available PT FOLLOW-U P 2024 02:30P M Mateusz Kempe, REVIEWER SALES Not available Not available Not available PT FOLLOW-U P 2024 01:30P Jacoby Mccoy, DPT Not available Not available Not available PT FOLLOW-U P 2024 01:30P Jacoby Mccoy, DPT Not available Not available Not available PT FOLLOW-U P 2024 12:00P M Mateusz Fudge, REVIEWER SALES Not available Not available Not available PT FOLLOW-U P 2024 12:30P M Mateusz Dumontdge, REVIEWER SALES Not available Not available Not available PT FOLLOW-U P 2024 01:30P M Mateusz Dumontdge, REVIEWER SALES Not available Not available Not available PT FOLLOW-U P 2024 01:00P M Mateusz Fudge, REVIEWER SALES Not available Not available Not available PT FOLLOW-U P 2024 01:30P M Damieana Fudge, REVIEWER SALES Not available Not available Not available PT FOLLOW-U P 2024 01:30P M Mateusz Fudge, REVIEWER SALES Not available Not available Not available PT FOLLOW-U P 2024 01:30P Jacoby Mccoy, DPT Not available Not available Not available PT FOLLOW-U P 2024 01:30P M Tiffani Mccoy, DPT Not available Not available Not available PT FOLLOW-U P 2024 01:00P M Mateusz Fudge, REVIEWER SALES Not available Not available Not available PT FOLLOW-U P 2024 01:00P M Mateusz Fudge, REVIEWER SALES Not available Not available Not available PT FOLLOW-U P 2024 01:00P Jacoby Child Fudge, REVIEWER SALES Not available Not available Not available PT FOLLOW-U P 2024 01:00P M Mateusz Fudge, REVIEWER SALES Not available Not available Not available PT FOLLOW-U P 2024 01:00P Jacoby Mccoy, DPT Not available Not available Not available PT FOLLOW-U P 2024 01:00P Jacoby Mccoy, DPT Not available Not available Not available PT FOLLOW-U P 2024 01:00P Jacoby Child Fudge, REVIEWER SALES Not available Not available Not available PT FOLLOW-U P 2024 01:00P Jacoby Child Fudge, REVIEWER SALES Not available Not available Not available RECHECK 10 2024 11:20A Jacoby Sapp MD Not available Not available Not available Lab None recorded . Referral None recorded . Procedures None recorded . Surgeries None recorded . Imaging XR, knee, 4 or more view - 210 b knee 4v 2024 025 [email or web address] [facility], [address], [place], [address], 01/12/2025 08:50:03 Medication Orders None recorded . Patient TargetsNo targets recorded. Patient InstructionsNo instructions recorded. Reason for Referral None Reported. Results Created Date Observation Date Name Description Value Unit Range Abnormal Flag Note LastModifiedBy Organization Detail LastModifiedTime 01/04/20 25 01/04/2025 CBC WITH DIFFE RENTI AL/PL ATELE T WBC 9.0 x10e3 /uL 3.4-10 .8 normal Not Available [facility] ([facility]) [address] [place], [address], 01/04/2025 06:05:19 01/04/20 25 01/04/2025 CBC WITH DIFFE RENTI AL/PL ATELE T RBC 4.38 x10e6 /uL 4.14-5 .80 normal Not Available [facility] ([facility]) [address] [place], [address], 01/04/2025 06:05:19 01/04/2001/04/2025 CBC WITH DIFFE RENTI AL/PL ATELE T hemoglobin 12.8 g/dL 13.0-1 7.7 below low normal Not Available [facility] ([facility]) [address] [place], [address], 01/04/2025 06:05:19 01/04/20 25 01/04/2025 CBC WITH DIFFE RENTI AL/PL ATELE T hematocrit 39.4 % 37.5-5 1.0 normal Not Available [facility] ([facility]) [address] [place], [address], 01/04/2025 06:05:19 01/04/2001/04/2025 CBC WITH DIFFE RENTI AL/PL ATELE T MCV 90 fL 79-97 normal Not Available [facility] ([facility]) [address] [place], [address], 01/04/2025 06:05:19 01/04/20 25 01/04/2025 CBC WITH DIFFE RENTI AL/PL ATELE T MCH 29.2 pg 26.6-3 3.0 normal Not Available [facility] ([facility]) [address] [place], [address], 01/04/2025 06:05:19 01/04/20 25 01/04/2025 CBC WITH DIFFE RENTI AL/PL ATELE T MCHC 32.5 g/dL 31.5-3 5.7 normal Not Available [facility] ([facility]) [address] [facility], [place], [address], 01/04/2025 06:05:19 01/04/20 25 01/04/2025 CBC WITH DIFFE RENTI AL/PL ATELE T RDW 14.2 % 11.6-1 5.4 Not Available [facility] ([facility]) [address] [facility], [place], [address], 01/04/2025 06:05:19 01/04/20 25 01/04/2025 CBC WITH DIFFE RENTI AL/PL ATELE T platelets 526 x10e3 /uL 150-45 0 above high normal Not Available [facility] ([facility]) [address] [place], [address], 01/04/2025 06:05:19 01/04/20 25 01/04/2025 CBC WITH DIFFE RENTI AL/PL ATELE T neutrophils 63 % not estab. normal Not Available [facility] ([facility]) [address] [place], [address], 01/04/2025 06:05:19 01/04/20 25 01/04/2025 CBC WITH DIFFE RENTI AL/PL ATELE T lymphs 20 % not estab. normal Not Available [facility] ([facility]) [address] [facility], [place], [address], 01/04/2025 06:05:19 01/04/20 25 01/04/2025 CBC WITH DIFFE RENTI AL/PL ATELE T monocytes 9 % not estab. normal Not Available [facility] ([facility]) [address] [facility], [place], [address], 01/04/2025 06:05:19 01/04/20 25 01/04/2025 CBC WITH DIFFE RENTI AL/PL ATELE T eos 5 % not estab. normal Not Available [facility] ([facility]) [address] [facility], [place], [address], 01/04/2025 06:05:19 01/04/20 25 01/04/2025 CBC WITH DIFFE RENTI AL/PL ATELE T basos 2 % not estab. normal Not Available [facility] ([facility]) [address] [facility], [place], [address], 01/04/2025 06:05:19 01/04/20 25 01/04/2025 CBC WITH DIFFE RENTI AL/PL ATELE T immature cells KNITTING TESTER Not Available [facility] ([facility]) [address] [place], [address], 01/04/2025 06:05:19 01/04/2001/04/2025 CBC WITH DIFFE RENTI AL/PL ATELE T neutrophils (absolute) 5.7 x10e3 /uL 1.4-7. 0 normal Not Available [facility] ([facility]) [address] [place], [address], 01/04/2025 06:05:19 01/04/2001/04/2025 CBC WITH DIFFE RENTI AL/PL ATELE T lymphs (absolute) 1.8 x10e3 /uL 0.7-3. 1 normal Not Available [facility] ([facility]) [address] [place], [address], 01/04/2025 06:05:19 01/04/20 25 01/04/2025 CBC WITH DIFFE RENTI AL/PL ATELE T monocytes(ab solute) 0.8 x10e3 /uL 0.1-0. 9 normal Not Available [facility] ([facility]) [address] [facility], [place], [address], 01/04/2025 06:05:19 01/04/20 25 01/04/2025 CBC WITH DIFFE RENTI AL/PL ATELE T eos (absolute) 0.4 x10e3 /uL 0.0-0. 4 normal Not Available [facility] ([facility]) [address] [facility], [place], [address], 01/04/2025 06:05:19 01/04/20 25 01/04/2025 CBC WITH DIFFE RENTI AL/PL ATELE T baso (absolute) 0.2 x10e3 /uL 0.0-0. 2 normal Not Available [facility] ([facility]) [address] [facility], [place], [address], 01/04/2025 06:05:19 01/04/20 25 01/04/2025 CBC WITH DIFFE RENTI AL/PL ATELE T immature granulocytes 1 % not estab. Not Available [facility] ([facility]) [address] [facility], [place], [address], 01/04/2025 06:05:19 01/04/20 25 01/04/2025 CBC WITH DIFFE RENTI AL/PL ATELE T immature grans (abs) 0.1 x10e3 /uL 0.0-0. 1 Not Available [facility] ([facility]) [address] [place], [address], 01/04/2025 06:05:19 01/04/20 25 01/04/2025 CBC WITH DIFFE RENTI AL/PL ATELE T NRBC KNITTING TESTER Not Available [facility] ([facility]) [address] [facility], [place], [address], 01/04/2025 06:05:19 01/04/20 25 01/04/2025 CBC WITH DIFFE RENTI AL/PL ATELE T hematology comments: KNITTING TESTER Not Available [facility] ([facility]) [address] [place] [place], [address], 01/04/2025 06:05:19 01/04/20 25 01/04/2025 ELECT ROLYT E PANEL sodium 136 mmol/ L 134-14 4 normal Not Available [facility] ([facility]) [address] [place] [place], [address], 01/04/2025 06:05:21 01/04/20 25 01/04/2025 ELECT ROLYT E PANEL potassium 5.1 mmol/ L 3.5-5. 2 normal Not Available [facility] ([facility]) [address] [place] [place], [address], 01/04/2025 06:05:21 01/04/20 25 01/04/2025 ELECT ROLYT E PANEL chloride 98 mmol/ L 96-106 normal Not Available [facility] ([facility]) [address] [place], [address], 01/04/2025 06:05:21 01/04/20 25 01/04/2025 ELECT ROLYT E PANEL carbon dioxide, total 20 mmol/ L 20-29 normal Not Available [facility] ([facility]) [address] [place], [address], 01/04/2025 06:05:21 01/04/20 25 01/04/2025 BUN+C REAT BUN 15 mg/dL 8-27 normal Not Available [facility] ([facility]) [address] [place] [place], [address], 01/04/2025 06:05:23 01/04/20 25 01/04/2025 BUN+C REAT creatinine 1.17 mg/dL 0.76-1 .27 normal Not Available [facility] ([facility]) [address] [place] [place], [address], 01/04/2025 06:05:23 01/04/20 25 01/04/2025 BUN+C REAT eGFR 66 mL/mi n/1.7 3 >59 normal Not Available [facility] ([facility]) [address] [facility], [place], [address], 01/04/2025 06:05:23 01/04/20 25 01/04/2025 BUN+C REAT BUN/creatini ne ratio 13 10-24 normal Not Available [facility] ([facility]) [address] [facility], [place], [address], 01/04/2025 06:05:23 01/04/20 25 01/04/2025 PROTH ROMBI N TIME (PT) INR 1.0 0.9-1. 2 Refer ence inter brian is for non-a ntico agula keith patie nts. Sugge sted INR thera peuti c range for Vitam in K antag onist thera py: Stand britney Dose (mode rate inten sity thera peuti c range ): 2.0 - 3.0 Highe r inten sity thera peuti c range 2.5 - 3.5 Not Available [facility] ([facility]) [address] [facility], [place], [address], 01/04/2025 06:05:24 01/04/20 25 01/04/2025 PROTH ROMBI N TIME (PT) prothrombin time 11.1 sec 9.1-12 .0 normal Not Available [facility] ([facility]) [address] [place], [address], 01/04/2025 06:05:24 01/04/20 25 01/04/2025 HEMOG LOBIN A1C hemoglobin A1C 5.7 % 4.8-5. 6 above high normal Predi abete s: 5.7 - 6.4 Diabe sandee: >6.4 Glyce jewel contr ol for adult s with diabe sandee: <7.0 Not Available [facility] ([facility]) [address] [place], [address], 01/04/2025 06:05:25 01/04/20 25 01/04/2025 PTT, ACTIV ATED APTT 29 sec 24-33 normal This test has not been valid ated for monit oring unfra ction ated hepar in thera py. aPTT- based thera peuti c range s for unfra ction ated hepar in thera py have not been estab jonn [employer] guide lines on Hepar in monit oring , refer to the [facility] Direc tory of Michel haney. Not Available [facility] ([facility]) [address] [facility], [place], [address], 01/04/2025 06:05:26 01/04/20 25 01/04/2025 GLUCO SE glucose 83 mg/dL 70-99 normal Not Available [facility] ([facility]) [address] [facility], [place], [address], 01/04/2025 06:05:27 12/31/19 25 12/30/2024 XR, knee, 4 or more view http:/ [email or web address] ?Encry pted=s hAaTro YD8dLq bEUv6g %2BXZw aYqtaq 0bqfl% 2Fg9IQ a4ajBk vP9nXo QUaueC m3YtLR FvZlgJ JJ8mAn HZtai3 7h7090 AC0KqY nWBWKq vKiQtr F INTERFACE [facility] [place] [facility] [address] [facility] [address], [place], [address], 12/30/2024 16:09:38 12/31/19 25 12/30/2024 XR, knee, 4 or more view [email or web address] ?Encry pted=s hAaTro YD8dLq bEUv6g %2BXZw aYqtaq 0bqfl% 2Fg9IQ a4ajBk vP9nXo QUaueC m3YtLR FvZlg JJ8mAn HZtai3 6l5601 AC0KqY nWBWKq vKiQtr MwF INTERFACE [facility] [address], [place], [address], 12/30/2024 16:09:41 Result Notes None recorded. Problems Name Problem SNOMED Code Status Onset Date Resolution Date Notes Provider Name and Address Organization Details Recorded Time Primary gonarthrosi s, bilateral 691654325 Active 2023 Annamarie Jones i, PA-C [address], [place], [address], [facility] 4 08:46:03 Pain of knee region 4300541422 Active 2024 ABEL REYNA [facility] 5 15:56:33 Bilateral osteoarthri tis of knees 6373924387770 07 Active 2023 CANDELARIA WEINBERG [facility] 4 08:23:18 Problem Notes None recorded. Procedures Surgical History Date Name Laterality Status Provider Name and Address Organization Details Recorded Time 5 02774 Therapeutic Exercise (1:1) completed Tiffani Mccoy DPT [address] [facility], [place], [address], [facility] 01/05/2025 14:01:18 5 [address]: Low complexity PT Eval completed Tiffani Mccoy DPT [address] [facility], [place], [address], [facility] 01/05/2025 14:01:21 4 Euflexxa Knee Injection Nj completed Martin Willis PA-C [address], [place], [address], [facility] 09/20/2024 08:57:31 4 Euflexxa Knee Injection Nj completed Annamarie Sutton PA-C [address], [place], [address], [facility] 09/13/2024 08:45:56 4 Euflexxa Knee Injection Nj completed Martin Willis PA-C [address], [place], [address], [facility] 09/06/2024 08:15:12 4 JZKNEE INJ Nj completed Martin Willis PA-C [address], [place], [address], [facility] 05/19/2024 06:36:22 4 JZKNEE INJ Nj completed CANDELAIRA WEINBERG [facility] 02/02/2024 08:23:17 repair of meniscus completed CANDELARIA SULTANA [facility] 02/09/2024 08:26:00 Imaging Results Imaging Date Name Status LastModified by Organiz ation Details LastModified Time 12/30/2024 XR, knee, 4 or more view completed INTERFACE [facility] [address], [place], [address], 12/30/2024 16:09:38 12/30/2024 XR, knee, 4 or more view completed INTERFACE [facility] [address], [place], [address], 12/30/2024 16:09:41 Procedure Notes None recorded. Medical Equipment None Reported. Allergies Allergen ID Allergen Name Allergen Category Reaction Reaction Severity Criticality Documentation Date Start Date Code Code System Note Provider Name and Address Organization Details Recorded Time 104154 codeine medicatio n Not available Not available Not available 12/08/20232012 2670 RxNorm Aller gyNam e: 'Code ine and Relat ed'; Aller gyRea ction : 'Naus ea/Vo mitin g/Tisha rrhea '; Not Available [facility] 4 15:27:03 029329 hydroxyur ea medicatio n vomiting Not available Not available 12/30/2024 5552 RxNorm ABEL paniagua [facility] 5 15:50:39 Medications Name Sig Start Date [...] Not Available No t Available amoxicillin 875 mg-potassiu m clavulanate 125 mg tablet TAKE 1 TABLET BY MOUTH TWICE A DAY FOR 7 DAYS 02/08 completed Not Available Not Available Not Available Symbicort 160 mcg-4.5 mcg/actuati on HFA aerosol inhaler INHALE 2 PUFFS INTO LUNGS TWICE A DAY active Not Available Not Available No t Available Gavilax 17 gram/dose oral powder TAKE 238 GRAMS BY MOUTH ONCE DIRECTED BY GASTROENT EROLOGY DEPARTMEN T AT [facility] 12/30 completed Not Available Not Available Not Available Dulera 200 mcg-5 mcg/actuati on HFA aerosol inhaler INHALE 2 PUFFS BY MOUTH EVERY 12 HOURS 12/30 completed Not Available Not Available Not Available Ifeoma Aerosphere 160 mcg-9mcg-4. 8mcg/actuat ion HFA aerosol inhaler INHALE 2 PUFFS 2 TIMES A DAY FOR 30 DAYS active Not Available Not Available No t Available Adi Ellipta 200 mcg-62.5 mcg-25 mcg powder for inhalation INHALE 1 PUFF DAILY active Not Available Not Available No t Available aspirin 81 mg capsule Take 1 capsule every day by oral route. active Not Available Not Available No t Available Vitals Date Recorded Body height Body mass index (BMI) Body weight Provider Name and Address Organization Details Last Updated DateTime 09/13/2024 172.085 cm 28.3 kg/m2 13595.59 g Khadra Pelletier [facility] 09/13/2024 09:05:17 Date Recorded Body height Body mass index (BMI) Body weight Provider Name and Address Organization Details Last Updated DateTime 09/20/2024 172.085 cm 28.3 kg/m2 21328.59 g Rashid Zaldivar [facility] 09/20/2024 08:51:04 Date Recorded Body height Body mass index (BMI) Body weight Provider Name and Address Organization Details Last Updated DateTime 12/30/2024 172.085 cm 29.1 kg/m2 74189.55 g ABEL REYNA [facility] 12/30/2024 15:49:44 Date Recorded Body height Body mass index (BMI) Body weight Provider Name and Address Organization Details Last Updated DateTime 01/24/2025 172.085 cm 29.1 kg/m2 51120.55 g CRISELDA FERNANDEZ [facility] 01/24/2025 11:07:55 Social History None recorded. Functional Status None recorded. Mental Status None recorded. Family History Nothing Reported. Medical History Condition Response Coronary Artery Disease N Anxiety/Depression Y Emphysema N COPD N Pacemaker N Vascular Disease N Heart Trouble N Gastrointestinal Disease N Autoimmune disease N Orthotics N Arthritis Y Blood Clot N Acid Reflux (GERD) N Cancer N Stroke N Rheumatoid Arthritis N Arrhythmia N Headaches N Fibromyalgia N Allergies/Hayfever N Breathing or lung disorders Y Nerve Disorders N Thyroid Problems N Kidney/Bladder Problems N Anemia N Heart Attack ([place]) N Cholesterol Y Diabetes N Bleeding Disorder N Seizures/Epilepsy N AIDS/HIV N Congestive Heart Failure (CHF) N Asthma N Peripheral Vascular Disease N Sleep Apnea N Hepatitis N Heart Disease N Pulmonary Embolism N Hypertension Y Osteoporosis N Past Encounters Encounter ID Performer Location Encounter Start Date Encounter Closed Date Diagnosis/Indication Diagnosis SNOMED-CT Code Diagnosis ICD10 Code Diagnosis Note [id number] Martin Willis PA-C [facility] [address] [place] [address] 02/09/2024 08:06:20 03/02/2024 13:42:30 Bilateral osteoarthritis of knees [id number] 09619 M17.0 [id number] Martin Willis PA-C [facility] [address] [place] [address] 05/19/2024 10:29:12 06/16/2024 10:14:08 Bilateral osteoarthritis of knees [id number] 42864 M17.0 [id number] Martin Willis PA-C [facility] [address] [place] [address] 09/06/2024 08:04:37 09/30/2024 13:07:30 Bilateral osteoarthritis of knees [id number] 21707 M17.0 [id number] Annamarie Sutton PA-C [facility] [address] [place] [address] 09/13/2024 08:46:09 10/01/2024 13:13:17 Primary gonarthrosis, bilateral 248559193 M17.0 [id number] Martin Willis PA-C [facility] [address] [place] [address] 09/20/2024 08:22:21 10/12/2024 10:15:47 Bilateral osteoarthritis of knees 1688793697 74739 M17.0 [id number] James Sapp MD [place] [facility] [address] [place] [address] 12/30/2024 14:43:35 01/12/2025 08:50:03 Pain of knee region 6585876022 M25.561 M25.562 G89.29 Bilateral osteoarthritis of knees 8231502894 59840 M17.0 [id number] Tiffani Mccoy, DPT [place] [facility] [address] [place] [address] 01/05/2025 13:23:18 01/05/2025 14:33:44 Osteoarthritis of knee 998955981 M17.12 [id number] Otto Beatty, AIRCRAFT PNE[employer] REPAIRER [place] [facility] [address] [place] [address] 01/24/2025 10:54:20 01/24/2025 14:19:19 Osteoarthritis of left knee joint 1209539297 72499 M17.12 Health Concerns Section Related Observation LastModified by Organization Detai ls LastModified Time None Recorded Concern Status LastModified by Organization Details LastModified Time None Recorded Advance Directives Directive None Recorded Payers Encounter Date Sequence Insurance Name Policy Number Policy Bowers Covered Member ID Bowers Member ID Guarantor Name 09/13/2024 1 [place] PPO) [id number] Martin Tierney [id number] Martin Tierney 09/20/2024 1 [place]PO) [id number] Martin Tierney [id number] Martin Tierney 12/30/2024 1 [place]PO) [id number] Martin Tierney [id number] Martin Tierney 01/05/2025 1 [place]PO) [id number] Martin Tierney [id number] Martin Tierney 01/24/2025 1 [place]PO) [id number] Martin Tierney [id number] Martin Tierney Notes Date Note Type Note Provider Name and Address Organization Details Recorded Time 09/13/2024 text/html I am seeing the patient today under the supervision of {{Barrett Jackson rns#}} who was available but who did not see the patient. Subjective:Patient is here today for {{gelsyn 3 euflexxa* hymovis Gel One}} injection #{{1 2* 3}} of {{right left bilater al*}} knees. Objective:Evaluation of {{right left bilater al*}} knees reveal no evidence of infection, no significant joint effusion, no warmth, or erythema. The injection sites are benign. Calves are supple and nontender. 5/5 strength. Some discomfort with range of motion Assessment:{{right l eft bilateral*}} knee osteoarthritis Plan:After meticulous sterile preparation, {{right left bilater al*}} knees injected with #{{1 2* 3}} {{gelsyn 3 euflexxa* hymovis Gel One}}. Post-injection precautions were reviewed. I recommend ice, restriction of activities and follow up {{next week* as needed}}. Speech recognition insulator technician software was used to create portions of this document. An attempt at proofreading has been made to minimize errors. Please call for corrections. Annamarie Sutton PA-C [address], [place], [address], [facility] 09/13/2024 09:12:55 01/05/2025 text/html Patient is 74 ye ar old male, with chronic history of knee pain and OA. Presents today for prehab visit for scheduled TKA on 02/02/25. Arrives today ambulating with cane. Reviewed post-operative mobility and mechanics with appropriate assistive device. Demonstrates good understanding of post-operative expectations and HEP. Current vocational status is retired. Functional limitations include restricted knee ROM, difficulty ambulating community distances, and pain navigating stairs. Patient goal is to walk without pain or sxs. All questions and concerns were addressed and answered. Tiffani Mccoy DPT [address], [place], [address], [facility] 01/05/2025 14:02:41
== END 2025-01-28 15:51 | disposition home or self-care (01) ==
LOC: HO.HMCH 14:54
PROVIDERS: PCP Internal Medicine; Visit Provider Internal Medicine
DX: Z00.00 Encounter for general adult medical examination without abnormal findings (principal); J44.9 Chronic obstructive pulmonary disease, unspecified; D47.3 Essential (hemorrhagic) thrombocythemia; I25.10 Atherosclerotic heart disease of native coronary artery without angina pectoris; N40.0 Benign prostatic hyperplasia without lower urinary tract symptoms; I10 Essential (primary) hypertension; E78.00 Pure hypercholesterolemia, unspecified; F41.1 Generalized anxiety disorder; K21.9 Gastro-esophageal reflux disease without esophagitis; M17.11 Unilateral primary osteoarthritis, right knee

== ENCOUNTER → 2025-01-28 14:53 | Outpatient (BNVA) | payer MEDICARE, SELFPAY | PROVIDERS: PCP Internal Medicine; Visit Provider Internal Medicine | DX: Z00.01 Encounter for general adult medical examination with abnormal findings (principal); J44.89 Other specified chronic obstructive pulmonary disease; I25.10 Atherosclerotic heart disease of native coronary artery without angina pectoris; N40.0 Benign prostatic hyperplasia without lower urinary tract symptoms; I10 Essential (primary) hypertension; E78.00 Pure hypercholesterolemia, unspecified; D47.3 Essential (hemorrhagic) thrombocythemia; F41.1 Generalized anxiety disorder; K21.9 Gastro-esophageal reflux disease without esophagitis; M17.11 Unilateral primary osteoarthritis, right knee | CPT/HCPCS: 96127 ==

== ENCOUNTER 2025-03-16 11:08 | Outpatient (REF) | payer MEDICARE, SELFPAY ==
--- NOTE | ~2025-03-16 | XR_ITS ---
CLINICAL HISTORY: R06.02 - Shortness of breath 2 view chest x-ray. Comparison: None Findings: The lungs are adequately expanded. No focal consolidation. No effusion or pneumothorax. Cardiac and mediastinal contours are within normal limits. No acute osseous abnormality Impression: No acute process. This document has been electronically signed by: Azeem Fernandez MD on 03/17/2025 07:10:14
== END 2025-03-16 11:09 | disposition home or self-care (01) ==
LOC: HO.XRAY 11:08
PROVIDERS: PCP Internal Medicine; Visit Provider Internal Medicine
DX: Z13.89 Encounter for screening for other disorder (principal)
CPT/HCPCS: 71046

== ENCOUNTER 2025-03-16 11:08 | Outpatient (AMB) | payer MEDICARE, SELFPAY ==
--- NOTE | 2025-03-16 11:12 | MHC.PC.OV ---
Vital Signs 03/16/25 11:14 Height 5 ft 11 in Weight 181 lb 2 oz BMI 25.3 BP 130/60 Blood Pressure Location Lt brachial Position Sitting Pulse 110 H Pulse Source Pulse Oximeter Temp 97.3 F Temp Source Temporal Artery Scan Pulse Oximetry (%) 96 Oxygen Delivery Method Room Air Intake Visit Reasons: follow up Intake Note: Patient is here to follow up on COPD, Asthma, HTN. Fusion Juncture Grinder Required: No Chaplaincy: Present Accompanied by: Spouse Allergies lisinopril Allergy (Severe, Verified 03/16/25 11:13) cough codeine [CODEINE] Allergy (Intermediate, Verified 03/16/25 11:13) GI UPSET, nausea/vomiting hydroxyurea [From Hydrea] Adverse Reaction (Intermediate, Verified 03/16/25 11:13) weakness/chills, nausea losartan Adverse Reaction (Intermediate, Verified 03/16/25 11:13) hyperkalemia Tobacco use date assessed: 03/16/25 Fall risk assessment: No Falls in past year Last assessed Fall Risk: 03/16/25 Dental Screening Dental Screen Date: 11/25/24 [facility] Medical History (Updated 03/16/25 @ 11:40 by Patricia Michel MD) Dyspnea on exertion Abnormal stress test Dysphagia Hyperkalemia COVID-19 virus infection Lip lesion Pulmonary nodules COPD (chronic obstructive pulmonary disease) Pulmonary nodules Hypercholesterolemia Hypertension BPH (benign prostatic hyperplasia) Chronic rhinitis Asthma-COPD overlap syndrome Surgical History (Updated 03/16/25 @ 11:20 by ARMANDO Brand) History of total left knee replacement (TKR) History of endoscopy Hx of colonoscopy History of knee surgery Family History Father Lung cancer Mother Hypertension Brother Brain cancer Daughter In good health Social History Household Members: Spouse Housing: House Are you a primary respiratory care technician to a significant other at home: No Do you presently have visiting nurse or other home services: No Alcohol intake: current Alcohol intake frequency: holidays/special occasions only Comment: once a week 1drink last drink 10/2024 Patient Tobacco Use Status: Former Tobacco user Tobacco use type: Cigarette Years Smoked: 1984 stopped e-Cigarette/Vaping Use: Never Used Second Hand Smoke Exposure: Yes Use of substances other than those prescribed or required for medical reasons: No Have you been hit, kicked, punched, or otherwise hurt by someone within the past year? If so, by whom?: No Do you feel safe in your current relationship?: Yes Do you have thoughts of harming others: None Do you have a plan to hurt others: No Plan Do you have the means to hurt others: No Recently lost weight without trying: No Eating poorly because of decreased appetite: No service: No Current occupational status: retired Cognitive needs: No Hearing needs: No Vision needs: Yes Questionnaire PHQ-9 Over the last 2 weeks, how often have you been bothered by any of the following problems? 1. Little interest or pleasure in doing things: nearly every day 2. Feeling down, depressed, or hopeless: nearly every day 3. Trouble falling or staying asleep, or sleeping too much: more than half the days 4. Feeling tired or having little energy: nearly every day 5. Poor appetite or overeating: more than half the days 6. Feeling bad about yourself - or that you are a failure or have let yourself or your family down: more than half the days 7. Trouble concentrating on things, such as reading the newspaper or watching television: more than half the days 8. Moving or speaking so slowly that other people could have noticed. Or the opposite - being so fidgety or restless that you have been moving around a lot more than usual: several days 9. Thoughts that you would be better off or of hurting yourself in some way: not at all Total score: 18 Depression Screening Interpretation: Positive Depression Screening Done: Yes Source: Developed by Drs. Rajan Fry, Neetu Torres, Ziggy Contreras and colleagues, with an educational gloria from [employer]. Thrive Questionnaire Date Thrive assessed: 11/25/24 I am a: Patient What is your living situation today?: I have a steady place to live Within the past 12 months, did the food you bought not last and you didn't have the money to get more?: Never true Within the past 12 months, did you worry whether your food would run out before you got money to buy more?: Never true Do you have trouble paying for medicines?: No Do you have trouble getting transportation to medical appointments?: No Do you have trouble paying your heating and electricity bill?: No Do you have trouble taking care of your child, family member or friend?: No Do you have trouble with day-to-day activities such as bathing, preparing meals, shopping, managing finances, etc.?: No Are you currently unemployed and looking for a job?: No Are you interested in more education?: No Please select the resources that you would like help with: None Currently or been in a relationship where the following occur: No concerns reported THRIVE Score: 0 AUDIT C Alcohol Use Questionnaire (AUDIT-C) 1. How often do you have a drink containing alcohol?: Monthly or less 2. How many drinks containing alcohol do you have on a typical day when you are drinking?: 1 or 2 3. How often do you have six or more drinks on one occasion?: Never Total Score: 1 DEBORAH-7 AMB Questionnaire DEBORAH-7 Date DEBORAH - 7 assessed: 03/16/25 Feeling nervous, anxious, or on edge: 0 = Not at all Not being able to stop or control worryin = Several days Worrying too much about different things: 1 = Several days Trouble relaxin = Not at all Being so restless that it is hard to sit still: 0 = Not at all Becoming easily annoyed or irritable: 0 = Not at all Feeling afraid as if something awful might happen: 0 = Not at all Total DEBORAH-7 score (0-4 normal; 5-9 mild; 10-14 moderate; 15-21 severe): 2 Source: Developed by Drs. Rajan Fry, Neetu Torres, Ziggy Contreras and colleagues, with an educational gloria from [employer]. Physical exam (Primary Care) Vital Signs: Last Vital Signs Temp 97.3 F 03/16/25 11:14 Pulse 110 H 03/16/25 11:14 BP 130/60 03/16/25 11:14 Pulse Ox 96 03/16/25 11:14 Oxygen Delivery Method Room Air 03/16/25 11:14 BMI result Body Mass Index 25.3 Tobacco/Smoking Status: Tobacco use Status Tobacco use date assessed 03/16/25 03/16/25 11:21 Patient Tobacco Use Status Former Tobacco user 03/16/25 11:21 Tobacco use type Cigarette 03/16/25 11:21 e-Cigarette/Vaping Use Never Used 03/16/25 11:21 PHQ-9: PHQ-9 Score PHQ-9: Total score 18 03/16/25 11:21 Depression Screening Interpretation: Positive Thrive Assessment: Date of Thrive Assessment Date Thrive assessed 11/25/24 03/16/25 11:21 Currently or been in a relationship where the following occur: No concerns reported Const General: alert; No acute distress Eyes Conjunctivae: conjunctivae normal Resp Auscultation: clear to auscultation bilaterally Cardio Rate: regular rate Rhythm: regular rhythm GI Inspection: Yes normal to inspection Extrem General: Yes normal to inspection and No edema Coding Level of Care Code Est Pt Level 4 (41705) Complex EM visit Add On G2211 Diagnoses Atherosclerotic cardiovascular disease I25.10 Asthma-COPD overlap syndrome J44.9 Essential hypertension I10 Hypertension type: essential hypertension Hypercholesterolemia E78.00 BPH (benign prostatic hyperplasia) N40.0 Generalized anxiety disorder F41.1 Gastroesophageal reflux disease, unspecified whether esophagitis present K21.9 Esophagitis presence: esophagitis presence not specified Thrombocytosis D47.3 SOB (shortness of breath) R06.02 Assessment & Plan Assessment & Plan (1) Atherosclerotic cardiovascular disease: Code(s): I25.10 - Atherosclerotic heart disease of [place] coronary artery without angina pectoris Category: Medical Plan: Control the cholesterol, weight, blood pressure, patient on aspirin 81 mg once a day (2) Asthma-COPD overlap syndrome: Code(s): J44.9 - Chronic obstructive pulmonary disease, unspecified Category: Medical Plan: Continuing with albuterol and placed on Breztri for COPD (3) Hypertension: Code(s): I10 - Essential (primary) hypertension Category: Medical Qualifiers: Hypertension type: essential hypertension Qualified Code(s): I10 - Essential (primary) hypertension Plan: Continue with blood pressure medication. Decrease salt intake and exercise patient is on amlodipine 5 mg once a day (4) Hypercholesterolemia: Code(s): E78.00 - Pure hypercholesterolemia, unspecified Category: Medical Plan: Avoid fried foods, chicken skin, eggs, butter margarine, pastries and meat. Be it pork or beef they have a lot of cholesterol LDL goal of less than 70 and triglyceride of less than 150 patient is on atorvastatin 40 mg once a day (5) BPH (benign prostatic hyperplasia): Code(s): N40.0 - Benign prostatic hyperplasia without lower urinary tract symptoms Category: Medical Plan: Patient on tamsulosin (6) Generalized anxiety disorder: Code(s): F41.1 - Generalized anxiety disorder Category: Medical Plan: Continue alprazolam as needed and Wellbutrin (7) GERD (gastroesophageal reflux disease): Code(s): K21.9 - Gastro-esophageal reflux disease without esophagitis Category: Medical Qualifiers: Esophagitis presence: esophagitis presence not specified Qualified Code(s): K21.9 - Gastro-esophageal reflux disease without esophagitis Plan: Avoid the foods that causes that usually spicy foods, tomato products, juices, coffee, soda and foods that your sensitive to. After eating do not lie down, allow 3-4 hours before in lie down. And keep the head of bed above 30 degrees to avoid the acid from going up. (8) Thrombocytosis: Code(s): D47.3 - Essential (hemorrhagic) thrombocythemia Category: Medical Plan: Continuing to monitor patient follows up with Hematology-Oncology. (9) SOB (shortness of breath): Code(s): R06.02 - Shortness of breath Category: Medical Plan History of Present Illness The patient is a 74-year-old male presenting with a follow-up visit after undergoing left total knee arthroplasty on February 02, 2025, for osteoarthritis. Post-op, he experiences knee pain and redness, exacerbated by kneeling and over-exertion. His physical therapist recommends avoiding kneeling and limiting walking distances. He also notes exertional shortness of breath, needing the use of albuterol inhalers, with rescue use increasing since the surgery. Past management includes Sanergy. Post-operative lab work shows anemia and thrombocytosis, with respective levels of hemoglobin 10, hematocrit 30.9, and platelets 890. Managing thrombocytosis involves anagrelide, followed by aspirin. He reports a family history of lung cancer but quit smoking in 1984. Stable lung nodules were observed on a prior chest CAT scan. Concerned over potential nodule growth and exacerbation of symptoms post-knee surgery, he seeks further investigation and management. Current activities are limited by breathing difficulties, and he's encouraged to shop in smaller stores and avoid over-exertion. Health Maintenance - Recent colonoscopy and endoscopy completed in September, with no new abnormalities reported. - Last cholesterol test in January: LDL of 51. Continue monitoring with a goal of LDL <70 and triglycerides <150. - Blood pressure management: Continue amlodipine. - Scheduled knee rehab and physical therapy advised to limit over-exertion. - Review pulmonary health in light of familial lung cancer risk; prior chest CAT scan stable. Consider future pulmonary function testing (PFT). - Hematology follow-up for thrombocytosis management with anagrelide. Social History - Previously active individual, now limited post-knee surgery. - Stresses from reduced mobility and reliance on others for tasks. - Ex-smoker since 1984; family history of lung cancer. - Expresses frustration due to physical constraints from shortness of breath. Review of Systems - Respiratory: Reports exertional dyspnea and increased rescue inhaler use. - Musculoskeletal: Reports knee pain and redness post-surgery, denies pain elsewhere. - Neurological: Denies loss of consciousness, reports dizziness upon exertion. - Cardiovascular: Denies chest pain, palpitations noted. - Gastrointestinal: Denies abdominal pain, episodic heartburn managed with pantoprazole. - Psychological: Reports anxiety, particularly about breathing difficulties. - Genitourinary: Denies new urinary symptoms. Physical Exam - Respiratory- Lung saenz clear to auscultation. - Musculoskeletal- Left knee post-surgical redness present, improving. Results - Labs: Anemia (Hb 10, Hct 30.9), Thrombocytosis (Platelet count 890), Normal electrolytes, normal renal and liver function. - Prior chest CAT scan, December 2022: Stable lung nodules. Plan After knee arthroplasty, stress avoidance pertains to using guidance from his physical therapist particularly in kneeling and over-exertion limitation, focusing on slow, guided rehabilitation. Manage exertional dyspnea through maintaining regular use of albuterol inhalers and investigating further with upcoming PFT for pulmonary health clarification, considering family history context. Address respiratory oversight during periods of activity restriction to prevent further breathlessness by monitoring anemia and thrombocytosis under hematology?s ongoing revision. Cardiovascular risks and general hypertension/traits continue to stabilize under regular follow-up with statin and calcium channel darius regimens, alongside GERD management effectively done by pantoprazole. Psycho-social and dietary elements including relaxation techniques form an integral part of maintaining health improvements in sync with paramount dietary behaviors. Comprehensive health maintenance?including pulmonary assessment, blood pressure and cholesterol management?is advocated to stop preventable exacerbations, engaging consistency in timely follow-up. Patient was informed and verbally consented to the use of an ambient scribe for clinic note documentation during this visit. Discussion Notes The patient has expressed concerns regarding postoperative knee issues and exertional dyspnea after arthroplasty. Thoroughly reviewed the potential for increased dyspnea post-surgery exacerbated by anemia from recent lab results. Discussion guided towards ensuring strict adherence to physical therapy plans to prevent joint complications and avoidance of excess physical strain. For respiratory concerns, proposed conducting a PFT and potential chest imaging to rule out any changes in his known stable lung nodules, recognizing family history as part of vigilance strategy. Discussed how stabilization medication doses including anagrelide following thrombocytosis management, coupled with subsequent strategies pertaining to cholesterol and GERD treatment adherence. Clarified limitations of walking and physical exertion to manage dyspnea, aligning with realistic activities pending pending full recovery from surgery. Patient was informed on precautionary signs when his symptoms worsen and advised on additional fluid intake to compensate for recent surgical blood loss whilst monitoring inhaler usage. Patient candidly involved in decision-making supportive of these specific management approaches while advised for an escort to address joint-related tasks and sustaining health effort adherence. Patient Instructions - Follow physical therapy guidelines and avoid kneeling on the operated knee to prevent worsening. - Use albuterol inhaler as needed but monitor how often you require it; breathing problems during activity are natural but check if severe. - Attend all scheduled follow-ups with your academic affairs assistant to manage thrombocytosis effectively. - Maintain prescribed medications for hypertension, cholesterol, and GERD. - Incorporate smaller shopping routines to avoid undue shortness of breath and excessive walking. - Stay hydrated and ensure balanced nutrition with a focus on heart healthy choices. - Watch for any changes in knee redness and breathing difficulties, and report promptly. - Call your doctor if you feel more unwell, experience severe dizziness, or have significant setbacks with your breathing or knee recovery. Orders: Orders XR chest 2V Today R06.02 - Shortness of breath PFT pulmonary function test Today R06.02 - Shortness of breath D Dimer High Sensitivity Today R06.02 - Shortness of breath
[2025-03-16 11:14] VITALS: BP 130/60; PULSE 110; TEMP 36.3; O2SAT 96; BMI 25.3
--- OUTSIDE RECORDS SUMMARY | 2025-03-16 12:47 | XMS_ITS | Clinical Summary ---
Author Organization [address] Address [address] [place] [phone] Phone Care Team Providers Care Cod Clerk Name Role Phone Patricia Michel MD Primary Care Provider [phone] Allergies No known active allergies Social History [...] patient's age to complete this topic Insurance [address] [place] [address] [place] [address] BCBS Care Teams Cod Clerk Relationship Specialty Start Date End Date Patricia Michel MD [address] [place] [address] [place] [address] PCP - General Internal Medicine 03/07/24
== END 2025-03-16 11:50 | disposition home or self-care (01) ==
LOC: HO.HMCH 11:08
PROVIDERS: PCP Internal Medicine; Visit Provider Internal Medicine
DX: I25.10 Atherosclerotic heart disease of native coronary artery without angina pectoris (principal); J44.9 Chronic obstructive pulmonary disease, unspecified; D47.3 Essential (hemorrhagic) thrombocythemia; I10 Essential (primary) hypertension; E78.00 Pure hypercholesterolemia, unspecified; N40.0 Benign prostatic hyperplasia without lower urinary tract symptoms; F41.1 Generalized anxiety disorder; K21.9 Gastro-esophageal reflux disease without esophagitis; R06.02 Shortness of breath

== ENCOUNTER 2025-03-16 17:05 | Emergency (ER) | payer MEDICARE, SELFPAY ==
--- NOTE | ~2025-03-16 | CT_ITS ---
CLINICAL HISTORY: PE? SOB elevated D- dimer CT angiography chest with contrast. 3D Postprocessing. Comparison: DX - XR CHEST 2V - 03/16/25 12:40 EDT Findings: The heart is normal size. RV/LV ratio is normal. Unremarkable thoracic aorta and great vessels. No aneurysm. There is contrast mixing artifact in the left upper lobe anterior segmental branch. No pulmonary embolus. Small hiatal hernia. Thyroid gland is within normal limits. No enlarged mediastinal or hilar lymph nodes. Small area of nonspecific air trapping in the anterior right middle lobe. No consolidation, pleural effusion or pneumothorax. Patent airways. The visualized upper abdomen is unremarkable. The bones are intact. IMPRESSION: 1. No acute intrathoracic findings. No pulmonary embolus. This document has been electronically signed by: Naga Nicholson MD on 03/16/2025 20:12:50
[2025-03-16 17:26] VITALS: BP 126/61; PULSE 101; RESP 20; TEMP 36.7; O2SAT 98; BMI 25.3
--- NOTE | 2025-03-16 17:29 | ED.GENADULT ---
HPI - General Adult General Chief complaint: General Medical Stated complaint: ? 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 Patient has a history of essential thrombocytosis for which he is taking Anagrelide, COPD for which he has been compliant with his inhalers. Evidently he had a left knee replacement done approximately 1 month ago at [facility], he states that they were not familiar with what Anagrelide was and they told me to stop taking it , he was off of the medication for approximately 1-2 weeks. Last week he had a follow-up with Hematology in his platelet count by his account was again in the 900,000, for which his dosage was increased. He had a an appointment with his primary care doctor today and had repeat lab work, platelet count was down to 6400 1000, but he did reports a PCP that he has been experiencing dyspnea on exertion when he is walking a distance such as down the driveway to the mailbox and back inside. He states that he gets dizzy, he feels as though he needs to use his rescue inhaler sit down and rest for a bit before he starts to feel better. You had a D-dimer obtained with his blood work today which was elevated and he was advised to come to the emergency department to rule out PE Related Data Home Medications ?Medication ?Instructions ?Recorded ?Confirmed multivitamin 1 tab PO DAILY 08/08/21 01/31/25 omega-3 fatty acids 1,000 mg 1,000 mg PO DAILY 08/08/21 01/31/25 capsule tamsulosin 0.4 mg capsule (Flomax) 0.4 mg PO DAILY 11/21/21 01/31/25 ferrous sulfate 325 mg (65 mg 325 mg PO DAILY 03/16/24 01/31/25 iron) tablet aspirin 325 mg tablet,delayed 325 mg PO BID 03/02/25 03/02/25 release anagrelide 0.5 mg capsule 2 mg PO BID 03/16/25 Previous Rx's ?Medication ?Instructions ?Recorded melatonin 10 mg capsule 10 mg PO BEDTIME PRN sleep #30 caps 12/14/21 pantoprazole 40 mg tablet,delayed 40 mg PO DAILY #90 tabs 08/19/23 release atorvastatin 40 mg tablet 40 mg PO DAILY #90 tabs 04/06/24 albuterol sulfate 90 mcg/actuation 2 puff PO Q6H PRN for wheezing 06/21/24 aerosol inhaler #8.5 ea amlodipine 5 mg tablet 5 mg PO DAILY 90 days #90 tabs 08/11/24 bupropion HCl 150 mg tablet,12 hr 150 mg PO DAILY 90 days #90 tabs 09/05/24 sustained-release (Wellbutrin SR) budesonide 160 mcg-glycopyr 9 2 inh inhalation BID 30 days #10.7 09/06/24 mcg-formot 4.8 mcg/actuation HFA grams inhaler (Breztri Aerosphere) famotidine 20 mg tablet 20 mg PO 2XW #90 tabs 09/14/24 polyethylene glycol 3350 17 238 g PO ONCE #238 grams 10/01/24 gram/dose oral powder (Miralax) montelukast 10 mg tablet 10 mg PO DAILY #90 tabs 11/05/24 nystatin 100,000 unit/mL oral 1 ml PO DAILY 7 days #60 mL 11/11/24 suspension alprazolam 0.25 mg tablet 0.25 mg PO BID PRN anxiety #14 tabs 01/28/25 fluticasone propionate 50 2 spray intranasal DAILY 90 days 01/31/25 mcg/actuation nasal #3 ea spray,suspension fluoxetine 40 mg capsule 40 mg PO DAILY #90 caps 03/01/25 Allergies Allergy/AdvReac Type Severity Reaction Status Date / Time lisinopril Allergy Severe cough Verified 03/16/25 17:27 codeine [CODEINE] Allergy Intermediate GI UPSET, Verified 03/16/25 17:27 nausea/vomiting hydroxyurea [From Hydrea] AdvReac Intermediate weakness/chills, Verified 03/16/25 17:27 nausea losartan AdvReac Intermediate hyperkalemi Verified 03/16/25 17:27 a Review of Systems Review of Systems: Yes all other systems are reviewed and are negative PMFSH Past Medical History Attestation statement: The following information was validated with the patient. Source: old records reviewed Medical History Dyspnea on exertion Abnormal stress test Dysphagia Hyperkalemia COVID-19 virus infection Lip lesion Pulmonary nodules COPD (chronic obstructive pulmonary disease) Pulmonary nodules Hypercholesterolemia Hypertension BPH (benign prostatic hyperplasia) Chronic rhinitis Asthma-COPD overlap syndrome Surgical History History of total left knee replacement (TKR) History of endoscopy Hx of colonoscopy History of knee surgery Family History Family History Father Lung cancer Mother Hypertension Brother Brain cancer Daughter In good health Social History Social History Household Members: Spouse Housing: House Are you a primary home health care case manager to a significant other at home: No Do you presently have visiting nurse or other home services: No Alcohol intake: current Alcohol intake frequency: holidays/special occasions only Comment: once a week 1drink last drink 10/2024 Patient Tobacco Use Status: Former Tobacco user Tobacco use type: Cigarette Years Smoked: 1984 stopped e-Cigarette/Vaping Use: Never Used Second Hand Smoke Exposure: Yes service: No Current occupational status: retired Cognitive needs: No Hearing needs: No Vision needs: Yes Physical Exam ED Vital Signs: Vital Signs - 24 hr 03/16/25 21:55 03/16/25 22:10 Temperature 98.5 F 98.5 F Pulse Rate 87 87 Respiratory Rate 19 19 Blood Pressure 113/62 113/62 Pulse Oximetry 97 97 Oxygen Delivery Method Room Air Room Air BMI result Body Mass Index 25.3 Appearance: Alert.?Oriented to person, place and time. No acute distress.?Normal affect. Eyes: Pupils equal, round and reactive to light.? ENT: Pharynx normal.?? Neck: Normal inspection.? Neck supple.?? CVS: Heart sounds normal. Tachycardia, normal rhythm? Pulses normal.?? Respiratory: No respiratory distress.? Lung sounds clear to auscultation bilaterally?? Abdomen: Soft and non-tender. Normoactive bowel sounds. Skin: Skin warm and dry.? Normal skin color.? Extremities: No lower extremity edema on the right, 1+ pedal edema on the left (s/p recent knee replacement)? No calf ttp? Neuro: Moves all extremities spontaneously. Sensation intact bilaterally. CN II-XII intact. No focal neuro deficits. Ambulates with normal steady gait. Course Course Course Narrative: RME: 74-year-old male history of thrombocytosis and recent knee replacement sent from Dr. Rosa due to elevated D-dimer shortness of breath and history of thrombocytosis. Recommendation was chest CTA to rule out PE. Chest CTA labs ordered. Reevaluation(s) Reevaluation #1: CT angio of the chest without evidence of pulmonary embolism, no consolidation infiltrate to suggest pneumonia, pleural effusion, no evidence of pneumothorax. These findings with the patient, symptoms may be secondary to progression of his COPD, advising outpatient follow-up with PCP/pulmonology and strict return precautions. All questions answered. Ambulatory with steady gait, no hypoxia, no resp distress. Medications Administered Discontinued Medications Generic Name Dose Route Start Last Admin Trade Name Freq PRN Reason Stop Dose Admin Iohexol 100 ml 03/16/25 19:27 03/16/25 19:28 Iohexol 350 Mg/Ml 100 Ml Infus..Btl IV 03/16/25 19:28 65 ml ONCE ONE Administration Medical Decision Making Medical Decision Making [facility] Narrative: Patient is a 74-year-old male with past medical history of essential thrombocytosis, asthma-COPD overlap syndrome, BPH, chronic rhinitis, dysphagia, hypercholesterolemia, hypertension, pulmonary nodules presenting to emergency department for dyspnea on exertion, dizziness, rule out pulmonary embolism as per HPI. On evaluation of serum labs obtained prior to my assumption of care he has a mild leukocytosis of 11,700, normocytic anemia that does not meet transfusion criteria, platelet count of 591,000. No significant electrolyte derangement. No RANJITH. LFTs unremarkable. High sensitive troponin within normal range. BNP of 41, no history of CHF and clinically does not appear to be volume overloaded. Pending CT angio of the chest for further evaluation. Differential Diagnosis Differential Diagnoses: The differential diagnosis associated with the presentation includes (PE, ACS, asthma/COPD, PNA, CHF) Admission/Observation Consideration of admission/observation: Escalation of care including admission/observation considered Lab Data MDM Lab Attestation statement: I reviewed the patient's lab results. (See narrative above) 03/16/25 18:19 03/16/25 18:19 Labs: Lab Results 03/16/25 Range/Units 18:19 WBC 11.7 H (4.8-10.8) X10*3/uL RBC 3.49 L (4.60-5.80) X10*6/uL Hgb 10.1 L (14.0-18.0) g/dl Hct 30.8 L (42.0-52.0) % MCV 88.3 (80.0-98.0) fL MCH 28.9 (27.0-33.0) pg MCHC 32.8 (31.0-36.0) g/dl RDW 14.7 (11.0-16.0) % Plt Count 591 H (160-400) X10*3/uL MPV 10.2 (9.4-12.4) fL Immature Gran % (Auto) 0.5 H (0.0-0.4) % Neut % (Auto) 72.2 (45-73) % Lymph % (Auto) 13.0 L (20-40) % [place] % (Auto) 8.6 (2-11) % Eos % (Auto) 4.2 H (0-4) % Baso % (Auto) 1.5 (0-2) % Lymph # (Auto) 1.5 (1.2-4.9) X10*3/uL [place] # (Auto) 1.0 (0.1-1.2) X10*3/uL Eos # (Auto) 0.5 H (0.0-0.4) X10*3/uL Baso # (Auto) 0.2 (0.0-0.2) X10*3/uL Abs Immat Gran (auto) 0.06 H (0.00-0.03) X10*3/uL Absolute Neuts (auto) 8.4 H (2.0-8.3) x10*3/uL Absolute Nucleated RBC 0.000 (0.0-0.012) X10*3/uL Nucleated RBC % (auto) 0.0 (0.0-0.2) /100WBC PT 12.4 (10.9-12.4) SEC INR 1.1 (0.9-1.1) APTT 32.3 (26.0-36.8) SEC Sodium 134 L (135-145) mmol/L Potassium 4.4 (3.3-5.1) mmol/L Chloride 102 (96-108) mmol/L Carbon Dioxide 26 (22-29) mmol/L Anion Gap 10 L (12-20) BUN 15 (9-16) mg/dL Creatinine 1.16 (0.5-1.4) mg/dL Estim Creat Clear Calc 60.4 Estimated GFR > 60 Random Glucose 95 (60-115) mg/dL Calcium 8.8 (8.4-10.2) mg/dL Total Bilirubin 0.2 (0.0-1.0) mg/dL AST 36 (5-37) U/L ALT 19 (0-40) U/L Alkaline Phosphatase 61 (39-117) U/L Troponin I High Sens 2.8 (<3.5-35.0) ng/L B-Natriuretic Peptide 41 (<100) pg/mL Total Protein 6.6 (6.5-8.0) g/dL Albumin 4.0 (3.5-5.0) g/dL Independent Interpretation I performed an independent interpretation of an: EKG (Sinus rhythm, ventricular rate of 87, GREG, QTC 442, no ST-elevation) Radiology Impression Discussion of test interpretation with radiology: I have reviewed the radiologist's reading. Radiologist Impression: CT angiography chest with contrast. 3D Postprocessing. Comparison: DX - XR CHEST 2V - 03/16/25 12:40 EDT Findings: The heart is normal size. RV/LV ratio is normal. Unremarkable thoracic aorta and great vessels. No aneurysm. There is contrast mixing artifact in the left upper lobe anterior segmental branch. No pulmonary embolus. Small hiatal hernia. Thyroid gland is within normal limits. No enlarged mediastinal or hilar lymph nodes. Small area of nonspecific air trapping in the anterior right middle lobe. No consolidation, pleural effusion or pneumothorax. Patent airways. The visualized upper abdomen is unremarkable. The bones are intact. IMPRESSION: 1. No acute intrathoracic findings. No pulmonary embolus. Independent Historian Clinical information obtained from an independent historian. History obtained from or confirmed by: Spouse External Record Review External record reviewed: Outpatient record Chronic Conditions Patient?s care impacted by: Other (See narrative above) Discharge Plan Discharge Clinical Impression: SOB (shortness of breath), Essential thrombocytosis Patient Disposition: Home, Self-Care Additional Instructions: Imaging today does not show evidence of a blood clot in the lungs, pulmonary embolism as a cause for your symptoms. Additionally there is no evidence of fluid buildup in the lungs such as with heart failure, or evidence of pneumonia. He is possible that the shortness of breath you are experiencing with more exertion lately is due to a progression of your COPD. I suggest you contact your primary care doctor and arrange for follow-up, in addition may consider follow-up with pulmonology. Please return to emergency department any new or worsening symptoms or concerns. Prescriptions: No Action atorvastatin 40 mg tablet 40 mg PO DAILY Qty: 90 3RF albuterol sulfate 90 mcg/actuation HFA aerosol inhaler 2 puff PO Q6H PRN (Reason: for wheezing) Qty: 8.5 12RF bupropion HCl [Wellbutrin SR] 150 mg tablet sustained-release 12 hr 150 mg PO DAILY 90 Days Qty: 90 2RF famotidine 20 mg tablet 20 mg PO 2XW Qty: 90 3RF montelukast 10 mg tablet 10 mg PO DAILY Qty: 90 3RF nystatin 100,000 unit/mL suspension 1 ml PO DAILY 7 Days Qty: 60 0RF Rx Instructions: swish and swallow fluticasone propionate 50 mcg/actuation spray,suspension 2 spray intranasal DAILY 90 Days Qty: 3 1RF fluoxetine 40 mg capsule 40 mg PO DAILY Qty: 90 2RF ferrous sulfate 325 mg (65 mg iron) Tablet 325 mg PO DAILY aspirin 325 mg Tablet,Delayed Release (Dr/Ec) 325 mg PO BID Rx Instructions: x30 days from 02/02/25 after knee replacement, then switch back to 81 mg PO daily multivitamin Tablet 1 tab PO DAILY omega-3 fatty acids 1,000 mg capsule 1,000 mg PO DAILY melatonin 10 mg capsule 10 mg PO BEDTIME PRN (Reason: sleep) Qty: 30 0RF tamsulosin [Flomax] 0.4 mg capsule 0.4 mg PO DAILY pantoprazole 40 mg tablet,delayed release (DR/EC) 40 mg PO DAILY Qty: 90 4RF Rx Instructions: take one tablet half an hour before breakfast Breztri Aerosphere 160-9-4.8 mcg/actuation HFA aerosol inhaler 2 inh inhalation BID 30 Days Qty: 10.7 11RF polyethylene glycol 3350 [Miralax] 17 gram/dose powder 238 g PO ONCE Qty: 238 0RF Rx Instructions: As directed by gastroenterology department at [facility] amlodipine 5 mg tablet 5 mg PO DAILY 90 Days Qty: 90 2RF anagrelide 0.5 mg capsule 2 mg PO BID alprazolam 0.25 mg tablet 0.25 mg PO BID PRN (Reason: anxiety) Qty: 14 0RF Referrals: Po,Patricia Gomez MD [Primary Care Provider] - Interventions: ED Discharge Assessment Last Done: 03/16/25 22:10 Discharge Date/Time: 03/16/25 22:10 Print Language: Grenadian
[2025-03-16 18:25] LABS: MANUAL DIFF FLAG NO
[2025-03-16 18:27] LABS: Basophils Absolute Auto 0.2 X10*3/uL (0.0-0.2); Basophils Percent Auto 1.5 % (0-2); Eosinophils Absolute Auto 0.5 X10*3/uL (0.0-0.4); Eosinophils Percent Auto 4.2 % (0-4); Hematocrit 30.8 % (42.0-52.0); Hemoglobin 10.1 g/dl (14.0-18.0); Imm Gran Abs Auto 0.06 X10*3/uL (0.00-0.03); Imm Gran Pct Auto 0.5 % (0.0-0.4); Lymphocytes Absolute Auto 1.5 X10*3/uL (1.2-4.9); Mean Corpuscular HGB Conc 32.8 g/dl (31.0-36.0); Mean Corpuscular Hemoglobin 28.9 pg (27.0-33.0); Mean Corpuscular Volume 88.3 fL (80.0-98.0); Mean Platelet Volume 10.2 fL (9.4-12.4); Monocytes Percent Auto 8.6 % (2-11); Neutrophils Absolute Auto 8.4 x10*3/uL (2.0-8.3); Neutrophils Percent Auto 72.2 % (45-73); Platelet Count 591 X10*3/uL (160-400); Red Blood Count 3.49 X10*6/uL (4.60-5.80); Red Cell Distribution Width 14.7 % (11.0-16.0); White Blood Count 11.7 X10*3/uL (4.8-10.8)
[2025-03-16 18:35] LABS: INTERNATIONAL NORM RATIO 1.1 (0.9-1.1); Prothrombin Time 12.4 SEC (10.9-12.4)
[2025-03-16 18:38] LABS: Partial Thromboplastin Time 32.3 SEC (26.0-36.8)
[2025-03-16 18:39] LABS: Alanine Aminotransferase 19 U/L (0-40); Alkaline Phosphatase 61 U/L (39-117); Anion Gap 10 (12-20); Aspartate Amino Transferase 36 U/L (5-37); Bilirubin Total 0.2 mg/dL (0.0-1.0); Blood Urea Nitrogen 15 mg/dL (9-16); Calcium 8.8 mg/dL (8.4-10.2); Carbon Dioxide 26 mmol/L (22-29); Chloride 102 mmol/L (96-108); Creatinine Clr Calc Pharmacy 60.4; Estimated Glomerular Filt Rate > 60; Glucose Random 95 mg/dL (60-115); Potassium 4.4 mmol/L (3.3-5.1); Sodium 134 mmol/L (135-145); Total Protein 6.6 g/dL (6.5-8.0)
[2025-03-16 18:45] LABS: B Type Natriuretic Peptide 41 pg/mL (<100)
[2025-03-16 18:46] LABS: Troponin-I High Sensitivity 2.8 ng/L (<3.5-35.0)
[2025-03-16] MEDS: iohexoL 350 MG/ML 100 ML INFUS..BTL IV (19:28)
--- NOTE | 2025-03-16 19:51 | ECG_ITS ---
Test Reason : ABNORMAL LABS Blood Pressure : */* mmHG Vent. Rate : 87 BPM Atrial Rate : 87 BPM P-R Int : 154 ms QRS Dur : 86 ms QT Int : 368 ms P-R-T Axes : 63 22 45 degrees QTcB Int : 442 ms Normal sinus rhythm Normal ECG When compared with ECG of 24-Nov-2013 12:38, Criteria for Septal infarct are no longer Present Referred By: Shanna Ricks Electronically Signed By: DONNIE LAUREN MD
[2025-03-16 21:55] VITALS: BP 113/62; PULSE 87; RESP 19; TEMP 36.9; O2SAT 97
[2025-03-16 22:10] VITALS: BP 113/62; PULSE 87; RESP 19; TEMP 36.9; O2SAT 97
== END 2025-03-16 22:10 | disposition home or self-care (01) ==
PROVIDERS: Physician Assistant; Emergency Provider Emergency Medicine; PCP Internal Medicine
DX: R06.02 Shortness of breath (principal); D47.3 Essential (hemorrhagic) thrombocythemia; R60.0 Localized edema; I10 Essential (primary) hypertension; E78.00 Pure hypercholesterolemia, unspecified; J44.9 Chronic obstructive pulmonary disease, unspecified; Z87.891 Personal history of nicotine dependence; Z79.899 Other long term (current) drug therapy; Z79.02 Long term (current) use of antithrombotics/antiplatelets; Z79.82 Long term (current) use of aspirin
CPT/HCPCS: 36415; 71046; 71275; 80053; 83880; 84484; 85025; 85610; 85730; 93005; 99212; 99284; 99285; Q9967

== ENCOUNTER → 2025-03-16 17:29 | Outpatient (BNV) | payer MEDICARE, SELFPAY | PROVIDERS: Emergency Provider Emergency Medicine; PCP Internal Medicine; Visit Provider Radiology Diagnostic Radiology | DX: R06.02 Shortness of breath (principal) | CPT/HCPCS: 71046 ==

== ENCOUNTER → 2025-03-16 19:51 | Outpatient (BNV) | payer MEDICARE, SELFPAY | PROVIDERS: Emergency Provider Emergency Medicine; PCP Internal Medicine; Visit Provider Internal Medicine Cardiovascular Disease | DX: R79.9 Abnormal finding of blood chemistry, unspecified (principal) | CPT/HCPCS: 93010 ==

== ENCOUNTER 2025-03-17 13:52 | Outpatient (REF) | payer MEDICARE, SELFPAY ==
--- NOTE | ~2025-03-17 | US_ITS ---
EXAMINATION: US TRIPLEX LOWER EXTREMITY, LEFT CLINICAL INFORMATION: Edema, left lower extremity COMPARISON: None available. TECHNIQUE: Color-flow triplex imaging with spectral analysis and compression Doppler were performed on the left lower extremity. FINDINGS: Respiratory variation, normal compression and augmented flow are present throughout the interrogated common femoral vein, superficial femoral vein, profunda femoral vein, popliteal vein and midcalf peroneal and posterior tibial venous segments . There is a 6.2 x 3.8 cm irregular shaped heterogeneous mixed predominantly anechoic abnormality without flow on color Doppler interrogation in the popliteal fossa. US/US venous duplex LE IMPRESSION: No acute deep venous thrombosis interrogated veins, left lower extremity. Negative for DVT. 6.2 cm complex popliteal cyst. Electronically signed by: Sherwin Rowan MD 03/17/2025 02:25 PM EDT
--- OUTSIDE RECORDS SUMMARY | 2025-03-17 16:19 | XMS_ITS | Clinical Summary ---
Author Organization [address] Address [address] [place] [id number] Phone Care Team Providers Care Advertising Vice President Name Role Phone Patricia Michel MD Primary Care Provider [phone] Allergies No known active allergies Social History [...] patient's age to complete this topic [place] [address] [address] [place] [address] [facility] [place] [address] [employer] Care Teams Advertising Vice President Relationship Specialty Start Date End Date Patricia Michel MD [address] [place] [address] [place] [id number] PCP - General Internal Medicine 03/07/24
== END 2025-03-17 13:53 | disposition home or self-care (01) ==
LOC: HO.US 13:52
PROVIDERS: PCP Internal Medicine; Visit Provider Internal Medicine
DX: R60.0 Localized edema (principal)
CPT/HCPCS: 93971

== ENCOUNTER → 2025-03-17 13:56 | Outpatient (BNV) | payer MEDICARE, SELFPAY | PROVIDERS: PCP Internal Medicine; Visit Provider Radiology Diagnostic Radiology | DX: M71.22 Synovial cyst of popliteal space [Baker], left knee (principal) | CPT/HCPCS: 93971 ==

== ENCOUNTER 2025-03-29 15:33 | Outpatient (AMB) | payer MEDICARE, SELFPAY ==
--- NOTE | 2025-03-29 15:35 | MHC.OFFVIS ---
Vital Signs 03/29/25 15:40 Height 5 ft 11 in Weight 177 lb 7.554 oz BMI 24.7 BP 128/68 Blood Pressure Location Lt brachial Position Sitting Pulse 101 H Pulse Source Pulse Oximeter Pulse Oximetry (%) 96 Oxygen Delivery Method Room Air Intake Visit Reasons: Shortness of breath Portfolio Strategist Required: No Accompanied by: Self / Same As Patient Allergies lisinopril Allergy (Severe, Verified 03/29/25 15:42) cough codeine (CODEINE) Allergy (Intermediate, Verified 03/29/25 15:42) GI UPSET, nausea/vomiting hydroxyurea (From Hydrea) Adverse Reaction (Intermediate, Verified 03/29/25 15:42) weakness/chills, nausea losartan Adverse Reaction (Intermediate, Verified 03/29/25 15:42) hyperkalemia HPI Comments Details: The patient is a 74-year-old gentleman with a known history of COPD, chronic rhinitis and also pulmonary nodules. Overall he has been doing well from a respiratory status. However he states that he last the sense of smell and taste. This been going on for about a year. He does have nasal congestion but he does not really feel any significant improvement on the fluticasone. He has been doing that for years. He does have underlying allergies. He denies any exposure to anybody with COVID-19 infection that he is aware of. He continues his respiratory therapy with good effect. We did talk about a CT scans of the chest demonstrating stable pulmonary nodules for about 2 years. At this point will have him go chest x-ray to make sure stability in to address the persistent morning cough. 08/23/2021 the patient is here for a pulmonary follow-up visit. Overall he continues to be about the same. He still complaining of a cough which is usually nonproductive in nature. Also complains of shortness of breath. The Symbicort has been partially effective. He continues use that twice a day. In the meantime he was found to have a hiatal hernia and a barium swallow which could be resulting in his chronic cough. He will be undergoing endoscopy soon to further address that. Patient has underlying pulmonary nodules. He was a former smoker. He did undergo a chest x-ray demonstrating increased hyperinflation consistent with COPD. Although his pulmonary nodules are not visible on the x-ray. Therefore I will request a chest CT scan to further address the pulmonary nodules and his ongoing symptoms. Also to note the patient is concerned about some abnormal laboratory findings. His platelet count has been significantly elevated. It is also his potassium was significantly elevated. I have him undergo blood work assessing for inflammatory conditions that could result in pulmonary nodules in the meantime will also recheck his platelet count and his potassium. 11/21/2021 the patient is here for a pulmonary follow-up visit. Overall he is doing relatively well. He continues to have nasal congestion in the upper airway cough syndrome. He tried Astelin nasal spray but stop the fluticasone that was not very helpful. He went back in the fluticasone. I do believe he will do better on the combination so therefore also on Dymista to the pharmacy. The patient does have underlying allergies. he also continues on the singular medication for his allergies. He continues on the Symbicort has been taking it 2 puffs twice a day. He does feel like he needs to take the full dose at this time. I did encourage him that if he does well we can try to decrease to 1 puff twice a day. I did provide him with spacer today. We did review his recent CT scan of the chest demonstrating stable subcentimeter pulmonary nodules largest measuring 4 mm in size which is the same as when he had a CT scan back in [facility] in 2019 and also a [facility] prior to that suggesting disease nodules are stable and unchanged. 07/23/2022 the patient has a telehealth visit today. Apparently was in his usual state health until the beginning of July when he started developing a cough and also sore throat. Ultimately tested positive for COVID-19. He was started on Paxlovid 1 day after having symptoms. He did complete the full course. Initially he was doing well. However, about a week after he started developing worsening cough along with chest tightness. Does have productive mucus. The mucus is yellowish in color. He has been noticing increasing shortness of breath and chest tightness. He has been using his rescue inhaler several times a day. He is also using his maintenance therapy as prescribed. The patient is concerned that he is developing pneumonia. He did test again he still testing positive for COVID-19. The patient was able to check his oxygen and was reassuring. Based on the patient's symptoms indeed a postviral bacterial infection could be arising. Therefore, will go ahead and start him on antibiotics and also a course of prednisone. I do believe that he will benefit from nebulizer. we do have nebulizers available through [facility]. Provide him a nebulizer in order for him to start using the nebulizer twice a day. I will send the medication to the pharmacy. If the patient's condition worsens on this current medication regimen that he needs to go to the ER for further evaluation. 11/19/2022 the patient is here for a pulmonary follow-up visit. The patient is feeling better overall. He recovered from having COVID-19 back in the fall 2021. He had a chest x-ray at that time that appear to be clear. Although, he did have a CT scan of the chest back in October 2021 demonstrating multiple subcentimeter pulmonary nodules. He will need a repeat CT scan to make sure stability. The patient has been using the Symbicort twice a day. He has been complaining of gingival disease. He needs to follow up with his dentist. In the meantime on having decrease the Symbicort to 1 puff twice a day and also will provide him with chlorhexidine mouth wash N/C this could help in the meantime. The patient did have pulmonary function studies which I personally reviewed and also compared to the ones he had back in 2020. It appears that he continues to have pretty stable mild COPD. Therefore decreasing the medication be reasonable. He does continue to have allergies and does uses fluticasone and Singulair with good effect. He will continue to do so at this time. Demonstrates no longer covered through his insurance company so therefore will discontinue that for now. Otherwise the patient return [address] if his CT scan is abnormal I will call and come in sooner. 11/27/2023 the patient is here for a pulmonary follow-up visit. The patient has been doing well from a respiratory status. Denies any significant shortness of breath. He has been using the Symbicort with good effect. Has not had to use his rescue inhaler. He did have a CT scan of the chest back in December 2022 demonstrating stable pulmonary nodule. Only been followed for about a year. He needs to get a repeat CT scan will do it 6 months to make sure that the nodules stable and is not progressing view of his increased high risk for cancer. the patient is here for a pulmonary follow-up visit. He complains of dyspnea on exertion. Also had an episode of chest pressure shortness of breath and hypoxia. Because of his symptoms he was referred to Cardiology. He had a stress test, Jerald protocol that was abnormal when he had some nausea vomiting and near-syncope. Thought to be a vasovagal. Subsequently after that he had an echocardiogram demonstrating some mild hypertrophy which is asymmetric and also demonstrated a slightly low EF. 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 The patient is scheduled to undergo nuclear stress test. In view of his symptoms he was placed on Trelegy. Although he does not feel like it is working as well as Symbicort. His finishing up the prescription so therefore switching over to Breztri so we can have the Symbicort effect with the additional medicine. In the meantime is going to house get a chest x-ray. His last CT scan was back in demonstrating stable pulmonary nodules. We did look at the imaging studies and did demonstrate that he had normal lung parenchyma. I did encourage the patient to lay low for little bit until he gets his nuclear stress test. The patient will try the new inhaler. If he has any issues call. If I see any changes on his x-ray I will call him. Otherwise will follow-up in 3-4 months. 03/29/2025 the patient is here for pulmonary follow-up visit. Overall the patient has been doing okay. Still complains of dyspnea on exertion. We have tried him on multiple inhalers. Currently on Breztri. He will continue but will add a spacer to see if we can provide better relief. He did go to the hospital in early March with shortness of breath and chest discomfort and palpitations. While he was there he had a CTA that I personally did review. Does appear to have some mosaic pattern suggesting of air trapping. No evidence of any significant pulmonary nodules that I can appreciate. Will go ahead and try him on that. He also has Trelegy at home left over. If he does not feel like the Breztri is helping he can also try the Trelegy prior to come in to additional Breztri. The patient will follow-up after his PFTs in the fall of 2024. If he has any issues prior to this he will call for an earlier assessment. FORMERLY [facility], [facility] Medical History Dyspnea on exertion Abnormal stress test Dysphagia Hyperkalemia COVID-19 virus infection Lip lesion Pulmonary nodules COPD (chronic obstructive pulmonary disease) Pulmonary nodules Hypercholesterolemia Hypertension BPH (benign prostatic hyperplasia) Chronic rhinitis Asthma-COPD overlap syndrome Surgical History History of total left knee replacement (TKR) History of endoscopy Hx of colonoscopy History of knee surgery Family History Father Lung cancer Mother Hypertension Brother Brain cancer Daughter In good health Social History Household Members: Spouse Housing: House Are you a primary healthcare liaison to a significant other at home: No Do you presently have visiting nurse or other home services: No Alcohol intake: current Alcohol intake frequency: holidays/special occasions only Comment: once a week 1drink last drink 10/2024 Patient Tobacco Use Status: Former Tobacco user Tobacco use type: Cigarette Years Smoked: 1984 stopped e-Cigarette/Vaping Use: Never Used Second Hand Smoke Exposure: Yes service: No Current occupational status: retired Cognitive needs: No Hearing needs: No Vision needs: Yes Review of Systems Const Denies weight gain and Denies weight loss Eyes Reports no additional complaints ENT Reports nasal congestion and Denies odynophagia Card Denies chest pain and Reports dyspnea on exertion Resp Reports cough, Reports dyspnea on exertion and Reports wheezing GI Denies abdominal pain, Denies belching, Denies melena, Denies bloating, Denies change in bowel habits, Denies excessive flatus, Denies dyspepsia, Denies heartburn, Denies diarrhea, Denies loose stools, Denies nausea, Denies odynophagia and Denies vomiting Reports no additional complaints Musc Reports no additional complaints Skin/Breast Denies rash Neuro Reports no additional complaints Psych Reports no additional complaints Endo Reports no additional complaints Aller/Immun Reports wheezing Physical Exam Vital Signs: Last Vital Signs Pulse 101 H 03/29/25 15:40 BP 128/68 03/29/25 15:40 Pulse Ox 96 03/29/25 15:40 Oxygen Delivery Method Room Air 03/29/25 15:40 BMI result Body Mass Index 24.7 Const General: healthy appearing, no acute distress and well developed Nutritional Appearance: well nourished Orientation/consciousness: patient oriented x3 HEENT Head: Yes normocephalic Eyes General: appearance normal, both eyes and all related structures Neck Neck: Yes normal visual inspection, Yes full ROM and Yes trachea midline Chest Chest palpation & inspection: normal inspection of the chest Resp Effort & Inspection: normal respiratory effort Auscultation: diminished lung sounds Cardio Rate: regular rate Heart sounds: S1 normal heart sound present and S2 normal heart sound present GI Palpation (GI): Soft to palpation Auscultation: normal bowel sounds Skin General skin exam: no rashes or lesions noted Neuro General: patient oriented x3 Extrem General: Yes no clubbing, cyanosis or edema Psych Appearance: grossly normal Assessment & Plan Assessment & Plan (1) COPD (chronic obstructive pulmonary disease): Code(s): J44.9 - Chronic obstructive pulmonary disease, unspecified Category: Medical Qualifiers: COPD type: chronic bronchitis Chronic bronchitis type: simple Qualified Code(s): J41.0 - Simple chronic bronchitis (2) Chronic rhinitis: Code(s): J31.0 - Chronic rhinitis Category: Medical (3) Pulmonary nodules: Comment: December 2022 CT scan left upper lobe Code(s): R91.8 - Other nonspecific abnormal finding of lung field Category: Medical (4) Dyspnea on exertion: Code(s): R06.09 - Other forms of dyspnea Category: Medical Plan continue Breztri, add Spacer EMILY as needed continue fluticasone continue singulair F/U 4-6 months Medications: Changed From exxkcqrkwd-oxxiofps-xzpxxmunux 160-9-4.8 mcg/actuation (Breztri Aerosphere) 2 inhalations inhalation BID 30 days 10.7 grams 11RF To astzszwlqj-njwjkrky-bpzxdynwdl 160-9-4.8 mcg/actuation (Breztri Aerosphere) 2 inhalations inhalation BID 3 ea 3RF 90 days Coding Level of Care Code Est Pt Level 4 (01211) Complex EM visit Add On G2211 Diagnoses Simple chronic bronchitis J41.0 COPD type: chronic bronchitis Chronic bronchitis type: simple Chronic rhinitis J31.0 Pulmonary nodules R91.8 Dyspnea on exertion R06.09 Time Spent (min) 17
[2025-03-29 15:40] VITALS: BP 128/68; PULSE 101; O2SAT 96; BMI 24.7
== END 2025-03-29 16:05 | disposition home or self-care (01) ==
LOC: HO.HPS 15:34
PROVIDERS: PCP Internal Medicine; Visit Provider Hospitalist
DX: J41.0 Simple chronic bronchitis (principal); J31.0 Chronic rhinitis; R91.8 Other nonspecific abnormal finding of lung field; R06.09 Other forms of dyspnea
CPT/HCPCS: 99214; G2211

== ENCOUNTER → 2025-03-29 15:33 | Outpatient (BNVA) | payer MEDICARE, SELFPAY | PROVIDERS: PCP Internal Medicine; Visit Provider Hospitalist | DX: R06.02 Shortness of breath (principal); J41.0 Simple chronic bronchitis; J31.0 Chronic rhinitis; R91.8 Other nonspecific abnormal finding of lung field; R06.09 Other forms of dyspnea | CPT/HCPCS: 99212 ==

== ENCOUNTER 2025-05-17 10:30 | Outpatient (AMB) | payer MEDICARE, SELFPAY ==
[2025-05-17 11:10] VITALS: BP 135/52; PULSE 94; TEMP 36.7; O2SAT 96; BMI 24.9
--- NOTE | 2025-05-17 11:10 | AM.OFFWIN_ITS ---
Intake Vital Signs 05/17/25 11:10 Height 5 ft 11 in Weight 178 lb 4 oz BMI 24.9 BP 135/52 L Blood Pressure Location Lt brachial Position Sitting Pulse 94 Pulse Source Pulse Oximeter Temp 98.0 F Temp Source Oral Pulse Oximetry (%) 96 Intake Visit Reasons: EP pain in jaw/ears/sinuses Patient Tobacco Use Status: Former Tobacco user Allergies lisinopril Allergy (Severe, Verified 05/17/25 11:14) cough codeine (CODEINE) Allergy (Intermediate, Verified 05/17/25 11:14) GI UPSET, nausea/vomiting hydroxyurea (From Hydrea) Adverse Reaction (Intermediate, Verified 05/17/25 11:14) weakness/chills, nausea losartan Adverse Reaction (Intermediate, Verified 05/17/25 11:14) hyperkalemia Do you need a note to return to daycare/school/sports/work: No HPI HPI Comments History of Present Illness Details History - The patient is a 75-year-old male pres enting with facial pain. - Pain is above the eyes, jaw, and ears, mainly on the left side. - Symptoms have lasted about one week. - No fever, cough, or congestion reporte d. - History of asthma and COPD, stable wit hout recent issues. - Uses fluticasone nasal spray and Tylen ol Sinus Severe. - Denies fevers or headaches Physical Exam General: Cooperative, healthy appearing, comfortable and no acute distress Orientation/consciousness: Patient oriented x3 Limitations: No limitations Head: Normal to inspection Ears: Hearing grossly normal bilaterally, external ears normal and TM's normal bilaterally Nose: Normal external nose present, Normal nares present and No nasal discharge present Face and sinus: Normal facial exam and No sinuses nontender Mouth: Normal oral and palatal mucosa present and moist mucous membranes Throat: Yes tonsils normal, Yes uvula midline. Posterior oropharynx erythema, no exudates Eyes: Appearance normal, both eyes and all related structures Neck: Normal visual inspection, full ROM Respiratory: Normal respiratory effort, able to speak in complete sentences, No active coughing, no respiratory distress, not tachypneic, no tripod positioning and no use of accessory muscles Skin: No rashes or lesions noted Neuro: Patient oriented x3 Extremities: Normal to inspection and Yes no clubbing, cyanosis or edema [facility] Medical History Dyspnea on exertion Abnormal stress test Dysphagia Hyperkalemia COVID-19 virus infection Lip lesion Pulmonary nodules COPD (chronic obstructive pulmonary disease) Pulmonary nodules Hypercholesterolemia Hypertension BPH (benign prostatic hyperplasia) Chronic rhinitis Asthma-COPD overlap syndrome Surgical History History of total left knee replacement (TKR) History of endoscopy Hx of colonoscopy History of knee surgery Family History Father Lung cancer Mother Hypertension Brother Brain cancer Daughter In good health Social History Household Members: Spouse Housing: House Are you a primary respiratory care instructor to a significant other at home: No Do you presently have visiting nurse or other home services: No Alcohol intake: current Alcohol intake frequency: holidays/special occasions only Comment: once a week 1drink last drink 10/2024 Patient Tobacco Use Status: Former Tobacco user Tobacco use type: Cigarette Years Smoked: 1984 stopped e-Cigarette/Vaping Use: Never Used Second Hand Smoke Exposure: Yes service: No Current occupational status: retired Cognitive needs: No Hearing needs: No Vision needs: Yes Review of Systems Const All systems reviewed & are unremarkable except as noted in HPI and below Physical Exam Vital Signs: Last Vital Signs Temp 98.0 F 05/17/25 11:10 Pulse 94 05/17/25 11:10 BP 135/52 L 05/17/25 11:10 Pulse Ox 96 05/17/25 11:10 BMI result Body Mass Index 24.9 Assessment & Plan Assessment & Plan (1) Acute sinusitis: Code(s): J01.90 - Acute sinusitis, unspecified Qualifiers: Sinusitis location: unspecified location Recurrence: non-recurrent Qualified Code(s): J01.90 - Acute sinusitis, unspecified Plan: Plan - VSS, pt well appearing and PE unremarkable. - Prescribed Augmentin, PT will wait to start 3-4 days and only take if symptoms persist. - Continue fluticasone nasal spray with correct technique. - Use neti pot with distilled water for sinus irrigation. Patient was informed and verbally consented to the use of an ambient scribe for clinic note documentation during this visit Medications: New amoxicillin-pot clavulanate 875-125 mg 1 tab PO Q12H 14 tabs 0RF Coding Level of Care Code Est Pt Level 3 (24551) Diagnoses Acute non-recurrent sinusitis, unspecified location J01.90 Sinusitis location: unspecified location Recurrence: non-recurrent
--- OUTSIDE RECORDS SUMMARY | 2025-05-17 11:33 | XMS_ITS | Clinical Summary ---
Author Organization [address] Address [address] [place] [phone] Phone Care Team Providers Care Fish Warden Name Role Phone Patricia Michel MD Primary Care Provider [phone] Allergies No known active allergies Social History [...] 70 03/07/2024 10:29 PM EDT Temperature 37.1 C (98.8 F) 03/07/2024 8:31 PM EDT Respiratory Rate 18 03/07/2024 8:31 PM EDT [...] Series) 2001 Covid-19 vaccine series (1 - season) 2024 Influenza vaccine 06/06/2025 09/04/2022, , 08/13/2017, Additional history exists RSV Immunization (1 - 1-dose 75+ series) 2026 Meningococcal Vaccine Aged Out No tamara lori eligible based on patient's age to complete this topic Insurance [facility] BS Care Teams Fish Warden Relationship Specialty Start Date End Date Patricia Michel MD [address] [place] [address] [place] [address] PCP - General Internal Medicine 03/07/24
--- OUTSIDE RECORDS SUMMARY | 2025-05-17 11:33 | XMS_ITS | Clinical Summary ---
Author Organization [facility] Address [address] [place] [address] Phone Care Team Providers Care Suppression Crew Leader Name Role Phone Patricia Michel MD Primary Care Provider [phone] Allergies Active Allergy Reactions Criticality Noted Date [...] Care Team (Late st Contact Info) Description 06/07/2025 Orders Only [facility] [address] [phone] Danilo Alicea MD [address] [address] Essential hypertension; Other thrombocytosis; Hyperkalemia 08/22/2025 1:00 PM EST Office Visit [facility] [address] [address] Danilo Alicea MD [address] [phone] Health Maintenance Due Date Last Done Comments Pneumococcal Vaccine: 50+ Years (1 of 2 - PCV) 1970 Colorectal Cancer Screening: Annual FOBT 2000 Colorectal Cancer Screening: Colonoscopy 2000 Colorectal Cancer Screening: Sigmoidoscopy 2000 Influenza Vaccine (#1) 2025 2, 08/25/2021, 08/13/2017, Additional history exists Hepatitis B Vaccine Aged Out No longe r eligible based on patient's age to complete this topic Insurance [facility] PPO Blue([id number]) [facility] PPO [employer]([id number]) Care Teams Suppression Crew Leader Relationship Specialty Start Date End Date Patricia Michel MD [facility] [address] [place] PCP - General Internal Medicine 03/11/22
--- OUTSIDE RECORDS SUMMARY | 2025-05-17 11:33 | XMS_ITS | Clinical Summary ---
Author Organization [facility] Address [address] [place] [address] [place] [phone] Phone Care Team Providers Care Documentation Engineer Name Role Phone Patricia Michel MD Primary Care Provider Social History Tobacco Use Types Packs/Day Years Used Date Smoking Tobacco: Never Assessed Education Answer Date Recorded Are you interested in more education? Not on pinky e 11/24/2024 Are you concerned about learning? Not on file 11/24/2024 No 11/24/2024 No 11/24/2024 Digital Access Answer Date Recorded No 11/24/2024 No 11/24/2024 Reliable internet access at home? Not on file 11/24/2024 Device with a working camera? Not on file Sex and Gender Information Value Date Recorded Sex Assigned at Not on file Legal Sex Male 10:01 PM EDT Gender Identity Not on file Sexual Orientation Not on file Plan of Treatment Health Maintenance Due Date Last Done Comments Adult Td,Tdap Booster 1951 LIPID PANEL 1951 DEPRESSION SCREENING 1963 SMOKING Hx and SMOKELESS TOB ACCO SCREENING 1964 HEPATITIS C SCREENING 1969 COLOGUARD 1996 COLONOSCOPY 1996 COLORECTAL CANCER SCREENING 1996 FIT TEST 1996 FOBT 1996 SIGMOIDOSCOPY 1996 VIRTUAL COLONOSCOPY 1996 PNEUMOCOCCAL VACCINES (50+ y ears) (1 of 1 - PCV) 2001 ZOSTER VACCINES (1 of 2) 2001 COVID-19 VACCINE ( - 2023-2 5 season) 2024 RSV VACCINE (1 - 1-dose 75+ series) 2026 HEPATITIS A VACCINES Aged Out No long er eligible based on patient's age to complete this topic HIB VACCINES Aged Out No longer eligi ble based on patient's age to complete this topic MENINGOCOCCAL VACCINES (ACWY) Aged Out No longer eligible based on patient's age to complete this topic MENINGOCOCCAL VACCINES (B) Aged Out N o longer eligible based on patient's age to complete this topic Medical Devices Not on file Insurance MEDICARE PPO BLUE REPLACEMENT MEDICARE PART A & B MEDICARE PPO BLUE REPLACEMENT MEDICARE PART A & B MEDICARE PPO BLUE REPLACEMENT MEDICARE PART A & B MEDICARE PPO BLUE REPLACEMENT MEDICARE PART A & B MEDICARE PPO BLUE REPLACEMENT MEDICARE PART A & B MEDICARE PPO BLUE REPLACEMENT MEDICARE PART A & B Care Teams Documentation Engineer Relationship Specialty Start Date End Date Patricia Michel MD [address] [place] [phone] PCP - General Internal Medicine 11/24/24 Additional Source Comments The information contained in this document represents components of the legal health record. It is not the complete legal health record.[facility]
== END 2025-05-17 12:36 | disposition home or self-care (01) ==
PROVIDERS: PCP Internal Medicine; Visit Provider Physician Assistant
DX: J01.90 Acute sinusitis, unspecified (principal)

== ENCOUNTER → 2025-05-17 10:30 | Outpatient (BNVA) | payer MEDICARE, SELFPAY | PROVIDERS: PCP Internal Medicine; Visit Provider Physician Assistant | DX: I10 Essential (primary) hypertension (principal); R51.9 Headache, unspecified; J01.90 Acute sinusitis, unspecified | CPT/HCPCS: 99212 ==

== ENCOUNTER 2025-05-31 15:50 | Outpatient (REF) | payer MEDICARE, SELFPAY ==
--- NOTE | 2025-05-31 15:53 | PFT_ITS ---
Flows: FEV1: 102 % of predicted at 3.23 L FVC: 113 % of predicted at 4.81 L FEV1/FVC: 67 % Bronchodilator response: Absent Volumes: Total lung capacity: 94 % of predicted at 6.88 L Residual volume: 72 % of predicted at 1.96 L Slow vital capacity: 109 % of predicted at 4.91 L Expiratory reserve volume: 92 % of predicted at 1.19 L Diffusion capacity: Mildly decreased, corrects to normal after adjustment for alveolar ventilation. Impression: Mild obstructive ventilatory defect with no bronchodilator response. Decreased diffusion capacity suggests emphysema. MTDD
[2025-05-31 16:29] VITALS: PULSE 85; O2SAT 95
--- OUTSIDE RECORDS SUMMARY | 2025-05-31 16:37 | XMS_ITS | Clinical Summary ---
Author Organization [facility] Address [address] [place] [address] [place] [phone] Phone Care Team Providers Care Screw Cutter Name Role Phone Patricia Michel MD Primary Care Provider [phone] Social History Tobacco Use Types Packs/Day Years [...] MEDICARE PART A & B Care Teams Screw Cutter Relationship Specialty Start Date End Date Patricia Michel MD [address] [place] [phone] PCP - General Internal Medicine 11/24/24 Additional Source Comments The information contained in this document represents components of the legal health record. It is not the complete legal health record.[facility]
--- OUTSIDE RECORDS SUMMARY | 2025-05-31 16:37 | XMS_ITS | Clinical Summary ---
Author Organization [address] Address [address] [place] [phone] Phone Care Team Providers Care Supervisor Sample Name Role Phone Patricia Michel MD Primary Care Provider [phone] Allergies No known active allergies Social History [...] (1 - 1-dose 75+ series) 2026 Meningococcal B Vaccine Aged Out No l onger eligible based on patient's age to complete this topic Meningococcal Vaccine Aged Out No tamara lori eligible based on patient's age to complete this topic Insurance [facility] BCBS Care Teams Supervisor Sample Relationship Specialty Start Date End Date Patricia Michel MD [address] [place] [address] Dr RivasyoAKANKSHA singh [phone] PCP - General Internal Medicine 03/07/24
--- OUTSIDE RECORDS SUMMARY | 2025-05-31 16:37 | XMS_ITS | Clinical Summary ---
Author Organization [facility] Address [address] [place] [address] Phone Care Team Providers Care Sql Server Dba Name Role Phone Patricia Michel MD Primary Care Provider [phone] Allergies Active Allergy Reactions Criticality Noted Date [...] [facility] [address] [address] Danilo Alicea MD [address] [address] Essential hypertension; Other thrombocytosis; Hyperkalemia 08/22/2025 1:00 PM EST Office Visit [facility] [address] [address] Danilo Alicea MD [address] [phone] Health Maintenance Due Date Last Done Comments Pneumococcal Vaccine: 50+ Years (1 of 2 - PCV) 1970 Colorectal Cancer Screening: Annual FOBT 2000 Colorectal Cancer Screening: Colonoscopy 2000 Colorectal Cancer Screening: Sigmoidoscopy 2000 Influenza Vaccine (#1) 2025 2, 08/25/2021, 08/13/2017, Additional history exists Hepatitis B Vaccine Aged Out No longe r eligible based on patient's age to complete this topic Insurance [facility] PPO Blue([id number]) [facility] PPO G2 Crowd([id number]) Care Teams Sql Server Dba Relationship Specialty Start Date End Date Patricia Michel MD [facility] [place] [address] [place] PCP - General Internal Medicine 03/11/22
== END 2025-05-31 15:51 | disposition home or self-care (01) ==
LOC: HO.RESP 15:50
PROVIDERS: PCP Internal Medicine; Visit Provider Internal Medicine
DX: R06.02 Shortness of breath (principal); J44.9 Chronic obstructive pulmonary disease, unspecified; Z87.891 Personal history of nicotine dependence
CPT/HCPCS: 94010; 94640; 94727; 94729

== ENCOUNTER → 2025-05-31 15:53 | Outpatient (BNV) | payer MEDICARE, SELFPAY | PROVIDERS: PCP Internal Medicine; Visit Provider Internal Medicine Pulmonary Disease | DX: J44.9 Chronic obstructive pulmonary disease, unspecified (principal) | CPT/HCPCS: 94060; 94727; 94729 ==

== ENCOUNTER 2025-06-03 09:39 | Outpatient (AMB) | payer MEDICARE, SELFPAY ==
[2025-06-03 10:18] VITALS: BP 130/66; PULSE 76; TEMP 36.7; O2SAT 97; BMI 24.5
--- NOTE | 2025-06-03 10:18 | AM.OFFWIN_ITS ---
Intake Vital Signs 06/03/25 10:18 Height 5 ft 11 in Weight 176 lb BMI 24.5 BP 130/66 Blood Pressure Location Lt brachial Position Sitting Pulse 76 Pulse Source Pulse Oximeter Temp 98.0 F Temp Source Oral Pulse Oximetry (%) 97 Oxygen Delivery Method Room Air Intake Visit Reasons: very cold all the time Intake Note: pt presents with feeling cold and increased fatigue for months Patient Tobacco Use Status: Former Tobacco user Allergies lisinopril Allergy (Severe, Verified 06/03/25 10:19) cough codeine (CODEINE) Allergy (Intermediate, Verified 06/03/25 10:19) GI UPSET, nausea/vomiting hydroxyurea (From Hydrea) Adverse Reaction (Intermediate, Verified 06/03/25 10:19) weakness/chills, nausea losartan Adverse Reaction (Intermediate, Verified 06/03/25 10:19) hyperkalemia Do you need a note to return to daycare/school/sports/work: No HPI HPI Comments History of Present Illness Details History - The patient is a 75-year-old male pres enting with feeling cold most of the time. - The patient reports feeling cold for t he last few weeks, requiring additional clothing and blankets compared to his who is comfortable in shorts - He denies fever, chills, cough, or con gestion, but notes some sinus drainage. - The patient has a history of COPD and uses an inhaler for baseline shortness of breath, no increased sob. - Denies cough, fevers, ear pain, or sin us pain - Had a sinus infection a few weeks ago, some residual symptoms - Recent blood work showed white blood cell counts, ruling out infection. - The patient had a TSH test recently wi th normal results, ruling out thyroid issues. - Baseline has no sense of smell and red uced sense of taste, no changes recently. Physical Exam General: Cooperative, healthy appearing, comfortable and no acute distress Orientation/consciousness: Patient oriented x3 Limitations: No limitations Head: Normal to inspection Ears: Hearing grossly normal bilaterally, external ears normal, TM normal on left, TM with fluid (no infection) on right Nose: Normal external nose present, Normal nares present and No nasal discharge present Face and sinus: Normal facial exam Mouth: Normal oral and palatal mucosa present and moist mucous membranes Throat: Yes tonsils normal, Yes uvula midline. Posterior oropharynx erythema, no exudates Eyes: Appearance normal, both eyes and all related structures Neck: Normal visual inspection, full ROM Respiratory: Normal respiratory effort, able to speak in complete sentences, no respiratory distress, not tachypneic, no tripod positioning and no use of accessory muscles Skin: No rashes or lesions noted Neuro: Patient oriented x3 Extremities: Normal to inspection and Yes no clubbing, cyanosis or edema PFSH Medical History (Updated 06/03/25 @ 10:36 by Latasha Barreto PA-C) Dyspnea on exertion Abnormal stress test Dysphagia Hyperkalemia COVID-19 virus infection Lip lesion Pulmonary nodules COPD (chronic obstructive pulmonary disease) Pulmonary nodules Hypercholesterolemia Hypertension BPH (benign prostatic hyperplasia) Chronic rhinitis Asthma-COPD overlap syndrome Surgical History (Updated 04/01/25 @ 21:56 by Patricia Michel MD) History of total left knee replacement (TKR) History of endoscopy Hx of colonoscopy History of knee surgery Family History Father Lung cancer Mother Hypertension Brother Brain cancer Daughter In good health Social History Household Members: Spouse Housing: House Are you a primary nanny caregiver to a significant other at home: No Do you presently have visiting nurse or other home services: No Alcohol intake: current Alcohol intake frequency: holidays/special occasions only Comment: once a week 1drink last drink 10/2024 Patient Tobacco Use Status: Former Tobacco user Tobacco use type: Cigarette Years Smoked: 1984 stopped e-Cigarette/Vaping Use: Never Used Second Hand Smoke Exposure: Yes service: No Current occupational status: retired Cognitive needs: No Hearing needs: No Vision needs: Yes Review of Systems Const All systems reviewed & are unremarkable except as noted in HPI and below Physical Exam Vital Signs: Last Vital Signs Temp 98.0 F 06/03/25 10:18 Pulse 76 06/03/25 10:18 BP 130/66 06/03/25 10:18 Pulse Ox 97 06/03/25 10:18 Oxygen Delivery Method Room Air 06/03/25 10:18 BMI result Body Mass Index 24.5 Assessment & Plan Assessment & Plan (1) Sensation of feeling cold: Code(s): R68.89 - Other general symptoms and signs Plan: VSS, pt well appearing and PE remarkable for posterior oropharynx erythema and fluid right TM. Viral Infection Suspicion - WBC and TSH both WNL 3 days ago - COVID-19/flu/rsv test performed to rule out viral infection. - Advised to follow up with primary care if symptoms persist. Patient was informed and verbally consented to the use of an ambient scribe for clinic note documentation during this visit Coding Level of Care Code Est Pt Level 3 (12857) Diagnoses Sensation of feeling cold R68.89
--- OUTSIDE RECORDS SUMMARY | 2025-06-03 10:26 | XMS_ITS | Encounter Summary ---
Author Organization [facility] Address [address] [place] [address] Care Team Providers Care Oracle Financials Consultant Name Role Phone Nelson Martínez Primary Care Provider Patricia Mccormack MD Primary Care Provider Unavailari e Encounter Details Date Type Department Care Team Description 08/13/2017 Orders Only Pulmonology - [address] [place] [address] Social History Tobacco Use Types [...] on filedocumented in this encounter Care Teams [employer] Consultant Relationship Specialty Start Date End Date Nelson Martínez PCP - General Internal Medicine 08/13/17 03/10/18 Patricia Michel MD PCP - General Internal Medicine 03/11/18 documented as of this encounter
--- OUTSIDE RECORDS SUMMARY | 2025-06-03 10:26 | XMS_ITS | Clinical Summary ---
Author Organization [facility] Address [address] [place] [address] Phone Care Team Providers Care Coke Crusher Operator Name Role Phone Patricia Michel MD Primary Care Provider [phone] Allergies Active Allergy Reactions Criticality Noted Date [...] Orders Only [facility] [address] [address] Danilo Alicea MD [address] [address] Essential hypertension; Other thrombocytosis; Hyperkalemia 08/22/2025 1:00 PM EST Office Visit [facility] [address] [address] Danilo Alicea MD [address] [address] Health Maintenance Due Date Last Done Comments Pneumococcal Vaccine: 50+ Years (1 of 2 - PCV) 1970 Colorectal Cancer Screening: Annual FOBT 2000 Colorectal Cancer Screening: Colonoscopy 2000 Colorectal Cancer Screening: Sigmoidoscopy 2000 Influenza Vaccine (#1) 2025 2, 08/25/2021, 08/13/2017, Additional history exists Hepatitis B Vaccine Aged Out No longe r eligible based on patient's age to complete this topic Insurance [facility] PPO Blue([id number]) [facility] PPO [employer]([id number]) Care Teams Coke Crusher Operator Relationship Specialty Start Date End Date Patricia Michel MD [facility] [place] [address] [place] PCP - General Internal Medicine 03/11/22
--- OUTSIDE RECORDS SUMMARY | 2025-06-03 10:26 | XMS_ITS | Encounter Summary ---
Author Organization [facility] Address [address] [place] [address] Care Team Providers Care Aircraft Engine Cylinder Mechanic Name Role Phone Patricia Michel MD Primary Care Provider Unavailabl e Encounter Details Date Type Department Care Team Description 05/05/2019 Orders Only Medical Records [address] [place] [address] Abstract, Provider Chronic obstructive pulmonary disease, unspecified [...] CAT SCAN OF CHEST NO CONTRAST (04/28/2019) Umagn Ivey MD CT [facility] RADIOLOGY documented in this encounter Visit Diagnoses Diagnosis Chronic obstructive pulmonary disease, unspecified COPD type (HCC) Chronic rhinitis Pulmonary nodule Solitary pulmonary nodule documented in this encounter Care Teams Aircraft Engine Cylinder Mechanic Relationship Specialty Start Date End Date Patricia Michel MD PCP - General Internal Medicine 03/11/18 documented as of this encounter
--- OUTSIDE RECORDS SUMMARY | 2025-06-03 10:26 | XMS_ITS | Clinical Summary ---
Author Organization [address] Address [address] [place] [phone] Phone Care Team Providers Care Global Professional Name Role Phone Patricia Michel MD Primary Care Provider [phone] Allergies No known active allergies Social History [...] patient's age to complete this topic Insurance [facility] BCBS Care Teams Global Professional Relationship Specialty Start Date End Date Patricia Michel MD [address] [place] [address] Dr RivasyoAKANKSHA singh [phone] PCP - General Internal Medicine 03/07/24
--- OUTSIDE RECORDS SUMMARY | 2025-06-03 10:26 | XMS_ITS | Clinical Summary ---
Author Organization [facility] Address [address] [place] [address] [place] [phone] Phone Care Team Providers Care Software Deployment Engineer Name Role Phone Patricia Michel MD Primary Care Provider [phone] Social History Tobacco Use Types Packs/Day Years [...] MEDICARE PART A & B Care Teams Software Deployment Engineer Relationship Specialty Start Date End Date Patricia Michel MD [address] [place] [phone] PCP - General Internal Medicine 11/24/24 Additional Source Comments The information contained in this document represents components of the legal health record. It is not the complete legal health record.[facility]
--- OUTSIDE RECORDS SUMMARY | 2025-06-03 10:26 | XMS_ITS | Encounter Summary ---
Author Organization [facility] Address [address] [place] [address] Care Team Providers Care Clinical Biostatistician Name Role Phone Patricia Michel MD Primary Care Provider Unavailabl e Reason for Visit * Reason Comments E-prescribe Rx Request Encounter Details Date Type Department Care Team Description 12/04/2018 Refill Pulmonology - [place] [address] [facility] [address] [place] [address] Viktoriya Carroll MD [address] [place] [address] E-prescribe Rx Request Social History [...] NO Patients current insurance carrier is: Payor: [facility]/MEDICARE PPO / Plan: [facility] PPO $20 [place] / Product Type: MEDICARE [id number] documented in this encounter Plan of Treatment Not on file documented as of this encounter Visit Diagnoses Diagnosis Chronic obstructive pulmonary disease, unspecified COPD type (HCC) documented in this encounter Care Teams Clinical Biostatistician Relationship Specialty Start Date End Date Patricia Michel MD PCP - General Internal Medicine 03/11/18 documented as of this encounter
--- OUTSIDE RECORDS SUMMARY | 2025-06-03 10:26 | XMS_ITS | Encounter Summary ---
Author Organization [facility] Address [address] [place] [address] Care Team Providers Care Professional Fee Coder Name Role Phone Nelson Martínez Primary Care Provider Unavailabl e Patricia Michel MD Primary Care Provider Unavailabl e Encounter Details Date Type Department Care Team Description 01/21/2018 Orders Only Pulmonology - [place] [address] [facility] [address] [place] [address] Viktoriya Carroll MD [address] [place] [phone] Chronic obstructive pulmonary disease, unspecified COPD type [...] drip documented in this encounter Care Teams Professional Fee Coder Relationship Specialty Start Date End Date Nelson Martínez PCP - General Internal Medicine 08/13/17 03/10/18 Patricia Michel MD PCP - General Internal Medicine 03/11/18 documented as of this encounter
== END 2025-06-03 10:43 | disposition home or self-care (01) ==
PROVIDERS: PCP Internal Medicine; Visit Provider Physician Assistant
DX: R68.89 Other general symptoms and signs (principal)

== ENCOUNTER 2025-06-03 09:39 | Outpatient (REF) | payer MEDICARE, SELFPAY ==
[2025-06-03 14:15] LABS: Resp Syncy Virus RNA Qual PCR NEGATIVE (Negative); SARS COV2 PCR INHOUSE NEGATIVE (Negative)
== END 2025-06-03 09:40 | disposition home or self-care (01) ==
LOC: HO.LNP 09:39
PROVIDERS: PCP Internal Medicine; Visit Provider Physician Assistant
DX: R68.89 Other general symptoms and signs (principal); R09.89 Other specified symptoms and signs involving the circulatory and respiratory systems
CPT/HCPCS: 87637; 99212

== ENCOUNTER 2025-07-05 14:33 | Outpatient (AMB) | payer MEDICARE, SELFPAY ==
--- NOTE | 2025-07-05 14:40 | A.OFFVIS_ITS ---
Vital Signs 07/05/25 14:41 Height 5 ft 11 in Weight 177 lb 7.554 oz BMI 24.7 BP 130/56 L Blood Pressure Location Lt brachial Position Sitting Pulse 95 Pulse Source Pulse Oximeter Pulse Oximetry (%) 95 Oxygen Delivery Method Room Air Intake Visit Reasons: Shortness of breath Accompanied by: Self / Same As Patient Allergies lisinopril Allergy (Severe, Verified 07/05/25 14:44) cough codeine (CODEINE) Allergy (Intermediate, Verified 07/05/25 14:44) GI UPSET, nausea/vomiting hydroxyurea (From Hydrea) Adverse Reaction (Intermediate, Verified 07/05/25 14:44) weakness/chills, nausea losartan Adverse Reaction (Intermediate, Verified 07/05/25 14:44) hyperkalemia HPI Comments Details: The patient is a 75-year-old gentleman with a known history of COPD, chronic rhinitis and also pulmonary nodules. Overall he has been doing well from a respiratory status. However he states that he last the sense of smell and taste. This been going on for about a year. He does have nasal congestion but he does not really feel any significant improvement on the fluticasone. He has been doing that for years. He does have underlying allergies. He denies any exposure to anybody with COVID-19 infection that he is aware of. He continues his respiratory therapy with good effect. We did talk about a CT scans of the chest demonstrating stable pulmonary nodules for about 2 years. At this point will have him go chest x-ray to make sure stability in to address the persistent morning cough. 08/23/2021 the patient is here for a pulmonary follow-up visit. Overall he continues to be about the same. He still complaining of a cough which is usually nonproductive in nature. Also complains of shortness of breath. The Symbicort has been partially effective. He continues use that twice a day. In the meantime he was found to have a hiatal hernia and a barium swallow which could be resulting in his chronic cough. He will be undergoing endoscopy soon to further address that. Patient has underlying pulmonary nodules. He was a former smoker. He did undergo a chest x-ray demonstrating increased hyperinflation consistent with COPD. Although his pulmonary nodules are not visible on the x-ray. Therefore I will request a chest CT scan to further address the pulmonary nodules and his ongoing symptoms. Also to note the patient is concerned about some abnormal laboratory findings. His platelet count has been significantly elevated. It is also his potassium was significantly elevated. I have him undergo blood work assessing for inflammatory conditions that could result in pulmonary nodules in the meantime will also recheck his platelet count and his potassium. 11/21/2021 the patient is here for a pulmonary follow-up visit. Overall he is doing relatively well. He continues to have nasal congestion in the upper airway cough syndrome. He tried Astelin nasal spray but stop the fluticasone that was not very helpful. He went back in the fluticasone. I do believe he will do better on the combination so therefore also on Dymista to the pharmacy. The patient does have underlying allergies. he also continues on the singular medication for his allergies. He continues on the Symbicort has been taking it 2 puffs twice a day. He does feel like he needs to take the full dose at this time. I did encourage him that if he does well we can try to decrease to 1 puff twice a day. I did provide him with spacer today. We did review his recent CT scan of the chest demonstrating stable subcentimeter pulmonary nodules largest measuring 4 mm in size which is the same as when he had a CT scan back in [facility] in 2019 and also a [facility] prior to that suggesting disease nodules are stable and unchanged. 07/23/2022 the patient has a telehealth visit today. Apparently was in his usual state health until the beginning of July when he started developing a cough and also sore throat. Ultimately tested positive for COVID-19. He was started on Paxlovid 1 day after having symptoms. He did complete the full course. Initially he was doing well. However, about a week after he started developing worsening cough along with chest tightness. Does have productive mucus. The mucus is yellowish in color. He has been noticing increasing shortness of breath and chest tightness. He has been using his rescue inhaler several times a day. He is also using his maintenance therapy as prescribed. The patient is concerned that he is developing pneumonia. He did test again he still testing positive for COVID-19. The patient was able to check his oxygen and was reassuring. Based on the patient's symptoms indeed a postviral bacterial infection could be arising. Therefore, will go ahead and start him on antibiotics and also a course of prednisone. I do believe that he will benefit from nebulizer. we do have nebulizers available through [facility]. Provide him a nebulizer in order for him to start using the nebulizer twice a day. I will send the medication to the pharmacy. If the patient's condition worsens on this current medication regimen that he needs to go to the ER for further evaluation. 11/19/2022 the patient is here for a pulmonary follow-up visit. The patient is feeling better overall. He recovered from having COVID-19 back in the fall 2021. He had a chest x-ray at that time that appear to be clear. Although, he did have a CT scan of the chest back in October 2021 demonstrating multiple subcentimeter pulmonary nodules. He will need a repeat CT scan to make sure stability. The patient has been using the Symbicort twice a day. He has been complaining of gingival disease. He needs to follow up with his dentist. In t he meantime on having decrease the Symbicort to 1 puff twice a day and also will provide him with chlorhexidine mouth wash N/C this could help in the meantime. The patient did have pulmonary function studies which I personally reviewed and also compared to the ones he had back in 2020. It appears that he continues to have pretty stable mild COPD. Therefore decreasing the medication be reasonabl e. He does continue to have allergies and does uses fluticasone and Singulair with good effect. He will continue to do so at this time. Demonstrates no longer covered through his insurance company so therefore will discontinue that for now. Otherwise the patient return [address] if his CT scan is abnormal I will call and come in sooner. 11/27/2023 the patient is here for a pulmonary follow-up visit. The patient has been doing well from a respiratory status. Denies any significant shortness of breath. He has been using the Symbicort with good effect. Has not had to use his rescue inhaler. He did have a CT scan of the chest back in December 2022 demonstrating stable pulmonary nodule. Only been followed for about a year. He needs to get a repeat CT scan will do it 6 months to make sure that the nodules stable and is not progressing view of his increased high risk for cancer. the patient is here for a pulmonary follow-up visit. He complains of dyspnea on exertion. Also had an episode of chest pressure shortness of breath and hypoxia. Because of his symptoms he was referred to Cardiology. He had a stress test, Jerald protocol that was abnormal when he had some nausea vomiting and near-syncope. Thought to be a vasovagal. Subsequently after that he had an echocardiogram demonstrating some mild hypertrophy which is asymmetric and also demonstrated a slightly low EF. 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 The patient is scheduled to undergo nuclear stress test. In view of his symptoms he was placed on Trelegy. Although he does not feel like it is working as well as Symbicort. His finishing up the prescription so therefore switching over to Breztri so we can have the Symbicort effect with the additional medicine. In the meantime is going to house get a chest x-ray. His last CT scan was back in demonstrating stable pulmonary nodules. We did look at the imaging studies and did demonstrate that he had normal lung parenchyma. I did encourage the patient to lay low for little bit until he gets his nuclear stress test. The patient will try the new inhaler. If he has any issues call. If I see any changes on his x-ray I will call him. Otherwise will follow-up in 3-4 months. 03/29/2025 the patient is here for pulmonary follow-up visit. Overall the patient has been doing okay. Still complains of dyspnea on exertion. We have tried him on multiple inhalers. Currently on Breztri. He will continue but will add a spacer to see if we can provide better relief. He did go to the hospital in early March with shortness of breath and chest discomfort and palpitations. While he was there he had a CTA that I personally did review. Does appear to have some mosaic pattern suggesting of air trapping. No evidence of any significant pulmonary nodules that I can appreciate. Will go ahead and try him on that. He also has Trelegy at home left over. If he does not feel like the Breztri is helping he can also try the Trelegy prior to come in to additional Breztri. The patient will follow-up after his PFTs in the fall of 2024. If he has any issues prior to this he will call for an earlier assessment. 07/05/2025 the patient is here for pulmonary follow-up visit. Overall he is doing okay. The Breztri inhaler has been affecting beneficial. Although when he goes outside he typically has to use his rescue inhaler. He uses his rescue inhaler a couple times a day on top of the Breztri twice a day. Does complain of chest tightness and wheezing. Bzsh-oe-urapxpou severity. The patient did have blood work. His eosinophils have been significantly elevated. The IgE level was high normal. I do believe that based on his ongoing respiratory symptoms an already on maximum respiratory therapy continues to be symptomatic he will benefit from biologic therapy. I do believe the call be a great option for him for his eosinophilic predominant chronic bronchitis and COPD. The patient will start the process of trying to get it approved. In the meantime if follow-up in 6 months. If he has any issues prior to this he can always call for further recommendations. [facility] Medical History (Updated 07/05/25 @ 22:38 by Umang Ivey MD) Dyspnea on exertion Abnormal stress test Dysphagia Hyperkalemia COVID-19 virus infection Lip lesion Pulmonary nodules COPD (chronic obstructive pulmonary disease) Pulmonary nodules Hypercholesterolemia Hypertension BPH (benign prostatic hyperplasia) Chronic rhinitis Asthma-COPD overlap syndrome Surgical History History of total left knee replacement (TKR) History of endoscopy Hx of colonoscopy History of knee surgery Family History Father Lung cancer Mother Hypertension Brother Brain cancer Daughter In good health Social History Household Members: Spouse Housing: House Are you a primary patient care nursing assistant to a significant other at home: No Do you presently have visiting nurse or other home services: No Alcohol intake: current Alcohol intake frequency: holidays/special occasions only Comment: once a week 1drink last drink 10/2024 Patient Tobacco Use Status: Former Tobacco user Tobacco use type: Cigarette Years Smoked: 1984 stopped e-Cigarette/Vaping Use: Never Used Second Hand Smoke Exposure: Yes service: No Current occupational status: retired Cognitive needs: No Hearing needs: No Vision needs: Yes Review of Systems Const Denies weight gain and Denies weight loss Eyes Reports no additional complaints ENT Reports nasal congestion and Denies odynophagia Card Denies chest pain and Reports dyspnea on exertion Resp Reports cough, Reports dyspnea on exertion and Reports wheezing GI Denies abdominal pain, Denies belching, Denies melena, Denies bloating, Denies change in bowel habits, Denies excessive flatus, Denies dyspepsia, Denies heartburn, Denies diarrhea, Denies loose stools, Denies nausea, Denies odynophagia and Denies vomiting Reports no additional complaints Musc Reports no additional complaints Skin/Breast Denies rash Neuro Reports no additional complaints Psych Reports no additional complaints Endo Reports no additional complaints Aller/Immun Reports wheezing Physical Exam Vital Signs: Last Vital Signs Pulse 95 07/05/25 14:41 BP 130/56 L 07/05/25 14:41 Pulse Ox 95 07/05/25 14:41 Oxygen Delivery Method Room Air 07/05/25 14:41 BMI result Body Mass Index 24.7 Const General: healthy appearing, no acute distress and well developed Nutritional Appearance: well nourished Orientation/consciousness: patient oriented x3 HEENT Head: Yes normocephalic Eyes General: appearance normal, both eyes and all related structures Neck Neck: Yes normal visual inspection, Yes full ROM and Yes trachea midline Chest Chest palpation & inspection: normal inspection of the chest Resp Effort & Inspection: normal respiratory effort and prolonged expiratory phase Auscultation: diminished lung sounds Cardio Rate: regular rate Heart sounds: S1 normal heart sound present and S2 normal heart sound present GI Palpation (GI): Soft to palpation Auscultation: normal bowel sounds Skin General skin exam: no rashes or lesions noted Neuro General: patient oriented x3 Extrem General: Yes no clubbing, cyanosis or edema Psych Appearance: grossly normal Assessment & Plan Assessment & Plan (1) COPD (chronic obstructive pulmonary disease): Comment: with Eosiniphilia Code(s): J44.9 - Chronic obstructive pulmonary disease, unspecified Category: Medical Qualifiers: COPD type: chronic bronchitis Chronic bronchitis type: simple Qualified Code(s): J41.0 - Simple chronic bronchitis (2) Chronic rhinitis: Code(s): J31.0 - Chronic rhinitis Category: Medical (3) Pulmonary nodules: Comment: December 2022 CT scan left upper lobe Code(s): R91.8 - Other nonspecific abnormal finding of lung field Category: Medical (4) Dyspnea on exertion: Code(s): R06.09 - Other forms of dyspnea Category: Medical Plan continue Breztri, add Spacer EMILY as needed continue fluticasone continue singulair start Nucala F/U 4-6 months Medications: Refilled zmjoolzlyx-gwgduaub-dvpqiodeej 160-9-4.8 mcg/actuation (Breztri Aerosphere) 2 inhalations inhalation BID 3 ea 3RF 90 days Coding Level of Care Code Est Pt Level 4 (58486) Complex EM visit Add On G2211 Diagnoses Simple chronic bronchitis J41.0 COPD type: chronic bronchitis Chronic bronchitis type: simple Chronic rhinitis J31.0 Pulmonary nodules R91.8 Dyspnea on exertion R06.09 Time Spent (min) 17
[2025-07-05 14:41] VITALS: BP 130/56; PULSE 95; O2SAT 95; BMI 24.7
--- OUTSIDE RECORDS SUMMARY | 2025-07-05 15:57 | XMS_ITS | Encounter Summary ---
[facility] Organization [facility] Address [address] [place] [address] Care Team Providers Care Health Unit Supervisor Name Role Phone Patricai Michel MD Primary Care Provider Unavailabl e Reason for Visit * Reason Onset Date Comments refill request 05/13/2018 Encounter Details Date Type Department Care Team Description 05/13/2018 Refill Pulmonology - [place] [address] [facility] [address] [place] [address] Viktoriya Carroll MD [address] [place] [address] refill request Social History Tobacco Use Types Packs/Day Years Used Date Smoking Tobacco: Former Cigarettes 1 50 Smokeless Tobacco: Never Comments:quit 20 yrs ago Alcohol Use Standard Drinks/Week Comments Yes 1 (1 standard drink = 0.6 oz pur e alcohol) weekly Sex Assigned at Date Recorded Not on file documented as of this encounter Miscellaneous Notes * Telephone Encounter - Suyapa Johnsonart - 05/13/2018 10:31 AM EDT Patient would like script to be: E-PRESCRIBED/FAXED TO PHARMACY WHEN WAS THE PATIENT'S LAST APPOINTMENT WITH THE PRESCRIBING PROVIDER? 03/11/2018 Does patient have an upcoming appointment? Yes 09/09/2018 (THE MEDICATION REQUESTED IS ON THE MED LIST ABOVE) All of the medications requested were on the CURRENT MEDS list Did you check the Pharmacy information above?: YES Patient wants: 90 -day supply Is this a mail order prescription request ? YES Patients current insurance carrier is: Payor: [facility]/MEDICARE PPO / [facility]20 [place] / Product Type: MEDICARE [id number] documented in this encounter Plan of Treatment Not on file documented as of this encounter Visit Diagnoses Not on filedocumented in this encounter Care Teams Health Unit Supervisor Relationship Specialty Start Date End Date Patricia Michel MD PCP - General Internal Medicine 03/11/18 documented as of this encounter
--- OUTSIDE RECORDS SUMMARY | 2025-07-05 15:57 | XMS_ITS | Clinical Summary ---
Author Organization [facility] Address [address] [facility] [address] [place] [address] Phone Care Team Providers Care Agricultural Chemist Name Role Phone Patricia Michel MD Primary Care Provider Allergies Active Allergy Reactions Criticality Noted Date [...] Date Diagnosed Date Hyperkalemia Essential hypertension Thrombocytosis Encounters Date Type Department Care Team Description 06/07/2025 Orders Only [facility] [address] [place] [id number] Danilo Alicea MD Essential hypertension; Other thrombocytosis; Hyperkalemia from Last 3 Months Family History Medical History Relation Comments Cancer [...] Office Visit [facility] [address] [address] Danilo Alicea MD [address] [address] Health Maintenance Due Date Last Done Comments Pneumococcal Vaccine: 50+ Years (1 of 2 - PCV) 1970 Colorectal Cancer Screening: Annual FOBT 2000 Colorectal Cancer Screening: Colonoscopy 2000 Colorectal Cancer Screening: Sigmoidoscopy 2000 Influenza Vaccine (#1) 2025 2, 08/25/2021, 08/13/2017, Additional history exists Hepatitis B Vaccine Aged Out No longe r eligible based on patient's age to complete this topic Insurance [facility] PPO CloudOn([id number]) [facility] PPO Blue([id number]) Care Teams Agricultural Chemist Relationship Specialty Start Date End Date Patricia Michel MD [address] AKANKSHA PEREZ PCP - General Internal Medicine 03/11/22
--- OUTSIDE RECORDS SUMMARY | 2025-07-05 15:57 | XMS_ITS | Encounter Summary ---
Author Organization [facility] Address [address] [place] [address] Care Team Providers Care Gasoline Tester Name Role Phone Nelson Martínez Primary Care Provider Patricia Mccormack MD Primary Care Provider Daly e Encounter Details Date Type Department Care Team Description 08/13/2017 Orders Only Pulmonology - [address] [place] [address] Social History Tobacco Use Types [...] on filedocumented in this encounter Care Teams Gasoline Tester Relationship Specialty Start Date End Date Nelson Martínez PCP - General Internal Medicine 08/13/17 03/10/18 Patricia Michel MD PCP - General Internal Medicine 03/11/18 documented as of this encounter
--- OUTSIDE RECORDS SUMMARY | 2025-07-05 15:57 | XMS_ITS | Clinical Summary ---
Author Organization [facility] Address [address] [place] [address] [place] [phone] Phone Care Team Providers Care Altitude Chamber Technician Name Role Phone Patricia Michel MD Primary Care Provider [phone] Social History Tobacco Use Types Packs/Day Years [...] 2001 ZOSTER VACCINES (1 of 2) 2001 INFLUENZA VACCINE (#1) 2025 COVID-19 VACCINE ( - 2023-2 5 season) 2025 RSV VACCINE (1 - 1-dose 75+ series) [...] topic Medical Devices Not on file Insurance [facility] MEDICARE PPO BLUE REPLACEMENT MEDICARE PART A & B [facility] MEDICARE PPO BLUE REPLACEMENT MEDICARE PART A & B MEDICARE PPO BLUE REPLACEMENT MEDICARE PART A & B MEDICARE PPO BLUE REPLACEMENT MEDICARE PART A & B [place] RE[place]AC[place] MEDICARE PART A & B [place] MED[place] BLUE REPLACEMENT MEDICARE PART A & B Care Teams Altitude Chamber Technician Relationship Specialty Start Date End Date Patricia Michel MD [address] [place] [address] PCP - General Internal Medicine 11/24/24 Additional Source Comments The information contained in this document represents components of the legal health record. It is not the complete legal health record.[facility]
--- OUTSIDE RECORDS SUMMARY | 2025-07-05 15:57 | XMS_ITS | Clinical Summary ---
Author Organization [address] Address [address] [place] [phone] Phone Care Team Providers Care Trouble Dispatcher Name Role Phone Patricia Michel MD Primary Care Provider [phone] Allergies No known active allergies Social History [...] Shingrix (RZV) 2 Dose Standard Series) 2001 Influenza vaccine 05/06/2025 09/04/2022, , 08/13/2017, Additional history exists Covid-19 vaccine series (1 - 2023- season) 2025 RSV Immunization (1 - 1-dose 75+ series) 2026 Meningococcal B Vaccine Aged Out No l onger eligible based on patient's age to complete this topic Meningococcal Vaccine Aged Out No tamara lori eligible based on patient's age to complete this topic Insurance [facility] BCBS Care Teams Trouble Dispatcher Relationship Specialty Start Date End Date Patricia Michel MD [address] [place] [address] Dr RivasyoAKANKSHA singh [phone] PCP - General Internal Medicine 03/07/24
== END 2025-07-05 15:09 | disposition home or self-care (01) ==
LOC: HO.HPS 14:34
PROVIDERS: PCP Internal Medicine; Visit Provider Hospitalist
DX: J41.0 Simple chronic bronchitis (principal); J31.0 Chronic rhinitis; R91.8 Other nonspecific abnormal finding of lung field; R06.09 Other forms of dyspnea
CPT/HCPCS: 99214; G2211

== ENCOUNTER → 2025-07-05 14:33 | Outpatient (BNVA) | payer MEDICARE, SELFPAY | PROVIDERS: PCP Internal Medicine; Visit Provider Hospitalist | DX: R06.02 Shortness of breath (principal); J41.0 Simple chronic bronchitis; J31.0 Chronic rhinitis; R91.8 Other nonspecific abnormal finding of lung field; R06.09 Other forms of dyspnea | CPT/HCPCS: 99212 ==

== ENCOUNTER 2025-07-07 14:21 | Outpatient (AMB) | payer MEDICARE, SELFPAY ==
[2025-07-07 14:22] VITALS: BP 144/78; PULSE 100; TEMP 36.2; O2SAT 97; BMI 24.7
--- NOTE | 2025-07-07 14:22 | MHC.PC.OV ---
Vital Signs 07/07/25 14:22 Height 5 ft 11 in Weight 177 lb 6 oz BMI 24.7 BP 144/78 H Blood Pressure Location Lt brachial Position Sitting Pulse 100 Pulse Source Pulse Oximeter Temp 97.1 F Temp Source Temporal Artery Scan Pulse Oximetry (%) 97 Oxygen Delivery Method Room Air Intake Visit Reasons: COPD Allergies lisinopril Allergy (Severe, Verified 07/07/25 14:25) cough codeine (CODEINE) Allergy (Intermediate, Verified 07/07/25 14:25) GI UPSET, nausea/vomiting hydroxyurea (From Hydrea) Adverse Reaction (Intermediate, Verified 07/07/25 14:25) weakness/chills, nausea losartan Adverse Reaction (Intermediate, Verified 07/07/25 14:25) hyperkalemia Tobacco use date assessed: 07/07/25 Fall risk assessment: No Falls in past year Last assessed Fall Risk: 07/07/25 Dental Screening Dental Screen Date: 07/07/25 Did you have a dental visit in the last 12 months?: Yes Did you have a dental problem in the last 6 months where you did not have access to dental care?: No Was dental information given to patient?: Patient has dentist HPI COPD HPI Details asking for bloodwork [facility] Medical History Dyspnea on exertion Abnormal stress test Dysphagia Hyperkalemia COVID-19 virus infection Lip lesion Pulmonary nodules COPD (chronic obstructive pulmonary disease) Pulmonary nodules Hypercholesterolemia Hypertension BPH (benign prostatic hyperplasia) Chronic rhinitis Asthma-COPD overlap syndrome Surgical History History of total left knee replacement (TKR) History of endoscopy Hx of colonoscopy History of knee surgery Family History Father Lung cancer Mother Hypertension Brother Brain cancer Daughter In good health Social History Household Members: Spouse Housing: House Are you a primary geriatric personal care aide to a significant other at home: No Do you presently have visiting nurse or other home services: No Alcohol intake: current Alcohol intake frequency: holidays/special occasions only Comment: once a week 1drink last drink 10/2024 Patient Tobacco Use Status: Former Tobacco user Tobacco use type: Cigarette Years Smoked: 1984 stopped e-Cigarette/Vaping Use: Never Used Second Hand Smoke Exposure: Yes service: No Current occupational status: retired Cognitive needs: No Hearing needs: No Vision needs: Yes Questionnaire PHQ-9 Over the last 2 weeks, how often have you been bothered by any of the following problems? 1. Little interest or pleasure in doing things: nearly every day 2. Feeling down, depressed, or hopeless: nearly every day 3. Trouble falling or staying asleep, or sleeping too much: more than half the days 4. Feeling tired or having little energy: nearly every day 5. Poor appetite or overeating: more than half the days 6. Feeling bad about yourself - or that you are a failure or have let yourself or your family down: more than half the days 7. Trouble concentrating on things, such as reading the newspaper or watching television: more than half the days 8. Moving or speaking so slowly that other people could have noticed. Or the opposite - being so fidgety or restless that you have been moving around a lot more than usual: several days 9. Thoughts that you would be better off or of hurting yourself in some way: not at all Total score: 18 Depression Screening Interpretation: Positive Depression Screening Done: Yes Source: Developed by Drs. Rajan Fry, Neetu Torres, Ziggy Contreras and colleagues, with an educational gloria from [employer]. Thrive Questionnaire Date Thrive assessed: 03/16/25 I am a: Patient What is your living situation today?: I have a steady place to live Within the past 12 months, did the food you bought not last and you didn't have the money to get more?: Never true Within the past 12 months, did you worry whether your food would run out before you got money to buy more?: Never true Do you have trouble paying for medicines?: No Do you have trouble getting transportation to medical appointments?: No Do you have trouble paying your heating and electricity bill?: No Do you have trouble taking care of your child, family member or friend?: No Do you have trouble with day-to-day activities such as bathing, preparing meals, shopping, managing finances, etc.?: No Are you currently unemployed and looking for a job?: No Are you interested in more education?: No Please select the resources that you would like help with: None Currently or been in a relationship where the following occur: No concerns reported THRIVE Score: 0 AUDIT C Alcohol Use Questionnaire (AUDIT-C) 1. How often do you have a drink containing alcohol?: Monthly or less 2. How many drinks containing alcohol do you have on a typical day when you are drinking?: 1 or 2 3. How often do you have six or more drinks on one occasion?: Never Total Score: 1 DEBORAH-7 AMB Questionnaire DEBORAH-7 Date DEBORAH - 7 assessed: 03/16/25 Feeling nervous, anxious, or on edge: 0 = Not at all Not being able to stop or control worryin = Several days Worrying too much about different things: 1 = Several days Trouble relaxin = Not at all Being so restless that it is hard to sit still: 0 = Not at all Becoming easily annoyed or irritable: 0 = Not at all Feeling afraid as if something awful might happen: 0 = Not at all Total DEBORAH-7 score (0-4 normal; 5-9 mild; 10-14 moderate; 15-21 severe): 2 Source: Developed by Drs. Rajan Fry, Neetu Torres, Ziggy Contreras and colleagues, with an educational gloria from [employer]. Physical exam (Primary Care) Vital Signs: Last Vital Signs Temp 97.1 F 07/07/25 14:22 Pulse 100 07/07/25 14:22 BP 144/78 H 07/07/25 14:22 Pulse Ox 97 07/07/25 14:22 Oxygen Delivery Method Room Air 07/07/25 14:22 BMI result Body Mass Index 24.7 Tobacco/Smoking Status: Tobacco use Status Tobacco use date assessed 07/07/25 07/07/25 14:31 Patient Tobacco Use Status Former Tobacco user 07/07/25 14:31 Tobacco use type Cigarette 07/07/25 14:31 e-Cigarette/Vaping Use Never Used 07/07/25 14:31 PHQ-9: PHQ-9 Score PHQ-9: Total score 18 07/07/25 15:11 Depression Screening Interpretation: Positive Thrive Assessment: Date of Thrive Assessment Date Thrive assessed 03/16/25 07/07/25 14:31 Currently or been in a relationship where the following occur: No concerns reported Const General: alert; No acute distress Eyes Conjunctivae: conjunctivae normal Resp Auscultation: clear to auscultation bilaterally Cardio Rate: regular rate Rhythm: regular rhythm GI Inspection: Yes normal to inspection Extrem General: Yes normal to inspection and No edema Coding Level of Care Code Est Pt Level 4 (29723) Complex EM visit Add On G2211 Diagnoses Essential hypertension I10 Hypertension type: essential hypertension 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 Decrease salt intake and exercise on amlodipine 5 mg once a day (2) Atherosclerotic cardiovascular disease: Code(s): I25.10 - Atherosclerotic heart disease of [place] coronary artery without angina pectoris Category: Medical Plan: Control the cholesterol, weight, blood pressure, on atorvastatin 40 mg once a day (3) Hypercholesterolemia: Code(s): E78.00 - Pure hypercholesterolemia, unspecified Category: Medical Plan: Avoid fried foods, chicken skin, eggs, butter margarine, pastries and meat. Be it pork or beef they have a lot of cholesterol LDL goal of less than 70 and triglyceride of less than 150 on atorvastatin (4) GERD (gastroesophageal reflux disease): Code(s): K21.9 - Gastro-esophageal reflux disease without esophagitis Category: Medical Qualifiers: Esophagitis presence: esophagitis presence not specified Qualified Code(s): K21.9 - Gastro-esophageal reflux disease without esophagitis Plan: Avoid the foods that causes that usually spicy foods, tomato products, juices, coffee, soda and foods that your sensitive to. After eating do not lie down, allow 3-4 hours before in lie down. And keep the head of bed above 30 degrees to avoid the acid from going up. (5) BPH (benign prostatic hyperplasia): Code(s): N40.0 - Benign prostatic hyperplasia without lower urinary tract symptoms Category: Medical Plan: Continue with tamsulosin (6) History of total left knee replacement: Comment: January 2025 Code(s): Z96.652 - Presence of left artificial knee joint Category: Surgical Plan: Continue to follow-up with orthopedics (7) Asthma-COPD overlap syndrome: Comment: May 2025 PFTMild obstructive ventilatory defect with no bronchodilator response. Decreased diffusion capacity suggests emphysema Code(s): J44.9 - Chronic obstructive pulmonary disease, unspecified Category: Medical Plan: Patient has been following up with Pulmonary on Breztri albuterol montelukast and recently Nucala Plan History of Present Illness The patient is a 75-year-old male presenting for a routine follow-up and management of chronic conditions. The patient has a history of asthma-COPD overlap syndrome and follows up with pulmonary specialists. He uses medications including albuterol, fluticasone, and montelukast, and has recently been prescribed Nucala. He reports occasional shortness of breath, particularly with exertion, but did not require his emergency inhaler on the day of the visit. The patient has benign prostatic hyperplasia and is on tamsulosin for management. He reports nocturia occurring a couple of times per night. Hypertension is managed with amlodipine 5 mg daily. His blood pressure management plan includes regular monitoring. Hypercholesterolemia is managed with atorvastatin 40 mg daily, aiming for an LDL goal of less than 70 mg/dL and triglycerides less than 150 mg/dL. The patient has a history of generalized anxiety disorder, which was exacerbated prior to his knee surgery. He occasionally experiences depression after consuming alcohol. The patient follows up with hematology-oncology for thrombocytosis, managed with anagrelide 1.5 mg twice daily. He is monitored for platelet counts and has a history of mild anemia. Orthopedic history includes a left knee replacement in January, with follow-up in May. He completed physical therapy and plans to continue exercise at a fitness center. Preventative care includes a colonoscopy performed in 2023 and vaccinations for flu, shingles, tetanus, RSV, and pneumonia. Health Maintenance - Colonoscopy performed in 2023 - Vaccinations: flu, shingles, tetanus, RSV, and pneumonia Social History - Exercise: Completed physical therapy and plans to continue at a fitness center - Alcohol use: Occasional consumption, noted to cause depression the following day Review of Systems - Respiratory: Reports occasional dyspnea, particularly with exertion. Denies needing emergency inhaler on the day of visit. - Genitourinary: Reports nocturia occurring a couple of times per night. - Psychological: Reports anxiety exacerbated prior to knee surgery. Reports occasional depression after alcohol consumption. Physical Exam Results - Labs: Blood work in June showed mild anemia and normal electrolytes. - Imaging: Ultrasound of lower extremity in March showed negative DVT but presence of a popliteal cyst. Plan Patient was informed and verbally consented to the use of an ambient scribe for clinic note documentation during this visit. 1. Asthma-Copd Overlap Syndrome The patient continues to follow up with pulmonary specialists and is on a regimen including albuterol, fluticasone, montelukast, and recently Nucala. He reports occasional dyspnea, particularly with exertion, but did not require his emergency inhaler on the day of the visit. 2. Benign Prostatic Hyperplasia (Bph) The patient is on tamsulosin for management and reports nocturia occurring a couple of times per night. 3. Hypertension Hypertension is managed with amlodipine 5 mg daily, with a plan for regular monitoring of blood pressure. 4. Hypercholesterolemia The patient is on atorvastatin 40 mg daily, with an LDL goal of less than 70 mg/dL and triglycerides less than 150 mg/dL. 5. Generalized Anxiety Disorder The patient reports anxiety exacerbated prior to knee surgery and occasional depression after alcohol consumption. 6. Thrombocytosis The patient follows up with hematology-oncology and is on anagrelide 1.5 mg twice daily, with monitoring of platelet counts. 7. Mild Anemia Recent blood work in June showed mild anemia, which is chronic. 8. Popliteal Cyst An ultrasound of the lower extremity in March showed a popliteal cyst, with negative DVT findings. 9. Preventative Care Preventative care includes a colonoscopy performed in 2023 and vaccinations for flu, shingles, tetanus, RSV, and pneumonia. Discussion Notes During the visit, we discussed the management of the patient's chronic conditions, including asthma-COPD overlap syndrome, hypertension, hypercholesterolemia, and benign prostatic hyperplasia. We reviewed the importance of medication adherence and regular follow-ups with specialists, particularly for pulmonary and hematology-oncology care. Preventative care measures, such as vaccinations and colonoscopy, were also emphasized. Patient Instructions - Continue taking prescribed medications as directed. - Follow up with pulmonary and hematology-oncology specialists as scheduled. - Maintain regular exercise and physical activity. - Avoid alcohol consumption to prevent exacerbation of depression. - Schedule and receive vaccinations, including the flu shot, as recommended. Orders: Orders Complete Blood Count Auto Diff Today I25.10 - Atherosclerotic heart disease of [place] coronary artery without angina pectoris Comprehensive Met. Panel Today I25.10 - Atherosclerotic heart disease of [place] coronary artery without angina pectoris Thyroid Stimulating Hormone Today I25.10 - Atherosclerotic heart disease of [place] coronary artery without angina pectoris
--- OUTSIDE RECORDS SUMMARY | 2025-07-07 15:58 | XMS_ITS | Clinical Summary ---
Author Organization [facility] Address [address] [place] [address] Phone Care Team Providers Care Advertising Inserter Name Role Phone Patricia Michel MD Primary Care Provider [phone] Allergies Active Allergy Reactions Criticality Noted Date [...] Orders Only [facility] [address] [place] [id number] Danilo Alicea MD Essential hypertension; Other [...] Office Visit [facility] [address] [address] Danilo Alicea MD [address] [address] Health Maintenance Due Date Last Done Comments Pneumococcal Vaccine: 50+ Years (1 of 2 - PCV) 1970 Colorectal Cancer Screening: Annual FOBT 2000 Colorectal Cancer Screening: Colonoscopy 2000 Colorectal Cancer Screening: Sigmoidoscopy 2000 Influenza Vaccine (#1) 2025 2, 08/25/2021, 08/13/2017, Additional history exists Hepatitis B Vaccine Aged Out No longe r eligible based on patient's age to complete this topic Insurance [facility] PPO CS Disco([id number]) [facility] PPO Blue([id number]) Care Teams Advertising Inserter Relationship Specialty Start Date End Date Patricia Michel MD [address] AKANKSHA PEREZ PCP - General Internal Medicine 03/11/22
--- OUTSIDE RECORDS SUMMARY | 2025-07-07 15:58 | XMS_ITS | Clinical Summary ---
Author Organization [facility] Address [address] [place] [address] [place] [phone] Phone Care Team Providers Care Building Performance Specialist Name Role Phone Patricia Michel MD Primary Care Provider [phone] Social History Tobacco Use Types Packs/Day Years [...] topic Medical Devices Not on file Insurance [facility] MEDICARE PPO BLUE REPLACEMENT MEDICARE PART A & B [facility] MEDICARE PPO BLUE REPLACEMENT MEDICARE PART A & B MEDICARE PPO BLUE REPLACEMENT MEDICARE PART A & B MEDICARE PPO BLUE REPLACEMENT MEDICARE PART A & B [place] RE[place] MEDICARE PART A & B [place] RE[place]AC[place] MEDICARE PART A & B Care Teams Building Performance Specialist Relationship Specialty Start Date End Date Patricia Michel MD [address] [place] [address] PCP - General Internal Medicine 11/24/24 Additional Source Comments The information contained in this document represents components of the legal health record. It is not the complete legal health record.[facility]
--- OUTSIDE RECORDS SUMMARY | 2025-07-07 15:58 | XMS_ITS | Clinical Summary ---
Author Organization [address] Address [address] [place] [phone] Phone Care Team Providers Care Rn Occupational Name Role Phone Patricia Michel MD Primary Care Provider [phone] Allergies No known active allergies Social History [...] patient's age to complete this topic Insurance [facility] BCBS Care Teams Rn Occupational Relationship Specialty Start Date End Date Patricia Michel MD [address] [place] [address] Dr RivasyoAKANKSHA singh [phone] PCP - General Internal Medicine 03/07/24
== END 2025-07-07 15:23 | disposition home or self-care (01) ==
LOC: HO.HMCH 14:21
PROVIDERS: PCP Internal Medicine; Visit Provider Internal Medicine
DX: I10 Essential (primary) hypertension (principal); I25.10 Atherosclerotic heart disease of native coronary artery without angina pectoris; J44.9 Chronic obstructive pulmonary disease, unspecified; E78.00 Pure hypercholesterolemia, unspecified; K21.9 Gastro-esophageal reflux disease without esophagitis; N40.0 Benign prostatic hyperplasia without lower urinary tract symptoms; Z96.652 Presence of left artificial knee joint

== ENCOUNTER 2025-07-07 14:21 | Outpatient (REF) | payer MEDICARE, SELFPAY ==
[2025-07-07 15:42] LABS: MANUAL DIFF FLAG NO
[2025-07-07 17:31] LABS: Hematocrit 37.4 % (42.0-52.0); Hemoglobin 12.2 g/dl (14.0-18.0); Imm Gran Abs Auto 0.06 X10*3/uL (0.00-0.03); Imm Gran Pct Auto 0.7 % (0.0-0.4); Lymphocytes Absolute Auto 1.6 X10*3/uL (1.2-4.9); Mean Corpuscular HGB Conc 32.6 g/dl (31.0-36.0); Mean Corpuscular Hemoglobin 27.2 pg (27.0-33.0); Mean Corpuscular Volume 83.5 fL (80.0-98.0); NRBC Abs Auto 0.000 X10*3/uL (0.0-0.012); NRBC Pct Auto 0.0 /100WBC (0.0-0.2); Platelet Count 479 X10*3/uL (160-400); Red Blood Count 4.48 X10*6/uL (4.60-5.80); White Blood Count 8.8 X10*3/uL (4.8-10.8)
[2025-07-07 18:03] LABS: Alanine Aminotransferase 35 U/L (0-40); Albumin Level 4.6 g/dL (3.5-5.0); Alkaline Phosphatase 59 U/L (39-117); Anion Gap 12 (12-20); Aspartate Amino Transferase 38 U/L (5-37); Blood Urea Nitrogen 14 mg/dL (9-16); Calcium 9.1 mg/dL (8.4-10.2); Carbon Dioxide 26 mmol/L (22-29); Chloride 102 mmol/L (96-108); Estimated Glomerular Filt Rate > 60; Potassium 4.9 mmol/L (3.3-5.1); Sodium 135 mmol/L (135-145); Total Protein 7.2 g/dL (6.5-8.0)
[2025-07-07 18:12] LABS: Thyroid Stimulating Hormone 1.81 uIU/mL (0.32-4.0)
[2025-07-07 18:15] LABS: D Dimer High Sensitivity 595 NG/ML
== END 2025-07-07 14:22 | disposition home or self-care (01) ==
LOC: HO.LAB 14:21
PROVIDERS: PCP Internal Medicine; Visit Provider Internal Medicine
DX: I25.10 Atherosclerotic heart disease of native coronary artery without angina pectoris (principal); R06.02 Shortness of breath; I10 Essential (primary) hypertension; E78.00 Pure hypercholesterolemia, unspecified; K21.9 Gastro-esophageal reflux disease without esophagitis; N40.0 Benign prostatic hyperplasia without lower urinary tract symptoms; J44.89 Other specified chronic obstructive pulmonary disease; F41.9 Anxiety disorder, unspecified; D75.839 Thrombocytosis, unspecified; D64.9 Anemia, unspecified; Z96.652 Presence of left artificial knee joint
CPT/HCPCS: 36415; 80053; 84443; 85025; 85379; 96127; 99212